=== PATIENT | female | born 1980 | race Caucasian/White ===

== ENCOUNTER 2018-12-29 15:45 | Emergency (ER) | payer OTHER, SELFPAY ==
--- OUTSIDE RECORDS SUMMARY | 2018-12-29 15:47 | XMS REPORT ---
:1980 Author Organization e[employer] Care Team Providers Name Role Phone Antioneraphael Gay Provider Role Unavailable Allergies, Adverse Reactions, Alerts Substance Reaction Event Type tramadol seizures Drug Allergy penicillin break out in hives Drug Allergy Problems Problem Type Condition Code Onset Dates Condition Status Assessment History of endometriosis Z87.42 Active Assessment Left ovarian cyst N83.202 Active Assessment History of hysterectomy Z90.710 Active Assessment Lower abdominal pain R10.30 Active Assessment Anxiety F41.9 Active Assessment Morbid (severe) obesity due to E66.01 Active excess calories Assessment Body mass index (BMI) of 40.0-44.9 Z68.41 Active in adult Problem Frequent headaches R51 Active Assessment Fatigue, unspecified type R53.83 Active Problem Morbid (severe) obesity due to E66.01 Active excess calories Assessment Lightheadedness R42 Active Problem Swelling R60.9 Active Problem Migraines G43.909 Active Problem History of hysterectomy Z90.710 Active Problem Shortness of breath R06.02 Active Problem Palpitations R00.2 Active Assessment Asthma, unspecified asthma J45.909 Active severity, unspecified whether complicated, unspecified whether persistent Assessment History of diabetes as a child Z86.39 Active Problem Diabetes E11.9 Active Assessment Frequent headaches R51 Active Problem Lightheadedness R42 Active Problem Lower abdominal pain R10.30 Active Problem Anxiety F41.9 Active Problem Depression F32.9 Active Problem Asthma, unspecified asthma J45.909 Active severity, unspecified whether complicated, unspecified whether persistent Problem Left ovarian cyst N83.202 Active Assessment Palpitations R00.2 Active Assessment Shortness of breath R06.02 Active Problem History of diabetes as a child Z86.39 Active Problem Fatigue, unspecified type R53.83 Active Problem Body mass index (BMI) of 40.0-44.9 Z68.41 Active in adult Problem History of endometriosis Z87.42 Active Medications Medication Code Code Instructions Start End Status Dosage System Date Date Lidocaine [facility] 44329438199 5 % Externally Active 1 patch to Once a day skin remove after 12 hours Hydrocodone-Ac [facility] [address]-93 5-325 MG Orally Active 1 tablet etaminophen Twice a day as needed Robaxin [facility] [address]-26 500 MG Orally Active not Twice a day defined Results No Known Results Summary Purpose [employer]ClinicalWorks Submission
--- OUTSIDE RECORDS SUMMARY | 2018-12-29 15:48 | XMS REPORT ---
:1980 Author Organization [employer] Care Team Providers Name Role Phone Randal Gay Provider Role Unavailable Allergies No Known Allergies Problems Problem Type Condition Code Onset Dates Condition Status Problem Fatigue, unspecified type R53.83 Active Problem Morbid (severe) obesity due to E66.01 Active excess calories Problem Frequent headaches R51 Active Problem Depression F32.9 Active Problem Lightheadedness R42 Active Problem Vitamin D deficiency E55.9 Active Problem History of hysterectomy Z90.710 Active Problem Swelling R60.9 Active Problem Lower abdominal pain R10.30 Active Problem Migraines G43.909 Active Problem Palpitations R00.2 Active Problem Shortness of breath R06.02 Active Problem Anxiety F41.9 Active Problem Left ovarian cyst N83.202 Active Problem Body mass index (BMI) of 40.0-44.9 Z68.41 Active in adult Problem Diabetes E11.9 Active Problem History of endometriosis Z87.42 Active Problem Asthma, unspecified asthma J45.909 Active severity, unspecified whether complicated, unspecified whether persistent Problem History of diabetes as a child Z86.39 Active Medications No Known Medications Results No Known Results Summary Purpose [employer]ClinicalWorks Submission
--- OUTSIDE RECORDS SUMMARY | 2018-12-29 15:48 | XMS REPORT ---
:1980 Author Organization [employer] Care Team Providers Name Role Phone Randal Gay Provider Role Unavailable Allergies No Known Allergies Problems Problem Type Condition Code Onset Dates Condition Status Problem Fatigue, unspecified type R53.83 Active Problem Morbid (severe) obesity due to E66.01 Active excess calories Problem Frequent headaches R51 Active Problem Depression F32.9 Active Assessment Elevated blood pressure reading in R03.0 Active office without diagnosis of hypertension Problem Lightheadedness R42 Active Problem Vitamin D deficiency E55.9 Active Problem History of hysterectomy Z90.710 Active Problem Swelling R60.9 Active Problem Lower abdominal pain R10.30 Active Problem Migraines G43.909 Active Problem Palpitations R00.2 Active Problem Shortness of breath R06.02 Active Assessment Snoring R06.83 Active Problem Anxiety F41.9 Active Problem Left [...] Medications Results No Known Results Summary Purpose [employer] Submission
--- OUTSIDE RECORDS SUMMARY | 2018-12-29 15:48 | XMS REPORT ---
:1980 Author Organization [employer]Works Care Team Providers Name Role Phone Gay Tee Provider Role Unavailable Allergies, Adverse Reactions, Alerts Substance Reaction Event Type tramadol seizures Drug Allergy penicillin break out in hives Drug Allergy Problems Problem Type Condition Code Onset Dates Condition Status Assessment Swelling of left lower extremity M79.89 Active Assessment Other chronic pain G89.29 Active Assessment Left leg pain M79.605 Active Assessment Low back pain M54.5 Active Assessment Neck pain M54.2 Active Assessment Left ovarian cyst N83.202 Active Assessment Lower abdominal pain R10.30 Active Assessment Vitamin D deficiency E55.9 Active Problem History of hysterectomy Z90.710 Active Problem Asthma, unspecified asthma J45.909 Active severity, unspecified whether complicated, unspecified whether persistent Problem Anxiety F41.9 Active Problem Left ovarian cyst N83.202 Active Problem History of endometriosis Z87.42 Active Problem Body mass index (BMI) of 40.0-44.9 Z68.41 Active in adult Problem Low back pain M54.5 Active Problem Other chronic pain G89.29 Active Problem Diabetes E11.9 Active Problem Shortness of breath R06.02 Active Problem Neck pain M54.2 Active Problem Palpitations R00.2 Active Problem Vitamin D deficiency E55.9 Active Problem Depression F32.9 Active Problem Left leg pain M79.605 Active Problem Swelling of left lower extremity M79.89 Active Problem Lightheadedness R42 Active Problem History of diabetes as a child Z86.39 Active Problem Migraines G43.909 Active Problem Lower abdominal pain R10.30 Active Problem Morbid (severe) obesity due to E66.01 Active excess calories Problem Swelling R60.9 Active Problem Fatigue, unspecified type R53.83 Active Problem Frequent headaches R51 Active Medications Medication Code Code Instructions Start End Status Dosage System Date Date Lidocaine ND 13608682544 5 % Externally Active 1 patch to Once a day skin remove after 12 hours Hydrocodone-Ac ND 42969874540 5-325 MG Orally Active 1 tablet etaminophen Twice a day as needed Robaxin [facility] 56641654184 500 MG Orally Active not Twice a day defined Results No Known Results Summary Purpose [employer] Submission
--- OUTSIDE RECORDS SUMMARY | 2018-12-29 15:48 | XMS REPORT ---
:1980 Author Organization [employer] Care Team Providers Name Role Phone Gay Tee Provider Role Unavailable Allergies No Known Allergies [...]
--- OUTSIDE RECORDS SUMMARY | 2018-12-29 15:48 | XMS REPORT ---
:1980 Author Organization [employer]Works Care Team Providers Name Role Phone Gay Tee Provider Role Unavailable Allergies, Adverse Reactions, Alerts Substance Reaction Event Type tramadol seizures Drug Allergy penicillin break out in hives Drug Allergy Problems Problem Type Condition Code Onset Dates Condition Status Assessment Morbid (severe) obesity due to E66.01 Active excess calories Assessment Body mass index (BMI) of 40.0-44.9 Z68.41 Active in adult Problem History of endometriosis Z87.42 Active Assessment Snoring R06.83 Active Problem History of diabetes as a child Z86.39 Active Assessment Vitamin D deficiency E55.9 Active Problem Fatigue, unspecified type R53.83 Active Problem Morbid (severe) obesity due to E66.01 Active excess calories Problem Frequent headaches R51 Active Problem Depression F32.9 Active Problem Lightheadedness R42 Active Assessment History of diabetes as a child Z86.39 Active Assessment Elevated serum creatinine R79.89 Active Problem Vitamin D deficiency E55.9 Active Assessment Elevated BP without diagnosis of R03.0 Active hypertension Problem History of hysterectomy Z90.710 Active Problem Swelling R60.9 Active Problem Lower abdominal pain R10.30 Active Problem Migraines G43.909 Active Problem Palpitations R00.2 Active Problem Shortness of breath R06.02 Active Assessment Hyperglycemia R73.9 Active Problem Anxiety F41.9 Active Problem Left ovarian cyst N83.202 Active Problem Body mass index (BMI) of 40.0-44.9 Z68.41 Active in adult Problem Diabetes E11.9 Active Problem Asthma, unspecified asthma J45.909 Active severity, unspecified whether complicated, unspecified whether persistent Medications Medication Code Code Instructions Start End Status Dosage System Date Date Hydrocodone-Ac [facility] 04733385456 5-325 MG Orally Active 1 tablet etaminophen Twice a day as needed Robaxin [facility] 41418339494 500 MG Orally Active not Twice a day defined Vitamin D [facility] [id number] UNIT April 29Jul Active 1 capsule (Ergocalcifero Orally Once 2018 09, l) weekly 2018 Lidocaine [facility] 03097614586 5 % Externally Active 1 patch to Once a day skin remove after 12 hours Results No Known Results Summary Purpose [employer]ClinicalWorks Submission
[2018-12-29] MEDS ORDERED: FENTANYL CITR 100 MCG/2 ML ONE (18:11)
[2018-12-29] MEDS ORDERED: NA CHLORIDE 0.9% 1,000 ML ONE (18:11)
[2018-12-29 18:33] LABS: Absolute Lymphocytes (CBC) 3.6 K/uL (0.7-4.9); Absolute Monocytes 0.6 K/uL (0.1-1.3); Absolute Neutrophil 4.1 K/uL (1.8-8.0); Basophils % 0.5 % (0-1.3); Eosinophils % 1.4 % (0-4.4); Hematocrit 47.7 % (36.0-45.0); Lymphocytes % 42.5 % (15.3-44.8); MPV 8.3 fL (7.6-11.3); RBC Red Blood Cell Count 5.17 M/uL (3.86-4.86)
[2018-12-29 18:54] LABS: Bilirubin Direct 0.1 mg/dL (0-0.2); Bilirubin Total 0.4 mg/dL (0.2-1.0); Protein, Total 7.6 g/dL (6.4-8.2)
[2018-12-29 19:44] LABS: Urine Blood NEGATIVE (NEG); Urine Glucose NEGATIVE (NEG); Urine Protein NEGATIVE (NEG); Urine Specific Gravity 1.025 (1.005-1.030)
[2018-12-29] MEDS ORDERED: MORPHINE 4 MG/ML SYR ONE (19:47)
[2018-12-29 20:07] LABS: Urine Amorphous Sediment TRACE /HPF (NONE SEEN); Urine Bacteria 20-50 /HPF (<20); Urine Culture Reflex Order NOT NEEDED; Urine RBC <5 /HPF (NONE SEEN)
--- NOTE | 2018-12-29 20:43 | RAD REPORT ---
EXAM DESCRIPTION: CT - Abdomen Pelvis W Contrast - 12/29/2018 8:31 pm CLINICAL HISTORY: Abdominal pain, groin pain, dysuria, prior hysterectomy, cholecystectomy COMPARISON: CT imaging April 2016 TECHNIQUE: Biphasic, helical CT imaging of the abdomen and pelvis was performed following 100 ml non -ionic IV contrast. Oral contrast was given. All CT scans are performed using dose optimization technique as appropriate and may include automated exposure control or mA/KV adjustment according to patient size. FINDINGS: No suspicious findings in the lung bases. The liver, spleen, and pancreas show no suspicious findings. Gallbladder is absent. Biliary tree with in normal limits for a post cholecystectomy patient. Duct stones can be occult on CT imaging. Symmetric renal function is seen with no hydronephrosis or suspicious renal mass. No pyelonephritis o r acute parenchymal process. No adrenal abnormalities. Urinary bladder is mostly contracted. No wall thickening, mass or bladder calculus. Uterus is absent. No suspicious ovarian finding. No dilated bowel loops or bowel wall thickening. No acute GI finding identified. No free air, free fl uid or inflammatory stranding. No hernia, mass or bulky lymphadenopathy. No acute bone finding identified. Patient has advanced for age degenerative change at the L5-S1 disc level. IMPRESSION: No obstruction, free air or surgically emergent finding. No acute abdomen or pelvis find ing. Advanced for age degenerative change at L5-S1. No acute bone finding.
--- NOTE | 2018-12-29 20:52 | ER ---
Nurse's Notes [facility] Name: Roxane Mayfield Age: 38 yrs Sex: Female : 1980 Arrival Date: 12/29/2018 Time: 15:49 Bed 16 Private MD: Gay Tee Diagnosis: Lower abdominal pain, unspecified;Urinary tract infection, site not specified;Low back pain Presentation: 12/29 16:00 Presenting complaint: Lower abdominal pain, groin pain, and dark urine x 2 weeks. hb Transition of care: patient was not received from another setting of care. Onset of symptoms is unknown. Risk Assessment: Do you want to hurt yourself or someone else? Patient reports no desire to harm self or others. Care prior to arrival: None. 16:00 Method Of Arrival: Ambulatory hb 16:00 Acuity: CABRERA 3 hb 16:50 Initial Sepsis Screen: Does the patient meet any 2 criteria? No. Patient's initial rb1 sepsis screen is negative. Does the patient have a suspected source of infection? No. Patient's initial sepsis screen is negative. 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 - Social history:: Smoking status: Patient uses tobacco products, smokes one-half pack cigarettes per day. - Ebola Screening: : No symptoms or risks identified at this time. Screenin:50 Abuse screen: Denies threats or abuse. Nutritional screening: No deficits noted. rb1 Tuberculosis screening: No symptoms or risk factors identified. Fall Risk None identified. Assessment: 16:50 General: Appears uncomfortable, Behavior is calm, cooperative, Denies fever. Pain: rb1 Complains of pain in anterior aspect of right lateral abdomen and suprapubic area Pain radiates to right flank Pain currently is 10 out of 10 on a pain scale. Pain began x 2 weeks. Neuro: Level of Consciousness is awake, alert, obeys commands, Oriented to person, place, time, situation. Cardiovascular: Capillary refill < 3 seconds is brisk in bilateral fingers. Respiratory: Airway is patent Respiratory effort is even, unlabored, Respiratory pattern is regular, symmetrical. GI: Bowel sounds present X 4 quads. Abd is soft Reports diarrhea, nausea, since x 1 week. : No signs and/or symptoms were reported regarding the genitourinary system. Derm: Skin is dry, Skin is normal, Skin temperature is warm. 17:50 Reassessment: Patient appears in no apparent distress at this time. No changes from rb1 previously documented assessment. 18:45 Reassessment: Patient appears in no apparent distress at this time. Patient and/or rb1 family updated on plan of care and expected duration. Pain level reassessed. Patient is alert, oriented x 3, equal unlabored respirations, skin warm/dry/pink. Family at bedside. 19:15 Reassessment: Patient appears in no apparent distress at this time. Patient and/or jb4 family updated on plan of care and expected duration. Pain level reassessed. Patient is alert, oriented x 3, equal unlabored respirations, skin warm/dry/pink. 19:36 Reassessment: Pt complaining of pain, provider notified, see MAR for orders. jb4 20:00 Reassessment: Patient appears in no apparent distress at this time. Patient and/or jb4 family updated on plan of care and expected duration. Pain level reassessed. Patient is alert, oriented x 3, equal unlabored respirations, skin warm/dry/pink. Patient states feeling better. 21:00 Reassessment: Patient appears in no apparent distress at this time. Patient and/or jb4 family updated on plan of care and expected duration. Pain level reassessed. Patient is alert, oriented x 3, equal unlabored respirations, skin warm/dry/pink. Vital Signs: 16:03 BP 132 / 78; Pulse 82; Resp 16; Temp 97.2; Pulse Ox 100% on R/A; Pain 8/10; hb 19:30 BP 126 / 80; Pulse 63; Resp 16; Pulse Ox 100% on R/A; jb4 20:30 BP 155 / 93; Pulse 64; Resp 16; Pulse Ox 100% on R/A; jb4 ED Course: 15:49 Patient arrived in ED. sb2 15:49 Gay Tee MD is Private Physician. sb2 15:58 Arm band placed on. hb 16:01 Triage completed. hb 16:49 [facility]. snw 16:49 Damir Leach MD is Attending Physician. snw 16:50 Patient has correct armband on for positive identification. Bed in low position. Call rb1 light in reach. Side rails up X 1. Pulse ox on. NIBP on. 17:51 Priscilla Davis RN is Primary Nurse. rb1 17:52 Oral contrast given. kw1 18:57 Report given to MARGARITA Cody. rb1 19:45 Radiology exam delayed due to getting meds. vr 20:22 Inserted saline lock: 20 gauge in left antecubital area, using aseptic technique. la1 20:31 CT Abd/Pelvis - W/Contrast In Process Unspecified. EDMS 20:50 Gay Tee MD is Referral Physician. snw 21:07 No provider procedures requiring assistance completed. IV discontinued, intact, jb4 bleeding controlled. Administered Medications: 18:10 Drug: NS 0.9% 1000 ml Route: IV; Rate: 125 ml/hr; Site: right antecubital; rb1 21:07 Follow up: Response: No adverse reaction; IV Status: Order to discontinue infusion jb4 18:10 Drug: fentaNYL (PF) 25 mcg Route: IVP; Site: right antecubital; rb1 19:36 Follow up: Response: No adverse reaction; Pain is unchanged, physician notified jb4 19:50 Drug: morphine 4 mg Route: IVP; Site: left antecubital; jb4 20:51 Follow up: Response: No adverse reaction; Pain is decreased jb4 21:05 Drug: Ciprofloxacin 500 mg Route: PO; jb4 21:06 Follow up: Response: No adverse reaction jb4 21:06 Drug: Macrobid 100 mg Route: PO; jb4 21:06 Follow up: Response: No adverse reaction jb4 Outcome: 20:51 Discharge ordered by . snw 21:07 Discharged to home ambulatory, with family. jb4 21:07 Condition: stable 21:07 Discharge instructions given to patient, family, Instructed on discharge instructions, follow up and referral plans. medication usage, Demonstrated understanding of instructions, follow-up care, medications, Prescriptions given X 3. 21:11 Patient left the ED. jb4 Signatures: Dispatcher [employer] EDMS Jossy Alfred, MICROWAVE TECHNICIAN-C MICROWAVE TECHNICIAN-Csnw Lacey Dickerson Lee RN RN la1 Priscilla Davis, MARGARITA RN rb1 Jessica Freitas RN RN hb Bryson, James, RN RN jb4 Ting Romero kw1 Licha Palacios sb2 Corrections: (The following items were deleted from the chart) 21:07 21:06 IV Status: Order to discontinue infusion jb4 jb4
--- NOTE | 2018-12-29 20:52 | EDPHYS ---
Physician Documentation [facility] Name: Roxane Mayfield Age: 38 yrs Sex: Female : 1980 Arrival Date: 12/29/2018 Time: 15:49 Bed 16 Private MD: Gay Tee ED Physician Damir Leach HPI: 12/29 17:44 This 38 yrs old Female presents to ER via Ambulatory with complaints of snw Abdominal Cramping. 17:44 The patient presents with abdominal pain that is diffuse. Onset: The symptoms/episode snw began/occurred gradually, 2 week(s) ago, and became persistent 3 days ago. The symptoms radiate to back. Associated signs and symptoms: Pertinent positives: nausea. The symptoms are described as crampy. Severity of pain: At its worst the pain was moderate severe. The patient has not experienced similar symptoms in the past. The patient has not recently seen a physician. 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 - Social history:: Smoking status: Patient uses tobacco products, smokes one-half pack cigarettes per day. - Ebola Screening: : No symptoms or risks identified at this time. ROS: 17:42 Constitutional: Negative for fever, chills, and weight loss, Eyes: Negative for injury, snw pain, redness, and discharge, ENT: Negative for injury, pain, and discharge, Neck: Negative for injury, pain, and swelling, Cardiovascular: Negative for chest pain, palpitations, and edema, Respiratory: Negative for shortness of breath, cough, wheezing, and pleuritic chest pain, Back: Negative for injury and pain, : Negative for injury, bleeding, discharge, and swelling, MS/Extremity: Negative for injury and deformity, Skin: Negative for injury, rash, and discoloration, Neuro: Negative for headache, weakness, numbness, tingling, and seizure. 17:42 Abdomen/GI: Positive for abdominal pain, nausea, abdominal cramps. Exam: 17:42 Constitutional: This is a well developed, well nourished patient who is awake, alert, snw and in no acute distress. Head/Face: Normocephalic, atraumatic. Eyes: Pupils equal round and reactive to light, extra-ocular motions intact. Lids and lashes normal. Conjunctiva and sclera are non-icteric and not injected. Cornea within normal limits. Periorbital areas with no swelling, redness, or edema. ENT: Nares patent. No nasal discharge, no septal abnormalities noted. Tympanic membranes are normal and external auditory canals are clear. Oropharynx with no redness, swelling, or masses, exudates, or evidence of obstruction, uvula midline. Mucous membranes moist. Neck: Trachea midline, no thyromegaly or masses palpated, and no cervical lymphadenopathy. Supple, full range of motion without nuchal rigidity, or vertebral point tenderness. No Meningismus. Chest/axilla: Normal chest wall appearance and motion. Nontender with no deformity. No lesions are appreciated. Cardiovascular: Regular rate and rhythm with a normal S1 and S2. No gallops, murmurs, or rubs. Normal PMI, no JVD. No pulse deficits. Respiratory: Lungs have equal breath sounds bilaterally, clear to auscultation and percussion. No rales, rhonchi or wheezes noted. No increased work of breathing, no retractions or nasal flaring. Back: No spinal tenderness. No costovertebral tenderness. Full range of motion. Skin: Warm, dry with normal turgor. Normal color with no rashes, no lesions, and no evidence of cellulitis. MS/ Extremity: Pulses equal, no cyanosis. Neurovascular intact. Full, normal range of motion. Neuro: Awake and alert, GCS 15, oriented to person, place, time, and situation. Cranial nerves II-XII grossly intact. Motor strength 5/5 in all extremities. Sensory grossly intact. Cerebellar exam normal. Normal gait. Psych: Awake, alert, with orientation to person, place and time. Behavior, mood, and affect are within normal limits. 17:42 Abdomen/GI: Inspection: obese Bowel sounds: diminished, Palpation: moderate abdominal tenderness, in the suprapubic area and anterior aspect of right lateral abdomen. Vital Signs: 16:03 BP 132 / 78; Pulse 82; Resp 16; Temp 97.2; Pulse Ox 100% on R/A; Pain 8/10; hb 19:30 BP 126 / 80; Pulse 63; Resp 16; Pulse Ox 100% on R/A; jb4 20:30 BP 155 / 93; Pulse 64; Resp 16; Pulse Ox 100% on R/A; jb4 MDM: 16:49 Patient medically screened. snw 21:03 Data reviewed: vital signs, nurses notes. Data interpreted: Pulse oximetry: on room air snw is 100 %. Interpretation: normal. Counseling: I had a detailed discussion with the patient and/or guardian regarding: the historical points, exam findings, and any diagnostic results supporting the discharge/admit diagnosis, the presence of at least one elevated blood pressure reading (>120/80) during this emergency department visit, lab results, radiology results, the need for outpatient follow up, to return to the emergency department if symptoms worsen or persist or if there are any questions or concerns that arise at home. Special discussion: Based on the patient's Hx, exam, and Dx evaluation, there is no indication for emergent surgery or inpatient Tx. It is understood by the patient/guardian that if the Sx's persist or worsen they need to return immediately for re-evaluation. I have referred the patient to see his PCP for further evaluation of high blood pressure. Based on the history and exam findings, there is no indication for further emergent testing or inpatient evaluation. I discussed with the patient/guardian the need to see the primary care provider for further evaluation of the symptoms. 12/29 16:09 Order name: Urine Culture snw 12/29 16:09 Order name: Urine Microscopic Only; Complete Time: 20:14 snw 12/29 17:29 Order name: Basic Metabolic Panel; Complete Time: 18:56 snw 12/29 17:29 Order name: CBC with Diff; Complete Time: 18:36 snw 12/29 17:29 Order name: Hepatic Function; Complete Time: 18:56 snw 12/29 17:29 Order name: Lipase; Complete Time: 18:56 snw 12/29 17:40 Order name: CT Abd/Pelvis - W/Contrast; Complete Time: 20:48 snw 12/29 19:26 Order name: Urine Dipstick--Ancillary (enter results); Complete Time: 19:45 ar5 12/29 19:26 Order name: Urine --Ancillary (enter results); Complete Time: 19:45 ar5 12/29 16:09 Order name: Urine Test (obtain specimen); Complete Time: 19:32 snw 12/29 16:09 Order name: Urine Dipstick-Ancillary (obtain specimen); Complete Time: 19:32 snw 12/29 17:29 Order name: IV Saline Lock; Complete Time: 18:28 snw 12/29 17:29 Order name: Labs collected and sent; Complete Time: 18:28 snw Administered Medications: 18:10 Drug: NS 0.9% 1000 ml Route: IV; Rate: 125 ml/hr; Site: right antecubital; rb1 21:07 Follow up: Response: No adverse reaction; IV Status: Order to discontinue infusion jb4 18:10 Drug: fentaNYL (PF) 25 mcg Route: IVP; Site: right antecubital; rb1 19:36 Follow up: Response: No adverse reaction; Pain is unchanged, physician notified jb4 19:50 Drug: morphine 4 mg Route: IVP; Site: left antecubital; jb4 20:51 Follow up: Response: No adverse reaction; Pain is decreased jb4 21:05 Drug: Ciprofloxacin 500 mg Route: PO; jb4 21:06 Follow up: Response: No adverse reaction jb4 21:06 Drug: Macrobid 100 mg Route: PO; jb4 21:06 Follow up: Response: No adverse reaction 4 Disposition: 12/29/18 20:51 Discharged to Home. Impression: Lower abdominal pain, unspecified, Urinary tract infection, site not specified, Low back pain. - Condition is Stable. - Discharge Instructions: Abdominal Pain, Adult, Back Pain, Adult, Musculoskeletal Pain, Urinary Tract Infection, Adult, Rehydration, Adult, Heat Therapy. - Prescriptions for Macrobid 100 mg Oral Capsule - take 1 capsule by ORAL route every 12 hours for 10 days; 20 capsule. Cipro 500 mg Oral Tablet - take 1 tablet by ORAL route every 12 hours for 7 days; 14 tablet. Diclofenac Sodium 75 mg Oral Tablet Sustained Release - take 1 tablet by ORAL route 2 times per day; 30 tablet. - Medication Reconciliation Form, Thank You Letter, Antibiotic Education, Prescription Opioid Use form. - Follow up: Gay Tee MD; When: 1 - 2 days; Reason: Recheck today's complaints, Continuance of care, Re-evaluation by your physician. Follow up: Emergency Department; When: As needed; Reason: Worsening of condition. Addendum: 12/31/2018 07:11 Co-signature as Attending Physician, Damir Leach MD. r n Signatures: Dispatcher [employer] EDMS TimaJossy gallardo, BREAKER MACHINE OPERATOR-C BREAKER MACHINE OPERATOR-Csnw Damir Leach MD MD rn Priscilla Davis, RN MARGARITA [facility] Jessica Freitas RN RN Jose Abraham RN RN jb4 Corrections: (The following items were deleted from the chart) 12/29 21:11 20:51 12/29/2018 20:51 Discharged to Home. Impression: Lower abdominal pain, jb4 unspecified; Urinary tract infection, site not specified; Low back pain. Condition is Stable. Forms are Medication Reconciliation Form, Thank You Letter, Antibiotic Education, Prescription Opioid Use. Follow up: Gay Tee; When: 1 - 2 days; Reason: Recheck today's complaints, Continuance of care, Re-evaluation by your physician. Follow up: Emergency Department; When: As needed; Reason: Worsening of condition. snw
[2018-12-29] MEDS ORDERED: NITROFURAN MACRO 100 MG CAP PO ONE (21:09)
[2018-12-29] MEDS ORDERED: CIPROFLOXACIN HCL 500 MG TAB ONE (21:09)
[2018-12-29 21:51] VITALS: TEMP 97.2; O2SAT 100
[2018-12-29 21:54] VITALS: BP 155/93
== END 2018-12-29 21:11 | disposition home or self-care (01) ==
LOC: ER 15:45
DX: N39.0 Urinary tract infection, site not specified (principal); M54.5 Low back pain; F17.210 Nicotine dependence, cigarettes, uncomplicated; Z88.0 Allergy status to penicillin; Z88.5 Allergy status to narcotic agent
CPT/HCPCS: 36415; 74177; 80048; 80076; 81003; 81015; 81025; 83690; 85025; 87086; 87088; 99284; J3010; J7030; Q9967

== ENCOUNTER 2019-04-19 09:17 | Emergency (ER) | payer OTHER, SELFPAY ==
--- OUTSIDE RECORDS SUMMARY | 2019-04-19 09:19 | XMS REPORT ---
[...] End Status Dosage System Date Date Hydrocodone-Ac [facility] 37152084279 5-325 MG Orally Active 1 tablet etaminophen Twice a day as needed Robaxin [facility] 25566651249 500 MG Orally Active not Twice a day defined Vitamin D [facility] 67538666959 [address] UNIT April 29Jul Active 1 capsule (Ergocalcifero Orally Once 2018 09, l) weekly 2018 Lidocaine [facility] 31129649770 5 % Externally Active 1 patch to Once a day skin remove after 12 hours Results No Known Results Summary Purpose eClinicalWorks Submission
--- OUTSIDE RECORDS SUMMARY | 2019-04-19 09:19 | XMS REPORT ---
[...] Medications Results No Known Results Summary Purpose [facility] [employer] [facility] (EBTH)[place]zuuka! Submission
--- OUTSIDE RECORDS SUMMARY | 2019-04-19 09:19 | XMS REPORT ---
[...] End Status Dosage System Date Date Lidocaine [facility] 64525097536 5 % Externally Active 1 patch to Once a day skin remove after 12 hours Hydrocodone-Ac [facility] [address]-08 5-325 MG Orally Active 1 tablet etaminophen Twice a day as needed Robaxin [facility] [address]-19 500 MG Orally Active not Twice a day defined Results No Known Results Summary Purpose eClinicalWorks Submission
--- OUTSIDE RECORDS SUMMARY | 2019-04-19 09:20 | XMS REPORT ---
[...] Status Dosage System Date Date Lidocaine ND 55986895564 5 % Externally Active 1 patch to Once a day skin remove after 12 hours Hydrocodone-Ac ND 92495464113 5-325 MG Orally Active 1 tablet etaminophen Twice a day as needed Robaxin [facility] 33399031346 500 MG Orally Active not Twice a day defined Results No Known Results Summary Purpose eClinicalWorks Submission
--- OUTSIDE RECORDS SUMMARY | 2019-04-19 09:21 | XMS REPORT ---
:1980 Author Organization eClinicalWorks Care Team Providers Name Role Phone Gay Tee Provider Role Unavailable Allergies, Adverse Reactions, Alerts Substance Reaction Event Type tramadol seizures Drug Allergy penicillin break out in hives Drug Allergy Problems Problem Type Condition Code Onset Dates Condition Status Assessment Left ovarian cyst N83.202 Active Assessment History of endometriosis Z87.42 Active Assessment Low back pain M54.5 Active Assessment Daily headache R51 Active Assessment Dizziness R42 Active Problem Anxiety F41.9 Active Problem Palpitations R00.2 Active Problem Body mass index (BMI) of 40.0-44.9 Z68.41 Active in adult Problem History of endometriosis Z87.42 Active Problem Shortness of breath R06.02 Active Problem Asthma, unspecified asthma J45.909 Active severity, unspecified whether complicated, unspecified whether persistent Problem Vitamin D deficiency E55.9 Active Problem Depression F32.9 Active Problem Daily headache R51 Active Problem Swelling of left lower extremity M79.89 Active Problem Lower abdominal pain R10.30 Active Problem Migraines G43.909 Active Problem Dizziness R42 Active Problem Diabetes E11.9 Active Problem Other chronic pain G89.29 Active Problem Left leg pain M79.605 Active Problem Neck pain M54.2 Active Problem Low back pain M54.5 Active Problem Fatigue, unspecified type R53.83 Active Problem Frequent headaches R51 Active Problem Lightheadedness R42 Active Problem History of diabetes as a child Z86.39 Active Problem History of hysterectomy Z90.710 Active Problem Left ovarian cyst N83.202 Active Problem Morbid (severe) obesity due to E66.01 Active excess calories Problem Swelling R60.9 Active Medications Medication Code Code Instructions Start End Status Dosage System Date Date Robaxin ND 56869137231 500 MG Orally Active not Twice a day defined Lidocaine ND 55393355445 5 % Externally Active 1 patch to Once a day skin remove after 12 hours Hydrocodone-Ac ND 07024928558 5-325 MG Orally Active 1 tablet etaminophen Twice a day as needed ProAir HFA ND 99882604888 108 (90 Base) Sep 18, Active 2 puffs as MCG/ACT 2017 needed for Inhalation every sob/wheezi 4-6 hrs ng Topamax [facility] 14063006362 25 mg Orally March 27, Active 1 tablet Once a day in 2018 evening for headaches Results Name Result Date Reference Range Unit Abnormality Flag GLUCOSE FINGER ----Result 81--RBS [id number] Summary Purpose eClinicalWorks Submission
[2019-04-19 10:31] LABS: Urine Blood NEGATIVE (NEG); Urine Glucose NEGATIVE (NEG); Urine Protein NEGATIVE (NEG); Urine pH 5.5 (5.0-7.0)
[2019-04-19 11:11] LABS: Absolute Lymphocytes (CBC) 2.1 K/uL (0.7-4.9); Absolute Monocytes 0.5 K/uL (0.1-1.3); Absolute Neutrophil 3.1 K/uL (1.8-8.0); Basophils % 0.3 % (0-1.3); Eosinophils % 2.6 % (0-4.4); Hematocrit 43.1 % (36.0-45.0); Lymphocytes % 35.8 % (15.3-44.8); MPV 7.9 fL (7.6-11.3); Monocytes % 8.2 % (3.3-12.3); RBC Red Blood Cell Count 4.72 M/uL (3.86-4.86)
--- NOTE | 2019-04-19 11:18 | RAD REPORT ---
EXAM DESCRIPTION: CT - Head Brain Wo Cont - 04/19/2019 11:07 am CLINICAL HISTORY: SEIZURE Headache, drowsiness, seizure COMPARISON: Transvaginal OB dated 08/25/2017HEAD BRAIN W O CONTRAST dated 10/07/2009 TECHNIQUE: All CT scans are performed using dose optimization technique as appropriate and may inclu de automated exposure control or mA/KV adjustment according to patient size. FINDINGS: No intracranial hemorrhage, hydrocephalus or extra-axial fluid collection.No areas of brai n edema or evidence of midline shift. The paranasal sinuses and mastoids are clear. The calvarium is intact. IMPRESSION: No acute intracranial abnormality.
[2019-04-19 11:19] LABS: Potassium 4.4 mmol/L (3.5-5.1)
--- NOTE | 2019-04-19 11:36 | ER ---
Nurse's Notes [facility] Name: Roxane Mayfield Age: 38 yrs Sex: Female : 1980 Arrival Date: 04/19/2019 Time: 09:18 Bed 17 Private MD: Diagnosis: Altered mental status, unspecified Presentation: 04/19 09:33 Presenting complaint: Friend states: "She has been having these episodes where we will ss be talking, then she has a blank stare and falls back. They have been happening for the past few weeks almost every day." Pt reports experiencing a headache just prior to these episodes. PCP instructed patient to come to ER for evaluation of possible seizures. Transition of care: patient was not received from another setting of care. Onset of symptoms is unknown. Risk Assessment: Do you want to hurt yourself or someone else? Patient reports no desire to harm self or others. Initial Sepsis Screen: Does the patient meet any 2 criteria? No. Patient's initial sepsis screen is negative. Does the patient have a suspected source of infection? No. Patient's initial sepsis screen is negative. Care prior to arrival: None. 09:33 Method Of Arrival: Ambulatory ss 09:33 Acuity: CABRERA 3 ss Historical: - Allergies: 09:36 PENICILLINS; ss 09:36 tramadol; ss - PMHx: 09:36 chronic back pain; Migraines; ss - PSHx: 09:36 Hysterectomy; ; Cholecystectomy; Tonsillectomy; Exploratory Laparotomy; ss - Immunization history:: Adult Immunizations up to date. - Social history:: Smoking status: Patient uses tobacco products, smokes one pack cigarettes per day. - Ebola Screening: : Patient denies exposure to infectious person Patient denies travel to an Ebola-affected area in the 21 days before illness onset. Screenin:00 Abuse screen: Denies threats or abuse. Nutritional screening: No deficits noted. em Tuberculosis screening: No symptoms or risk factors identified. Fall Risk None identified. Assessment: 10:00 General: Appears in no apparent distress. comfortable, Behavior is calm, cooperative. em Pain: Complains of pain in forehead Pain currently is 3 out of 10 on a pain scale. Neuro: Level of Consciousness is awake, alert, obeys commands, Oriented to person, place, time, situation, Moves all extremities. Speech is normal, Facial symmetry appears normal, Reports dizziness, headache frontal area, having blank stares and having syncope for 6 days. Cardiovascular: Capillary refill < 3 seconds Patient's skin is warm and dry. Respiratory: Airway is patent Respiratory effort is even, unlabored, Respiratory pattern is regular, symmetrical. GI: Reports nausea, Patient currently denies vomiting. Derm: Skin is intact, is healthy with good turgor, Skin is pink, warm \\T\\ dry. Musculoskeletal: Capillary refill < 3 seconds, Range of motion: intact in all extremities. 10:05 General: The previous assessment is accurate. Friend remains at bedside. . Vital Signs: 09:36 BP 134 / 87; Pulse 72; Resp 16; Temp 97.8(TE); Pulse Ox 100% ; Weight 108.86 kg; Height ss 5 ft. 4 in. (162.56 cm); Pain 3/10; 10:40 BP 132 / 78; Pulse 58; Resp 16; Temp 97.8; Pulse Ox 99% on R/A; mh5 11:23 BP 133 / 78; Pulse 66; Resp 18; Temp 97.7(O); Pulse Ox 100% on R/A; mh5 09:36 Body Mass Index 41.20 (108.86 kg, 162.56 cm) ED Course: 09:18 Patient arrived in ED. as 09:30 Jose Curry LVN is Primary Nurse. em 09:35 Triage completed. ss 09:36 Arm band placed on right wrist. ss 09:40 Ulysses Quintanilla MD is Attending Physician. kdr 10:00 Patient has correct armband on for positive identification. Placed in gown. Bed in low em position. Call light in reach. Adult w/ patient. Pulse ox on. NIBP on. 10:41 Warm blanket given. 5 10:59 Initial lab(s) drawn, by me, sent to lab. Inserted saline lock: 22 gauge in right 5 antecubital area, using aseptic technique. Blood collected. 10:59 Chem 7 Sent. 5 10:59 CBC with Diff Sent. [facility] 10:59 Urine Dipstick--Ancillary (enter results) Sent. 5 11:07 CT completed. Patient tolerated procedure well. Patient moved to CT. Patient moved back mw3 from CT. 11:09 CT Head Brain wo Cont In Process Unspecified. EDMS 12:06 No provider procedures requiring assistance completed. IV discontinued, intact, em bleeding controlled, No redness/swelling at site. Pressure dressing applied. Administered Medications: 11:41 Drug: Ibuprofen 800 mg Route: PO; em 12:07 Follow up: Response: No adverse reaction em Outcome: 11:36 Discharge ordered by MD. kdr 12:06 Discharged to home ambulatory, with friend. em 12:06 Condition: good 12:06 Discharge instructions given to patient, friend, Instructed on discharge instructions, follow up and referral plans. Demonstrated understanding of instructions, follow-up care. 12:07 Patient left the ED. em Signatures: Dispatcher [employer] EDMS Ulysses Quintanilla MD MD kdr Munoz, Edgar, MILITARY PAY CLERK MILITARY PAY CLERK em Melina Vanessa Shelby, MARGARITA RN Ella Antonio 5 Codi Stephen mw3 Corrections: (The following items were deleted from the chart) 10:47 10:40 BP 132 / 78; Pulse 58bpm; Resp 16bpm; Pulse Ox 99% RA; Temp 9.7F Oral; mh5 5
--- NOTE | 2019-04-19 11:37 | EDPHYS ---
Physician Documentation [facility] Name: Roxane Mayfield Age: 38 yrs Sex: Female : 1980 Arrival Date: 04/19/2019 Time: 09:18 Bed 17 Private MD: ED Physician Ulysses Quintanilla HPI: 04/19 11:30 This 38 yrs old Female presents to ER via Ambulatory with complaints of kdr Possible Seizure. 11:30 The patient presents with a history of multiple seizures, an unknown number, May be kdr brief or last a few minutes. Character of seizure(s): Loss of consciousness: the patient did not lose consciousness, Motor activity: None, Incontinence: none, Apnea: the patient did not experience apnea, Circulation: the patient did not experience evidence of pulse disturbance, Eye movements: the eyes did not move, The patient will stare off for a minute or two and then come back to base line with mild post-ictal . Seizure onset: last 10 days. Context: the seizure(s) was witnessed, by a bystander, occurred at home, occurred while the patient was at rest, Contributing factors: unknown. Seizure Hx: the patient has no previous seizure history. Associated injury: The patient did not suffer any apparent associated injury. Current symptoms: Currently, the patient is not experiencing any symptoms, headache, Mild and not atypical. The patient has not experienced similar symptoms in the past. The patient has not recently seen a physician. Historical: - Allergies: 09:36 PENICILLINS; ss 09:36 tramadol; ss - PMHx: 09:36 chronic back pain; Migraines; ss - PSHx: 09:36 Hysterectomy; ; Cholecystectomy; Tonsillectomy; Exploratory Laparotomy; ss - Immunization history:: Adult Immunizations up to date. - Social history:: Smoking status: Patient uses tobacco products, smokes one pack cigarettes per day. - Ebola Screening: : Patient denies exposure to infectious person Patient denies travel to an Ebola-affected area in the 21 days before illness onset. ROS: 11:30 Constitutional: Negative for fever, chills, and weight loss, Eyes: Negative for injury, kdr pain, redness, and discharge, ENT: Negative for injury, pain, and discharge, Neck: Negative for injury, pain, and swelling, Cardiovascular: Negative for chest pain, palpitations, and edema, Respiratory: Negative for shortness of breath, cough, wheezing, and pleuritic chest pain, Abdomen/GI: Negative for abdominal pain, nausea, vomiting, diarrhea, and constipation, Back: Negative for injury and pain, : Negative for injury, bleeding, discharge, and swelling, MS/Extremity: Negative for injury and deformity, Skin: Negative for injury, rash, and discoloration, Psych: Negative for depression, anxiety, suicide ideation, homicidal ideation, and hallucinations, Allergy/Immunology: Negative for hives, rash, and allergies, Endocrine: Negative for neck swelling, polydipsia, polyuria, polyphagia, and marked weight changes, Hematologic/Lymphatic: Negative for swollen nodes, abnormal bleeding, and unusual bruising. 11:30 Neuro: Positive for altered mental status, dizziness, Negative for gait disturbance, headache, hearing loss, loss of consciousness, numbness, seizure activity, speech changes, syncope, near syncope, tingling, tinnitus, tremor, visual changes, weakness. Exam: 11:30 Constitutional: This is a well developed, well nourished patient who is awake, alert, kdr and in no acute distress. Head/Face: Normocephalic, atraumatic. Eyes: Pupils equal round and reactive to light, extra-ocular motions intact. Lids and lashes normal. Conjunctiva and sclera are non-icteric and not injected. Cornea within normal limits. Periorbital areas with no swelling, redness, or edema. Neck: Trachea midline, no thyromegaly or masses palpated, and no cervical lymphadenopathy. Supple, full range of motion without nuchal rigidity, or vertebral point tenderness. No Meningismus. Chest/axilla: Normal chest wall appearance and motion. Nontender with no deformity. No lesions are appreciated. Cardiovascular: Regular rate and rhythm with a normal S1 and S2. No gallops, murmurs, or rubs. Normal PMI, no JVD. No pulse deficits. Respiratory: Lungs have equal breath sounds bilaterally, clear to auscultation and percussion. No rales, rhonchi or wheezes noted. No increased work of breathing, no retractions or nasal flaring. Abdomen/GI: Soft, non-tender, with normal bowel sounds. No distension or tympany. No guarding or rebound. No evidence of tenderness throughout. Back: No spinal tenderness. No costovertebral tenderness. Full range of motion. Skin: Warm, dry with normal turgor. Normal color with no rashes, no lesions, and no evidence of cellulitis. MS/ Extremity: Pulses equal, no cyanosis. Neurovascular intact. Full, normal range of motion. Neuro: Awake and alert, GCS 15, oriented to person, place, time, and situation. Cranial nerves II-XII grossly intact. Motor strength 5/5 in all extremities. Sensory grossly intact. Cerebellar exam normal. Normal gait. Psych: Awake, alert, with orientation to person, place and time. Behavior, mood, and affect are within normal limits. Vital Signs: 09:36 BP 134 / 87; Pulse 72; Resp 16; Temp 97.8(TE); Pulse Ox 100% ; Weight 108.86 kg; Height ss 5 ft. 4 in. (162.56 cm); Pain 3/10; 10:40 BP 132 / 78; Pulse 58; Resp 16; Temp 97.8; Pulse Ox 99% on R/A; mh5 11:23 BP 133 / 78; Pulse 66; Resp 18; Temp 97.7(O); Pulse Ox 100% on R/A; mh5 09:36 Body Mass Index 41.20 (108.86 kg, 162.56 cm) ss MDM: 11:30 Data reviewed: vital signs, nurses notes, lab test result(s), radiologic studies. kdr Counseling: I had a detailed discussion with the patient and/or guardian regarding: the historical points, exam findings, and any diagnostic results supporting the discharge/admit diagnosis, lab results, radiology results, the need for outpatient follow up. Special discussion: I discussed with the patient/guardian in detail that at this point there is no indication for admission to the hospital. It is understood, however, that if the symptoms persist or worsen the patient needs to return immediately for re-evaluation. ED course: The patient was stable in the ED and without any apparent acute illness or injury. 11:36 Patient medically screened. [facility] 04/19 10:11 Order name: Urine Dipstick--Ancillary (enter results) eb 04/19 10:45 Order name: CBC with Diff; Complete Time: 11:29 kdr 04/19 10:45 Order name: CT Head Brain wo Cont; Complete Time: 11:29 kdr 04/19 10:45 Order name: Chem 7; Complete Time: 11:29 kdr Administered Medications: 11:41 Drug: Ibuprofen 800 mg Route: PO; em 12:07 Follow up: Response: No adverse reaction em Disposition: 04/19/19 11:36 Discharged to Home. Impression: Altered mental status, unspecified. - Condition is Stable. - Discharge Instructions: Confusion. - Medication Reconciliation Form, Thank You Letter form. - Follow up: Private Physician; When: 2 - 3 days; Reason: If symptoms return, Further diagnostic work-up, Recheck today's complaints, Continuance of care, Re-evaluation by your physician. - Problem is new. - Symptoms have improved. Signatures: Dispatcher [employer] EDMS Ulysses Quintanilla MD MD kdr Jose Curry, LEAD TECHNICAL ARCHITECT LEAD TECHNICAL ARCHITECT em Viola Ellison RN RN ss Corrections: (The following items were deleted from the chart) 12:07 11:36 04/19/2019 11:36 Discharged to Home. Impression: Altered mental status, em unspecified. Condition is Stable. Forms are Medication Reconciliation Form, Thank You Letter, Antibiotic Education, Prescription Opioid Use. Follow up: Private Physician; When: 2 - 3 days; Reason: If symptoms return, Further diagnostic work-up, Recheck today's complaints, Continuance of care, Re-evaluation by your physician. Problem is new. Symptoms have improved. kdr
[2019-04-19] MEDS ORDERED: IBUPROFEN 400 MG TAB ONE (11:48)
[2019-04-19 12:37] VITALS: BP 133/78; TEMP 97.7; O2SAT 100
== END 2019-04-19 12:07 | disposition home or self-care (01) ==
LOC: ER 09:17
DX: R41.82 Altered mental status, unspecified (principal); Z88.5 Allergy status to narcotic agent; Z88.0 Allergy status to penicillin; F17.210 Nicotine dependence, cigarettes, uncomplicated
CPT/HCPCS: 36415; 70450; 80048; 81003; 85025; 99284

== ENCOUNTER 2019-05-03 17:27 | Emergency (ER) | payer OTHER ==
--- OUTSIDE RECORDS SUMMARY | 2019-05-03 17:30 | XMS REPORT ---
[...] Medications Results No Known Results Summary Purpose [facility] Submission
--- OUTSIDE RECORDS SUMMARY | 2019-05-03 17:30 | XMS REPORT ---
[...] Date Lidocaine [facility] 51806136740 5 % Externally Active 1 patch to Once a day skin remove after 12 hours Hydrocodone-Ac [facility] [address]-57 5-325 MG Orally Active 1 tablet etaminophen Twice a day as needed Robaxin [facility] [address]-70 500 MG Orally Active not Twice a day defined Results No Known Results Summary Purpose eClinicalWorks Submission
--- OUTSIDE RECORDS SUMMARY | 2019-05-03 17:30 | XMS REPORT ---
[...] Status Dosage System Date Date Hydrocodone-Ac [facility] 93189696529 5-325 MG Orally Active 1 tablet etaminophen Twice a day as needed Robaxin [facility] 52837513867 500 MG Orally Active not Twice a day defined Vitamin D [facility] [id number] 30002 UNIT April 29Jul Active 1 capsule (Ergocalcifero Orally Once 2018 09, l) weekly 2018 Lidocaine [facility] 88418430282 5 % Externally Active 1 patch to Once a day skin remove after 12 hours Results No Known Results Summary Purpose eClinicalWorks Submission
--- OUTSIDE RECORDS SUMMARY | 2019-05-03 17:30 | XMS REPORT ---
:1980 Author Organization [facility] Address [address] [place] [address] [address]. [address] [place] [address] Care Team Providers Name Role Phone Unavailable Unavailable Unavailable Problems This patient has no known problems. Allergies, Adverse Reactions, Alerts This patient has no known allergies or adverse reactions. Medications This patient has no known medications.
--- OUTSIDE RECORDS SUMMARY | 2019-05-03 17:31 | XMS REPORT ---
[...] Status Dosage System Date Date Lidocaine ND 58730843777 5 % Externally Active 1 patch to Once a day skin remove after 12 hours Hydrocodone-Ac ND 32398296364 5-325 MG Orally Active 1 tablet etaminophen Twice a day as needed Robaxin [facility] 78899573823 500 MG Orally Active not Twice a day defined Results No Known Results Summary Purpose eClinicalWorks Submission
--- OUTSIDE RECORDS SUMMARY | 2019-05-03 17:31 | XMS REPORT ---
[...] Status Dosage System Date Date Robaxin ND 92062727418 500 MG Orally Active not Twice a day defined Lidocaine ND 70556073083 5 % Externally Active 1 patch to Once a day skin remove after 12 hours Hydrocodone-Ac ND 29667811818 5-325 MG Orally Active 1 tablet etaminophen Twice a day as needed ProAir HFA ND 42039599507 108 (90 Base) Sep 18, Active 2 puffs as MCG/ACT 2017 needed for Inhalation every sob/wheezi 4-6 hrs ng Topamax [facility] 12070834563 25 mg Orally March 27, Active 1 tablet Once a day in 2018 evening for headaches Results Name Result Date Reference Range Unit Abnormality Flag GLUCOSE FINGER ----Result 81--RBS [id number] Summary Purpose eClinicalWorks Submission
--- NOTE | 2019-05-03 18:20 | ER ---
Nurse's Notes [facility] Name: Roxane Mayfield Age: 38 yrs Sex: Female : 1980 Arrival Date: 05/03/2019 Time: 17:40 Bed 15 Private MD: Diagnosis: Epileptic seizures related to external causes;Epileptic seizures related to external causes, not intractable;Hypokalemia Presentation: 05/03 17:41 Presenting complaint: EMS states: called out for seizure at [facility], described em as staring into space, was postictal on scene given 4 mg Zofran IV, 18 G RAC, BGL 149, VSS, pt A\T\0 x4 now. Transition of care: patient was not received from another setting of care. Onset of symptoms was May 03, 2019. Risk Assessment: Do you want to hurt yourself or someone else? Patient reports no desire to harm self or others. Initial Sepsis Screen: Does the patient meet any 2 criteria? No. Patient's initial sepsis screen is negative. Does the patient have a suspected source of infection? No. Patient's initial sepsis screen is negative. Care prior to arrival: None. 17:41 Method Of Arrival: EMS: [facility] em 17:45 Acuity: CABRERA 3 iw Triage Assessment: 17:46 General: Appears in no apparent distress. comfortable, Behavior is calm, cooperative. em Pain: Denies pain. Neuro: Level of Consciousness is awake, alert, obeys commands. TIME CLERK: 17:46 LMP N/A - Hysterectomy em Historical: - Allergies: 17:46 PENICILLINS; em 17:46 tramadol; em - Home Meds: 17:46 indomethacin 50 mg Oral cap [Active]; topiramate 50 mg oral tab [Active]; em - PMHx: 17:46 Diabetes - IDDM; chronic back pain; Migraines; em - PSHx: 17:46 ; Cholecystectomy; Tonsillectomy; Hysterectomy; em - Immunization history:: Adult Immunizations up to date. - Social history:: Smoking status: Patient uses tobacco products, smokes one pack cigarettes per day. - Ebola Screening: : Patient negative for fever greater than or equal to 101.5 degrees Fahrenheit, and additional compatible Ebola Virus Disease symptoms Patient denies exposure to infectious person Patient denies travel to an Ebola-affected area in the 21 days before illness onset No symptoms or risks identified at this time. - Family history:: not pertinent. Screenin:45 Abuse screen: Denies threats or abuse. Nutritional screening: No deficits noted. rb1 Tuberculosis screening: No symptoms or risk factors identified. Fall Risk No fall in past 12 months (0 pts). Secondary diagnosis (15 points) seizures, IV access (20 points). Ambulatory Aid- None/Bed Rest/Nurse Assist (0 pts). Gait- Normal/Bed Rest/Wheelchair (0 pts) Mental Status- Oriented to own ability (0 pts). Total Godinez Fall Scale indicates Low Risk Score (25-44 pts). Fall prevention measures have been instituted. Side Rails Up X 2 Placed close to Nursing Station 1:1 attendant Assigned to Pt. Frequent Obs/Assesments occuring Family Present and informed to notify staff if they need to leave bedside As available Patient and Family Educated on Fall Prevention Program and strategies. Assessment: 17:45 General: Appears in no apparent distress. comfortable, Behavior is calm, cooperative, rb1 Denies fever, feeling ill. Pain: Denies pain. Neuro: Level of Consciousness is awake, alert, obeys commands, Oriented to person, place, time, situation. Cardiovascular: Capillary refill < 3 seconds is brisk in bilateral fingers. Respiratory: Airway is patent Respiratory effort is even, unlabored, Respiratory pattern is regular, symmetrical. GI: No signs and/or symptoms were reported involving the gastrointestinal system. : No signs and/or symptoms were reported regarding the genitourinary system. Derm: Skin is pink, warm \T\ dry. Musculoskeletal: Range of motion: intact in all extremities. 18:15 Reassessment: Pt. ambulated to the restroom with standby assist without difficulty. rb1 18:25 Reassessment: Pt./ family wants to speak with Dr. Watkins; provider notified. rb1 18:37 Reassessment: Accompanied Dr. Watkins at pt. bedside. Dr. Watkins did another assessment of rb1 the pt. When the pt. was asked to stand and walk, pt. reported that her legs felt heavy and she felt weak but was able to ambulate to the foot of the bed. At that time Dr. Watkins asked the pt. to return to the bed and that we would continue to monitor her condition. 19:15 Reassessment: Patient appears in no apparent distress at this time. Patient and/or cc3 family updated on plan of care and expected duration. Pain level reassessed. Patient is alert, oriented x 3, equal unlabored respirations, skin warm/dry/pink. Received this female patient from morning shift RN Priscilla as a case of seizure, on seizure precautions. With IV cannula gauge 18 at the right ACV saline locked. 20:12 Reassessment: Patient appears in no apparent distress at this time. Patient and/or cc3 family updated on plan of care and expected duration. Pain level reassessed. Patient is alert, oriented x 3, equal unlabored respirations, skin warm/dry/pink. 20:30 Reassessment: Patient appears in no apparent distress at this time. Patient and/or cc3 family updated on plan of care and expected duration. Pain level reassessed. Patient is alert, oriented x 3, equal unlabored respirations, skin warm/dry/pink. Patient was ordered for discharge home but after all the new orders made by Dr. Gallardo. 21:18 Reassessment: Patient appears in no apparent distress at this time. Patient and/or cc3 family updated on plan of care and expected duration. Pain level reassessed. Patient is alert, oriented x 3, equal unlabored respirations, skin warm/dry/pink. 22:40 Reassessment: Patient appears in no apparent distress at this time. Patient and/or cc3 family updated on plan of care and expected duration. Pain level reassessed. Patient is alert, oriented x 3, equal unlabored respirations, skin warm/dry/pink. Dr. Gallardo discharged the patient home with prescriptions given. IV cannula removed and patient left ER vitally stable by wheelchair escorted by her mother. Patient denies pain at this time. Patient states feeling better. Patient states symptoms have improved. Vital Signs: 17:46 BP 124 / 63; Pulse 64; Resp 18; Temp 99.0(O); Pulse Ox 100% on R/A; Weight 99.79 kg; em Height 5 ft. 7 in. (170.18 cm); Pain 0/10; 19:30 BP 101 / 79; Pulse 70; Resp 18 S; Temp 98.7(O); Pulse Ox 98% on R/A; cc3 20:25 BP 131 / 59; Pulse 58; Resp 19 S; Pulse Ox 100% on R/A; cc3 21:45 BP 121 / 80; Pulse 69; Resp 19 S; Pulse Ox 100% on R/A; cc3 22:18 BP 123 / 77; Pulse 65; Resp 18 S; Pulse Ox 99% on R/A; cc3 17:46 Body Mass Index 34.46 (99.79 kg, 170.18 cm) em Ruperto Coma Score: 17:46 Eye Response: spontaneous(4). Verbal Response: oriented(5). Motor Response: obeys em commands(6). Total: 15. NIH Stroke Scale Scores: 18:00 NIHSS Score: 0 gs 20:24 NIHSS Score: 0 magdi ED Course: 17:40 Patient arrived in ED. em 17:45 painter structural steel on. Pulse ox on. NIBP on. Warm blanket given. rb1 17:45 Maintain EMS IV. Dressing intact. Good blood return noted. Site clean \T\ dry. Gauge \T\ rb 1 site: 20 G R AC. 17:46 Arm band placed on. em 17:47 Patient has correct armband on for positive identification. Bed in low position. Call em light in reach. Side rails up X2. Adult w/ patient. Seizure precautions initiated. 17:49 Priscilla Davis, MARGARITA is Primary Nurse. rb1 18:03 Harvey Watkins MD is Attending Physician. gs 18:19 Blaze Patel MD is Referral Physician. gs 18:19 Christopher Boo MD is Referral Physician. gs 18:19 EKG done, by ED staff, reviewed by Harvey Watkins MD. mh5 18:33 Triage completed. iw 19:00 Report given to MARGARITA Campos. rb1 19:09 Attending Physician role handed off by Harvey Watkins MD magdi 19:09 Lewis Gallardo MD is Attending Physician. magdi 19:13 CT Head Brain wo Cont In Process Unspecified. EDMS 20:31 Ricky Estrella MD is Referral Physician. magdi 22:40 No provider procedures requiring assistance completed. IV discontinued, intact, cc3 bleeding controlled, No redness/swelling at site. Pressure dressing applied. Administered Medications: 19:25 Drug: NS 0.9% 1000 ml Route: IV; Rate: 1 bolus; Site: right antecubital; cc3 20:40 Follow up: Response: No adverse reaction; IV Status: Completed infusion; IV Intake: cc3 1000ml 20:40 Drug: Aspirin 162 mg Route: PO; cc3 21:00 Follow up: Response: No adverse reaction cc3 20:40 Drug: Potassium Effervescent Tablet 25 mEq Route: PO; cc3 21:00 Follow up: Response: No adverse reaction cc3 21:10 Drug: NS 0.9% 1000 ml Route: IV; Rate: 1 bolus; Site: right antecubital; cc3 22:30 Follow up: Response: No adverse reaction; IV Status: Completed infusion; IV Intake: cc3 1000ml 21:10 Drug: Keppra 1000 mg Route: IV; Rate: per protocol; Site: right antecubital; cc3 21:25 Follow up: Response: No adverse reaction; IV Status: Completed infusion; IV Intake: cc3 100ml 21:30 Drug: foLIC Acid 1 mg Route: IVPB; Site: right antecubital; cc3 21:45 Follow up: Response: No adverse reaction; IV Status: Completed infusion; IV Intake: [id number] Intake: 20:40 IV: 1000ml; Total: 1000ml. cc3 21:25 IV: 100ml; Total: 1100ml. cc3 21:45 IV: 50ml; Total: 1150ml. cc3 22:30 IV: 1000ml; Total: 2150ml. cc3 Outcome: 18:19 Discharge ordered by MD. gs 20:30 Discharge ordered by MD. magdi 22:40 Discharged to home via wheelchair, with family. cc3 22:40 Condition: stable 22:40 Discharge instructions given to patient, family, Instructed on discharge instructions, follow up and referral plans. medication usage, Demonstrated understanding of instructions, follow-up care, medications, Prescriptions given X 2. 22:42 Patient left the ED. cc3 NIH Stroke Scale - NIH Stroke Score Date: 05/03/2019 Time: 18:00 Total Score = 0 1a. Level of Consciousness (LOC) - 0(Alert) 1b. Level of Consciousness (LOC) (Year \T\ Age) - 0(Both) 1c. LOC Commands (Open \T\ Closes Eyes/Wildlife Photographer) - 0(Both) 2. Best Gaze (Lateral Gaze Paresis) - 0(Normal) 3. Visual Field Loss - 0(No visual loss) 4. Facial Palsy - 0(Normal) 5a. Left Arm: Motor (10-second hold) - 0(No drift) 5b. Right Arm: Motor (10-second hold) - 0(No drift) 6a. Left Leg: Motor (5-second hold - always test supine) - 0(No drift) 6b. Right Leg: Motor (5-second hold - always test supine) - 0(No drift) 7. Limb Ataxia (finger/nose \T\ heel/ellis - test with eyes open) - 0(Absent) 8. Sensory Loss (pinprick arms/legs/face) - 0(Normal) 9. Best Language: Aphasia (description/naming/reading) - 0(No aphasia) 10. Dysarthria (speech clarity - read or repeat words) - 0(Normal) 11. Extinction and Inattention (visual/tactile/auditory/spatial/personal) - 0(No abnormality) Initials: NIH Stroke Scale - NIH Stroke Score Date: 05/03/2019 Time: 20:24 Total Score = 0 1a. Level of Consciousness (LOC) - 0(Alert) 1b. Level of Consciousness (LOC) (Year \T\ Age) - 0(Both) 1c. LOC Commands (Open \T\ Closes Eyes/Wildlife Photographer) - 0(Both) 2. Best Gaze (Lateral Gaze Paresis) - 0(Normal) 3. Visual Field Loss - 0(No visual loss) 4. Facial Palsy - 0(Normal) 5a. Left Arm: Motor (10-second hold) - 0(No drift) 5b. Right Arm: Motor (10-second hold) - 0(No drift) 6a. Left Leg: Motor (5-second hold - always test supine) - 0(No drift) 6b. Right Leg: Motor (5-second hold - always test supine) - 0(No drift) 7. Limb Ataxia (finger/nose \T\ heel/ellis - test with eyes open) - 0(Absent) 8. Sensory Loss (pinprick arms/legs/face) - 0(Normal) 9. Best Language: Aphasia (description/naming/reading) - 0(No aphasia) 10. Dysarthria (speech clarity - read or repeat words) - 0(Normal) 11. Extinction and Inattention (visual/tactile/auditory/spatial/personal) - 0(No abnormality) Initials: magdi Signatures: Dispatcher [employer] Lewis Shah MD MD cha Munoz, Jose, ELEVATOR RUNNER ELEVATOR RUNNER Misty Chaney RN RN iw Barber, Rebecca, RN RN [facility] Ella Vanessa [facility] Harvey Watkins MD MD gs Cordel, Charlene 3
[2019-05-03 19:09] LABS: Absolute Lymphocytes (CBC) 2.8 K/uL (0.7-4.9); Absolute Monocytes 0.6 K/uL (0.1-1.3); Absolute Neutrophil 4.4 K/uL (1.8-8.0); Basophils % 0.5 % (0-1.3); Eosinophils % 1.1 % (0-4.4); Hematocrit 43.6 % (36.0-45.0); Lymphocytes % 35.2 % (15.3-44.8); MPV 8.2 fL (7.6-11.3); Monocytes % 8.1 % (3.3-12.3); RBC Red Blood Cell Count 4.82 M/uL (3.86-4.86)
[2019-05-03 19:24] LABS: Potassium 3.3 mmol/L (3.5-5.1)
--- NOTE | 2019-05-03 19:26 | RAD REPORT ---
EXAM DESCRIPTION: CT - Head Brain Wo Cont - 05/03/2019 7:13 pm CLINICAL HISTORY: SEIZURE Drowsiness, headache COMPARISON: Head Brain Wo Cont dated 04/19/2019; HEAD BRAIN W O CONTRAST dated 10/07/2009 TECHNIQUE: All CT scans are performed using dose optimization technique as appropriate and may inclu de automated exposure control or mA/KV adjustment according to patient size. FINDINGS: No intracranial hemorrhage, hydrocephalus or extra-axial fluid collection.No areas of brai n edema or evidence of midline shift. The paranasal sinuses and mastoids are clear. The calvarium is intact. IMPRESSION: No acute intracranial abnormality.
[2019-05-03 19:35] LABS: Protime INR 1.11
[2019-05-03] MEDS ORDERED: NA CHLORIDE 0.9% 1,000 ML ONE ×2 (19:39→21:03)
[2019-05-03 19:47] LABS: ALT/SGPT 38 U/L (12-78); AST/SGOT 16 U/L (15-37); Albumin 3.7 g/dL (3.4-5.0); Alkaline Phosphatase 62 U/L (45-117); Bilirubin Direct 0.2 mg/dL (0-0.2); Bilirubin Total 0.4 mg/dL (0.2-1.0); Magnesium 2.4 mg/dL (1.8-2.4); NT PRO-BNP 49 pg/mL (<125); Protein, Total 6.9 g/dL (6.4-8.2); Troponin (Emerg Dept Use Only) < 0.02 ng/mL (0.0-0.045)
--- NOTE | 2019-05-03 20:31 | EDPHYS ---
Physician Documentation [facility] Name: Roxane Mayfield Age: 38 yrs Sex: Female : 1980 Arrival Date: 05/03/2019 Time: 17:40 Bed 15 Private MD: ED Physician Lewis Gallardo HPI: 05/03 20:24 This 38 yrs old Female presents to ER via EMS with complaints of Seizure. magdi 20:24 The patient presents with a history of multiple seizures, a total of 2. Character of magdi seizure(s): Loss of consciousness: the patient did not lose consciousness, Incontinence: none, Apnea: the patient did not experience apnea, Circulation: the patient did not experience evidence of pulse disturbance. Seizure onset: today. Context: the seizure(s) was witnessed, by family, occurred at a restaurant. Seizure Hx: Original onset: 2 month(s) ago. Associated injury: The patient did not suffer any apparent associated injury. EMS care: none. Current symptoms: Currently, the patient is not experiencing any symptoms. The patient has experienced similar episodes in the past, several times. 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 - Social history:: Smoking status: Patient uses tobacco products, smokes one pack cigarettes per day. - Ebola Screening: : Patient negative for fever greater than or equal to 101.5 degrees Fahrenheit, and additional compatible Ebola Virus Disease symptoms Patient denies exposure to infectious person Patient denies travel to an Ebola-affected area in the 21 days before illness onset No symptoms or risks identified at this time. - Family history:: not pertinent. ROS: 19:24 Neuro: Positive for headache, started when got to ed. gs 20:24 Constitutional: Negative for fever, chills, and weight loss, Eyes: Negative for injury, magdi pain, redness, and discharge, ENT: Negative for injury, pain, and discharge, Neck: Negative for injury, pain, and swelling, Cardiovascular: Negative for chest pain, palpitations, and edema, Respiratory: Negative for shortness of breath, cough, wheezing, and pleuritic chest pain, Abdomen/GI: Negative for abdominal pain, nausea, vomiting, diarrhea, and constipation, Back: Negative for injury and pain, : Negative for injury, bleeding, discharge, and swelling, MS/Extremity: Negative for injury and deformity, Skin: Negative for injury, rash, and discoloration, Psych: Negative for depression, anxiety, suicide ideation, homicidal ideation, and hallucinations, Allergy/Immunology: Negative for hives, rash, and allergies, Endocrine: Negative for neck swelling, polydipsia, polyuria, polyphagia, and marked weight changes. 20:24 Neuro: Positive for weakness, of the right arm, left arm, right leg, left leg, back of left arm, back of right arm, back of left leg and back of right leg. Exam: 20:24 Constitutional: This is a well developed, well nourished patient who is awake, alert, magdi and in no acute distress. Head/Face: Normocephalic, atraumatic. Eyes: Pupils equal round and reactive to light, extra-ocular motions intact. Lids and lashes normal. Conjunctiva and sclera are non-icteric and not injected. Cornea within normal limits. Periorbital areas with no swelling, redness, or edema. ENT: Nares patent. No nasal discharge, no septal abnormalities noted. Tympanic membranes are normal and external auditory canals are clear. Oropharynx with no redness, swelling, or masses, exudates, or evidence of obstruction, uvula midline. Mucous membranes moist. Neck: Trachea midline, no thyromegaly or masses palpated, and no cervical lymphadenopathy. Supple, full range of motion without nuchal rigidity, or vertebral point tenderness. No Meningismus. Chest/axilla: Normal chest wall appearance and motion. Nontender with no deformity. No lesions are appreciated. Cardiovascular: Regular rate and rhythm with a normal S1 and S2. No gallops, murmurs, or rubs. Normal PMI, no JVD. No pulse deficits. Respiratory: Lungs have equal breath sounds bilaterally, clear to auscultation and percussion. No rales, rhonchi or wheezes noted. No increased work of breathing, no retractions or nasal flaring. Abdomen/GI: Soft, non-tender, with normal bowel sounds. No distension or tympany. No guarding or rebound. No evidence of tenderness throughout. Back: No spinal tenderness. No costovertebral tenderness. Full range of motion. Skin: Warm, dry with normal turgor. Normal color with no rashes, no lesions, and no evidence of cellulitis. MS/ Extremity: Pulses equal, no cyanosis. Neurovascular intact. Full, normal range of motion. Neuro: Awake and alert, GCS 15, oriented to person, place, time, and situation. Cranial nerves II-XII grossly intact. Motor strength 5/5 in all extremities. Sensory grossly intact. Cerebellar exam normal. Normal gait. Psych: Awake, alert, with orientation to person, place and time. Behavior, mood, and affect are within normal limits. Vital Signs: 17:46 BP 124 / 63; Pulse 64; Resp 18; Temp 99.0(O); Pulse Ox 100% on R/A; Weight 99.79 kg; em Height 5 ft. 7 in. (170.18 cm); Pain 0/10; 19:30 BP 101 / 79; Pulse 70; Resp 18 S; Temp 98.7(O); Pulse Ox 98% on R/A; cc3 20:25 BP 131 / 59; Pulse 58; Resp 19 S; Pulse Ox 100% on R/A; cc3 21:45 BP 121 / 80; Pulse 69; Resp 19 S; Pulse Ox 100% on R/A; cc3 22:18 BP 123 / 77; Pulse 65; Resp 18 S; Pulse Ox 99% on R/A; cc3 17:46 Body Mass Index 34.46 (99.79 kg, 170.18 cm) em NIH Stroke Scale Scores: 18:00 NIHSS Score: 0 gs 20:24 NIHSS Score: 0 magdi Ruperto Coma Score: 17:46 Eye Response: spontaneous(4). Verbal Response: oriented(5). Motor Response: obeys em commands(6). Total: 15. MDM: 18:10 Patient medically screened. gs 18:57 ED course: pt walked without difficulty to bathroom, family concerned about plan, was gs called to room prior to discharge pt complaining of weakness says can walk well, exam cranial nerves intack no upper extremity drift, speech intact, no extinction, some inability to raise both legs will undo discharge get labs ct head.. 19:09 Patient medically screened. [facility] 20:29 Data reviewed: vital signs, nurses notes, lab test result(s), EKG, radiologic studies, [facility] CT scan, plain films. 05/03 18:48 Order name: CBC with Diff; Complete Time: 20:22 05/03 18:48 Order name: Basic Metabolic Panel; Complete Time: 20:22 05/03 19:11 Order name: LFT's [facility] 05/03 19:11 Order name: Magnesium; Complete Time: 20:22 [facility] 05/03 19:11 Order name: NT PRO-BNP; Complete Time: 20:22 [facility] 05/03 19:11 Order name: PT-INR; Complete Time: 20:22 [facility] 05/03 18:48 Order name: CT Head Brain wo Cont; Complete Time: 20:22 05/03 19:11 Order name: Troponin (emerg Dept Use Only); Complete Time: 20:22 [facility] 05/03 19:12 Order name: Liver (Hepatic) Function; Complete Time: 20:22 EDMS 05/03 20:37 Order name: Urine Dipstick--Ancillary (enter results) [facility] 05/03 20:38 Order name: Urine --Ancillary (enter results) [facility] 05/03 19:11 Order name: EKG; Complete Time: 19:12 [facility] 05/03 19:11 Order name: Cardiac monitoring; Complete Time: 19:16 [facility] 05/03 19:11 Order name: EKG - Nurse/Tech; Complete Time: 19:16 [facility] 05/03 19:11 Order name: IV Saline Lock; Complete Time: 19:16 [facility] 05/03 19:11 Order name: Labs collected and sent; Complete Time: 19:15 [facility] 05/03 19:11 Order name: O2 Per Protocol; Complete Time: 19:15 [facility] 05/03 19:11 Order name: O2 Sat Monitoring; Complete Time: 19:16 [facility] 05/03 19:19 Order name: Seizure Precautions; Complete Time: 19:30 [facility] Administered Medications: 19:25 Drug: NS 0.9% 1000 ml Route: IV; Rate: 1 bolus; Site: right antecubital; cc3 20:40 Follow up: Response: No adverse reaction; IV Status: Completed infusion; IV Intake: cc3 1000ml 20:40 Drug: Aspirin 162 mg Route: PO; cc3 21:00 Follow up: Response: No adverse reaction cc3 20:40 Drug: Potassium Effervescent Tablet 25 mEq Route: PO; cc3 21:00 Follow up: Response: No adverse reaction cc3 21:10 Drug: NS 0.9% 1000 ml Route: IV; Rate: 1 bolus; Site: right antecubital; cc3 22:30 Follow up: Response: No adverse reaction; IV Status: Completed infusion; IV Intake: cc3 1000ml 21:10 Drug: Keppra 1000 mg Route: IV; Rate: per protocol; Site: right antecubital; cc3 21:25 Follow up: Response: No adverse reaction; IV Status: Completed infusion; IV Intake: cc3 100ml 21:30 Drug: foLIC Acid 1 mg Route: IVPB; Site: right antecubital; cc3 21:45 Follow up: Response: No adverse reaction; IV Status: Completed infusion; IV Intake: [id number] Disposition: 05/03/19 20:30 Discharged to Home. Impression: Epileptic seizures related to external causes, Epileptic seizures related to external causes, not intractable, Hypokalemia. - Condition is Stable. - Discharge Instructions: Seizure, Adult, Seizure, Adult, [id number], Hypokalemia. - Prescriptions for Keppra 500 mg Oral Tablet - take 1 tablet by ORAL route every 12 hours; 40 tablet. Vitamin 27- 0.8 mg Oral Tablet - take 1 tablet by ORAL route once daily; 30 tablet. - Medication Reconciliation Form, Thank You Letter, Antibiotic Education, Prescription Opioid Use form. - Follow up: Private Physician; When: 2 - 3 days; Reason: Recheck today's complaints, Continuance of care, Re-evaluation by your physician. Follow up: Ricky Estrella MD; When: 5 - 6 days; Reason: Recheck today's complaints, Continuance of care, Re-evaluation by your physician. - Problem is new. - Symptoms have improved. NIH Stroke Scale - NIH Stroke Score Date: 05/03/2019 Time: 18:00 Total Score = 0 1a. Level of Consciousness (LOC) - 0(Alert) 1b. Level of Consciousness (LOC) (Year \T\ Age) - 0(Both) 1c. LOC Commands (Open \T\ Closes Eyes/Box Spinner) - 0(Both) 2. Best Gaze (Lateral Gaze Paresis) - 0(Normal) 3. Visual Field Loss - 0(No visual loss) 4. Facial Palsy - 0(Normal) 5a. Left Arm: Motor (10-second hold) - 0(No drift) 5b. Right Arm: Motor (10-second hold) - 0(No drift) 6a. Left Leg: Motor (5-second hold - always test supine) - 0(No drift) 6b. Right Leg: Motor (5-second hold - always test supine) - 0(No drift) 7. Limb Ataxia (finger/nose \T\ heel/ellis - test with eyes open) - 0(Absent) 8. Sensory Loss (pinprick arms/legs/face) - 0(Normal) 9. Best Language: Aphasia (description/naming/reading) - 0(No aphasia) 10. Dysarthria (speech clarity - read or repeat words) - 0(Normal) 11. Extinction and Inattention (visual/tactile/auditory/spatial/personal) - 0(No abnormality) Initials: NIH Stroke Scale - NIH Stroke Score Date: 05/03/2019 Time: 20:24 Total Score = 0 1a. Level of Consciousness (LOC) - 0(Alert) 1b. Level of Consciousness (LOC) (Year \T\ Age) - 0(Both) 1c. LOC Commands (Open \T\ Closes Eyes/Box Spinner) - 0(Both) 2. Best Gaze (Lateral Gaze Paresis) - 0(Normal) 3. Visual Field Loss - 0(No visual loss) 4. Facial Palsy - 0(Normal) 5a. Left Arm: Motor (10-second hold) - 0(No drift) 5b. Right Arm: Motor (10-second hold) - 0(No drift) 6a. Left Leg: Motor (5-second hold - always test supine) - 0(No drift) 6b. Right Leg: Motor (5-second hold - always test supine) - 0(No drift) 7. Limb Ataxia (finger/nose \T\ heel/ellis - test with eyes open) - 0(Absent) 8. Sensory Loss (pinprick arms/legs/face) - 0(Normal) 9. Best Language: Aphasia (description/naming/reading) - 0(No aphasia) 10. Dysarthria (speech clarity - read or repeat words) - 0(Normal) 11. Extinction and Inattention (visual/tactile/auditory/spatial/personal) - 0(No abnormality) Initials: [facility] Signatures: Dispatcher [employer] Lewis Shah MD MD cha Munoz, Jose, JIG BORER JIG BORER Harvey Bradshaw MD MD gs CordalisaBeth cc3 Corrections: (The following items were deleted from the chart) 18:49 18:19 05/03/2019 18:19 Discharged to Home. Impression: Epilepsy and recurrent gs seizures. Condition is Stable. Forms are Medication Reconciliation Form, Thank You Letter, Antibiotic Education, Prescription Opioid Use. Follow up: Blaze Patel; When: 2 - 3 days; Reason: Re-evaluation by your physician. Follow up: Christopher Boo; When: 2 - 3 days; Reason: Re-evaluation by your physician. 20:31 20:30 05/03/2019 20:30 Discharged to Home. Impression: Epileptic seizures magdi related to external causes; Epileptic seizures related to external causes, not intractable. Condition is Stable. Discharge Instructions: Seizure, Adult, Seizure, Adult, [id number]. Prescriptions for Keppra 500 mg Oral Tablet - take 1 tablet by ORAL route every 12 hours; 40 tablet, Vitamin 27-0.8 mg Oral Tablet - take 1 tablet by ORAL route once daily; 30 tablet. and Forms are Medication Reconciliation Form, Thank You Letter, Antibiotic Education, Prescription Opioid Use. Follow up: Private Physician; When: 2 - 3 days; Reason: Recheck today's complaints, Continuance of care, Re-evaluation by your physician. Problem is new. Symptoms have improved. [facility] 20:31 20:31 05/03/2019 20:30 Discharged to Home. Impression: Epileptic seizures magdi related to external causes; Epileptic seizures related to external causes, not intractable; Hypokalemia. Condition is Stable. Discharge Instructions: Seizure, Adult, Seizure, Adult, [id number], Hypokalemia. Prescriptions for Keppra 500 mg Oral Tablet - take 1 tablet by ORAL route every 12 hours; 40 tablet, Vitamin 27-0.8 mg Oral Tablet - take 1 tablet by ORAL route once daily; 30 tablet. and Forms are Medication Reconciliation Form, Thank You Letter, Antibiotic Education, Prescription Opioid Use. Follow up: Private Physician; When: 2 - 3 days; Reason: Recheck today's complaints, Continuance of care, Re-evaluation by your physician. Problem is new. Symptoms have improved. magdi 22:42 20:31 05/03/2019 20:30 Discharged to Home. Impression: Epileptic seizures cc3 related to external causes; Epileptic seizures related to external causes, not intractable; Hypokalemia. Condition is Stable. Discharge Instructions: Seizure, Adult, Seizure, Adult, [id number], Hypokalemia. Prescriptions for Keppra 500 mg Oral Tablet - take 1 tablet by ORAL route every 12 hours; 40 tablet, Vitamin 27-0.8 mg Oral Tablet - take 1 tablet by ORAL route once daily; 30 tablet. and Forms are Medication Reconciliation Form, Thank You Letter, Antibiotic Education, Prescription Opioid Use. Follow up: Private Physician; When: 2 - 3 days; Reason: Recheck today's complaints, Continuance of care, Re-evaluation by your physician. Follow up: Ricky Estrella; When: 5 - 6 days; Reason: Recheck today's complaints, Continuance of care, Re-evaluation by your physician. Problem is new. Symptoms have improved. magdi
[2019-05-03] MEDS ORDERED: LEVETIRACETAM 500 MG/5 ML VIAL IV ONE (21:00)
[2019-05-03] MEDS ORDERED: POTASSIUM 25 MEQ EFFERV TAB ONE (21:01)
[2019-05-03] MEDS ORDERED: ASPIRIN EC 81 MG TAB PO ONE (21:01)
[2019-05-03] MEDS ORDERED: FOLIC ACID 5 MG/ML VIAL ONE (21:03)
[2019-05-03 21:06] LABS: Urine Blood NEGATIVE (NEG); Urine Glucose NEGATIVE (NEG); Urine Specific Gravity 1.015 (1.005-1.030)
[2019-05-03 21:07] LABS: Urine Specific Gravity 1.015 (1.005-1.030)
[2019-05-03 21:07] LABS: Urine Protein NEGATIVE (NEG); Urine pH 7.5 (5.0-7.0)
[2019-05-03] MEDS ORDERED: NA CHLORIDE 0.9% 100 ML IV ONE (21:12)
[2019-05-03] MEDS ORDERED: NA CHLORIDE 0.9% 50 ML IV ONE (21:12)
[2019-05-03 23:32] VITALS: TEMP 98.7
[2019-05-03 23:34] VITALS: O2SAT 100
[2019-05-03 23:35] VITALS: BP 121/80
--- NOTE | 2019-05-04 10:36 | EKG ---
Test Date: 2019-05-03 Test Time: 18:00:36 Lead Sharepoint Developer: GRIS MEASUREMENT RESULTS: Intervals: Rate: 63 MA: 164 QRSD: 86 QT: 436 QTc: 446 [place]: P: 33 MA: 164 QRS: 48 T: 41 INTERPRETIVE STATEMENTS: Normal sinus rhythm normal ECG Compared to ECG 07/14/2016 16:06:12 Sinus bradycardia no longer present Electronically Signed On 05-04-19 10:35:36 CDT by Brijesh Bird
== END 2019-05-03 22:42 | disposition home or self-care (01) ==
LOC: ER 17:27
DX: G40.909 Epilepsy, unspecified, not intractable, without status epilepticus (principal); E87.6 Hypokalemia; E11.9 Type 2 diabetes mellitus without complications; Z88.0 Allergy status to penicillin; Z79.4 Long term (current) use of insulin; F17.210 Nicotine dependence, cigarettes, uncomplicated
CPT/HCPCS: 36415; 70450; 80048; 80076; 81003; 81025; 83735; 83880; 84484; 85025; 85610; 93005; 96361; 96374; 96375; 99284; J1953; J7030

== ENCOUNTER 2020-12-14 14:08 | Emergency (ER) | payer OTHER, SELFPAY ==
--- OUTSIDE RECORDS SUMMARY | 2020-12-14 14:12 | XMS REPORT | Continuity of Care Document ---
:1980 Author Organization [facility] t Address [address] [place] [place] [address] Care Team Providers Name Role Phone Nadeem Shanks Attending Clinician Josse VASQUEZ Attending Clinician Doctor Unassigned, Name Attending Clinician Unavailable Nya Clancy MD Attending Clinician Payers Payer Name Policy Type Policy Number Effective Date Expiration Date S ource Problems This patient has no known problems. Allergies, Adverse Reactions, Alerts Allergy Allergy Status Severity Reaction(s) Onset Inactive Treating Comm ents Source Name Type Date Date Clinician Penicill DA Active U 2020-0 [facility] ins 07-28 Clear 00:00: [place] 00 [facility] tramadol DA Active U 2020-0 [facility] 07-28 Clear 00:00: [place] 00 [facility] penicill Adverse Active break out [facility] Reaction [facility] tramadol Adverse Active seizures [facility] Medications Ordered Filled Start Stop Current Ordering Indication Dosage Frequency Signature Comments Components Source Medication Medication Date Date Medication? Clinician (SIG) Name Name Nitrofurant Nitrofurant 2020- No Kin Hayes [address] [facility] oin Monohyd oin Monohyd 8- 08- [facility]ro 00:00: 00:00 Memoria 00 :00 l [facility] Duloxetine Duloxetine Yes Kin Hayes [address] [facility] HCl HCl 6-25 [facility] - 00:[facility]: [facility] 00 l [facility] Sumatriptan Sumatriptan Yes Kin Hayes as [facility] Succinate Succinate 6-25 Mistry directed L ukes - 00:00: Memoria 00 l [facility]ics Rosuvastati Rosuvastati 2018-11 Yes Kin Hayes [address] [facility] n Calcium n Calcium 2-02 Mistry in evening [facility] - 00:00: [facility] 00 [facility] Enalapril Enalapril 2018-11 Yes Kin Hayes [address] [facility] Maleate Maleate 0-25 [facility] - 00:[facility]: [facility] 00 l [facility] Topamax Topamax Yes Kin Hayes [address] 5-09 [facility]istry [facility] - 00:[facility]: [facility] 00 l [facility] ProAir HFA ProAir HFA 2017-11 Yes Kin Hayes [address] [facility] 0-31 Mistry needed for [facility] - 00:00: sob/wheezi Memoria 00 ng l [facility] Lidocaine Lidocaine Yes Kin Hayes [address] [facility] Mistry skin [facility] - remove [facility]oria after 12 l hours [facility] Potassium Potassium Yes Kin Hayes [address] [facility] Mistry [facility] Procedures This patient has no known procedures. Encounters Start End Encounter Admission Attending Care Care Encounter Source Date/Time Date/Time Type Type Clinicians Facility Department ID 2020-11-18 2020-11-18 Emergency Formerly named [facility] [id number] 19:35:00 21:54:00 Dylan Rosario [id number] [place] [id number] [place] [id number] 2020-11-08 2020-11-08 Emergency Josse, [facility] [id number] 19:40:00 22:35:00 Jane Rosario [id number] [place] [id number] [place] [id number] 2020-11-08 2020-11-08 Orders Doctor LISA [id number] 00:00:00 00:00:00 Only Unassigned, JIMMY [id number] [place] [facility] [id number] [id number] 2020-09-15 2020-09-15 Orders Doctor LISA [id number] 00:00:00 00:00:00 Only Unassigned, JIMMY [id number] [place] [facility] [id number] 2020-09-10 2020-09-10 Office KARL Clancy [id number] 13:48:40 14:06:16 Visit [facility] [id number] [facility] [id number] 2020-08-23 2020-08-23 [facility]patient [facility] [id number] [facility] St 00:00:00 00:00:00 [facility] Outpati ent Clinics 2020-07-09 2020-07-09 [facility] [id number] [facility] 09:00:00 09:00:[address] [facility] Medicine Outpati ent Clinics 2020-06-28 2020-06-28 [facility] [id number] [address] 09:00:00 09:00:00 [facility] Medicine Medicine Outpati ent Clinics 2020-06-02 2020-06-02 [facility] [id number] 16:04:00 16:04:[address] [facility] Medicine Outpati ent Clinics 2020-06-02 2020-06-02 [facility] [id number] 13:59:00 13:59:[address] [facility] Medicine l Medicine Outpati ent Clinics 2020-05-13 2020-05-13 [facility] [id number] [address] 13:20:00 13:20:[address] [facility] Medicine l Medicine Outpati ent Clinics 2020-04-27 2020-04-27 [facility] [id number] 08:24:00 08:24:[address] [facility] Medicine l Medicine Outpati ent Clinics 2020-04-26 2020-04-26 [facility] [id number] 08:45:00 08:45:00 t [employer] [facility] [place] [facility] Medicine l Medicine Outpati ent Clinics 2020-04-22 2020-04-22 [facility] [id number] 13:15:00 13:15:00 t [employer] [facility] Medicine l Medicine Outpati ent Clinics 2020-04-22 2020-04-22 [facility] [id number] 11:27:00 11:27:[address] [facility] Medicine l Medicine Outpati ent Clinics 2020-02-18 2020-02-18 [facility] [id number] 08:24:00 08:24:[address] [facility] Medicine l Medicine Outpati ent Clinics 2020-02-16 2020-02-16 [facility] [id number] 13:20:00 13:20:[address] [facility] Medicine l Medicine Outpati ent Clinics 2020-02-16 2020-02-16 [facility] [id number] 08:32:00 08:32:[address] [facility] Medicine l Medicine Outpati ent Clinics 2020-02-12 2020-02-12 [facility] [id number] 15:52:00 15:52:[address] [facility] Medicine l Medicine Outpati ent Clinics 2020-02-04 2020-02-04 [facility] [id number] 16:03:00 16:03:[address] [facility] Medicine Medicine Outpati ent Clinics 2020-01-02 2020-01-02 [facility] [id number] 11:15:00 11:15:00 t [facility] Medicine Outpati ent Clinics 2019-12-05 2019-12-05 [facility] [id number] 16:45:00 16:45:[address] [facility] Medicine Medicine Outpati ent Clinics 2019-10-20 2019-10-20 [facility] [id number] 13:19:00 13:19:00 t [facility] Medicine Outpati ent Clinics 2019-10-20 2019-10-20 [facility] [id number] 10:00:00 10:00:[address] [facility] Medicine Medicine Outpati ent Clinics 2019-09-26 2019-09-26 [facility] [id number] 11:20:00 11:20:00 t [facility] Medicine Outpati ent Clinics 2019-09-12 2019-09-12 [facility] [id number] 08:40:00 08:40:[address] [facility] Medicine Medicine Outpati ent Clinics 2019-08-18 2019-08-18 [facility] [id number] 21:36:00 21:36:[address] [facility] Medicine Medicine Outpati ent Clinics 2019-08-14 2019-08-14 [facility] [id number] 08:40:00 08:40:00 t [facility] Medicine Outpati ent Clinics 2019-08-13 2019-08-13 [facility] [id number] 08:49:00 08:49:00 t [facility] Medicine Outpati ent Clinics 2019-07-17 2019-07-17 [facility] [id number] 14:00:00 14:00:00 t [facility] Medicine Outpati ent Clinics 2019-05-05 2019-05-05 [facility] [id number] 08:51:00 08:51:00 t [facility] Medicine Outpati ent Clinics 2019-03-27 2019-03-27 [facility] [id number] 08:20:00 08:20:00 t [facility] Medicine Outpati ent Clinics 2018-09-02 2018-09-02 [facility] [id number] 10:45:00 10:45:00 t [facility] Medicine Outpati ent Clinics 2018-05-21 2018-05-21 [facility] [id number] 15:53:00 15:53:00 t [facility] Medicine Outpati ent Clinics 2018-05-20 2018-05-20 [facility] [id number] 13:26:00 13:26:00 t [facility] Medicine Outpati ent Clinics 2018-05-09 2018-05-09 [facility] [id number] 13:20:00 13:20:00 t [facility] Medicine Outpati ent Clinics 2018-05-07 2018-05-07 [facility] [id number] 11:49:00 11:49:00 t [facility] Medicine Outpati ent Clinics 2018-05-06 2018-05-06 [facility] [id number] 11:47:00 11:47:00 t [facility] Medicine Outpati ent Clinics 2018-04-29 2018-04-29 [facility] [id number] 21:50:00 21:50:00 [facility] 2018-04-29 2018-04-29 Outpatient Rose Roset [id number] 08:45:00 08:45:00 [facility] 2018-04-22 2018-04-22 Outpatient Rose Roset [id number] 10:00:00 10:00:00 [facility] Results Test Description Test Time Test Comments Results Result Comments Source SULFONYLUREA SCREEN 2020-08-10 05:10:00 Test Item Value Reference Range Interpretation Comme nts ACETOHEXAMIDE (DYMELOR) Negative ug/mL 20-60 (test code = ACETOH) CHLORPROPAMIDE Negative ug/mL 75-250 (DIABINASE) (test code = CHLPR) GLIPIZIDE (GLUCOTROL) 203 ng/mL 200-1000 (test code = GLIP) TOLAZAMIDE (TOLINASE) Negative ug/mL UP TO 80 (test code = LEVI) TOLBUTAMIDE (ORINASE) Negative ug/mL 40-100 (test code = TOLB) GLIMEPIRIDE (AMARYL) Negative ng/mL 80-250 (test code = GLIM) GLYBURIDE LEVEL (test Negative ng/mL UP TO 1500 code = GLYB) NATEGLINIDE (STARLIX) [place] [address] (test code = DIONICIO) REPAGLINIDE (PRANDIN) Negative ng/mL UP TO 200 This test was developed and its (test code = REPA) performan ce characteristics determined by [facility]. It granger s not been cleared or approvedby [facility] Food and Drug Administration. Performed At: [employer] [facility] [facility] MATTI Tesfaye [id number] Adan PhrLA Ph:[phone] BETA [id number] 05:10:00 Test Item Value Reference Range Interpretation Comments BETA HYDROBUTYRATE (test 0.5 mg/dL () Ref erence Range:All code = BETHYD) Ages (fasting ): 0.2 - 2.8Performed At: ES [employer] [address] [place], [place] [id number] nitza Mendenhall MD Ph:[phone] INSULIN-LIKE GROWTH FACTOR [id number] 05:10:00 Test Item Value Reference Range Interpretation Comments INSULIN-LIKE 723 ng/mL () This test was d eveloped and its GROWTH FACTOR performance II (test code characteristic sdetermined by = INSLKGF2) [facility]. It has not been cleared or appr ovedby the Food and Drug Administration. Reference Range: Age Ran ge MeanAdults 333 - 967 650Performed At : ES [employer] [address] [place], [place] [id number] nitza Mendenhall MD Ph:[phone] [id number] 05:10:00 Test Item Value Reference Range Interpretation Comments PROINSULIN (test code 30.2 pmol/L 0.0-10.0 A Perfor med At: BN = PROINS) [facility] [id number] ra Manuela SOUSA Ph:[phone] SULFONYLUREA [id number] 19:08:00 Test Item Value Reference Interpretation Comments Range ACETOHEXAMIDE Negative 20-60 (DYMELOR) (test ug/mL code = ACETOH) CHLORPROPAMIDE Negative 75-250 (DIABINASE) (test ug/mL code = CHLPR) GLIPIZIDE 203 ng/mL 200-1000 (GLUCOTROL) (test code = GLIP) TOLAZAMIDE Negative UP TO 80 (TOLINASE) (test ug/mL code = LEVI) TOLBUTAMIDE Negative 40-100 (ORINASE) (test ug/mL code = TOLB) GLIMEPIRIDE Negative 80-250 (AMARYL) (test ng/mL code = GLIM) GLYBURIDE LEVEL Negative UP TO 1500 (test code = GLYB) ng/[place] [address] (STARLIX) (test ng/mL code = DIONICIO) REPAGLINIDE Negative UP TO 200 This test was d eveloped and (PRANDIN) (test ng/mL its performa nce code = REPA) characteristics determined by [facility]. It granger s not been cleared or appr ovedby the Food and Drug Administration. Performed At: [employer] [facility] [address] [place], [place] [address] 522[facility] Adan PhrLA P h:[phone] BETA [id number] 19:08:00 Test Item Value Reference Range Interpretation Comments BETA HYDROBUTYRATE (test 0.5 mg/dL () Ref erence Range:All code = BETHYD) Ages (fasting ): 0.2 - 2.8Performed At: [employer] [address] [place], [place] [id number] nitza Mendenhall MD Ph:[phone] INSULIN-LIKE GROWTH FACTOR [id number] 19:08:00 Test Item Value Reference Range Interpretation Comments INSULIN-LIKE GROWTH FACTOR II (test code = INSLKGF2) [id number] 19:08:00 Test Item Value Reference Range Interpretation Comments PROINSULIN (test code 30.2 pmol/L 0.0-10.0 A Perfor med At: BN = PROINS) [facility] [id number] ra Manuela SOUSA Ph:[phone] SULFONYLUREA [id number] 13:12:00 Test Item Value Reference Range Interpretation Comments GLYBURIDE LEVEL (test code = GLYB) BETA [id number] 13:12:00 Test Item Value Reference Range Interpretation Comments BETA HYDROBUTYRATE (test 0.5 mg/dL () Ref erence Range:All code = BETHYD) Ages (fasting ): 0.2 - 2.8Performed At: [employer] [address] [place] [id number] Mendenhall MD Ph:[phone] INSULIN-LIKE GROWTH FACTOR [id number] 13:12:00 Test Item Value Reference Range Interpretation Comments INSULIN-LIKE GROWTH FACTOR II (test code = INSLKGF2) [id number] 13:12:00 Test Item Value Reference Range Interpretation Comments PROINSULIN (test code 30.2 pmol/L 0.0-10.0 A Perfor med At: BN = PROINS) [address] [id number] ra Manuela SOUSA Ph:[phone] SULFONYLUREA [id number] 16:10:00 Test Item Value Reference Range Interpretation Comments GLYBURIDE LEVEL (test code = GLYB) BETA [id number] 16:10:00 Test Item Value Reference Range Interpretation Comments BETA HYDROBUTYRATE (test code = BETHYD) INSULIN-LIKE GROWTH FACTOR [id number] 16:10:00 Test Item Value Reference Range Interpretation Comments INSULIN-LIKE GROWTH FACTOR II (test code = INSLKGF2) [id number] 16:10:00 Test Item Value Reference Range Interpretation Comments PROINSULIN (test code 30.2 pmol/L 0.0-10.0 A Perfor med At: BN = PROINS) [facility] [id number] ra Manuela SOUSA Ph:[phone] GLUCOSE BEDSIDE [id number] 08:10:00 Test Item Value Reference Range Interpretation Comments GLUCOSE BEDSIDE TESTING (test code = 89 mg/dL 70-110 N GLUBED) GLUCOSE BEDSIDE [id number] 23:54:00 Test Item Value Reference Range Interpretation Comments GLUCOSE BEDSIDE TESTING (test code 100 mg/dL 70-110 N = GLUBED) GLUCOSE BEDSIDE [id number] 20:03:00 Test Item Value Reference Range Interpretation Comments GLUCOSE BEDSIDE TESTING (test code = 96 mg/dL 70-110 N GLUBED) GLUCOSE BEDSIDE [id number] 15:50:00 Test Item Value Reference Range Interpretation Comments GLUCOSE BEDSIDE TESTING (test code 101 mg/dL 70-110 N = GLUBED) GLUCOSE BEDSIDE [id number] 11:49:00 Test Item Value Reference Range Interpretation Comments GLUCOSE BEDSIDE TESTING (test code 105 mg/dL 70-110 N = GLUBED) [id number] 09:08:00 Test Item Value Reference Range Interpretation Comments PHOSPHOROUS (test code = PHOS) 2.7 MG/DL 2.5-4.9 N [id number] 09:08:00 Test Item Value Reference Range Interpretation Comments MAGNESIUM (test code = MAG) 2.1 MG/DL 1.8-2.4 N ADRENOCORTICOTROPIC [id number] 09:08:00 Test Item Value Reference Range Interpretation Comments ADRENOCORTICOTROPIC HORMONE 18.4 pg/mL 7.2-63.3 ACTH reference (test code = ACTH) interval for samples collected between 7 and10 AM.Performed At : HD [facility] [address] [place], [place] [id number] Kyle L MD Ph:[phone] [id number] 09:08:00 Test Item Value Reference Range Interpretation Comments C-PEPTIDE (test code 4.8 ng/mL 1.1-4.4 A C-Pepti de reference = CPEP) interval is for fasting patients.Perfor med At: [facility] [place], [place] [id number] megan Carrillo MD Ph:[phone] [id number] 09:08:00 Test Item Value Reference Range Interpretation Comments CORTISOL (test code = 13.6 ug/dL () CORTR) Cortisol AM 6.2 - 19.4 Cor tisol PM 2.3 - 11.9 GLUCOSE BEDSIDE [id number] 07:33:00 Test Item Value Reference Range Interpretation Comments GLUCOSE BEDSIDE TESTING (test code = 91 mg/dL 70-110 N GLUBED) GLUCOSE BEDSIDE [id number] 06:05:00 Test Item Value Reference Range Interpretation Comments GLUCOSE BEDSIDE TESTING (test code 105 mg/dL 70-110 N = GLUBED) GLUCOSE BEDSIDE [id number] 06:05:00 Test Item Value Reference Range Interpretation Comments GLUCOSE BEDSIDE TESTING (test code 115 mg/dL 70-110 H = GLUBED) BASIC METABOLIC [id number] 22:07:00 Test Item Value Reference Range Interpretation Comments SODIUM (test code = NA) 143 mmol/L 134-147 N POTASSIUM (test code = 4.0 mmol/L 3.4-5.0 N K) CHLORIDE (test code = 114 mmol/L 100-108 H CL) CARBON DIOXIDE (test 23 mmol/L 21-32 N code = CO2) ANION GAP (test code = 6.0 GAP calc 4.0-15.0 N GAP) GLUCOSE (test code = 59 MG/DL 70-110 L GLU) BLOOD UREA NITROGEN 5 MG/DL 7-18 L (test code = BUN) GLOMERULAR FILTRATION >=60 max estimate >60 RATE (test code = GFR) estGFR CREATININE (test code = 0.5 MG/DL 0.6-1.0 L CREAT) CALCIUM (test code = CA) 8.2 MG/DL 8.5-10.1 L [id number] 22:07:00 Test Item Value Reference Range Interpretation Comments C-PEPTIDE (test code 9.6 ng/mL 1.1-4.4 A C-Pepti de reference = CPEP) interval is for fasting patients. [id number] 22:07:00 Test Item Value Reference Range Interpretation Comments CORTISOL (test code = 6.7 ug/dL () CORTR) Cortisol AM 6.2 - 19.4 Jordan isol PM 2.3 - 1 1.9 [id number] 22:07:00 Test Item Value Reference Range Interpretation Comments INSULIN (test code = 79.1 uIU/mL 2.6-24.9 A Perform ed At: HD INS) [facility] [address] [id number] megan Carrillo MD Ph:[phone] INSULIN-LIKE GROWTH FACTOR [id number] 22:07:00 Test Item Value Reference Range Interpretation Comments INSULIN-LIKE GROWTH 193 ng/mL 74-239 Performe d At: BN FACTOR I (test code = [facility] [id number] INSLKGF1) [place], [place] [id number] benjy Roy MD Ph:[phone] GLUCOSE BEDSIDE [id number] 20:45:00 Test Item Value Reference Range Interpretation Comments GLUCOSE BEDSIDE TESTING (test code 116 mg/dL 70-110 H = GLUBED) GLUCOSE BEDSIDE [id number] 16:50:00 Test Item Value Reference Range Interpretation Comments GLUCOSE BEDSIDE TESTING (test code 113 mg/dL 70-110 H = GLUBED) GLUCOSE BEDSIDE [id number] 12:49:00 Test Item Value Reference Range Interpretation Comments GLUCOSE BEDSIDE TESTING (test code 103 mg/dL 70-110 N = GLUBED) GLUCOSE BEDSIDE [id number] 08:57:00 Test Item Value Reference Range Interpretation Comments GLUCOSE BEDSIDE TESTING (test code 137 mg/dL 70-110 H = GLUBED) [id number] 08:13:00 Test Item Value Reference Range Interpretation Comments PHOSPHOROUS (test code = PHOS) 2.7 MG/DL 2.5-4.9 N [id number] 08:13:00 Test Item Value Reference Range Interpretation Comments MAGNESIUM (test code = MAG) 2.1 MG/DL 1.8-2.4 N ADRENOCORTICOTROPIC [id number] 08:13:00 Test Item Value Reference Range Interpretation Comments ADRENOCORTICOTROPIC HORMONE (test code = ACTH) [id number] 08:13:00 Test Item Value Reference Range Interpretation Comments C-PEPTIDE (test code = CPEP) NG/ML 1.1-4.4 [id number] 08:13:00 Test Item Value Reference Range Interpretation Comments CORTISOL (test code = 13.6 ug/dL () CORTR) Cortisol AM 6.2 - 19.4 Cor tisol PM 2.3 - 11.9 [id number] 08:13:00 Test Item Value Reference Range Interpretation Comments PHOSPHOROUS (test code = PHOS) 2.7 MG/DL 2.5-4.9 N [id number] 08:13:00 Test Item Value Reference Range Interpretation Comments MAGNESIUM (test code = MAG) 2.1 MG/DL 1.8-2.4 N ADRENOCORTICOTROPIC [id number] 08:13:00 Test Item Value Reference Range Interpretation Comments ADRENOCORTICOTROPIC HORMONE (test code = ACTH) [id number] 08:13:00 Test Item Value Reference Range Interpretation Comments C-PEPTIDE (test code 4.8 ng/mL 1.1-4.4 A C-Pepti de reference = CPEP) interval is for fasting patients.Perfor med At: HD [facility] [address] [place], [place] [id number] megan Carrillo MD Ph:[phone] [id number] 08:13:00 Test Item Value Reference Range Interpretation Comments CORTISOL (test code = 13.6 ug/dL () CORTR) Cortisol AM 6.2 - 19.4 Cor tisol PM 2.3 - 11.9 BASIC METABOLIC [id number] 05:59:00 Test Item Value Reference Range Interpretation Comments SODIUM (test code = NA) 144 mmol/L 134-147 N POTASSIUM (test code = 3.8 mmol/L 3.4-5.0 N K) CHLORIDE (test code = 114 mmol/L 100-108 H CL) CARBON DIOXIDE (test 27 mmol/L 21-32 N code = CO2) ANION GAP (test code = 3.0 GAP calc 4.0-15.0 L GAP) GLUCOSE (test code = 90 MG/DL 70-110 N GLU) BLOOD UREA NITROGEN 5 MG/DL 7-18 L (test code = BUN) GLOMERULAR FILTRATION >=60 max estimate >60 RATE (test code = GFR) estGFR CREATININE (test code = 0.4 MG/DL 0.6-1.0 L CREAT) CALCIUM (test code = CA) 8.1 MG/DL 8.5-10.1 L CBC W/AUTO [id number] 05:41:00 Test Item Value Reference Range Interpretation Comments WHITE BLOOD CELL (test code = 4.6 K/mm3 3.5-11.0 N WBC) RED BLOOD CELL (test code = 3.89 M/mm3 4.70-6.10 L RBC) HEMOGLOBIN (test code = HGB) 12.7 G/DL 10.4-14.9 N HEMATOCRIT (test code = HCT) 37.2 % 31.5-44.1 N MEAN CELL VOLUME (test code = 95.6 Fl 84.5-98.6 N MCV) MEAN CELL HGB (test code = MCH) 32.6 pg 27.0-34.2 N MEAN CELL HGB CONCETRATION 34.1 G/DL 31.5-34.0 H (test code = MCHC) RED CELL DISTRIBUTION WIDTH 12.4 SD 11.5-14.5 N (test code = RDW) PLATELET COUNT (test code = 160 K/mm3 150-450 N PLT) MEAN PLATELET VOLUME (test code 9.00 fL 7.0-10.5 N = MPV) NEUTROPHIL % (test code = NT%) 57.1 % 40-76 N IMMATURE GRANULOCYTE % (test 0.2 % 0.0-5.0 N code = IG%) LYMPHOCYTE % (test code = LY%) 27.6 % 20.5-51.1 N MONOCYTE % (test code = MO%) 10.4 % 1.7-9.3 H EOSINOPHIL % (test code = EO%) 4.3 % 0.0-6.0 N BASOPHIL % (test code = BA%) 0.4 % 0.0-2.0 N NUCLEATED RBC % (test code = 0.0 /100WBC% 0.0-1.0 N NRBC%) NEUTROPHIL # (test code = NT#) 2.6 K/mm3 1.8-7.6 N IMMATURE GRANULOCYTE # (test 0.01 x10 3/uL 0.00-0.03 N code = IG#) LYMPHOCYTE # (test code = LY#) 1.3 K/mm3 0.6-3.2 N MONOCYTE # (test code = MO#) 0.5 K/mm3 0.3-1.1 N EOSINOPHIL # (test code = EO#) 0.2 K/mm3 0.0-0.4 N BASOPHIL # (test code = BA#) 0.0 K/mm3 0.0-0.1 N NUCLEATED RBC # (test code = 0.0 K/mm3 0.0-0.1 N NRBC#) MANUAL DIFF REQUIRED (test code NO DIFF/SCN CRITERIA = MDIFF) GLUCOSE BEDSIDE [id number] 04:36:00 Test Item Value Reference Range Interpretation Comments GLUCOSE BEDSIDE TESTING (test code = 95 mg/dL 70-110 N GLUBED) GLUCOSE BEDSIDE [id number] 00:45:00 Test Item Value Reference Range Interpretation Comments GLUCOSE BEDSIDE TESTING (test code 104 mg/dL 70-110 N = GLUBED) GLUCOSE BEDSIDE [id number] 20:18:00 Test Item Value Reference Range Interpretation Comments GLUCOSE BEDSIDE TESTING (test code 134 mg/dL 70-110 H = GLUBED) GLUCOSE BEDSIDE [id number] 19:39:00 Test Item Value Reference Range Interpretation Comments GLUCOSE BEDSIDE TESTING (test code 103 mg/dL 70-110 N = GLUBED) GLUCOSE BEDSIDE [id number] 15:09:00 Test Item Value Reference Range Interpretation Comments GLUCOSE BEDSIDE TESTING (test code 120 mg/dL 70-110 H = GLUBED) GLUCOSE BEDSIDE [id number] 13:06:00 Test Item Value Reference Range Interpretation Comments GLUCOSE BEDSIDE TESTING (test code 125 mg/dL 70-110 H = GLUBED) THYROID STIMULATING [id number] 12:10:00 Test Item Value Reference Range Interpretation Comments THYROID STIMULATING HORMONE 1.510 mcIU/ML 0.340-4.820 N (test code = TSH) ADRENOCORTICOTROPIC [id number] 12:10:00 Test Item Value Reference Range Interpretation Comments ADRENOCORTICOTROPIC HORMONE 56.5 pg/mL 7.2-63.3 ACTH reference (test code = ACTH) interval for samples collected between 7 and10 AM.Performed At : [facility] [address] [place], [place] [id number] Amrik Carrillo MD Ph:[phone] GLUCOSE BEDSIDE [id number] 12:05:00 Test Item Value Reference Range Interpretation Comments GLUCOSE BEDSIDE TESTING (test code 106 mg/dL 70-110 N = GLUBED) GLUCOSE BEDSIDE [id number] 11:07:00 Test Item Value Reference Range Interpretation Comments GLUCOSE BEDSIDE TESTING (test code 103 mg/dL 70-110 N = GLUBED) GLUCOSE BEDSIDE [id number] 10:11:00 Test Item Value Reference Range Interpretation Comments GLUCOSE BEDSIDE TESTING (test code 109 mg/dL 70-110 N = GLUBED) [id number] 10:05:00 Test Item Value Reference Range Interpretation Comments PHOSPHOROUS (test code = PHOS) 2.7 MG/DL 2.5-4.9 N [id number] 10:05:00 Test Item Value Reference Range Interpretation Comments MAGNESIUM (test code = MAG) 2.1 MG/DL 1.8-2.4 N ADRENOCORTICOTROPIC [id number] 10:05:00 Test Item Value Reference Range Interpretation Comments ADRENOCORTICOTROPIC HORMONE (test code = ACTH) [id number] 10:05:00 Test Item Value Reference Range Interpretation Comments C-PEPTIDE (test code = CPEP) NG/ML 1.1-4.4 [id number] 10:05:00 Test Item Value Reference Range Interpretation Comments CORTISOL (test code = CORTR) GLUCOSE BEDSIDE [id number] 09:45:00 Test Item Value Reference Range Interpretation Comments GLUCOSE BEDSIDE TESTING (test code 132 mg/dL 70-110 H = GLUBED) GLUCOSE BEDSIDE [id number] 08:40:00 Test Item Value Reference Range Interpretation Comments GLUCOSE BEDSIDE TESTING (test code = 99 mg/dL 70-110 N GLUBED) BASIC METABOLIC [id number] 08:13:00 Test Item Value Reference Range Interpretation Comments SODIUM (test code = NA) 143 mmol/L 134-147 N POTASSIUM (test code = 4.0 mmol/L 3.4-5.0 N K) CHLORIDE (test code = 114 mmol/L 100-108 H CL) CARBON DIOXIDE (test 23 mmol/L 21-32 N code = CO2) ANION GAP (test code = 6.0 GAP calc 4.0-15.0 N GAP) GLUCOSE (test code = 59 MG/DL 70-110 L GLU) BLOOD UREA NITROGEN 5 MG/DL 7-18 L (test code = BUN) GLOMERULAR FILTRATION >=60 max estimate >60 RATE (test code = GFR) estGFR CREATININE (test code = 0.5 MG/DL 0.6-1.0 L CREAT) CALCIUM (test code = CA) 8.2 MG/DL 8.5-10.1 L [id number] 08:13:00 Test Item Value Reference Range Interpretation Comments C-PEPTIDE (test code = CPEP) NG/ML 1.1-4.4 [id number] 08:13:00 Test Item Value Reference Range Interpretation Comments CORTISOL (test code = 6.7 ug/dL () CORTR) Cortisol AM 6.2 - 19.4 Jordan isol PM 2.3 - 1 1.9 [id number] 08:13:00 Test Item Value Reference Range Interpretation Comments INSULIN (test code = INS) INSULIN-LIKE GROWTH FACTOR [id number] 08:13:00 Test Item Value Reference Range Interpretation Comments INSULIN-LIKE GROWTH FACTOR I (test code = INSLKGF1) BASIC METABOLIC [id number] 08:13:00 Test Item Value Reference Range Interpretation Comments SODIUM (test code = NA) 143 mmol/L 134-147 N POTASSIUM (test code = 4.0 mmol/L 3.4-5.0 N K) CHLORIDE (test code = 114 mmol/L 100-108 H CL) CARBON DIOXIDE (test 23 mmol/L 21-32 N code = CO2) ANION GAP (test code = 6.0 GAP calc 4.0-15.0 N GAP) GLUCOSE (test code = 59 MG/DL 70-110 L GLU) BLOOD UREA NITROGEN 5 MG/DL 7-18 L (test code = BUN) GLOMERULAR FILTRATION >=60 max estimate >60 RATE (test code = GFR) estGFR CREATININE (test code = 0.5 MG/DL 0.6-1.0 L CREAT) CALCIUM (test code = CA) 8.2 MG/DL 8.5-10.1 L [id number] 08:13:00 Test Item Value Reference Range Interpretation Comments C-PEPTIDE (test code 9.6 ng/mL 1.1-4.4 A C-Pepti de reference = CPEP) interval is for fasting patients. [id number] 08:13:00 Test Item Value Reference Range Interpretation Comments CORTISOL (test code = 6.7 ug/dL () CORTR) Cortisol AM 6.2 - 19.4 Jordan isol PM 2.3 - 1 1.9 [id number] 08:13:00 Test Item Value Reference Range Interpretation Comments INSULIN (test code = INS) INSULIN-LIKE GROWTH FACTOR [id number] 08:13:00 Test Item Value Reference Range Interpretation Comments INSULIN-LIKE GROWTH FACTOR I (test code = INSLKGF1) BASIC METABOLIC [id number] 08:13:00 Test Item Value Reference Range Interpretation Comments SODIUM (test code = NA) 143 mmol/L 134-147 N POTASSIUM (test code = 4.0 mmol/L 3.4-5.0 N K) CHLORIDE (test code = 114 mmol/L 100-108 H CL) CARBON DIOXIDE (test 23 mmol/L 21-32 N code = CO2) ANION GAP (test code = 6.0 GAP calc 4.0-15.0 N GAP) GLUCOSE (test code = 59 MG/DL 70-110 L GLU) BLOOD UREA NITROGEN 5 MG/DL 7-18 L (test code = BUN) GLOMERULAR FILTRATION >=60 max estimate >60 RATE (test code = GFR) estGFR CREATININE (test code = 0.5 MG/DL 0.6-1.0 L CREAT) CALCIUM (test code = CA) 8.2 MG/DL 8.5-10.1 L [id number] 08:13:00 Test Item Value Reference Range Interpretation Comments C-PEPTIDE (test code 9.6 ng/mL 1.1-4.4 A C-Pepti de reference = CPEP) interval is for fasting patients. [id number] 08:13:00 Test Item Value Reference Range Interpretation Comments CORTISOL (test code = 6.7 ug/dL () CORTR) Cortisol AM 6.2 - 19.4 Jordan isol PM 2.3 - 1 1.9 [id number] 08:13:00 Test Item Value Reference Range Interpretation Comments INSULIN (test code = 79.1 uIU/mL 2.6-24.9 A Perform ed At: [facility]) [facility] [id number] [place], [place] [id number] megan Carrillo MD Ph:[phone] INSULIN-LIKE GROWTH FACTOR [id number] 08:13:00 Test Item Value Reference Range Interpretation Comments INSULIN-LIKE GROWTH FACTOR I (test code = INSLKGF1) GLUCOSE BEDSIDE [id number] 07:15:00 Test Item Value Reference Range Interpretation Comments GLUCOSE BEDSIDE TESTING (test code = 87 mg/dL 70-110 N GLUBED) GLUCOSE BEDSIDE [id number] 05:59:00 Test Item Value Reference Range Interpretation Comments GLUCOSE BEDSIDE TESTING (test code 102 mg/dL 70-110 N = GLUBED) BASIC METABOLIC [id number] 04:38:00 Test Item Value Reference Range Interpretation Comments SODIUM (test code = NA) 141 mmol/L 134-147 N POTASSIUM (test code = 3.6 mmol/L 3.4-5.0 N K) CHLORIDE (test code = 114 mmol/L 100-108 H CL) CARBON DIOXIDE (test 23 mmol/L 21-32 N code = CO2) ANION GAP (test code = 4.0 GAP calc 4.0-15.0 N GAP) GLUCOSE (test code = 86 MG/DL 70-110 N GLU) BLOOD UREA NITROGEN 4 MG/DL 7-18 L (test code = BUN) GLOMERULAR FILTRATION >=60 max estimate >60 RATE (test code = GFR) estGFR CREATININE (test code = 0.5 MG/DL 0.6-1.0 L CREAT) CALCIUM (test code = CA) 8.3 MG/DL 8.5-10.1 L CBC W/AUTO [id number] 04:21:00 Test Item Value Reference Range Interpretation Comments WHITE BLOOD CELL (test code = 5.9 K/mm3 3.5-11.0 N WBC) RED BLOOD CELL (test code = 4.09 M/mm3 4.70-6.10 L RBC) HEMOGLOBIN (test code = HGB) 13.2 G/DL 10.4-14.9 N HEMATOCRIT (test code = HCT) 40.1 % 31.5-44.1 N MEAN CELL VOLUME (test code = 98.0 Fl 84.5-98.6 N MCV) MEAN CELL HGB (test code = MCH) 32.3 pg 27.0-34.2 N MEAN CELL HGB CONCETRATION 32.9 G/DL 31.5-34.0 N (test code = MCHC) RED CELL DISTRIBUTION WIDTH 13.0 SD 11.5-14.5 N (test code = RDW) PLATELET COUNT (test code = 192 K/mm3 150-450 N PLT) MEAN PLATELET VOLUME (test code 9.10 fL 7.0-10.5 N = MPV) NEUTROPHIL % (test code = NT%) 60.6 % 40-76 IMMATURE GRANULOCYTE % (test 0.3 % 0.0-5.0 N code = IG%) LYMPHOCYTE % (test code = LY%) 25.6 % 20.5-51.1 N MONOCYTE % (test code = MO%) 10.2 % 1.7-9.3 H EOSINOPHIL % (test code = EO%) 3.1 % 0.0-6.0 N BASOPHIL % (test code = BA%) 0.2 % 0.0-2.0 N NUCLEATED RBC % (test code = 0.0 /100WBC% 0.0-1.0 N NRBC%) NEUTROPHIL # (test code = NT#) 3.6 K/mm3 1.8-7.6 N IMMATURE GRANULOCYTE # (test 0.02 x10 3/uL 0.00-0.03 N code = IG#) LYMPHOCYTE # (test code = LY#) 1.5 K/mm3 0.6-3.2 N MONOCYTE # (test code = MO#) 0.6 K/mm3 0.3-1.1 N EOSINOPHIL # (test code = EO#) 0.2 K/mm3 0.0-0.4 N BASOPHIL # (test code = BA#) 0.0 K/mm3 0.0-0.1 N NUCLEATED RBC # (test code = 0.0 K/mm3 0.0-0.1 N NRBC#) MANUAL DIFF REQUIRED (test code NO DIFF/SCN CRITERIA = MDIFF) GLUCOSE BEDSIDE [id number] 04:10:00 Test Item Value Reference Range Interpretation Comments GLUCOSE BEDSIDE TESTING (test code = 93 mg/dL 70-110 N GLUBED) GLUCOSE BEDSIDE [id number] 02:07:00 Test Item Value Reference Range Interpretation Comments GLUCOSE BEDSIDE TESTING (test code = 78 mg/dL 70-110 N GLUBED) GLUCOSE BEDSIDE [id number] 01:03:00 Test Item Value Reference Range Interpretation Comments GLUCOSE BEDSIDE TESTING (test code = 83 mg/dL 70-110 N GLUBED) GLUCOSE BEDSIDE [id number] 23:33:00 Test Item Value Reference Range Interpretation Comments GLUCOSE BEDSIDE TESTING (test code 140 mg/dL 70-110 H = GLUBED) GLUCOSE BEDSIDE [id number] 23:15:00 Test Item Value Reference Range Interpretation Comments GLUCOSE BEDSIDE TESTING (test code = 46 mg/dL 70-110 L GLUBED) GLUCOSE BEDSIDE [id number] 21:48:00 Test Item Value Reference Range Interpretation Comments GLUCOSE BEDSIDE TESTING (test code = 72 mg/dL 70-110 N GLUBED) GLUCOSE BEDSIDE [id number] 21:09:00 Test Item Value Reference Range Interpretation Comments GLUCOSE BEDSIDE TESTING (test code = 62 mg/dL 70-110 L GLUBED) BASIC METABOLIC [id number] 19:46:00 Test Item Value Reference Range Interpretation Comments SODIUM (test code = NA) 143 mmol/L 134-147 N POTASSIUM (test code = 4.0 mmol/L 3.4-5.0 N K) CHLORIDE (test code = 114 mmol/L 100-108 H CL) CARBON DIOXIDE (test 23 mmol/L 21-32 N code = CO2) ANION GAP (test code = 6.0 GAP calc 4.0-15.0 N GAP) GLUCOSE (test code = 59 MG/DL 70-110 L GLU) BLOOD UREA NITROGEN 5 MG/DL 7-18 L (test code = BUN) GLOMERULAR FILTRATION >=60 max estimate >60 RATE (test code = GFR) estGFR CREATININE (test code = 0.5 MG/DL 0.6-1.0 L CREAT) CALCIUM (test code = CA) 8.2 MG/DL 8.5-10.1 L [id number] 19:46:00 Test Item Value Reference Range Interpretation Comments C-PEPTIDE (test code = CPEP) NG/ML 1.1-4.4 [id number] 19:46:00 Test Item Value Reference Range Interpretation Comments CORTISOL (test code = CORTR) [id number] 19:46:00 Test Item Value Reference Range Interpretation Comments INSULIN (test code = INS) INSULIN-LIKE GROWTH FACTOR [id number] 19:46:00 Test Item Value Reference Range Interpretation Comments INSULIN-LIKE GROWTH FACTOR I (test code = INSLKGF1) GLUCOSE BEDSIDE [id number] 19:26:00 Test Item Value Reference Range Interpretation Comments GLUCOSE BEDSIDE TESTING (test code = 77 mg/dL 70-110 N GLUBED) GLUCOSE BEDSIDE [id number] 18:40:00 Test Item Value Reference Range Interpretation Comments GLUCOSE BEDSIDE TESTING (test code = 59 mg/dL 70-110 L GLUBED) - XR CHEST 1 [id number] 18:32:00 Name: DAYANARA BAUM [facility] : 1980 Age/S: 40 / F [address] Unit #: [id number] Loc: [place] [address] Phys: Elton Sandoval MD Acct: [id number] Dis Date: Status: ADM IN PHONE #: [phone] Exam Date: 07/29/2020 182 FAX #: Reason: PICC LINE PLACEMENT EXAMS: CPT: [id number] XR CHEST 1 V 65758 Fluoro Time: DAP (Gy m2): Air Kerma (mGy): Examination: One view chest x-ray Location code: H60 Comparison: 07/28/2020 Discussion: Clinical history is remarkable for PICC line placement. Right-sided PICC line has been placed with its tip in the superior vena cava. Heart is normal in size. Lungs are clear of consolidating infiltrates. No masses, nodules or effusions are noted. Impression: 1. Right-sided PICC line identified with its tip in the superior vena cava. 2. Stable chest x-ray without evidence for acute infiltrates or effusions. at 1832 Reported and felton d by: Sai Alexander M.D. CC: Elton Sandoval MD; Dave Raymond MD PAGE 1 Signed Report Name: DAYANARA BAUM [place] : 1980 Age/S: 40 / F [address] Unit #: [id number] Loc: [place] [address] Phys: Elton Sandoval MD Acct: [id number] Dis Date: Status: ADM IN PHONE #: [phone] Exam Date: 07/29/2020 1825 FAX #: Reason: PICC LINE PLACEMENT EXAMS: CPT: [id number] XR CHEST 1 V 40472 Fluoro Time: DAP (Gy m2): Air Kerma (mGy): <Continued> Technologist: Amberly Johnson RT(R)(CT) Trnscb Date/Time: 07/29/2020 (1831) [id number] Orig Print D/T: S: 07/29/2020 (1834) PAGE 2 Signed ReportGLUCOSE BEDSIDE [id number] 16:59:00 Test Item Value Reference Range Interpretation Comments GLUCOSE BEDSIDE TESTING (test code = 67 mg/dL 70-110 L GLUBED) GLUCOSE BEDSIDE [id number] 16:11:00 Test Item Value Reference Range Interpretation Comments GLUCOSE BEDSIDE TESTING (test code = 53 mg/dL 70-110 L GLUBED) GLUCOSE BEDSIDE [id number] 15:33:00 Test Item Value Reference Range Interpretation Comments GLUCOSE BEDSIDE TESTING (test code = 81 mg/dL 70-110 N GLUBED) - CT ABD PELVIS [id number] 15:16:00 Name: DAYANARA BAUM [place] : 1980 Age/S: 40 / F [address] Unit #: [id number] Loc: [place] [address] Phys: Dave Raymond MD Acct: [id number] Dis Date: Status: ADM IN PHONE #: [phone] Exam Date: 07/29/2020 1422 FAX #: Reason: Recurrent hypoglycemia EXAMS: CPT: [id number] CT ABD PELVIS W/CONT 40518 HISTORY: Hypoglycemia. CT abdomen and pelvis, contrast enhanced. Reformatted sagittal and coronal images. COMPARISON: None Automated exposure control, iterative reconstruction technique, and/or adjustment of mA and/or kV according to patient's size was utilized for optimum radiation dose reduction. Following the intravenous administration of 100 ml of Isovue 300 but no oral contrast, a study of the abdomen and pelvis was performed. The study includes some of the lung bases, which appear to be clear. 2 calcified left lower lobe granuloma, benign. 3No pericardial or pleural fluid can be found. Homogeneous liver perfusion. No focal enhancing lesions. Vague hypodensity seenin the posterior aspect of the right upper lobe on the order of 1 cm, too small to accurately characterize. Again, no abnormal enhancement found. Cholecystectomy. The spleen and pancreas are intact with normal perfusion. No focal pancreatic lesions are seen nor ductal dilatation. Adrenals and kidneys normally perfused. No stranding or obstruction. Normal aortic diameter and perfusion seen. No adenopathy is appreciated. The bowelloops are free of obstruction. Appendix intact. The bladder contains a small amount ofair possibly recent catheterization. Correlate for any cystitis changes with gas-forming organism. Hysterectomy. No free fluid or evidence of inguinal hernia. The bony structures are well mineralized. Spinal alignment well maintained with spondylosis changes at L5-S1, loss of disc space height. Other mild degenerative endplate changes, Schmorl's nodes seen at the lower thoracic and upper lumbar levels.. IMPRESSION: No acute findings in the abdomen or pelvis. Bowel loop pattern intact including normal appendix. PAGE 1 Signed Report (CONTINUED) Name: DAYANARA BAUM [facility] : 1980 Age/S: 40 / F [address] Unit #: [id number] Loc: [place] [address] Phys: Dave Raymond MD Acct: [id number] Dis Date: Status: ADM IN PHONE #: [phone] Exam Date: 07/29/20201422 FAX #: Reason: Recurrent hypoglycemia EXAMS: CPT: [id number] CT ABD PELVISW/CONT 14082 <Continued> Some air bubbles within the bladder may need correlation for recent catheterization or possibly cystitis with infection. Location: U19 at 1516 Reported and signed by: Girma Valle M.D CC: Dave Raymond MD Technologist:Mercedes Dhillon, RT(R)(CT)(MRI) CTDI: DLP: Trnscb Date/Time: 07/29/2020 (2706) [email or web address] Orig Print D/T: S: 07/29/2020 (5810) PAGE 2 Signed ReportGLUCOSE BEDSIDE [id number] 14:04:00 Test Item Value Reference Range Interpretation Comments GLUCOSE BEDSIDE TESTING (test code 104 mg/dL 70-110 N = GLUBED) GLUCOSE BEDSIDE [id number] 12:48:00 Test Item Value Reference Range Interpretation Comments GLUCOSE BEDSIDE TESTING (test code = 39 mg/dL 70-110 LL GLUBED) GLUCOSE BEDSIDE [id number] 11:31:00 Test Item Value Reference Range Interpretation Comments GLUCOSE BEDSIDE TESTING (test code = 59 mg/dL 70-110 L GLUBED) GLUCOSE BEDSIDE [id number] 10:35:00 Test Item Value Reference Range Interpretation Comments GLUCOSE BEDSIDE TESTING (test code = 69 mg/dL 70-110 L GLUBED) GLUCOSE BEDSIDE [id number] 09:13:00 Test Item Value Reference Range Interpretation Comments GLUCOSE BEDSIDE TESTING (test code = 65 mg/dL 70-110 L GLUBED) THYROID STIMULATING [id number] 09:12:00 Test Item Value Reference Range Interpretation Comments THYROID STIMULATING HORMONE 1.510 mcIU/ML 0.340-4.820 N (test code = TSH) ADRENOCORTICOTROPIC [id number] 09:12:00 Test Item Value Reference Range Interpretation Comments ADRENOCORTICOTROPIC HORMONE (test code = ACTH) GLUCOSE BEDSIDE [id number] 07:56:00 Test Item Value Reference Range Interpretation Comments GLUCOSE BEDSIDE TESTING (test code = 73 mg/dL 70-110 N GLUBED) GLUCOSE BEDSIDE [id number] 07:34:00 Test Item Value Reference Range Interpretation Comments GLUCOSE BEDSIDE TESTING (test code = 34 mg/dL 70-110 LL GLUBED) GLYCOSYLATED HEMOGLOBIN [id number] 06:03:00 Test Item Value Reference Range Interpretation Comments GLYCOSYLATED HEMOGLOBIN (HA1C) 4.8 % A1C 0.0-5.7 N (test code = GLYHGB) ESTIMATED AVERAGE GLUCOSE (test 91 MG/DLest code = EAG) COMPREHENSIVE METABOLIC [id number] 05:48:00 Test Item Value Reference Range Interpretation Comments SODIUM (test code = NA) 143 mmol/L 134-147 N POTASSIUM (test code = 3.4 mmol/L 3.4-5.0 N K) CHLORIDE (test code = 119 mmol/L 100-108 H CL) CARBON DIOXIDE (test 21 mmol/L 21-32 N code = CO2) ANION GAP (test code = 3.0 GAP calc 4.0-15.0 L GAP) GLUCOSE (test code = 77 MG/DL 70-110 N GLU) BLOOD UREA NITROGEN 9 MG/DL 7-18 N (test code = BUN) GLOMERULAR FILTRATION >=60 max estimate >60 RATE (test code = GFR) estGFR CREATININE (test code = 0.5 MG/DL 0.6-1.0 L CREAT) TOTAL PROTEIN (test code 5.4 G/DL 6.4-8.2 L = PROT) ALBUMIN (test code = 2.8 G/DL 3.4-5.0 L ALB) GLOBULIN (test code = 2.6 GM/dL GLOB) ALBUMIN/GLOBULIN RATIO 1.1 RATIO 1.2-2.2 L (test code = A/G) CALCIUM (test code = CA) 8.0 MG/DL 8.5-10.1 L BILIRUBIN TOTAL (test 0.40 MG/DL 0.2-1.2 N code = BILT) SGOT/AST (test code = 14 Unit/L 15-37 L AST) SGPT/ALT (test code = 21 Unit/L 12-78 N ALT) ALKALINE PHOSPHATASE 47 Unit/L 45-117 N TOTAL (test code = ALKP) COMPREHENSIVE METABOLIC [id number] 05:41:00 Test Item Value Reference Range Interpretation Comments SODIUM (test code = NA) 143 mmol/L 134-147 N POTASSIUM (test code = K) 3.4 mmol/L 3.4-5.0 N CHLORIDE (test code = CL) 119 mmol/L 100-108 H CARBON DIOXIDE (test code = CO2) 21 mmol/L 21-32 N ANION GAP (test code = GAP) 3.0 GAP calc 4.0-15.0 L GLUCOSE (test code = GLU) 77 MG/DL 70-110 N BLOOD UREA NITROGEN (test code = 9 MG/DL 7-18 N BUN) GLOMERULAR FILTRATION RATE (test estGFR >60 code = GFR) CREATININE (test code = CREAT) MG/DL 0.6-1.0 TOTAL PROTEIN (test code = PROT) G/DL 6.4-8.2 ALBUMIN (test code = ALB) G/DL 3.4-5.0 GLOBULIN (test code = GLOB) GM/dL ALBUMIN/GLOBULIN RATIO (test RATIO 1.2-2.2 code = A/G) CALCIUM (test code = CA) 8.0 MG/DL 8.5-10.1 L BILIRUBIN TOTAL (test code = MG/DL 0.2-1.2 BILT) SGOT/AST (test code = AST) Unit/L 15-37 SGPT/ALT (test code = ALT) Unit/L 12-78 ALKALINE PHOSPHATASE TOTAL (test Unit/L 45-117 code = ALKP) CBC W/AUTO [id number] 05:39:00 Test Item Value Reference Range Interpretation Comments WHITE BLOOD CELL (test code = 6.9 K/mm3 3.5-11.0 N WBC) RED BLOOD CELL (test code = 4.05 M/mm3 4.70-6.10 L RBC) HEMOGLOBIN (test code = HGB) 13.2 G/DL 10.4-14.9 N HEMATOCRIT (test code = HCT) 38.7 % 31.5-44.1 N MEAN CELL VOLUME (test code = 95.6 Fl 84.5-98.6 N MCV) MEAN CELL HGB (test code = MCH) 32.6 pg 27.0-34.2 N MEAN CELL HGB CONCETRATION 34.1 G/DL 31.5-34.0 H (test code = MCHC) RED CELL DISTRIBUTION WIDTH 13.0 SD 11.5-14.5 N (test code = RDW) PLATELET COUNT (test code = 177 K/mm3 150-450 N PLT) MEAN PLATELET VOLUME (test code 9.30 fL 7.0-10.5 N = MPV) NEUTROPHIL % (test code = NT%) 69.6 % 40-76 N IMMATURE GRANULOCYTE % (test 0.6 % 0.0-5.0 N code = IG%) LYMPHOCYTE % (test code = LY%) 18.7 % 20.5-51.1 L MONOCYTE % (test code = MO%) 9.1 % 1.7-9.3 N EOSINOPHIL % (test code = EO%) 1.7 % 0.0-6.0 N BASOPHIL % (test code = BA%) 0.3 % 0.0-2.0 N NUCLEATED RBC % (test code = 0.0 /100WBC% 0.0-1.0 N NRBC%) NEUTROPHIL # (test code = NT#) 4.8 K/mm3 1.8-7.6 N IMMATURE GRANULOCYTE # (test 0.04 x10 3/uL 0.00-0.03 H code = IG#) LYMPHOCYTE # (test code = LY#) 1.3 K/mm3 0.6-3.2 N MONOCYTE # (test code = MO#) 0.6 K/mm3 0.3-1.1 N EOSINOPHIL # (test code = EO#) 0.1 K/mm3 0.0-0.4 N BASOPHIL # (test code = BA#) 0.0 K/mm3 0.0-0.1 N NUCLEATED RBC # (test code = 0.0 K/mm3 0.0-0.1 N NRBC#) MANUAL DIFF REQUIRED (test code NO DIFF/SCN CRITERIA = MDIFF) GLUCOSE BEDSIDE [id number] 05:20:00 Test Item Value Reference Range Interpretation Comments GLUCOSE BEDSIDE TESTING (test code 120 mg/dL 70-110 H = GLUBED) GLUCOSE BEDSIDE [id number] 05:20:00 Test Item Value Reference Range Interpretation Comments GLUCOSE BEDSIDE TESTING (test code = 23 mg/dL 70-110 LL GLUBED) GLUCOSE BEDSIDE [id number] 04:11:00 Test Item Value Reference Range Interpretation Comments GLUCOSE BEDSIDE TESTING (test code = 46 mg/dL 70-110 L GLUBED) GLUCOSE BEDSIDE [id number] 03:17:00 Test Item Value Reference Range Interpretation Comments GLUCOSE BEDSIDE TESTING (test code = 54 mg/dL 70-110 L GLUBED) GLUCOSE BEDSIDE [id number] 01:20:00 Test Item Value Reference Range Interpretation Comments GLUCOSE BEDSIDE TESTING (test code = 46 mg/dL 70-110 L GLUBED) GLUCOSE BEDSIDE [id number] 00:31:00 Test Item Value Reference Range Interpretation Comments GLUCOSE BEDSIDE TESTING (test code = 48 mg/dL 70-110 L GLUBED) GLUCOSE BEDSIDE [id number] 23:33:00 Test Item Value Reference Range Interpretation Comments GLUCOSE BEDSIDE TESTING (test code = 92 mg/dL 70-110 N GLUBED) GLUCOSE BEDSIDE [id number] 23:33:00 Test Item Value Reference Range Interpretation Comments GLUCOSE BEDSIDE TESTING (test code = 32 mg/dL 70-110 LL GLUBED) GLUCOSE BEDSIDE [id number] 21:02:00 Test Item Value Reference Range Interpretation Comments GLUCOSE BEDSIDE TESTING (test code = 83 mg/dL 70-110 N GLUBED) GLUCOSE BEDSIDE [id number] 20:33:00 Test Item Value Reference Range Interpretation Comments GLUCOSE BEDSIDE TESTING (test code = 31 mg/dL 70-110 LL GLUBED) GLUCOSE BEDSIDE [id number] 19:27:00 Test Item Value Reference Range Interpretation Comments GLUCOSE BEDSIDE TESTING (test code = 52 mg/dL 70-110 L GLUBED) - CT HEAD/BRAIN W/O [id number] 19:02:00 Name: [facility] [place] 1980 Age/S: 40 / F [id number] [address] Unit #: [id number] Loc: [place] [address] Phys: Marin Mckeon MD Acct: [id number] Dis Date: Status: ADM IN PHONE #: [phone] Exam Date: 07/28/2020 185 FAX #: Reason: ams EXAMS: CPT: [id number] CT HEAD/BRAIN W/O CONT 68923 Location ofdictation: B2 CT Brain without contrast HISTORY: Altered mentation COMMENT: Axial multidetector slices through the brain were obtained without useof intravenous contrast material. Sagittal and coronal reformations were obtained and reviewed. An up-to-date CT recommended radiation dose reduction technique was utilized with total DLP of 804.23 mGy-cm. COMPARISON: None The cortical sulci, cisterns and ventricles appear normal for age with no intra or extra cerebral hemorrhage or mass lesion.No midline shift or transtentorial herniation is present. No abnormal intracranial calcifications are seen. The calvarium is intact with no fracture or destructive lesion.The sinuses are clear. IMPRESSION: No acute findings on noncontrast jose maria dy. at 1902 Reported and signed by: Karen Block M.D. CC: Marin Mckeon MD Technologist:Marcia Hitchcock, RT(R) CTDI: DLP: Trnscb D ate/Time: 07/28/2020 (1901) [email or web address] Orig Print D/T: S: 07/28/2020 (1904) PAGE 1 Signed ReportCOVID 19 INHOUSE AG 2020-07-28 18:53:00 Test Item Value Reference Range Interpretation Comments COVID 19 INHOUSE AG NEGATIVE Negative Per manu facturer, (test code = negative result s should [id number]) be treated aspr esumptive and, if inconsi stent with clinical signs andsymptoms or necessary for patient man agement, should betested with an alternative mol ecular assay. Negative resultsdo not preclude SA RS-CoV-2 infection and s hould not be usedas the s ole basis for patient man agement decisions. Neg ative results should be considered in t he context of apatient's r ecent exposures, hist ory, presence of cli nicalsigns and symptoms co nsistent with COVID-19. Emergent procedure? NODRUGS OF ABUSE SCREEN [id number] 18:38:00 Test Item Value Reference Range Interpretation Comments URN COCAINE (test code = NEGATIVE SCcutoff <300 NG/ML COCAURN) URN CANNABINOIDS (test code NEGATIVE SCcutoff <50 NG/ML = CANNABURN) URN AMPHETAMINE (test code NEGATIVE SCcutoff <1000 NG/ML = AMPHETURN) URN BARBITURATE (test code POSITIVE SCcutoff <200 NG/ML A = BARBITURN) URN BENZODIAZEPINE (test NEGATIVE SCcutoff <200 NG/ML code = BENZOURN) URN OPIATES (test code = NEGATIVE SCcutoff <2000 NG/ML OPIATURN) URN PHENCYCLIDINE (PCP) NEGATIVE SCcutoff <25 NG/ML (test code = PHENCURN) URN METHADONE (test code = NEGATIVE SCcutoff <300 NG/ML METHAURN) GLUCOSE BEDSIDE [id number] 18:22:00 Test Item Value Reference Range Interpretation Comments GLUCOSE BEDSIDE TESTING (test code = 45 mg/dL 70-110 L GLUBED) GLUCOSE BEDSIDE [id number] 18:22:00 Test Item Value Reference Range Interpretation Comments GLUCOSE BEDSIDE TESTING (test code = 27 mg/dL 70-110 LL GLUBED) [id number] 17:35:00 Test Item Value Reference Range Interpretation Comments ALCOHOL (test code = ALC) 4 MG/DL 0-10 N LACTIC [id number] 17:34:00 Test Item Value Reference Range Interpretation Comments LACTIC ACID (test code = LACT) 1.7 mmol/L 0.4-2.0 N HCG [id number] 17:34:00 Test Item Value Reference Range Interpretation Comments HCG SERUM (test < 1 mi-IU/ML 0-6 N 0 - 6 NOT code = HCG) > 6 SUGGESTIVE OF EARLY RISES TWO FOLD EVERY 2 DAYS; SUGGES T RECONFIRMING AF TER 2 DAYS. 150,000-200,[address] TRIMESTER 10,00 0 - 50,000 2ND & 3RD TRIMESTER BASIC METABOLIC [id number] 17:33:00 Test Item Value Reference Range Interpretation Comments SODIUM (test code = NA) 144 mmol/L 134-147 N POTASSIUM (test code = 3.1 mmol/L 3.4-5.0 L K) CHLORIDE (test code = 118 mmol/L 100-108 H CL) CARBON DIOXIDE (test 20 mmol/L 21-32 L code = CO2) ANION GAP (test code = 6.0 GAP calc 4.0-15.0 N GAP) GLUCOSE (test code = 35 MG/DL 70-110 LL GLU) BLOOD UREA NITROGEN 11 MG/DL 7-18 N (test code = BUN) GLOMERULAR FILTRATION >=60 max estimate >60 RATE (test code = GFR) estGFR CREATININE (test code = 0.6 MG/DL 0.6-1.0 N CREAT) CALCIUM (test code = CA) 8.3 MG/DL 8.5-10.1 L Completed by Nursing: NOCREATINE KINASE (CK)2020-07-28 17:33:00 Test Item Value Reference Range Interpretation Comments CREATINE KINASE (CK) (test code = 45 Unit/L 26-192 N CK) Completed by Nursing: [id number] 17:33:00 Test Item Value Reference Range Interpretation Comments TROPONIN-I (test < 0.015 NG/ML 0.000-0.045 N Negative: </= 0.045 code = TROPI) Positive: >/= 0.046 Correlation wit h serial results, other cardiac markers, and cl inical findings is nec essary to determine the c linical significance of this result. Quantit ative results using d ifferent methodologies s hould not be compared to one another as nume rical results may rosalio yby method. Completed by Nursing: NOCBC W/O [id number] 17:12:00 Test Item Value Reference Range Interpretation Comments WHITE BLOOD CELL (test code = WBC) 11.0 K/mm3 3.5-11.0 N RED BLOOD CELL (test code = RBC) 4.30 M/mm3 4.70-6.10 L HEMOGLOBIN (test code = HGB) 14.1 G/DL 10.4-14.9 N HEMATOCRIT (test code = HCT) 40.5 % 31.5-44.1 N MEAN CELL VOLUME (test code = MCV) 94.2 Fl 84.5-98.6 N MEAN CELL HGB (test code = MCH) 32.8 pg 27.0-34.2 N MEAN CELL HGB CONCETRATION (test 34.8 G/DL 31.5-34.0 H code = MCHC) RED CELL DISTRIBUTION WIDTH (test 12.9 SD 11.5-14.5 N code = RDW) PLATELET COUNT (test code = PLT) 239 K/mm3 150-450 N MEAN PLATELET VOLUME (test code = 9.20 fL 7.0-10.5 N MPV) [id number] 16:41:00 Test Item Value Reference Range Interpretation Comments ARTERIAL BLOOD GAS PH (test 7.38 pH units 7.35-7.45 N code = PHA) ARTERIAL BLOOD GAS PCO2 34 mmHg 35-45 L (test code = PCO2A) ARTERIAL BLOOD GAS PO2 98 mmHg 80-100 N (test code = PO2A) BICARBONATE TOTAL HCO3 19.8 mmol/L 22.0-26.0 L (test code = HCO3) BASE EXCESS (test code = -4.5 mmol/L -3.0-3.0 L CLYDE) ABG O2 SATURATION (test 98 % 90-100 N code = SATA) FIO2 (test code = FIO2A) 21 % e 21-100 N ABG VENT MODE (test code = Room Air Descript Vent Mode MODEA) ABG SITE (test code = Left Radial ARTKIT DESCRIPTION SITEA) MODIFIED JAHAIRA'S (test code Yes Circ.CHK POSITIVE = MODALL) TOTAL HGB (test code = THB) 13.7 GRAM/DL 12.0-18.0 N HGB O2 SAT (test code = 96.4 % (batool) 95.0-100.0 N HBOSAT) CARBOXYHEMOGLOBIN (test 1.2 % 0.5-1.5 N code = HOHGBT) METHEMOGLOBIN (test code = 0.1 % 0.0-0.0 H METHGB) - XR CHEST 1 [id number] 16:37:00 Name: DAYANARA BAUM [place] : 1980 Age/S: 40 / F [id number] [address] Unit #: [id number] Loc: [place] [address] Phys: Marin Mckeon MD Acct: [id number] Dis Date: Status: PRE ER PHONE #: [phone] Exam Date: 07/28/2020 1632 FAX #: Reason: chest pain EXAMS: CPT: [id number] XR CHEST 1 V 40000 Fluoro Time: DAP (Gy m2): Air Kerma (mGy): Examination: One view chest x-ray Location code: H60 Comparison: None Discussion: Clinical history is remarkable for chest pain. Heart is normal in size. Lungs are clear of consolidating infiltrates. No masses, nodules or effusions identified. Impression: 1. Normal one view chest x-ray. at 1637 Reported and signed by: Sai Alexander M.D. CC: Marin Mckeon MD PAGE 1 Signed Report Name: DAYANARA BAUM [place] : 1980 Age/S: 40 / F [address] [address] Unit #: [id number] Loc: [place] [address] Phys: Marin Mckeon MD Acct: [id number] Dis Date: Status: PRE ER PHONE #: [phone] Exam Date: 07/28/2020 1632 FAX #: Reason: chest pain EXAMS: CPT: [id number] XR CHEST 1 V 68968 Fluoro Time: DAP (Gy m2): Air Kerma (mGy): <Continued> Technologist: Amberly Johnson RT(R)(CT) Trnidb Date/Time: 07/28/2020 (1637) Eva [id number] Orig Print D/T: S: 07/28/2020 (1640) PAGE 2 Signed ReportGLUCOSE BEDSIDE [id number] 16:10:00 Test Item Value Reference Range Interpretation Comments GLUCOSE BEDSIDE TESTING (test code 117 mg/dL 70-110 H = GLUBED)
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
[2020-12-14 15:06] LABS: Absolute Lymphocytes (CBC) 1.8 K/uL (0.7-4.9); Basophils % 0.3 % (0-1.3); Hematocrit 42.2 % (36.0-45.0); Lymphocytes % 27.6 % (15.3-44.8); MPV 8.1 fL (7.6-11.3); RBC Red Blood Cell Count 4.64 M/uL (3.86-4.86)
[2020-12-14 15:10] LABS: Protime INR 1.04
[2020-12-14] MEDS ORDERED: ONDANSETRON 4 MG/2 ML VIAL ONE (15:15)
[2020-12-14 15:28] LABS: ALT/SGPT 26 U/L (12-78); Albumin 4.4 g/dL (3.4-5.0); Alkaline Phosphatase 64 U/L (45-117); BUN Blood Urea Nitrogen 8 mg/dL (7-18); Bicarbonate 23 mmol/L (21-32); Bilirubin Direct 0.1 mg/dL (0-0.2); Bilirubin Total 0.6 mg/dL (0.2-1.0); Glucose Level 77 mg/dL (74-106); Protein, Total 7.3 g/dL (6.4-8.2); Sodium Level 141 mmol/L (136-145)
[2020-12-14 15:38] LABS: AST/SGOT 28 U/L (15-37); Potassium 3.2 mmol/L (3.5-5.1)
[2020-12-14 15:53] LABS: Barbiturates NEGATIVE (NEGATIVE); Benzodiazepines POSITIVE (NEGATIVE); Cocaine NEGATIVE (NEGATIVE); METHAMPHETAM POSITIVE (NEGATIVE); Methadone NEGATIVE (NEGATIVE); Opiates NEGATIVE (NEGATIVE); Phencyclidine NEGATIVE (NEGATIVE); THC Cannibis NEGATIVE (NEGATIVE)
[2020-12-14 16:31] LABS: Urine Blood 2+ (NEG); Urine Glucose NEGATIVE (NEG)
[2020-12-14 16:32] LABS: Urine Protein NEGATIVE (NEG); Urine pH 8.5 (5.0-7.0)
--- NOTE | 2020-12-14 16:32 | ER ---
Nurse's Notes [facility] Name: Roxane Mayfield Age: 40 yrs Sex: Female : 1980 Arrival Date: 12/14/2020 Time: 14:13 Bed 2 Private MD: Diagnosis: Adverse effect of benzodiazepines Presentation: 12/14 14:13 Chief complaint: EMS states: call was for a possible overdose, friends where she was tw2 says it is not uncommon for her to do Meth, they say about 30 minutes ago she had increased drowsiness and was unable to hold herself upright, when we arrived she was able to ambulate with assistance to the stretcher, she told us she did not do drugs but the people she was with about 2 hours ago did and she got a contact high by just being around them and they were doing synthetic marijuana. vs stable, BGL 109 a little hypertensive, for us she is mumbling and then drifts off but a little sternal rub and she is back arousable. 14:14 Coronavirus screen: At this time, unable to obtain information related to travel sv outside the [place] Ebola Screen: Unable to complete the Ebola screening because: The patient is disoriented. Initial Sepsis Screen: Does the patient meet any 2 criteria? HR > 90 bpm. Yes Does the patient have a suspected source of infection? No. Patient's initial sepsis screen is negative. Risk Assessment: Do you want to hurt yourself or someone else? Patient reports no desire to harm self or others. Onset of symptoms was December 14, 2020. 14:14 Acuity: CABRERA 2 sv 14:14 Method Of Arrival: EMS: [facility] sv Triage Assessment: 14:15 General: Appears in no apparent distress. well developed, Behavior is cooperative, sv anxious, drowsy. Pain: Denies pain. Neuro: Level of Consciousness is alert, obeys commands, lethargic, Oriented to Moves all extremities. Cardiovascular: Patient's skin is warm and dry. Rhythm is sinus rhythm. Respiratory: Airway is patent Respiratory effort is even, unlabored, Respiratory pattern is regular, symmetrical. GI: Reports nausea. Derm: Skin is intact, Skin is pink, warm \T\ dry. Musculoskeletal: Range of motion: intact in all extremities. SKIN CARE TECHNICIAN: 14:16 LMP N/A - Hysterectomy sv Historical: - Allergies: 14:16 PENICILLINS; sv 14:16 tramadol; sv - PMHx: 14:16 chronic back pain; Diabetes - IDDM; Migraines; sv 15:52 prolapsed bladder; tw2 - PSHx: 14:16 ; Cholecystectomy; Tonsillectomy; Hysterectomy; sv 15:52 abdominal stents; tw2 - Immunization history:: Adult Immunizations unknown. - Social history:: Smoking status: unknown. Screenin:15 Abuse screen: Denies threats or abuse. Denies injuries from another. Nutritional sv screening: No deficits noted. Tuberculosis screening: No symptoms or risk factors identified. Fall Risk None identified. Assessment: 14:50 Reassessment: Pt dry heaving at this time. Informed Bradley CHOI, medication order received. sv 15:01 Reassessment: Patient appears in no apparent distress at this time. Patient and/or sv family updated on plan of care and expected duration. Pain level reassessed. Patient is alert, oriented x 3, equal unlabored respirations, skin warm/dry/pink. 16:39 Reassessment: Patient appears in no apparent distress at this time. Patient and/or sv family updated on plan of care and expected duration. Pain level reassessed. Patient is alert, oriented x 3, equal unlabored respirations, skin warm/dry/pink. Vital Signs: 14:14 BP 161 / 83; Pulse 104; Resp 23; Temp 97; Pulse Ox 97% ; sv 15:23 BP 135 / 90; Pulse 80; Resp 18; Pulse Ox 98% ; sv 16:39 BP 135 / 92; Pulse 85; Resp 13; Pulse Ox 99% ; sv ED Course: 14:13 Patient arrived in ED. sv 14:14 Jessy Serrano, RN is Primary Nurse. sv 14:14 Arm band placed on. sv 14:15 Triage completed. sv 14:15 Patient has correct armband on for positive identification. Placed in gown. Bed in low sv position. Call light in reach. Side rails up X2. teletypesetter monitor on. Pulse ox on. NIBP on. Door closed. Head of bed elevated. 14:27 Bradley Olmos PA is PHCP. [facility] 14:31 Lewis Gallardo MD is Attending Physician. [facility] 14:35 Bustillo cath inserted, using sterile technique, 16 Fr., by me, balloon inflated, to sv gravity drainage, urine specimen collected. returned clear yellow urine. Patient tolerated well. 14:45 Inserted saline lock: 22 gauge in left forearm, using aseptic technique. ,using aseptic sv technique. diffusics Blood collected. Flushed left forearm with 5 ml normal saline. 17:02 No provider procedures requiring assistance completed. Bustillo cath removed intact, sv balloon deflated. IV discontinued, intact, bleeding controlled, No redness/swelling at site. Pressure dressing applied. Administered Medications: 15:01 Drug: Zofran (Ondansetron) 4 mg Route: IVP; Site: left forearm; sv 15:32 Follow up: Response: No adverse reaction sv Outcome: 16:32 Discharge ordered by . sally 17:02 Discharged to home via wheelchair, with family. sv 17:02 Condition: stable 17:02 Discharge instructions given to patient, Instructed on discharge instructions, follow up and referral plans. Demonstrated understanding of instructions, follow-up care. 17:02 Patient left the ED. sv Signatures: Jessy Serrano, RN RN Lewis Chatman MD MD cha Mickail, Joel, PA PA Abbey Dyson, RN RN tw2
--- NOTE | 2020-12-14 16:32 | EDPHYS ---
Physician Documentation [facility] Name: Roxane Mayfield Age: 40 yrs Sex: Female : 1980 Arrival Date: 12/14/2020 Time: 14:13 Bed 2 Private MD: ED Physician Lewis Gallardo HPI: 12/14 14:31 This 40 yrs old Female presents to ER via EMS with complaints of Possible jmm Overdose. 14:31 The patient presents to the emergency department with a possible overdose. Associated jmm signs and symptoms: Pertinent negatives: shortness of breath, vomiting. Unable to obtain HPI due to altered mental status. 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 - Social history:: Smoking status: unknown. ROS: 14:31 Unable to obtain ROS due to altered mental status. jmm Exam: 14:31 Head/Face: atraumatic. Eyes: EOMI, no conjunctival erythema appreciated ENT: Moist jmm Mucus Membranes Neck: Trachea midline, Supple Chest/axilla: Normal chest wall appearance and motion. Cardiovascular: Regular rate and rhythm. No edema appreciated Respiratory: Normal respirations, no respiratory distress appreciated Abdomen/GI: Non distended, soft Back: Normal ROM Skin: General appearance color normal MS/ Extremity: Moves all extremities, no obvious deformities appreciated, no edema noted to the lower extremities 14:31 Constitutional: The patient appears awake. 14:31 Neuro: Orientation: to person, place. 14:31 Psych: Behavior/mood is pleasant, cooperative. Vital Signs: 14:14 BP 161 / 83; Pulse 104; Resp 23; Temp 97; Pulse Ox 97% ; sv 15:23 BP 135 / 90; Pulse 80; Resp 18; Pulse Ox 98% ; sv 16:39 BP 135 / 92; Pulse 85; Resp 13; Pulse Ox 99% ; sv MDM: 14:31 Patient medically screened. [facility] 16:17 Data reviewed: vital signs, nurses notes. Counseling: I had a detailed discussion with sally the patient and/or guardian regarding: the historical points, exam findings, and any diagnostic results supporting the discharge/admit diagnosis, lab results, the need for outpatient follow up, to return to the emergency department if symptoms worsen or persist or if there are any questions or concerns that arise at home. ED course: I discussed the labs with the patient. Patient is now alert and non toxic in appearance. Patient does not feel safe going home. Patient given information for [facility] and [facility]. 12/14 14:33 Order name: Acetaminophen; Complete Time: 15:48 [facility] 12/14 14:33 Order name: Basic Metabolic Panel; Complete Time: 15:48 [facility] 12/14 14:33 Order name: CBC with Diff; Complete Time: 15:21 [facility] 12/14 14:33 Order name: ETOH Level; Complete Time: 15:48 [facility] 12/14 14:33 Order name: Hepatic Function; Complete Time: 15:48 [facility] 12/14 14:33 Order name: PT-INR; Complete Time: 15:16 [facility] 12/14 14:33 Order name: Ptt, Activated; Complete Time: 15:16 [facility] 12/14 14:33 Order name: Salicylate; Complete Time: 15:53 [facility] 12/14 14:33 Order name: Urine Drug Screen; Complete Time: 15:53 [facility] 12/14 14:33 Order name: EKG - Nurse/Tech; Complete Time: 15:46 [facility] 12/14 14:33 Order name: IV Saline Lock; Complete Time: 15:32 [facility] 12/14 15:28 Order name: Urine Dipstick--Ancillary (enter results); Complete Time: 16:32 12/14 14:33 Order name: Labs collected and sent; Complete Time: 15:32 [facility] 12/14 14:33 Order name: Urine Dipstick-Ancillary (obtain specimen); Complete Time: 14:35 [facility] Administered Medications: 15:01 Drug: Zofran (Ondansetron) 4 mg Route: IVP; Site: left forearm; sv 15:32 Follow up: Response: No adverse reaction sv Disposition: 17:32 Co-signature as Attending Physician, Lewis Gallardo MD I agree with the assessment and magdi plan of care. Disposition: 01/26/21 16:32 Discharged to Home. Impression: Adverse effect of benzodiazepines. - Condition is Stable. - Discharge Instructions: Benzodiazepine Overdose. - Medication Reconciliation Form, Thank You Letter, Antibiotic Education, Prescription Opioid Use form. - Follow up: Private Physician; When: 2 - 3 days; Reason: Recheck today's complaints, Continuance of care, Re-evaluation by your physician. Signatures: Dispatcher [employer] Jessy Vale RN RN sv Anderson, Corey, MD MD cha Mickail, Joel, PA PA jmm Wise, Tara, RN RN tw2 Corrections: (The following items were deleted from the chart) 17:02 16:32 12/14/2020 16:32 Discharged to Home. Impression: Adverse effect of sv benzodiazepines. Condition is Stable. Forms are Medication Reconciliation Form, Thank You Letter, Antibiotic Education, Prescription Opioid Use. Follow up: Private Physician; When: 2 - 3 days; Reason: Recheck today's complaints, Continuance of care, Re-evaluation by your physician. sally
[2020-12-14 17:22] VITALS: TEMP 97
[2020-12-14 17:25] VITALS: BP 135/92; O2SAT 99
== END 2020-12-14 17:02 | disposition home or self-care (01) ==
LOC: ER 14:08
DX: R41.82 Altered mental status, unspecified (principal); T42.4X5A Adverse effect of benzodiazepines, initial encounter; Z88.0 Allergy status to penicillin; Z88.5 Allergy status to narcotic agent
CPT/HCPCS: 36415; 51702; 80048; 80076; 80307; 80320; 80329; 81003; 85025; 85610; 85730; 96374; 99285; J2405

== ENCOUNTER 2020-12-15 12:32 | Emergency (ER) | payer SELFPAY ==
--- OUTSIDE RECORDS SUMMARY | 2020-12-15 12:35 | XMS REPORT | Continuity of Care Document ---
:1980 Author Organization [facility] t Address [address] [place] [place] [address] Care Team Providers Name Role Phone Nadeem [...] Date Date Clinician Penicill DA Active U 2019-0 [facility] ins 07-28 Clear 00:00: [place] 00 [facility] tramadol DA Active U 2020-0 [facility] 07-28 Clear 00:00: [place] 00 [facility] penicill Adverse Active break [facility] tramadol Adverse [facility] Medications Ordered Filled Start Stop Current Ordering Indication Dosage Frequency Signature Comments Components Source Medication Medication Date Date Medication? Clinician (SIG) Name Name Nitrofurant Nitrofurant 2020- No Kin Hayes [address] [facility] oin Monohyd oin Monohyd 8- 08- [facility]:00: 00:00 [facility] :00 [facility] Duloxetine Duloxetine Yes Kin Hayes [address] [facility] HCl HCl 6-25 [facility] Sumatriptan Sumatriptan Yes Kin Hayes as [facility] Succinate Succinate 6-25 Mistry directed L ukes - 00:00: [facility] 00 l [facility] Rosuvastati Rosuvastati 2018-11 Yes Kin Hayes [address] [facility] n Calcium n Calcium 2-02 Mistry in evening [facility]: [facility] 00 [facility] Enalapril Enalapril 2018-11 Yes Kin Hayes [address] [facility] Maleate Maleate 0-25 [facility] Topamax Topamax Yes Kin Hayes [address] 5-09 [facility]: [facility] ProAir HFA ProAir HFA 2017-11 Yes Kin Hayes [address] [facility] 0-31 Mistry needed for [facility] - 00:[facility]: sob/wheezi [facility] 00 ng l [facility]pat[facility] ent Clinics Lidocaine Lidocaine Yes Kin Hayes [address] [facility] Mistry skin [facility] after 12 l hours [facility] Potassium Potassium Yes Kin Hayes [address] [facility] Procedures This patient has no known procedures. Encounters Start End Encounter Admission Attending Care Care Encounter Source Date/Time Date/Time Type Type Clinicians Facility Department ID 2020-11-18 2020-11-18 Emergency [facility] [id number] 19:35:00 21:54:00 Dylan Rosario [id number] [place] 4.2.7.2.686 [place] [id number] 2020-11-08 2020-11-08 [facility] [id number] 19:40:00 22:35:00 Cynshelly Rosario [id number] [place] 4.2.7.2.686 [place] [id number] 2020-11-08 2020-11-08 Orders Doctor LISA [id number] 00:00:00 00:00:00 Only Unassigned, JIMMY [id number] [place] [facility] [id number] [id number] 2020-09-15 2020-09-15 Orders Doctor LISA [id number] 00:00:00 00:00:00 Only Unassigned, JIMMY [id number] [place] [facility] 4.2.7.2.686 [id number] 2020-09-10 2020-09-10 Office [facility] [id number] 13:48:40 14:06:[address] [facility] [id number] [facility] 4.2.7.2.686 [id number] 2020-08-23 2020-08-23 Outpatient [facility] [id number] [facility]00 [facility] Outpat[facility] ent Clinics 2020-07-09 2020-07-09 [facility] [id number] [facility] 09:00:00 09:00:00 [facility] Medicine l Medicine Outpati ent Clinics 2020-06-28 2020-06-28 [facility] [id number] [facility] 09:00:00 09:00:00 [facility] Medicine l Medicine Outpati ent Clinics 2020-06-02 2020-06-02 [facility] [id number] [address] 16:04:00 16:04:00 [facility] Medicine l Medicine Outpati ent Clinics 2020-06-02 2020-06-02 [facility] [id number] [address] 13:59:00 13:59:00 t [facility] Medicine Outpati ent Clinics 2020-05-13 2020-05-13 [facility] [id number] 13:20:00 13:20:00 t [facility] l Medicine Outpati ent Clinics 2020-04-27 2020-04-27 [facility] [id number] 08:24:00 08:24:[address] [facility] Medicine l Medicine Outpati ent Clinics 2020-04-26 2020-04-26 [facility] [id number] 08[facility]45:00 08:45:00 t [employer] [facility] l Medicine Outpati ent Clinics 2020-04-22 2020-04-22 [facility] [id number] [address] 13:15:00 13:15:00 t [employer] [facility] Medicine Medicine Outpati ent Clinics 2020-04-22 2020-04-22 [facility] [id number] 11:27:00 11:27:00 t [facility] Medicine Outpati ent Clinics 2020-02-18 2020-02-18 [facility] [id number] [address] 08:24:00 08:24:00 t [facility] Medicine Outpati ent Clinics 2020-02-16 2020-02-16 [facility] [id number] 13:20:00 13:20:[address] [facility] Medicine Medicine Outpati ent Clinics 2020-02-16 2020-02-16 [facility] [id number] 08:32:00 08:32:00 t [facility] Medicine Outpati ent Clinics 2020-02-12 2020-02-12 [facility] [id number] 15:52:00 15:52:00 t [facility] Medicine Outpati ent Clinics 2020-02-04 2020-02-04 [facility] [id number] 16:03:00 16:03:00 t [facility] Medicine Outpati ent Clinics 2020-01-02 2020-01-02 [facility] [id number] [address] 11:15:00 11:15:00 t [facility] Medicine Outpati ent Clinics 2019-12-05 2019-12-05 [facility] [id number] [facility] 16:45:00 16:45:00 t [facility] Medicine Outpati ent Clinics 2019-10-20 2019-10-20 [facility] [id number] 13:19:00 13:19:00 [facility] Medicine Outpati ent Clinics 2019-10-20 2019-10-20 [facility] [id number] 10:00:00 10:00:00 [facility] Medicine Outpati ent Clinics 2019-09-26 2019-09-26 [facility] [id number] 11:20:00 11:20:00 [facility] Medicine Outpati ent Clinics 2019-09-12 2019-09-12 [facility] [id number] 08:40:00 08:40:00 t [facility] Medicine Outpati ent Clinics 2019-08-18 2019-08-18 [facility] [id number] [address] 21:36:00 21:36:00 t [facility] Medicine Outpati ent Clinics 2019-08-14 2019-08-14 [facility] [id number] 08:40:00 08:40:00 [facility] Medicine Outpati ent Clinics 2019-08-13 2019-08-13 [facility] [id number] 08:49:00 08:49:00 t [facility] Medicine Outpati ent Clinics 2019-07-17 2019-07-17 [facility] [id number] 14:00:00 14:00:00 t [facility] Medicine Outpati ent Clinics 2019-05-05 2019-05-05 [facility] [id number] 08:51:00 08:51:00 t [facility] Medicine Outpati ent Clinics 2019-03-27 2019-03-27 [facility] [id number] 08:20:00 08:20:00 t [facility] Medicine Outpati ent Clinics 2018-09-02 2018-09-02 [facility] [id number] [address] 10:45:00 10:45:00 t [facility] Medicine Outpati ent Clinics 2018-05-21 2018-05-21 [facility] [id number] 15:53:00 15:53:00 t [facility] Medicine Outpati ent Clinics 2018-05-20 2018-05-20 [facility] [id number] 13:26:00 13:26:00 t [facility] Medicine Outpati ent Clinics 2018-05-09 2018-05-09 [facility] [id number] [address] 13:20:00 13:20:00 t [facility] Medicine Outpati ent Clinics 2018-05-07 2018-05-07 [facility] [id number] 11:49:00 11:49:00 t [facility] Medicine Outpati ent Clinics 2018-05-06 2018-05-06 [facility] [id number] 11:47:00 11:47:00 t [facility] Medicine Outpati ent Clinics 2018-04-29 2018-04-29 [facility] [id number] [facility] 21:50:00 21:50:00 [facility] 2018-04-29 2018-04-29 Outpatient Rose Roset [id number] 08:45:00 08:45:00 [facility] ent [facility] 2018-04-22 2018-04-22 Outpatient Rose Roset [id number] 10:00:00 10:00:00 [facility] Results Test Description Test Time Test Comments [...] GLYB) NATEGLINIDE (STARLIX) Negative [place] [address] (test code = DIONICIO) REPAGLINIDE (PRANDIN) Negative ng/mL UP TO 200 This test was developed and its (test code = REPA) performan ce characteristics determined by [facility]. It granger s not been cleared or approved[facility] Food and Drug Administration. Performed At: [facility] [address] MATTI Birch [id number] Karla J [facility] Ph:[phone] BETA [id number] 05:10:00 Test Item Value Reference Range Interpretation Comments BETA HYDROBUTYRATE (test 0.5 mg/dL () Ref erence Range:All code = BETHYD) Ages (fasting ): 0.2 - 2.8Performed At: [facility] [address] [place], [place] [id number] nitza Mendenhall MD Ph:[phone] INSULIN-LIKE GROWTH FACTOR [id number] 05:10:00 Test Item Value Reference Range Interpretation Comments INSULIN-LIKE 723 ng/mL () This test was d eveloped and its GROWTH FACTOR performance II (test code characteristic sdetermined by = INSLKGF2) [facility]. It has not been cleared or appr ovedby the Food and Drug Administration. Reference Range: Age Ran ge MeanAdults 333 - 967 650Performed At : [facility] [place], [place] [id number] nitza Mendenhall MD Ph:[phone] [id number] 05:10:00 Test Item Value Reference Range Interpretation Comments PROINSULIN (test code 30.2 pmol/L 0.0-10.0 A Perfor med At: BN = PROINS) [facility] [id number] ra Manuela SOUSA Ph:[phone] SULFONYLUREA [id number] 19:08:00 Test Item Value Reference Interpretation Comments [...] = GLYB) ng/[place] [address] (STARLIX) (test ng/mL code = DIONICIO) REPAGLINIDE Negative UP TO 200 This test was d eveloped and (PRANDIN) (test ng/mL its performa nce code = REPA) characteristics determined by [facility]. It granger s not been cleared or appr ovedby the Food and Drug Administration. Performed At: [facility] [address] [id number]Sathish Adan [facility] P h:[phone] BETA [id number] 19:08:00 Test Item Value Reference Range Interpretation Comments BETA HYDROBUTYRATE (test 0.5 mg/dL () Ref erence Range:All code = BETHYD) Ages (fasting ): 0.2 - 2.8Performed At: [facility] [address] [place], [place] [id number] nitza Mendenhall MD Ph:[phone] INSULIN-LIKE GROWTH FACTOR [id number] 19:08:00 Test Item Value Reference Range Interpretation Comments INSULIN-LIKE GROWTH FACTOR II (test code = INSLKGF2) [id number] 19:08:00 Test Item Value Reference Range Interpretation Comments PROINSULIN (test code 30.2 pmol/L 0.0-10.0 A Perfor med At: BN = PROINS) [facility] [id number] ra Manuela SOUSA Ph:[phone] SULFONYLUREA [id number] 13:12:00 Test Item Value Reference Range Interpretation Comments GLYBURIDE LEVEL (test code = GLYB) BETA [id number] 13:12:00 Test Item Value Reference Range Interpretation Comments BETA HYDROBUTYRATE (test 0.5 mg/dL () Ref erence Range:All code = BETHYD) Ages (fasting ): 0.2 - 2.8Performed At: [employer] [facility] [address] [place], [place] [id number] Mendenhall MD Ph:[phone] INSULIN-LIKE GROWTH FACTOR [id number] 13:12:00 Test Item Value Reference Range Interpretation Comments INSULIN-LIKE GROWTH FACTOR II (test code = INSLKGF2) [id number] 13:12:00 Test Item Value Reference Range Interpretation Comments PROINSULIN (test code 30.2 pmol/L 0.0-10.0 A Perfor med At: BN = PROINS) [facility] [address] [id number] ra Manuela SOUSA Ph:[phone] SULFONYLUREA [id number] 16:10:00 Test Item Value Reference Range Interpretation Comments GLYBURIDE LEVEL (test code = GLYB) BETA [id number] 16:10:00 Test Item Value Reference Range Interpretation Comments BETA HYDROBUTYRATE (test code = BETHYD) INSULIN-LIKE GROWTH FACTOR [id number] 16:10:00 Test Item Value Reference Range Interpretation Comments INSULIN-LIKE GROWTH FACTOR II (test code = INSLKGF2) [id number] 16:10:00 Test Item Value Reference Range Interpretation Comments PROINSULIN (test code 30.2 pmol/L 0.0-10.0 A Perfor med At: BN = PROINS) [facility] [address] [id number] Roy MD Ph:[phone] GLUCOSE BEDSIDE [id number] 08:10:00 Test Item Value Reference Range Interpretation Comments GLUCOSE BEDSIDE TESTING (test code = 89 mg/dL 70-110 N GLUBED) GLUCOSE BEDSIDE [id number] 23:54:00 Test Item Value Reference Range Interpretation Comments GLUCOSE BEDSIDE TESTING (test code 100 mg/dL 70-110 N = GLUBED) GLUCOSE BEDSIDE [id number] 20:03:00 Test Item Value Reference Range Interpretation Comments GLUCOSE BEDSIDE TESTING (test code = 96 mg/dL 70-110 N GLUBED) GLUCOSE BEDSIDE [id number] 15:50:00 Test Item Value Reference Range Interpretation Comments GLUCOSE BEDSIDE TESTING (test code 101 mg/dL 70-110 N = GLUBED) GLUCOSE BEDSIDE [id number] 11:49:00 Test Item Value Reference Range Interpretation Comments GLUCOSE BEDSIDE TESTING (test code 105 mg/dL 70-110 N = GLUBED) [id number] 09:08:00 Test Item Value Reference Range Interpretation Comments PHOSPHOROUS (test code = PHOS) 2.7 MG/DL 2.5-4.9 N [id number] 09:08:00 Test Item Value Reference Range Interpretation Comments MAGNESIUM (test code = MAG) 2.1 MG/DL 1.8-2.4 N ADRENOCORTICOTROPIC [id number] 09:08:00 Test Item Value Reference Range Interpretation Comments ADRENOCORTICOTROPIC HORMONE 18.4 pg/mL 7.2-63.3 ACTH reference (test code = ACTH) interval for samples collected between 7 and10 AM.Performed At : HD [facility] [address] [place], [place] [id number] Kyle L MD Ph:[phone] [id number] 09:08:00 Test Item Value Reference Range Interpretation Comments C-PEPTIDE (test code 4.8 ng/mL 1.1-4.4 A C-Pepti de reference = CPEP) interval is for fasting patients.Perfor med At: [facility] [place], [place] [id number] megan Carrillo MD Ph:[phone] [id number] 09:08:00 Test Item Value Reference Range Interpretation Comments CORTISOL (test code = 13.6 ug/dL () CORTR) Cortisol AM 6.2 - 19.4 Cor tisol PM 2.3 - 11.9 GLUCOSE BEDSIDE [id number] 07:33:00 Test Item Value Reference Range Interpretation Comments GLUCOSE BEDSIDE TESTING (test code = 91 mg/dL 70-110 N GLUBED) GLUCOSE BEDSIDE [id number] 06:05:00 Test Item Value Reference Range Interpretation Comments GLUCOSE BEDSIDE TESTING (test code 105 mg/dL 70-110 N = GLUBED) GLUCOSE BEDSIDE [id number] 06:05:00 Test Item Value Reference Range Interpretation Comments GLUCOSE BEDSIDE TESTING (test code 115 mg/dL 70-110 H = GLUBED) BASIC METABOLIC [id number] 22:07:00 Test Item Value Reference Range Interpretation [...] code = CA) 8.2 MG/DL 8.5-10.1 L [id number] 22:07:00 Test Item Value Reference Range Interpretation Comments C-PEPTIDE (test code 9.6 ng/mL 1.1-4.4 A C-Pepti de reference = CPEP) interval is for fasting patients. [id number] 22:07:00 Test Item Value Reference Range Interpretation Comments CORTISOL (test code = 6.7 ug/dL () CORTR) Cortisol AM 6.2 - 19.4 Jordan isol PM 2.3 - 1 1.9 [id number] 22:07:00 Test Item Value Reference Range Interpretation Comments INSULIN (test code = 79.1 uIU/mL 2.6-24.9 A Perform ed At: HD INS) [facility] [address] [id number] megan Carrillo MD Ph:[phone] INSULIN-LIKE GROWTH FACTOR [id number] 22:07:00 Test Item Value Reference Range Interpretation Comments INSULIN-LIKE GROWTH 193 ng/mL 74-239 Performe d At: BN FACTOR I (test code = [facility] p [id number] INSLKGF1) [place], [place] [id number] benjy Roy MD Ph:[phone] GLUCOSE BEDSIDE [id number] 20:45:00 Test Item Value Reference Range Interpretation Comments GLUCOSE BEDSIDE TESTING (test code 116 mg/dL 70-110 H = GLUBED) GLUCOSE BEDSIDE [id number] 16:50:00 Test Item Value Reference Range Interpretation Comments GLUCOSE BEDSIDE TESTING (test code 113 mg/dL 70-110 H = GLUBED) GLUCOSE BEDSIDE [id number] 12:49:00 Test Item Value Reference Range Interpretation Comments GLUCOSE BEDSIDE TESTING (test code 103 mg/dL 70-110 N = GLUBED) GLUCOSE BEDSIDE [id number] 08:57:00 Test Item Value Reference Range Interpretation Comments GLUCOSE BEDSIDE TESTING (test code 137 mg/dL 70-110 H = GLUBED) [id number] 08:13:00 Test Item Value Reference Range Interpretation Comments PHOSPHOROUS (test code = PHOS) 2.7 MG/DL 2.5-4.9 N [id number] 08:13:00 Test Item Value Reference Range Interpretation Comments MAGNESIUM (test code = MAG) 2.1 MG/DL 1.8-2.4 N ADRENOCORTICOTROPIC [id number] 08:13:00 Test Item Value Reference Range Interpretation Comments ADRENOCORTICOTROPIC HORMONE (test code = ACTH) [id number] 08:13:00 Test Item Value Reference Range Interpretation Comments C-PEPTIDE (test code = CPEP) NG/ML 1.1-4.4 [id number] 08:13:00 Test Item Value Reference Range Interpretation Comments CORTISOL (test code = 13.6 ug/dL () CORTR) Cortisol AM 6.2 - 19.4 Cor tisol PM 2.3 - 11.9 [id number] 08:13:00 Test Item Value Reference Range Interpretation Comments PHOSPHOROUS (test code = PHOS) 2.7 MG/DL 2.5-4.9 N [id number] 08:13:00 Test Item Value Reference Range Interpretation Comments MAGNESIUM (test code = MAG) 2.1 MG/DL 1.8-2.4 N ADRENOCORTICOTROPIC [id number] 08:13:00 Test Item Value Reference Range Interpretation Comments ADRENOCORTICOTROPIC HORMONE (test code = ACTH) [id number] 08:13:00 Test Item Value Reference Range Interpretation Comments C-PEPTIDE (test code 4.8 ng/mL 1.1-4.4 A C-Pepti de reference = CPEP) interval is for fasting patients.Perfor med At: [facility] [address] [place], [place] [id number] megan Carrillo MD Ph:[phone] [id number] 08:13:00 Test Item Value Reference Range Interpretation Comments CORTISOL (test code = 13.6 ug/dL () CORTR) Cortisol AM 6.2 - 19.4 Cor tisol PM 2.3 - 11.9 BASIC METABOLIC [id number] 05:59:00 Test Item Value Reference Range Interpretation [...] CA) 8.1 MG/DL 8.5-10.1 L CBC W/AUTO [id number] 05:41:00 Test Item Value Reference Range Interpretation [...] NO DIFF/SCN CRITERIA = MDIFF) GLUCOSE BEDSIDE [id number] 04:36:00 Test Item Value Reference Range Interpretation Comments GLUCOSE BEDSIDE TESTING (test code = 95 mg/dL 70-110 N GLUBED) GLUCOSE BEDSIDE [id number] 00:45:00 Test Item Value Reference Range Interpretation Comments GLUCOSE BEDSIDE TESTING (test code 104 mg/dL 70-110 N = GLUBED) GLUCOSE BEDSIDE [id number] 20:18:00 Test Item Value Reference Range Interpretation Comments GLUCOSE BEDSIDE TESTING (test code 134 mg/dL 70-110 H = GLUBED) GLUCOSE BEDSIDE [id number] 19:39:00 Test Item Value Reference Range Interpretation Comments GLUCOSE BEDSIDE TESTING (test code 103 mg/dL 70-110 N = GLUBED) GLUCOSE BEDSIDE [id number] 15:09:00 Test Item Value Reference Range Interpretation Comments GLUCOSE BEDSIDE TESTING (test code 120 mg/dL 70-110 H = GLUBED) GLUCOSE BEDSIDE [id number] 13:06:00 Test Item Value Reference Range Interpretation Comments GLUCOSE BEDSIDE TESTING (test code 125 mg/dL 70-110 H = GLUBED) THYROID STIMULATING [id number] 12:10:00 Test Item Value Reference Range Interpretation Comments THYROID STIMULATING HORMONE 1.510 mcIU/ML 0.340-4.820 N (test code = TSH) ADRENOCORTICOTROPIC [id number] 12:10:00 Test Item Value Reference Range Interpretation Comments ADRENOCORTICOTROPIC HORMONE 56.5 pg/mL 7.2-63.3 ACTH reference (test code = ACTH) interval for samples collected between 7 and10 AM.Performed At : [facility] [id number] Amrik Carrillo MD Ph:[phone] GLUCOSE BEDSIDE [id number] 12:05:00 Test Item Value Reference Range Interpretation Comments GLUCOSE BEDSIDE TESTING (test code 106 mg/dL 70-110 N = GLUBED) GLUCOSE BEDSIDE [id number] 11:07:00 Test Item Value Reference Range Interpretation Comments GLUCOSE BEDSIDE TESTING (test code 103 mg/dL 70-110 N = GLUBED) GLUCOSE BEDSIDE [id number] 10:11:00 Test Item Value Reference Range Interpretation Comments GLUCOSE BEDSIDE TESTING (test code 109 mg/dL 70-110 N = GLUBED) [id number] 10:05:00 Test Item Value Reference Range Interpretation Comments PHOSPHOROUS (test code = PHOS) 2.7 MG/DL 2.5-4.9 N [id number] 10:05:00 Test Item Value Reference Range Interpretation Comments MAGNESIUM (test code = MAG) 2.1 MG/DL 1.8-2.4 N ADRENOCORTICOTROPIC [id number] 10:05:00 Test Item Value Reference Range Interpretation Comments ADRENOCORTICOTROPIC HORMONE (test code = ACTH) [id number] 10:05:00 Test Item Value Reference Range Interpretation Comments C-PEPTIDE (test code = CPEP) NG/ML 1.1-4.4 [id number] 10:05:00 Test Item Value Reference Range Interpretation Comments CORTISOL (test code = CORTR) GLUCOSE BEDSIDE [id number] 09:45:00 Test Item Value Reference Range Interpretation Comments GLUCOSE BEDSIDE TESTING (test code 132 mg/dL 70-110 H = GLUBED) GLUCOSE BEDSIDE [id number] 08:40:00 Test Item Value Reference Range Interpretation Comments GLUCOSE BEDSIDE TESTING (test code = 99 mg/dL 70-110 N GLUBED) BASIC METABOLIC [id number] 08:13:00 Test Item Value Reference Range Interpretation [...] code = CA) 8.2 MG/DL 8.5-10.1 L [id number] 08:13:00 Test Item Value Reference Range Interpretation Comments C-PEPTIDE (test code = CPEP) NG/ML 1.1-4.4 [id number] 08:13:00 Test Item Value Reference Range Interpretation Comments CORTISOL (test code = 6.7 ug/dL () CORTR) Cortisol AM 6.2 - 19.4 Jordan isol PM 2.3 - 1 1.9 [id number] 08:13:00 Test Item Value Reference Range Interpretation Comments INSULIN (test code = INS) INSULIN-LIKE GROWTH FACTOR [id number] 08:13:00 Test Item Value Reference Range Interpretation Comments INSULIN-LIKE GROWTH FACTOR I (test code = INSLKGF1) BASIC METABOLIC [id number] 08:13:00 Test Item Value Reference Range Interpretation [...] code = CA) 8.2 MG/DL 8.5-10.1 L [id number] 08:13:00 Test Item Value Reference Range Interpretation Comments C-PEPTIDE (test code 9.6 ng/mL 1.1-4.4 A C-Pepti de reference = CPEP) interval is for fasting patients. [id number] 08:13:00 Test Item Value Reference Range Interpretation Comments CORTISOL (test code = 6.7 ug/dL () CORTR) Cortisol AM 6.2 - 19.4 Jordan isol PM 2.3 - 1 1.9 [id number] 08:13:00 Test Item Value Reference Range Interpretation Comments INSULIN (test code = INS) INSULIN-LIKE GROWTH FACTOR [id number] 08:13:00 Test Item Value Reference Range Interpretation Comments INSULIN-LIKE GROWTH FACTOR I (test code = INSLKGF1) BASIC METABOLIC [id number] 08:13:00 Test Item Value Reference Range Interpretation [...] code = CA) 8.2 MG/DL 8.5-10.1 L [id number] 08:13:00 Test Item Value Reference Range Interpretation Comments C-PEPTIDE (test code 9.6 ng/mL 1.1-4.4 A C-Pepti de reference = CPEP) interval is for fasting patients. [id number] 08:13:00 Test Item Value Reference Range Interpretation Comments CORTISOL (test code = 6.7 ug/dL () CORTR) Cortisol AM 6.2 - 19.4 Jordan isol PM 2.3 - 1 1.9 [id number] 08:13:00 Test Item Value Reference Range Interpretation Comments INSULIN (test code = 79.1 uIU/mL 2.6-24.9 A Perform ed At: HD INS) [facility] [id number] [place], [place] [id number] megan Carrillo MD Ph:[phone] INSULIN-LIKE GROWTH FACTOR [id number] 08:13:00 Test Item Value Reference Range Interpretation Comments INSULIN-LIKE GROWTH FACTOR I (test code = INSLKGF1) GLUCOSE BEDSIDE [id number] 07:15:00 Test Item Value Reference Range Interpretation Comments GLUCOSE BEDSIDE TESTING (test code = 87 mg/dL 70-110 N GLUBED) GLUCOSE BEDSIDE [id number] 05:59:00 Test Item Value Reference Range Interpretation Comments GLUCOSE BEDSIDE TESTING (test code 102 mg/dL 70-110 N = GLUBED) BASIC METABOLIC [id number] 04:38:00 Test Item Value Reference Range Interpretation [...] CA) 8.3 MG/DL 8.5-10.1 L CBC W/AUTO [id number] 04:21:00 Test Item Value Reference Range Interpretation [...] NO DIFF/SCN CRITERIA = MDIFF) GLUCOSE BEDSIDE [id number] 04:10:00 Test Item Value Reference Range Interpretation Comments GLUCOSE BEDSIDE TESTING (test code = 93 mg/dL 70-110 N GLUBED) GLUCOSE BEDSIDE [id number] 02:07:00 Test Item Value Reference Range Interpretation Comments GLUCOSE BEDSIDE TESTING (test code = 78 mg/dL 70-110 N GLUBED) GLUCOSE BEDSIDE [id number] 01:03:00 Test Item Value Reference Range Interpretation Comments GLUCOSE BEDSIDE TESTING (test code = 83 mg/dL 70-110 N GLUBED) GLUCOSE BEDSIDE [id number] 23:33:00 Test Item Value Reference Range Interpretation Comments GLUCOSE BEDSIDE TESTING (test code 140 mg/dL 70-110 H = GLUBED) GLUCOSE BEDSIDE [id number] 23:15:00 Test Item Value Reference Range Interpretation Comments GLUCOSE BEDSIDE TESTING (test code = 46 mg/dL 70-110 L GLUBED) GLUCOSE BEDSIDE [id number] 21:48:00 Test Item Value Reference Range Interpretation Comments GLUCOSE BEDSIDE TESTING (test code = 72 mg/dL 70-110 N GLUBED) GLUCOSE BEDSIDE [id number] 21:09:00 Test Item Value Reference Range Interpretation Comments GLUCOSE BEDSIDE TESTING (test code = 62 mg/dL 70-110 L GLUBED) BASIC METABOLIC [id number] 19:46:00 Test Item Value Reference Range Interpretation [...] code = CA) 8.2 MG/DL 8.5-10.1 L [id number] 19:46:00 Test Item Value Reference Range Interpretation Comments C-PEPTIDE (test code = CPEP) NG/ML 1.1-4.4 [id number] 19:46:00 Test Item Value Reference Range Interpretation Comments CORTISOL (test code = CORTR) [id number] 19:46:00 Test Item Value Reference Range Interpretation Comments INSULIN (test code = INS) INSULIN-LIKE GROWTH FACTOR [id number] 19:46:00 Test Item Value Reference Range Interpretation Comments INSULIN-LIKE GROWTH FACTOR I (test code = INSLKGF1) GLUCOSE BEDSIDE [id number] 19:26:00 Test Item Value Reference Range Interpretation Comments GLUCOSE BEDSIDE TESTING (test code = 77 mg/dL 70-110 N GLUBED) GLUCOSE BEDSIDE [id number] 18:40:00 Test Item Value Reference Range Interpretation Comments GLUCOSE BEDSIDE TESTING (test code = 59 mg/dL 70-110 L GLUBED) - XR CHEST 1 [id number] 18:32:00 Name: DAYANARA BAUM [facility] : 1980 Age/S: 40 / F [address] Unit #: [id number] Loc: [place] [address] Phys: Elton Sandoval MD Acct: [id number] Dis Date: Status: ADM IN PHONE #: [phone] Exam Date: 07/29/2020 182 FAX #: Reason: PICC LINE PLACEMENT EXAMS: CPT: [id number] XR CHEST 1 V 28612 Fluoro Time: DAP (Gy m2): Air Kerma [...] PAGE 1 Signed Report Name: DAYANARA BAUM [place] : 1980 Age/S: 40 / F [address] Unit #: [id number] Loc: [place] [address] Phys: Elton Sandoval MD Acct: [id number] Dis Date: Status: ADM IN PHONE #: [phone] Exam Date: 07/29/2020 1825 FAX #: Reason: PICC LINE PLACEMENT EXAMS: CPT: [id number] XR CHEST 1 V 22069 Fluoro Time: DAP (Gy m2): Air Kerma (mGy): <Continued> Technologist: Amberly Johnson RT(R)(CT) Trnscb Date/Time: 07/29/2020 (1831) [email or web address] Orig Print D/T: S: 07/29/2020 (1834) PAGE 2 Signed ReportGLUCOSE BEDSIDE [id number] 16:59:00 Test Item Value Reference Range Interpretation Comments GLUCOSE BEDSIDE TESTING (test code = 67 mg/dL 70-110 L GLUBED) GLUCOSE BEDSIDE [id number] 16:11:00 Test Item Value Reference Range Interpretation Comments GLUCOSE BEDSIDE TESTING (test code = 53 mg/dL 70-110 L GLUBED) GLUCOSE BEDSIDE [id number] 15:33:00 Test Item Value Reference Range Interpretation Comments GLUCOSE BEDSIDE TESTING (test code = 81 mg/dL 70-110 N GLUBED) - CT ABD PELVIS [id number] 15:16:00 Name: DAYANARA BAUM [place] : 1980 Age/S: 40 / F [address] Unit #: [id number] Loc: [place] [address] Phys: Dave Raymond MD Acct: [id number] Dis Date: Status: ADM IN PHONE #: [phone] Exam Date: 07/29/2020 1422 FAX #: Reason: Recurrent hypoglycemia EXAMS: CPT: [id number] CT ABD PELVIS W/CONT 51290 HISTORY: Hypoglycemia. CT abdomen and pelvis, contrast [...] 1 Signed Report (CONTINUED) Name: DAYANARA BAUM [facility] : 1980 Age/S: 40 / F [address] Unit #: [id number] Loc: [place] [address] Phys: Dave Raymond MD Acct: [id number] Dis Date: Status: ADM IN PHONE #: [phone] Exam Date: 07/29/20201422 FAX #: Reason: Recurrent hypoglycemia EXAMS: CPT: [id number] CT ABD PELVISW/CONT 74584 <Continued> Some air bubbles within the bladder may need correlation for recent catheterization or possibly cystitis with infection. Location: U19 at 1516 Reported and signed by: Girma Valle M.D CC: Dave Raymond MD Technologist:Mercedes Dhillon, RT(R)(CT)(MRI) CTDI: DLP: Trnscb Date/Time: 07/29/2020 (597) [email or web address] Orig Print D/T: S: 07/29/2020 (3370) PAGE 2 Signed ReportGLUCOSE BEDSIDE [id number] 14:04:00 Test Item Value Reference Range Interpretation Comments GLUCOSE BEDSIDE TESTING (test code 104 mg/dL 70-110 N = GLUBED) GLUCOSE BEDSIDE [id number] 12:48:00 Test Item Value Reference Range Interpretation Comments GLUCOSE BEDSIDE TESTING (test code = 39 mg/dL 70-110 LL GLUBED) GLUCOSE BEDSIDE [id number] 11:31:00 Test Item Value Reference Range Interpretation Comments GLUCOSE BEDSIDE TESTING (test code = 59 mg/dL 70-110 L GLUBED) GLUCOSE BEDSIDE [id number] 10:35:00 Test Item Value Reference Range Interpretation Comments GLUCOSE BEDSIDE TESTING (test code = 69 mg/dL 70-110 L GLUBED) GLUCOSE BEDSIDE [id number] 09:13:00 Test Item Value Reference Range Interpretation Comments GLUCOSE BEDSIDE TESTING (test code = 65 mg/dL 70-110 L GLUBED) THYROID STIMULATING [id number] 09:12:00 Test Item Value Reference Range Interpretation Comments THYROID STIMULATING HORMONE 1.510 mcIU/ML 0.340-4.820 N (test code = TSH) ADRENOCORTICOTROPIC [id number] 09:12:00 Test Item Value Reference Range Interpretation Comments ADRENOCORTICOTROPIC HORMONE (test code = ACTH) GLUCOSE BEDSIDE [id number] 07:56:00 Test Item Value Reference Range Interpretation Comments GLUCOSE BEDSIDE TESTING (test code = 73 mg/dL 70-110 N GLUBED) GLUCOSE BEDSIDE [id number] 07:34:00 Test Item Value Reference Range Interpretation Comments GLUCOSE BEDSIDE TESTING (test code = 34 mg/dL 70-110 LL GLUBED) GLYCOSYLATED HEMOGLOBIN [id number] 06:03:00 Test Item Value Reference Range Interpretation Comments GLYCOSYLATED HEMOGLOBIN (HA1C) 4.8 % A1C 0.0-5.7 N (test code = GLYHGB) ESTIMATED AVERAGE GLUCOSE (test 91 MG/DLest code = EAG) COMPREHENSIVE METABOLIC [id number] 05:48:00 Test Item Value Reference Range Interpretation [...] TOTAL (test code = ALKP) COMPREHENSIVE METABOLIC [id number] 05:41:00 Test Item Value Reference Range Interpretation [...] Unit/L 45-117 code = ALKP) CBC W/AUTO [id number] 05:39:00 Test Item Value Reference Range Interpretation [...] NO DIFF/SCN CRITERIA = MDIFF) GLUCOSE BEDSIDE [id number] 05:20:00 Test Item Value Reference Range Interpretation Comments GLUCOSE BEDSIDE TESTING (test code 120 mg/dL 70-110 H = GLUBED) GLUCOSE BEDSIDE [id number] 05:20:00 Test Item Value Reference Range Interpretation Comments GLUCOSE BEDSIDE TESTING (test code = 23 mg/dL 70-110 LL GLUBED) GLUCOSE BEDSIDE [id number] 04:11:00 Test Item Value Reference Range Interpretation Comments GLUCOSE BEDSIDE TESTING (test code = 46 mg/dL 70-110 L GLUBED) GLUCOSE BEDSIDE [id number] 03:17:00 Test Item Value Reference Range Interpretation Comments GLUCOSE BEDSIDE TESTING (test code = 54 mg/dL 70-110 L GLUBED) GLUCOSE BEDSIDE [id number] 01:20:00 Test Item Value Reference Range Interpretation Comments GLUCOSE BEDSIDE TESTING (test code = 46 mg/dL 70-110 L GLUBED) GLUCOSE BEDSIDE [id number] 00:31:00 Test Item Value Reference Range Interpretation Comments GLUCOSE BEDSIDE TESTING (test code = 48 mg/dL 70-110 L GLUBED) GLUCOSE BEDSIDE [id number] 23:33:00 Test Item Value Reference Range Interpretation Comments GLUCOSE BEDSIDE TESTING (test code = 92 mg/dL 70-110 N GLUBED) GLUCOSE BEDSIDE [id number] 23:33:00 Test Item Value Reference Range Interpretation Comments GLUCOSE BEDSIDE TESTING (test code = 32 mg/dL 70-110 LL GLUBED) GLUCOSE BEDSIDE [id number] 21:02:00 Test Item Value Reference Range Interpretation Comments GLUCOSE BEDSIDE TESTING (test code = 83 mg/dL 70-110 N GLUBED) GLUCOSE BEDSIDE [id number] 20:33:00 Test Item Value Reference Range Interpretation Comments GLUCOSE BEDSIDE TESTING (test code = 31 mg/dL 70-110 LL GLUBED) GLUCOSE BEDSIDE [id number] 19:27:00 Test Item Value Reference Range Interpretation Comments GLUCOSE BEDSIDE TESTING (test code = 52 mg/dL 70-110 L GLUBED) - CT HEAD/BRAIN W/O [id number] 19:02:00 Name: DAYANARA BAUM [facility] : 1980 Age/S: 40 / F [address] Unit #: [id number] Loc: [place] [address] Phys: Marin Mckeon MD Acct: [id number] Dis Date: Status: ADM IN PHONE #: [phone] Exam Date: 07/28/2020 185 FAX #: Reason: ams EXAMS: CPT: [id number] CT HEAD/BRAIN W/O CONT 58897 Location ofdictation: B2 CT Brain without contrast [...] CTDI: DLP: Trnscb D ate/Time: 07/28/2020 (1901) AundreaC Orig Print D/T: S: 07/28/2020 (1904) PAGE 1 Signed ReportCOVID 19 INHOUSE AG 2020-07-28 18:53:00 Test Item Value Reference Range Interpretation Comments COVID 19 INHOUSE AG NEGATIVE Negative Per manu facturer, (test code = negative result s should [id number]) be treated aspr esumptive and, if inconsi [...] COVID-19. Emergent procedure? NODRUGS OF ABUSE SCREEN [id number] 18:38:00 Test Item Value Reference Range Interpretation [...] NEGATIVE SCcutoff <300 NG/ML [place]) GLUCOSE BEDSIDE [id number] 18:22:00 Test Item Value Reference Range Interpretation Comments GLUCOSE BEDSIDE TESTING (test code = 45 mg/dL 70-110 L GLUBED) GLUCOSE BEDSIDE [id number] 18:22:00 Test Item Value Reference Range Interpretation Comments GLUCOSE BEDSIDE TESTING (test code = 27 mg/dL 70-110 LL GLUBED) [id number] 17:35:00 Test Item Value Reference Range Interpretation Comments ALCOHOL (test code = ALC) 4 MG/DL 0-10 N LACTIC [id number] 17:34:00 Test Item Value Reference Range Interpretation Comments LACTIC ACID (test code = LACT) 1.7 mmol/L 0.4-2.0 N HCG [id number] 17:34:00 Test Item Value Reference Range Interpretation Comments HCG SERUM (test < 1 mi-IU/ML 0-6 N 0 - 6 NOT code = HCG) > 6 SUGGESTIVE OF EARLY RISES TWO FOLD EVERY 2 DAYS; SUGGES T RECONFIRMING AF TER 2 DAYS. 150,000-200,[address] TRIMESTER 10,00 0 - 50,000 2ND & 3RD TRIMESTER BASIC METABOLIC [id number] 17:33:00 Test Item Value Reference Range Interpretation [...] Unit/L 26-192 N CK) Completed by Nursing: [id number] 17:33:00 Test Item Value Reference Range Interpretation [...] yby method. Completed by Nursing: NOCBC W/O [id number] 17:12:00 Test Item Value Reference Range Interpretation [...] code = 9.20 fL 7.0-10.5 N MPV) [id number] 16:41:00 Test Item Value Reference Range Interpretation [...] 0.0-0.0 H METHGB) - XR CHEST 1 [id number] 16:37:00 Name: DAYANARA BAUM [place] : 1980 Age/S: 40 / F [address] Unit #: [id number] Loc: [place] [address] Phys: Marin Mckeon MD Acct: [id number] Dis Date: Status: PRE ER PHONE #: [phone] Exam Date: 07/28/2020 1632 FAX #: Reason: chest pain EXAMS: CPT: [id number] XR CHEST 1 V 67103 Fluoro Time: DAP (Gy m2): Air Kerma [...] PAGE 1 Signed Report Name: DAYANARA BAUM [place] : 1980 Age/S: 40 / F [address] Unit #: [id number] Loc: [place] [address] Phys: Marin Mckeon MD Acct: [id number] Dis Date: Status: PRE ER PHONE #: [phone] Exam Date: 07/28/2020 1632 FAX #: Reason: chest pain EXAMS: CPT: [id number] XR CHEST 1 V 83940 Fluoro Time: DAP (Gy m2): Air Kerma (mGy): <Continued> Technologist: Amberly Johnson RT(R)(CT) Trnhib Date/Time: 07/28/2020 (1637) tYumiko [email or web address] Orig Print D/T: S: 07/28/2020 (6608) PAGE 2 Signed ReportGLUCOSE BEDSIDE [id number] 16:10:00 Test Item Value Reference Range Interpretation Comments GLUCOSE BEDSIDE TESTING (test code 117 mg/dL 70-110 H = GLUBED)
[2020-12-15] MEDS ORDERED: NA CHLORIDE 0.9% 1,000 ML ONE (13:06)
[2020-12-15] MEDS ORDERED: KETOROLAC 30 MG/ML INJ ONE (13:27)
[2020-12-15 13:53] LABS: Barbiturates NEGATIVE (NEGATIVE); Benzodiazepines NEGATIVE (NEGATIVE); Cocaine NEGATIVE (NEGATIVE); METHAMPHETAM POSITIVE (NEGATIVE); Methadone NEGATIVE (NEGATIVE); Opiates NEGATIVE (NEGATIVE); Phencyclidine NEGATIVE (NEGATIVE); THC Cannibis NEGATIVE (NEGATIVE)
[2020-12-15 14:01] LABS: Urine Blood 3+ (NEG); Urine Glucose NEGATIVE (NEG); Urine Protein NEGATIVE (NEG); Urine Specific Gravity 1.015 (1.005-1.030)
[2020-12-15 14:10] LABS: Absolute Lymphocytes (CBC) 1.8 K/uL (0.7-4.9); Basophils % 0.2 % (0-1.3); Hematocrit 41.4 % (36.0-45.0); Lymphocytes % 25.9 % (15.3-44.8); MPV 8.3 fL (7.6-11.3); RBC Red Blood Cell Count 4.56 M/uL (3.86-4.86)
[2020-12-15 14:23] LABS: ALT/SGPT 23 U/L (12-78); AST/SGOT 19 U/L (15-37); Albumin 4.1 g/dL (3.4-5.0); Alkaline Phosphatase 67 U/L (45-117); BUN Blood Urea Nitrogen 10 mg/dL (7-18); Bicarbonate 21 mmol/L (21-32); Bilirubin Direct 0.2 mg/dL (0-0.2); Bilirubin Total 0.5 mg/dL (0.2-1.0); Glucose Level 82 mg/dL (74-106); Potassium 3.2 mmol/L (3.5-5.1); Sodium Level 145 mmol/L (136-145)
--- NOTE | 2020-12-15 15:05 | EDPHYS ---
Physician Documentation [facility] Name: Roxane [place] Age: 40 yrs Sex: Female : 1980 Arrival Date: 12/15/2020 Time: 12:33 Bed 26 Private MD: ED Physician Anel Guzmán HPI: 12/15 12:40 This 40 yrs old Female presents to ER via EMS with complaints of INGESTION. cp DERRICK HELPER: 12:37 LMP N/A - Irregular menses bp Historical: - Allergies: 12:37 tramadol; bp 12:37 PENICILLINS; bp - Home Meds: 12:37 None [Active]; bp - PMHx: 12:37 POLYSUBSTANCE ABUSE; Seizures; bp - Immunization history:: Adult Immunizations unknown. - Social history:: Smoking status: Patient reports the use of cigarette tobacco products, unknown amount. Exam: 13:27 ECG was reviewed by the Attending Physician. cp Vital Signs: 12:34 BP 173 / 99; Pulse 90; Resp 19; Temp 98; Pulse Ox 100% ; bp 13:44 BP 139 / 86; Pulse 83; Resp 17; Pulse Ox 100% ; bp MDM: 12:48 Patient medically screened. cp 12/15 12:37 Order name: Acetaminophen; Complete Time: 14:56 cp 12/15 12:37 Order name: Basic Metabolic Panel; Complete Time: 14:56 cp 12/15 14:57 Interpretation: Normal except: K 3.2; CL 115; GFR 70. cp 12/15 12:37 Order name: CBC with Diff; Complete Time: 14:56 cp 12/15 12:37 Order name: ETOH Level; Complete Time: 14:56 cp 12/15 12:37 Order name: Hepatic Function; Complete Time: 14:56 cp 12/15 12:37 Order name: PT-INR cp 12/15 12:37 Order name: Ptt, Activated cp 12/15 12:37 Order name: Salicylate; Complete Time: 14:56 cp 12/15 12:37 Order name: Urine Drug Screen 12/15 13:38 Order name: Urine Dipstick--Ancillary (enter results) bd 12/15 13:38 Order name: Urine --Ancillary (enter results) bd 12/15 13:53 Order name: Urine Drug Screen; Complete Time: 13:54 EDMS 12/15 13:54 Interpretation: Normal except: METHAMPHETAMINE POSITIVE. 12/15 14:01 Order name: Urine --Ancillary; Complete Time: 14:56 [facility] 12/15 14:01 Order name: Urine Dipstick-Ancillary; Complete Time: 14:56 [facility] 12/15 12:37 Order name: Urine Test (obtain specimen); Complete Time: 14:04 12/15 12:37 Order name: EKG; Complete Time: 12:38 12/15 12:37 Order name: EKG - Nurse/Tech; Complete Time: 13:21 12/15 12:37 Order name: IV Saline Lock; Complete Time: 12:40 cp 12/15 12:37 Order name: Labs collected and sent; Complete Time: 14:05 12/15 12:37 Order name: Urine Dipstick-Ancillary (obtain specimen); Complete Time: 14:05 cp EC:27 Rate is 87 beats/min. Rhythm is regular. OR interval is normal. QRS interval is normal. cp QT interval is normal. Interpreted by me. Reviewed by me. Administered Medications: 12:44 Drug: NS 0.9% 1000 ml Route: IV; Rate: 1 bolus; Site: right wrist; bp 13:15 Drug: Ketorolac 30 mg Route: IVP; Site: right wrist; bp 14:04 Follow up: Response: Pain is decreased bp 15:16 Drug: Potassium Effervescent Tablet 50 mEq Route: PO; iw 15:19 Follow up: Response: Medication administered at discharge. Disposition: 12/15/20 15:05 Discharged to Home. Impression: Adverse effect of amphetamines. - Condition is Stable. - Discharge Instructions: Stimulant Use Disorder-Methamphetamines. - Medication Reconciliation Form, Thank You Letter, Antibiotic Education, Prescription Opioid Use form. - Follow up: Private Physician; When: 1 - 2 days; Reason: Recheck today's complaints. - Problem is new. - Symptoms have improved. Signatures: Dispatcher [employer] EDMisty Milligan RN RN iw Smirch, Shelby, RN RN ss Lewis Alonso PA PA cp Peltier, Brian RN RN bp Corrections: (The following items were deleted from the chart) 15:20 15:05 12/15/2020 15:05 Discharged to Home. Impression: Adverse effect of amphetamines. ss Condition is Stable. Forms are Medication Reconciliation Form, Thank You Letter, Antibiotic Education, Prescription Opioid Use. Follow up: Private Physician; When: 1 - 2 days; Reason: Recheck today's complaints. Problem is new. Symptoms have improved. cp
--- NOTE | 2020-12-15 15:05 | ER ---
Nurse's Notes [facility] Name: Roxane Mayfield Age: 40 yrs Sex: Female : 1980 Arrival Date: 12/15/2020 Time: 12:33 Bed 26 Private MD: Diagnosis: Adverse effect of amphetamines Presentation: 12/15 12:34 Chief complaint: EMS states: FOUND ALTERED BY PD IN HER CAR, H/O DRUG ABUSE. bp Coronavirus screen: At this time, the client does not indicate any symptoms associated with coronavirus-19. Ebola Screen: No symptoms or risks identified at this time. Initial Sepsis Screen: Does the patient meet any 2 criteria? No. Patient's initial sepsis screen is negative. Does the patient have a suspected source of infection? No. Patient's initial sepsis screen is negative. Risk Assessment: Do you want to hurt yourself or someone else? Patient reports no desire to harm self or others. Onset of symptoms is unknown. Care prior to arrival: IV initiated. 22 GA, in the right wrist, Glucose check: 114. 12:34 Method Of Arrival: EMS: [facility] bp 12:34 Acuity: CABRERA 4 bp 12:37 Acuity: CABRERA 3 iw Triage Assessment: 12:37 General: Appears distressed, obese, Behavior is agitated, anxious, crying. Pain: Denies bp pain. EENT: No deficits noted. Neuro: Level of Consciousness is awake, alert, obeys commands, Oriented to person, place, time, situation, Appropriate for age. Cardiovascular: No deficits noted. Respiratory: No deficits noted. GI: No signs and/or symptoms were reported involving the gastrointestinal system. : No signs and/or symptoms were reported regarding the genitourinary system. Derm: No deficits noted. Musculoskeletal: No deficits noted. SYSTEMS ADMINISTRATOR: 12:37 LMP N/A - Irregular menses bp Historical: - Allergies: 12:37 tramadol; bp 12:37 PENICILLINS; bp - Home Meds: 12:37 None [Active]; bp - PMHx: 12:37 POLYSUBSTANCE ABUSE; Seizures; bp - Immunization history:: Adult Immunizations unknown. - Social history:: Smoking status: Patient reports the use of cigarette tobacco products, unknown amount. Screenin:39 Abuse screen: Denies threats or abuse. Denies injuries from another. Nutritional bp screening: No deficits noted. Tuberculosis screening: No symptoms or risk factors identified. Fall Risk None identified. Assessment: 12:39 General: SEE TRIAGE NOTE. bp 13:42 Reassessment: UNABLE TO OBTAIN BLOOD SPECIMEN, PROVIDER NOTIFIED. PHLEBOTOMY AT B/S. bp Cardiovascular: Rhythm is regular. Vital Signs: 12:34 BP 173 / 99; Pulse 90; Resp 19; Temp 98; Pulse Ox 100% ; bp 13:44 BP 139 / 86; Pulse 83; Resp 17; Pulse Ox 100% ; bp ED Course: 12:33 Patient arrived in ED. bp 12:36 Triage completed. bp 12:36 Lewis Alonso PA is PHCP. cp 12:36 Anel Guzmán MD is Attending Physician. cp 12:37 Arm band placed on. bp 12:39 Patient has correct armband on for positive identification. Placed in gown. Bed in low bp position. Call light in reach. Side rails up X2. 12:39 Maintain EMS IV. Dressing intact. Good blood return noted. Site clean \T\ dry. Gauge \T\ bp site: 22 GAUGE R WRIST. 12:41 Mauro Apple, RN is Primary Nurse. bp 14:41 Urine --Ancillary (enter results) Sent. mh5 14:42 Urine Dipstick--Ancillary (enter results) Sent. mh5 14:42 Urine Drug Screen Sent. mh5 14:42 Salicylate Sent. mh5 15:18 No provider procedures requiring assistance completed. IV discontinued, intact, ss bleeding controlled, No redness/swelling at site. Pressure dressing applied. Administered Medications: 12:44 Drug: NS 0.9% 1000 ml Route: IV; Rate: 1 bolus; Site: right wrist; bp 13:15 Drug: Ketorolac 30 mg Route: IVP; Site: right wrist; bp 14:04 Follow up: Response: Pain is decreased bp 15:16 Drug: Potassium Effervescent Tablet 50 mEq Route: PO; iw 15:19 Follow up: Response: Medication administered at discharge. ss Outcome: 15:05 Discharge ordered by . cp 15:18 Discharged to home ambulatory, with family. ss 15:18 Condition: good 15:18 Discharge instructions given to patient, Instructed on discharge instructions, follow up and referral plans. Demonstrated understanding of instructions, follow-up care. 15:20 Patient left the ED. ss Signatures: Misty Evans, RN RN iw Viola Ellison RN RN ss Lewis Alonso PA PA cp Martinez, [facility] Mauro Apple RN RN bp
[2020-12-15] MEDS ORDERED: POTASSIUM 25 MEQ EFFERV TAB ONE (15:27)
[2020-12-15 15:39] VITALS: TEMP 98; O2SAT 100
[2020-12-15 15:42] VITALS: BP 139/86
--- NOTE | 2020-12-17 07:50 | EKG ---
Test Date: 2020-12-15 Test Time: 13:20:41 Filler Sifter Machine: CARRIE MEASUREMENT RESULTS: Intervals: Rate: 87 [place]: 152 QRSD: 82 QT: 390 QTc: 469 [place]: P: 28 [place]: 152 QRS: 49 T: 42 INTERPRETIVE STATEMENTS: Normal sinus rhythm Normal ECG Compared to ECG 05/03/2019 18:00:36 No significant changes Electronically Signed On 12-17-20 07:49:19 CODING COMPLIANCE MANAGER by Neel Blanco
== END 2020-12-15 15:20 | disposition home or self-care (01) ==
LOC: ER 12:32
DX: K30 Functional dyspepsia (principal); T43.621A Poisoning by amphetamines, accidental (unintentional), initial encounter
CPT/HCPCS: 36415; 80048; 80076; 80307; 80320; 80329; 81003; 81025; 85025; 93005; 96374; 99283; J7030

== ENCOUNTER 2021-05-26 14:55 | Emergency (ER) | payer SELFPAY ==
--- OUTSIDE RECORDS SUMMARY | 2021-05-26 15:00 | XMS REPORT | Continuity of Care Document ---
:1980 Author Organization [facility] t Address [address] [place] [address] Care Team Providers Name Role Phone Nathan PEREZ Antionette Attending Clinician Dequan VASQUEZ Attending Clinician Margarita SOUSA Attending Clinician Payers Payer Name Policy Type Policy Number Effective Date Expiration Date S ource Problems This patient has no known problems. Allergies, Adverse Reactions, Alerts Allergy Allergy Status Severity Reaction(s) Onset Inactive Treating Comm ents Source Name Type Date Date Clinician Penicill DA Active U 2019-0 [facility] 07-28 Clear 00:00: [place] 00 [facility] tramadol DA Active U [facility] 07-28 Clear 00:00: [place] 00 [facility] penicill Adverse Active break out in [facility] Reaction hives [facility] tramadol Adverse Active seizures [facility] Medications Ordered Filled Start Stop Current Ordering Indication Dosage Frequency Signature Comments Components Source Medication Medication Date Date Medication? Clinician (SIG) Name Name Nitrofurant Nitrofurant 2020-0 2020- No Onel Hayes [address] [facility] oin Monohyd oin Monohyd 8 08- Fede Dyson - Macro Macro 00:00: 00:00 [facility] :[facility] Duloxetine Duloxetine Yes Onel Hayes [address] [facility] HCl HCl 6-25 [facility] Sumatriptan Sumatriptan Yes Onel Hayes as [facility] Succinate Succinate 6-25 [facility] directed ukes - 00:00: [facility] 00 [facility] Rosuvastati Rosuvastati 2018-11 Yes Kin Hayes [address] [facility] n Calcium n Calcium 2-02 [facility] in evening [facility] - [facility] Enalapril Enalapril 2018-11 Yes Onel Hayes [address] [facility] Maleate Maleate 0-25 [facility] Topamax Topamax Yes Onel Hayes [address] 5-09 [facility] ProAir HFA ProAir HFA 2017- Yes Onel Hayes [address] [facility] 0-31 [facility] needed for [facility] - 00:[facility]: sob/wheezi [facility] 00 ng l [facility] Lidocaine Lidocaine Yes Onel Hayes [address] [facility]istry skin [facility] - remove [facility] after 12 l hours Outpati ent Clinics Potassium Potassium Yes Onel Hayes [address] [facility] Procedures This patient has no known procedures. Encounters Start End Encounter Admission Attending Care Care Encounter Source Date/Time Date/Time Type Type Clinicians Facility Department ID 2021-05-06 2021-05-06 Emergency Sanjana Evans [facility] [id number] 18:15:00 20:50:00 [place] Kaitlynn Marlene [id number] [place] [id number] [place] [id number] 2021-05-02 2021-05-02 Office Margarita [facility] [id number] 13:00:00 13:30:00 Visit [facility] Rosario [id number] [place] [id number] [facility] [id number] [address] 2020-08-23 2020-08-23 Outpatient [facility] [id number] [facility] 2020-07-09 2020-07-09 [facility] [place] [id number] [facility] 09:00:00 09:00:00 [facility] Medicine Medicine Outpati ent Clinics 2020-06-28 2020-06-28 [facility] [id number] [address] 09:00:00 09:00:00 [facility] Medicine Medicine Outpati ent Clinics 2020-06-02 2020-06-02 [facility] [id number] [facility] 16[facility]04:00 16:04:00 [facility] Medicine Outpati ent Clinics 2020-06-02 2020-06-02 [facility] [id number] 13:59:00 13:59:00 t [facility] Medicine Outpati ent Clinics 2020-05-13 2020-05-13 [facility] [id number] [address] 13:20:00 13:20:00 t [facility] l Medicine Outpati ent Clinics 2020-04-27 2020-04-27 [facility] [id number] 08:24:00 08:24:00 t [facility] Medicine Outpati ent Clinics 2020-04-26 2020-04-26 [facility] [id number] 08:45:00 08:45:00 t [facility] l Medicine Outpati ent Clinics 2020-04-22 2020-04-22 [facility] [id number] [address] 13:15:00 13:15:00 t [facility] Medicine Outpati ent Clinics 2020-04-22 2020-04-22 [facility] [id number] 11:27:00 11:27:00 t [facility] Medicine Outpati ent Clinics 2020-02-18 2020-02-18 [facility] [id number] [address] 08:24:00 08:24:00 t [facility] Medicine Outpati ent Clinics 2020-02-16 2020-02-16 [facility] [id number] 13:20:00 13:20:00 t [facility] Medicine Outpati ent Clinics 2020-02-16 2020-02-16 [facility] [id number] 08:32:00 08:32:00 t [facility] Medicine Outpati ent Clinics 2020-02-12 2020-02-12 [facility] [id number] 15:52:00 15:52:00 t [facility] Medicine Outpati ent Clinics 2020-02-04 2020-02-04 [facility] [id number] 16:03:00 16:03:00 t [facility] Medicine Medicine Outpati ent Clinics 2020-01-02 2020-01-02 [facility] [id number] [address] 11:15:00 11:15:00 t [facility] Medicine Outpati ent Clinics 2019-12-05 2019-12-05 [facility] [id number] 16:45:00 16:45:00 t [facility] Medicine l Medicine Outpati ent Clinics 2019-10-20 2019-10-20 [facility] [id number] [address] 13:19:00 13:19:00 t [facility] Medicine Medicine Outpati ent Clinics 2019-10-20 2019-10-20 [facility] [id number] 10:00:00 10:00:00 t [facility] Medicine Medicine Outpati ent Clinics 2019-09-26 2019-09-26 [facility] [id number] 11:20:00 11:20:00 t [facility] Medicine Medicine Outpati ent Clinics 2019-09-12 2019-09-12 [facility] [id number] 08:40:00 08:40:00 t [facility] Medicine Medicine Outpati ent Clinics 2019-08-18 2019-08-18 [facility] [id number] 21:36:00 21:36:00 t [facility] Medicine Medicine Outpati ent Clinics 2019-08-14 2019-08-14 [facility] [id number] 08:40:00 08:40:00 t [facility] Medicine Medicine Outpati ent Clinics 2019-08-13 2019-08-13 [facility] [id number] 08:49:00 08:49:00 t [facility] Medicine l Medicine Outpati ent Clinics 2019-07-17 2019-07-17 [facility] [id number] 14:00:00 14:00:00 t [facility] Medicine Medicine Outpati ent Clinics 2019-05-05 2019-05-05 [facility] [id number] 08:51:00 08:51:00 t [facility] Medicine Outpati ent Clinics 2019-03-27 2019-03-27 [facility] [id number] 08:20:00 08:20:00 t [facility] Medicine l Medicine Outpati ent Clinics 2018-09-02 2018-09-02 [facility] [id number] [address] 10:45:00 10:45:00 t [facility] Medicine Outpati ent Clinics 2018-05-21 2018-05-21 [facility] [id number] 15:53:00 15:53:00 t [facility] Medicine Medicine Outpati ent Clinics 2018-05-20 2018-05-20 [facility] [id number] 13:26:00 13:26:00 t [facility] Medicine Outpati ent Clinics 2018-05-09 2018-05-09 [facility] [id number] 13:20:00 13:20:00 t [facility] Medicine Outpati ent Clinics 2018-05-07 2018-05-07 [facility] [id number] 11:49:00 11:49:00 t [facility] Medicine Medicine Outpati ent Clinics 2018-05-06 2018-05-06 [facility] [id number] 11:47:00 11:47:00 t [facility] Medicine Outpati ent Clinics 2018-04-29 2018-04-29 [facility] [id number] 21:50:00 21:50:00 t [facility] ent [facility] 2018-04-29 2018-04-29 Outpatient Rose Roset [id number] 08:45:00 08:45:00 [facility] 2018-04-22 2018-04-22 Outpatient Rose Roset [id number] 10:00:00 10:00:00 [facility] Results Test Description Test Time Test Comments [...] GLYB) NATEGLINIDE (STARLIX) Negative [place] [address] (test code = DIONICIO) REPAGLINIDE (PRANDIN) Negative ng/mL UP TO 200 This test was developed and its (test code = REPA) performan ce characteristics determined by [employer]. It granger s not been cleared or approvedby [facility] Food and Drug Administration. Performed At: [facility] [facility] [employer] [address] [facility] [place] [id number] Karla J [facility] Ph:[phone] BETA [id number] 05:10:00 Test Item Value Reference Range Interpretation Comments BETA HYDROBUTYRATE (test 0.5 mg/dL () Ref erence Range:All code = BETHYD) Ages (fasting ): 0.2 - 2.8Performed At: [facility] [employer] [address] [place], [place] [id number] nitza Mendenhall MD Ph:[phone] INSULIN-LIKE GROWTH FACTOR [id number] 05:10:00 Test Item Value Reference Range Interpretation Comments INSULIN-LIKE 723 ng/mL () This test was d eveloped and its GROWTH FACTOR performance II (test code characteristic sdetermined by = INSLKGF2) [facility]. It has not been cleared or appr ovedby the Food and Drug Administration. Reference Range: Age Ran ge MeanAdults 333 - 967 650Performed At : [facility] [address] [place], [place] [id number] nitza Mendenhall MD Ph:[phone] [id number] 05:10:00 Test Item Value Reference Range Interpretation Comments PROINSULIN (test code 30.2 pmol/L 0.0-10.0 A Perfor med At: BN = PROINS) [facility] [address] [id number] ra Manuela SOUSA Ph:[phone] SULFONYLUREA [id number] 19:08:00 Test Item Value Reference Interpretation Comments [...] = GLYB) ng/[place] [address] (STARLIX) (test ng/mL code = DIONICIO) REPAGLINIDE Negative UP TO 200 This test was d eveloped and (PRANDIN) (test ng/mL its performa nce code = REPA) characteristics determined by [facility]. It granger s not been cleared or appr ovedby the Food and Drug Administration. Performed At: [facility] [address] [place], [place] [address] Elvira J [employer] P h:[phone] BETA [id number] 19:08:00 Test Item Value Reference Range Interpretation Comments BETA HYDROBUTYRATE (test 0.5 mg/dL () Ref erence Range:All code = BETHYD) Ages (fasting ): 0.2 - 2.8Performed At: [facility] [address] [place] [id number] Mendenhall MD Ph:[phone] INSULIN-LIKE GROWTH FACTOR [id number] 19:08:00 Test Item Value Reference Range Interpretation Comments INSULIN-LIKE GROWTH FACTOR II (test code = INSLKGF2) [id number] 19:08:00 Test Item Value Reference Range Interpretation Comments PROINSULIN (test code 30.2 pmol/L 0.0-10.0 A Perfor med At: BN = PROINS) [facility] [id number] Roy MD Ph:[phone] SULFONYLUREA [id number] 13:12:00 Test Item Value Reference Range Interpretation Comments GLYBURIDE LEVEL (test code = GLYB) BETA [id number] 13:12:00 Test Item Value Reference Range Interpretation Comments BETA HYDROBUTYRATE (test 0.5 mg/dL () Ref erence Range:All code = BETHYD) Ages (fasting ): 0.2 - 2.8Performed At: [facility] [address] [place] [id number] Mendenhall MD Ph:[phone] INSULIN-LIKE GROWTH FACTOR [id number] 13:12:00 Test Item Value Reference Range Interpretation Comments INSULIN-LIKE GROWTH FACTOR II (test code = INSLKGF2) [id number] 13:12:00 Test Item Value Reference Range Interpretation Comments PROINSULIN (test code 30.2 pmol/L 0.0-10.0 A Perfor med At: BN = PROINS) [facility] [id number] Roy MD Ph:[phone] SULFONYLUREA [id number] 16:10:00 Test Item Value Reference Range Interpretation Comments GLYBURIDE LEVEL (test code = GLYB) BETA [id number] 16:10:00 Test Item Value Reference Range Interpretation Comments BETA HYDROBUTYRATE (test code = BETHYD) INSULIN-LIKE GROWTH FACTOR [id number] 16:10:00 Test Item Value Reference Range Interpretation Comments INSULIN-LIKE GROWTH FACTOR II (test code = INSLKGF2) [id number] 16:10:00 Test Item Value Reference Range Interpretation Comments PROINSULIN (test code 30.2 pmol/L 0.0-10.0 A Perfor med At: BN = PROINS) [address] [id number] ra Manuela SOUSA Ph:[phone] GLUCOSE BEDSIDE [id number] 08:10:00 Test Item Value Reference Range Interpretation Comments GLUCOSE BEDSIDE TESTING (test code = 89 mg/dL 70-110 N GLUBED) GLUCOSE BEDSIDE [id number] 23:54:00 Test Item Value Reference Range Interpretation Comments GLUCOSE BEDSIDE TESTING (test code 100 mg/dL 70-110 N = GLUBED) GLUCOSE BEDSIDE [id number] 20:03:00 Test Item Value Reference Range Interpretation Comments GLUCOSE BEDSIDE TESTING (test code = 96 mg/dL 70-110 N GLUBED) GLUCOSE BEDSIDE [id number] 15:50:00 Test Item Value Reference Range Interpretation Comments GLUCOSE BEDSIDE TESTING (test code 101 mg/dL 70-110 N = GLUBED) GLUCOSE BEDSIDE [id number] 11:49:00 Test Item Value Reference Range Interpretation Comments GLUCOSE BEDSIDE TESTING (test code 105 mg/dL 70-110 N = GLUBED) [id number] 09:08:00 Test Item Value Reference Range Interpretation Comments PHOSPHOROUS (test code = PHOS) 2.7 MG/DL 2.5-4.9 N [id number] 09:08:00 Test Item Value Reference Range Interpretation Comments MAGNESIUM (test code = MAG) 2.1 MG/DL 1.8-2.4 N ADRENOCORTICOTROPIC [id number] 09:08:00 Test Item Value Reference Range Interpretation Comments ADRENOCORTICOTROPIC HORMONE 18.4 pg/mL 7.2-63.3 ACTH reference (test code = ACTH) interval for samples collected between 7 and10 AM.Performed At : HD [facility] [address] [place], [place] [id number] Kyle L MD Ph:[phone] [id number] 09:08:00 Test Item Value Reference Range Interpretation Comments C-PEPTIDE (test code 4.8 ng/mL 1.1-4.4 A C-Pepti de reference = CPEP) interval is for fasting patients.Perfor med At: [facility] [place], [place] [id number] megan Carrillo MD Ph:[phone] [id number] 09:08:00 Test Item Value Reference Range Interpretation Comments CORTISOL (test code = 13.6 ug/dL () CORTR) Cortisol AM 6.2 - 19.4 Cor tisol PM 2.3 - 11.9 GLUCOSE BEDSIDE [id number] 07:33:00 Test Item Value Reference Range Interpretation Comments GLUCOSE BEDSIDE TESTING (test code = 91 mg/dL 70-110 N GLUBED) GLUCOSE BEDSIDE [id number] 06:05:00 Test Item Value Reference Range Interpretation Comments GLUCOSE BEDSIDE TESTING (test code 105 mg/dL 70-110 N = GLUBED) GLUCOSE BEDSIDE [id number] 06:05:00 Test Item Value Reference Range Interpretation Comments GLUCOSE BEDSIDE TESTING (test code 115 mg/dL 70-110 H = GLUBED) BASIC METABOLIC [id number] 22:07:00 Test Item Value Reference Range Interpretation [...] code = CA) 8.2 MG/DL 8.5-10.1 L [id number] 22:07:00 Test Item Value Reference Range Interpretation Comments C-PEPTIDE (test code 9.6 ng/mL 1.1-4.4 A C-Pepti de reference = CPEP) interval is for fasting patients. [id number] 22:07:00 Test Item Value Reference Range Interpretation Comments CORTISOL (test code = 6.7 ug/dL () CORTR) Cortisol AM 6.2 - 19.4 Jordan isol PM 2.3 - 1 1.9 [id number] 22:07:00 Test Item Value Reference Range Interpretation Comments INSULIN (test code = 79.1 uIU/mL 2.6-24.9 A Perform ed At: HD INS) [facility] [address] [id number] megan Carrillo MD Ph:[phone] INSULIN-LIKE GROWTH FACTOR [id number] 22:07:00 Test Item Value Reference Range Interpretation Comments INSULIN-LIKE GROWTH 193 ng/mL 74-239 Performe d At: BN FACTOR I (test code = [facility] [id number] INSLKGF1) [place], [place] [id number] benjy Roy MD Ph:[phone] GLUCOSE BEDSIDE [id number] 20:45:00 Test Item Value Reference Range Interpretation Comments GLUCOSE BEDSIDE TESTING (test code 116 mg/dL 70-110 H = GLUBED) GLUCOSE BEDSIDE [id number] 16:50:00 Test Item Value Reference Range Interpretation Comments GLUCOSE BEDSIDE TESTING (test code 113 mg/dL 70-110 H = GLUBED) GLUCOSE BEDSIDE [id number] 12:49:00 Test Item Value Reference Range Interpretation Comments GLUCOSE BEDSIDE TESTING (test code 103 mg/dL 70-110 N = GLUBED) GLUCOSE BEDSIDE [id number] 08:57:00 Test Item Value Reference Range Interpretation Comments GLUCOSE BEDSIDE TESTING (test code 137 mg/dL 70-110 H = GLUBED) [id number] 08:13:00 Test Item Value Reference Range Interpretation Comments PHOSPHOROUS (test code = PHOS) 2.7 MG/DL 2.5-4.9 N [id number] 08:13:00 Test Item Value Reference Range Interpretation Comments MAGNESIUM (test code = MAG) 2.1 MG/DL 1.8-2.4 N ADRENOCORTICOTROPIC [id number] 08:13:00 Test Item Value Reference Range Interpretation Comments ADRENOCORTICOTROPIC HORMONE (test code = ACTH) [id number] 08:13:00 Test Item Value Reference Range Interpretation Comments C-PEPTIDE (test code = CPEP) NG/ML 1.1-4.4 [id number] 08:13:00 Test Item Value Reference Range Interpretation Comments CORTISOL (test code = 13.6 ug/dL () CORTR) Cortisol AM 6.2 - 19.4 Cor tisol PM 2.3 - 11.9 [id number] 08:13:00 Test Item Value Reference Range Interpretation Comments PHOSPHOROUS (test code = PHOS) 2.7 MG/DL 2.5-4.9 N [id number] 08:13:00 Test Item Value Reference Range Interpretation Comments MAGNESIUM (test code = MAG) 2.1 MG/DL 1.8-2.4 N ADRENOCORTICOTROPIC [id number] 08:13:00 Test Item Value Reference Range Interpretation Comments ADRENOCORTICOTROPIC HORMONE (test code = ACTH) [id number] 08:13:00 Test Item Value Reference Range Interpretation Comments C-PEPTIDE (test code 4.8 ng/mL 1.1-4.4 A C-Pepti de reference = CPEP) interval is for fasting patients.Perfor med At: [facility] [address]tx[address] [place], [place] [id number] megan Carrillo MD Ph:[phone] [id number] 08:13:00 Test Item Value Reference Range Interpretation Comments CORTISOL (test code = 13.6 ug/dL () CORTR) Cortisol AM 6.2 - 19.4 Cor tisol PM 2.3 - 11.9 BASIC METABOLIC [id number] 05:59:00 Test Item Value Reference Range Interpretation [...] CA) 8.1 MG/DL 8.5-10.1 L CBC W/AUTO [id number] 05:41:00 Test Item Value Reference Range Interpretation [...] NO DIFF/SCN CRITERIA = MDIFF) GLUCOSE BEDSIDE [id number] 04:36:00 Test Item Value Reference Range Interpretation Comments GLUCOSE BEDSIDE TESTING (test code = 95 mg/dL 70-110 N GLUBED) GLUCOSE BEDSIDE [id number] 00:45:00 Test Item Value Reference Range Interpretation Comments GLUCOSE BEDSIDE TESTING (test code 104 mg/dL 70-110 N = GLUBED) GLUCOSE BEDSIDE [id number] 20:18:00 Test Item Value Reference Range Interpretation Comments GLUCOSE BEDSIDE TESTING (test code 134 mg/dL 70-110 H = GLUBED) GLUCOSE BEDSIDE [id number] 19:39:00 Test Item Value Reference Range Interpretation Comments GLUCOSE BEDSIDE TESTING (test code 103 mg/dL 70-110 N = GLUBED) GLUCOSE BEDSIDE [id number] 15:09:00 Test Item Value Reference Range Interpretation Comments GLUCOSE BEDSIDE TESTING (test code 120 mg/dL 70-110 H = GLUBED) GLUCOSE BEDSIDE [id number] 13:06:00 Test Item Value Reference Range Interpretation Comments GLUCOSE BEDSIDE TESTING (test code 125 mg/dL 70-110 H = GLUBED) THYROID STIMULATING [id number] 12:10:00 Test Item Value Reference Range Interpretation Comments THYROID STIMULATING HORMONE 1.510 mcIU/ML 0.340-4.820 N (test code = TSH) ADRENOCORTICOTROPIC [id number] 12:10:00 Test Item Value Reference Range Interpretation Comments ADRENOCORTICOTROPIC HORMONE 56.5 pg/mL 7.2-63.3 ACTH reference (test code = ACTH) interval for samples collected between 7 and10 AM.Performed At : [facility] [id number] Amrik Carrillo MD Ph:[phone] GLUCOSE BEDSIDE [id number] 12:05:00 Test Item Value Reference Range Interpretation Comments GLUCOSE BEDSIDE TESTING (test code 106 mg/dL 70-110 N = GLUBED) GLUCOSE BEDSIDE [id number] 11:07:00 Test Item Value Reference Range Interpretation Comments GLUCOSE BEDSIDE TESTING (test code 103 mg/dL 70-110 N = GLUBED) GLUCOSE BEDSIDE [id number] 10:11:00 Test Item Value Reference Range Interpretation Comments GLUCOSE BEDSIDE TESTING (test code 109 mg/dL 70-110 N = GLUBED) [id number] 10:05:00 Test Item Value Reference Range Interpretation Comments PHOSPHOROUS (test code = PHOS) 2.7 MG/DL 2.5-4.9 N [id number] 10:05:00 Test Item Value Reference Range Interpretation Comments MAGNESIUM (test code = MAG) 2.1 MG/DL 1.8-2.4 N ADRENOCORTICOTROPIC [id number] 10:05:00 Test Item Value Reference Range Interpretation Comments ADRENOCORTICOTROPIC HORMONE (test code = ACTH) [id number] 10:05:00 Test Item Value Reference Range Interpretation Comments C-PEPTIDE (test code = CPEP) NG/ML 1.1-4.4 [id number] 10:05:00 Test Item Value Reference Range Interpretation Comments CORTISOL (test code = CORTR) GLUCOSE BEDSIDE [id number] 09:45:00 Test Item Value Reference Range Interpretation Comments GLUCOSE BEDSIDE TESTING (test code 132 mg/dL 70-110 H = GLUBED) GLUCOSE BEDSIDE [id number] 08:40:00 Test Item Value Reference Range Interpretation Comments GLUCOSE BEDSIDE TESTING (test code = 99 mg/dL 70-110 N GLUBED) BASIC METABOLIC [id number] 08:13:00 Test Item Value Reference Range Interpretation [...] code = CA) 8.2 MG/DL 8.5-10.1 L [id number] 08:13:00 Test Item Value Reference Range Interpretation Comments C-PEPTIDE (test code = CPEP) NG/ML 1.1-4.4 [id number] 08:13:00 Test Item Value Reference Range Interpretation Comments CORTISOL (test code = 6.7 ug/dL () CORTR) Cortisol AM 6.2 - 19.4 Jordan isol PM 2.3 - 1 1.9 [id number] 08:13:00 Test Item Value Reference Range Interpretation Comments INSULIN (test code = INS) INSULIN-LIKE GROWTH FACTOR [id number] 08:13:00 Test Item Value Reference Range Interpretation Comments INSULIN-LIKE GROWTH FACTOR I (test code = INSLKGF1) BASIC METABOLIC [id number] 08:13:00 Test Item Value Reference Range Interpretation [...] code = CA) 8.2 MG/DL 8.5-10.1 L [id number] 08:13:00 Test Item Value Reference Range Interpretation Comments C-PEPTIDE (test code 9.6 ng/mL 1.1-4.4 A C-Pepti de reference = CPEP) interval is for fasting patients. [id number] 08:13:00 Test Item Value Reference Range Interpretation Comments CORTISOL (test code = 6.7 ug/dL () CORTR) Cortisol AM 6.2 - 19.4 Jordan isol PM 2.3 - 1 1.9 [id number] 08:13:00 Test Item Value Reference Range Interpretation Comments INSULIN (test code = INS) INSULIN-LIKE GROWTH FACTOR [id number] 08:13:00 Test Item Value Reference Range Interpretation Comments INSULIN-LIKE GROWTH FACTOR I (test code = INSLKGF1) BASIC METABOLIC [id number] 08:13:00 Test Item Value Reference Range Interpretation [...] code = CA) 8.2 MG/DL 8.5-10.1 L [id number] 08:13:00 Test Item Value Reference Range Interpretation Comments C-PEPTIDE (test code 9.6 ng/mL 1.1-4.4 A C-Pepti de reference = CPEP) interval is for fasting patients. [id number] 08:13:00 Test Item Value Reference Range Interpretation Comments CORTISOL (test code = 6.7 ug/dL () CORTR) Cortisol AM 6.2 - 19.4 Jordan isol PM 2.3 - 1 1.9 [id number] 08:13:00 Test Item Value Reference Range Interpretation Comments INSULIN (test code = 79.1 uIU/mL 2.6-24.9 A Perform ed At: HD INS) [facility] [place] [address] [place], [place] [id number] megan Carrillo MD Ph:[phone] INSULIN-LIKE GROWTH FACTOR [id number] 08:13:00 Test Item Value Reference Range Interpretation Comments INSULIN-LIKE GROWTH FACTOR I (test code = INSLKGF1) GLUCOSE BEDSIDE [id number] 07:15:00 Test Item Value Reference Range Interpretation Comments GLUCOSE BEDSIDE TESTING (test code = 87 mg/dL 70-110 N GLUBED) GLUCOSE BEDSIDE [id number] 05:59:00 Test Item Value Reference Range Interpretation Comments GLUCOSE BEDSIDE TESTING (test code 102 mg/dL 70-110 N = GLUBED) BASIC METABOLIC [id number] 04:38:00 Test Item Value Reference Range Interpretation [...] CA) 8.3 MG/DL 8.5-10.1 L CBC W/AUTO [id number] 04:21:00 Test Item Value Reference Range Interpretation [...] NO DIFF/SCN CRITERIA = MDIFF) GLUCOSE BEDSIDE [id number] 04:10:00 Test Item Value Reference Range Interpretation Comments GLUCOSE BEDSIDE TESTING (test code = 93 mg/dL 70-110 N GLUBED) GLUCOSE BEDSIDE [id number] 02:07:00 Test Item Value Reference Range Interpretation Comments GLUCOSE BEDSIDE TESTING (test code = 78 mg/dL 70-110 N GLUBED) GLUCOSE BEDSIDE [id number] 01:03:00 Test Item Value Reference Range Interpretation Comments GLUCOSE BEDSIDE TESTING (test code = 83 mg/dL 70-110 N GLUBED) GLUCOSE BEDSIDE [id number] 23:33:00 Test Item Value Reference Range Interpretation Comments GLUCOSE BEDSIDE TESTING (test code 140 mg/dL 70-110 H = GLUBED) GLUCOSE BEDSIDE [id number] 23:15:00 Test Item Value Reference Range Interpretation Comments GLUCOSE BEDSIDE TESTING (test code = 46 mg/dL 70-110 L GLUBED) GLUCOSE BEDSIDE [id number] 21:48:00 Test Item Value Reference Range Interpretation Comments GLUCOSE BEDSIDE TESTING (test code = 72 mg/dL 70-110 N GLUBED) GLUCOSE BEDSIDE [id number] 21:09:00 Test Item Value Reference Range Interpretation Comments GLUCOSE BEDSIDE TESTING (test code = 62 mg/dL 70-110 L GLUBED) BASIC METABOLIC [id number] 19:46:00 Test Item Value Reference Range Interpretation [...] code = CA) 8.2 MG/DL 8.5-10.1 L [id number] 19:46:00 Test Item Value Reference Range Interpretation Comments C-PEPTIDE (test code = CPEP) NG/ML 1.1-4.4 [id number] 19:46:00 Test Item Value Reference Range Interpretation Comments CORTISOL (test code = CORTR) [id number] 19:46:00 Test Item Value Reference Range Interpretation Comments INSULIN (test code = INS) INSULIN-LIKE GROWTH FACTOR [id number] 19:46:00 Test Item Value Reference Range Interpretation Comments INSULIN-LIKE GROWTH FACTOR I (test code = INSLKGF1) GLUCOSE BEDSIDE [id number] 19:26:00 Test Item Value Reference Range Interpretation Comments GLUCOSE BEDSIDE TESTING (test code = 77 mg/dL 70-110 N GLUBED) GLUCOSE BEDSIDE [id number] 18:40:00 Test Item Value Reference Range Interpretation Comments GLUCOSE BEDSIDE TESTING (test code = 59 mg/dL 70-110 L GLUBED) - XR CHEST 1 [id number] 18:32:00 Name: DAYANARA BAUM : 1980 Age/S: 40 / F [address] [address] Unit #: [id number] Loc: [place] [address] Phys: Elton Sandoval MD Acct: [id number] Dis Date: Status: ADM IN PHONE #: [phone] Exam Date: 07/29/2020 1825 FAX #: Reason: PICC LINE PLACEMENT EXAMS: CPT: [id number] XR CHEST 1 V 34274 Fluoro Time: DAP (Gy m2): Air Kerma [...] MD PAGE 1 Signed Report Name: DAYANARA BAUMland : 1980 Age/S: 40 / F [address] Unit #: [id number] Loc: [place] [address] Phys: Elton Sandoval MD Acct: [id number] Dis Date: Status: ADM IN PHONE #: [phone] Exam Date: 07/29/2020 1825 FAX #: Reason: PICC LINE PLACEMENT EXAMS: CPT: [id number] XR CHEST 1 V 97772 Fluoro Time: DAP (Gy m2): Air Kerma (mGy): <Continued> Technologist: Amberly Johnson RT(R)(CT) Trnscb Date/Time: 07/29/2020 (1831) [email or web address] Orig Print D/T: S: 07/29/2020 (1834) PAGE 2 Signed ReportGLUCOSE BEDSIDE [id number] 16:59:00 Test Item Value Reference Range Interpretation Comments GLUCOSE BEDSIDE TESTING (test code = 67 mg/dL 70-110 L GLUBED) GLUCOSE BEDSIDE [id number] 16:11:00 Test Item Value Reference Range Interpretation Comments GLUCOSE BEDSIDE TESTING (test code = 53 mg/dL 70-110 L GLUBED) GLUCOSE BEDSIDE [id number] 15:33:00 Test Item Value Reference Range Interpretation Comments GLUCOSE BEDSIDE TESTING (test code = 81 mg/dL 70-110 N GLUBED) - CT ABD PELVIS [id number] 15:16:00 Name: DAYANARA BAUM [place] : 1980 Age/S: 40 / F [address] [address] Unit #: [id number] Loc: [place] [address] Phys: Dave Raymond MD Acct: [id number] Dis Date: Status: ADM IN PHONE #: [phone] Exam Date: 07/29/2020 1422 FAX #: Reason: Recurrent hypoglycemia EXAMS: CPT: [id number] CT ABD PELVIS W/CONT 33501 HISTORY: Hypoglycemia. CT abdomen and pelvis, contrast [...] 1 Signed Report (CONTINUED) Name: DAYANARA BAUM [facility] : 1980 Age/S: 40 / F [address] [address] Unit #: [id number] Loc: [place] [address] Phys: Dave Raymond MD Acct: [id number] Dis Date: Status: ADM IN PHONE #: [phone] Exam Date: 07/29/20201422 FAX #: Reason: Recurrent hypoglycemia EXAMS: CPT: [id number] CT ABD PELVISW/CONT 74871 <Continued> Some air bubbles within the bladder may need correlation for recent catheterization or possibly cystitis with infection. Location: U19 at 1516 Reported and signed by: Girma Valle M.D CC: Dave Raymond MD Technologist:Mercedes Dhillon, RT(R)(CT)(MRI) CTDI: DLP: Trnscb Date/Time: 07/29/2020 (1516) [email or web address] Orig Print D/T: S: 07/29/2020 (4670) PAGE 2 Signed ReportGLUCOSE BEDSIDE [id number] 14:04:00 Test Item Value Reference Range Interpretation Comments GLUCOSE BEDSIDE TESTING (test code 104 mg/dL 70-110 N = GLUBED) GLUCOSE BEDSIDE [id number] 12:48:00 Test Item Value Reference Range Interpretation Comments GLUCOSE BEDSIDE TESTING (test code = 39 mg/dL 70-110 LL GLUBED) GLUCOSE BEDSIDE [id number] 11:31:00 Test Item Value Reference Range Interpretation Comments GLUCOSE BEDSIDE TESTING (test code = 59 mg/dL 70-110 L GLUBED) GLUCOSE BEDSIDE [id number] 10:35:00 Test Item Value Reference Range Interpretation Comments GLUCOSE BEDSIDE TESTING (test code = 69 mg/dL 70-110 L GLUBED) GLUCOSE BEDSIDE [id number] 09:13:00 Test Item Value Reference Range Interpretation Comments GLUCOSE BEDSIDE TESTING (test code = 65 mg/dL 70-110 L GLUBED) THYROID STIMULATING [id number] 09:12:00 Test Item Value Reference Range Interpretation Comments THYROID STIMULATING HORMONE 1.510 mcIU/ML 0.340-4.820 N (test code = TSH) ADRENOCORTICOTROPIC [id number] 09:12:00 Test Item Value Reference Range Interpretation Comments ADRENOCORTICOTROPIC HORMONE (test code = ACTH) GLUCOSE BEDSIDE [id number] 07:56:00 Test Item Value Reference Range Interpretation Comments GLUCOSE BEDSIDE TESTING (test code = 73 mg/dL 70-110 N GLUBED) GLUCOSE BEDSIDE [id number] 07:34:00 Test Item Value Reference Range Interpretation Comments GLUCOSE BEDSIDE TESTING (test code = 34 mg/dL 70-110 LL GLUBED) GLYCOSYLATED HEMOGLOBIN [id number] 06:03:00 Test Item Value Reference Range Interpretation Comments GLYCOSYLATED HEMOGLOBIN (HA1C) 4.8 % A1C 0.0-5.7 N (test code = GLYHGB) ESTIMATED AVERAGE GLUCOSE (test 91 MG/DLest code = EAG) COMPREHENSIVE METABOLIC [id number] 05:48:00 Test Item Value Reference Range Interpretation [...] TOTAL (test code = ALKP) COMPREHENSIVE METABOLIC [id number] 05:41:00 Test Item Value Reference Range Interpretation [...] Unit/L 45-117 code = ALKP) CBC W/AUTO [id number] 05:39:00 Test Item Value Reference Range Interpretation [...] NO DIFF/SCN CRITERIA = MDIFF) GLUCOSE BEDSIDE [id number] 05:20:00 Test Item Value Reference Range Interpretation Comments GLUCOSE BEDSIDE TESTING (test code 120 mg/dL 70-110 H = GLUBED) GLUCOSE BEDSIDE [id number] 05:20:00 Test Item Value Reference Range Interpretation Comments GLUCOSE BEDSIDE TESTING (test code = 23 mg/dL 70-110 LL GLUBED) GLUCOSE BEDSIDE [id number] 04:11:00 Test Item Value Reference Range Interpretation Comments GLUCOSE BEDSIDE TESTING (test code = 46 mg/dL 70-110 L GLUBED) GLUCOSE BEDSIDE [id number] 03:17:00 Test Item Value Reference Range Interpretation Comments GLUCOSE BEDSIDE TESTING (test code = 54 mg/dL 70-110 L GLUBED) GLUCOSE BEDSIDE [id number] 01:20:00 Test Item Value Reference Range Interpretation Comments GLUCOSE BEDSIDE TESTING (test code = 46 mg/dL 70-110 L GLUBED) GLUCOSE BEDSIDE [id number] 00:31:00 Test Item Value Reference Range Interpretation Comments GLUCOSE BEDSIDE TESTING (test code = 48 mg/dL 70-110 L GLUBED) GLUCOSE BEDSIDE [id number] 23:33:00 Test Item Value Reference Range Interpretation Comments GLUCOSE BEDSIDE TESTING (test code = 92 mg/dL 70-110 N GLUBED) GLUCOSE BEDSIDE [id number] 23:33:00 Test Item Value Reference Range Interpretation Comments GLUCOSE BEDSIDE TESTING (test code = 32 mg/dL 70-110 LL GLUBED) GLUCOSE BEDSIDE [id number] 21:02:00 Test Item Value Reference Range Interpretation Comments GLUCOSE BEDSIDE TESTING (test code = 83 mg/dL 70-110 N GLUBED) GLUCOSE BEDSIDE [id number] 20:33:00 Test Item Value Reference Range Interpretation Comments GLUCOSE BEDSIDE TESTING (test code = 31 mg/dL 70-110 LL GLUBED) GLUCOSE BEDSIDE [id number] 19:27:00 Test Item Value Reference Range Interpretation Comments GLUCOSE BEDSIDE TESTING (test code = 52 mg/dL 70-110 L GLUBED) - CT HEAD/BRAIN W/O [id number] 19:02:00 Name: DAYANARA BAUM [facility] : 1980 Age/S: 40 / F [address] Unit #: [id number] Loc: [place] [address] Phys: aMrin Mckeon MD Acct: [id number] Dis Date: Status: ADM IN PHONE #: [phone] Exam Date: 07/28/2020 185 FAX #: Reason: ams EXAMS: CPT: [id number] CT HEAD/BRAIN W/O CONT 03613 Location ofdictation: B2 CT Brain without contrast [...] CTDI: DLP: Trnscb D ate/Time: 07/28/2020 (1901) KrissyPXC Orig Print D/T: S: 07/28/2020 (1904) PAGE 1 Signed ReportCOVID 19 INHOUSE AG 2020-07-28 18:53:00 Test Item Value Reference Range Interpretation Comments COVID 19 INHOUSE AG NEGATIVE Negative Per manu facturer, (test code = negative result s should [id number]) be treated aspr esumptive and, if inconsi [...] COVID-19. Emergent procedure? NODRUGS OF ABUSE SCREEN [id number] 18:38:00 Test Item Value Reference Range Interpretation [...] NEGATIVE SCcutoff <300 NG/ML [place]) GLUCOSE BEDSIDE [id number] 18:22:00 Test Item Value Reference Range Interpretation Comments GLUCOSE BEDSIDE TESTING (test code = 45 mg/dL 70-110 L GLUBED) GLUCOSE BEDSIDE [id number] 18:22:00 Test Item Value Reference Range Interpretation Comments GLUCOSE BEDSIDE TESTING (test code = 27 mg/dL 70-110 LL GLUBED) [id number] 17:35:00 Test Item Value Reference Range Interpretation Comments ALCOHOL (test code = ALC) 4 MG/DL 0-10 N LACTIC [id number] 17:34:00 Test Item Value Reference Range Interpretation Comments LACTIC ACID (test code = LACT) 1.7 mmol/L 0.4-2.0 N HCG [id number] 17:34:00 Test Item Value Reference Range Interpretation Comments HCG SERUM (test < 1 mi-IU/ML 0-6 N 0 - 6 NOT code = HCG) > 6 SUGGESTIVE OF EARLY RISES TWO FOLD EVERY 2 DAYS; SUGGES T RECONFIRMING AF TER 2 DAYS. 150,000-200,[address] TRIMESTER 10,00 0 - 50,000 2ND & 3RD TRIMESTER BASIC METABOLIC [id number] 17:33:00 Test Item Value Reference Range Interpretation [...] Unit/L 26-192 N CK) Completed by Nursing: [id number] 17:33:00 Test Item Value Reference Range Interpretation [...] yby method. Completed by Nursing: NOCBC W/O [id number] 17:12:00 Test Item Value Reference Range Interpretation [...] code = 9.20 fL 7.0-10.5 N MPV) [id number] 16:41:00 Test Item Value Reference Range Interpretation [...] 0.0-0.0 H METHGB) - XR CHEST 1 [id number] 16:37:00 Name: DAYANARA BAUM [place] : 1980 Age/S: 40 / F [address] [address] Unit #: [id number] Loc: [place] [address] Phys: Marin Mckeon MD Acct: [id number] Dis Date: Status: PRE ER PHONE #: [phone] Exam Date: 07/28/2020 1632 FAX #: Reason: chest pain EXAMS: CPT: [id number] XR CHEST 1 V 25919 Fluoro Time: DAP (Gy m2): Air Kerma [...] PAGE 1 Signed Report Name: DAYANARA BAUM [place] : 1980 Age/S: 40 / F [address] [address] Unit #: [id number] Loc: [place] [address] Phys: Marin Mckeon MD Acct: [id number] Dis Date: Status: PRE ER PHONE #: [phone] Exam Date: 07/28/2020 1632 FAX #: Reason: chest pain EXAMS: CPT: [id number] XR CHEST 1 V 47297 Fluoro Time: DAP (Gy m2): Air Kerma (mGy): <Continued> Technologist: Amberly Johnson RT(R)(CT) Trnscb Date/Time: 07/28/2020 (1637) tYumiko [email or web address] Orig Print D/T: S: 07/28/2020 (5238) PAGE 2 Signed ReportGLUCOSE BEDSIDE [id number] 16:10:00 Test Item Value Reference Range Interpretation Comments GLUCOSE BEDSIDE TESTING (test code 117 mg/dL 70-110 H = GLUBED)
--- NOTE | 2021-05-26 16:54 | ER ---
Nurse's Notes [facility] Name: Roxane Mayfield Age: 41 yrs Sex: Female : 1980 Arrival Date: 05/26/2021 Time: 14:58 Bed Waiting Private MD: Diagnosis: Acute upper respiratory infection, unspecified Presentation: 05/26 15:01 Chief complaint: Patient states: cough, sore throat, runny nose, fever Tmax 100.9 x 2 sv days. Around a COVID+ patient. Coronavirus screen: Client denies travel out of the [place] in the last 14 days. Client presents with at least one sign or symptom that may indicate coronavirus-19. Standard/surgical mask placed on the client. Provider contacted for isolation considerations. Ebola Screen: No symptoms or risks identified at this time. Risk Assessment: Do you want to hurt yourself or someone else? Patient reports no desire to harm self or others. Onset of symptoms was May 24, 2021. 15:01 Method Of Arrival: Ambulatory sv 15:01 Acuity: CABRERA 4 sv 15:01 Initial Sepsis Screen: Does the patient meet any 2 criteria? No. Patient's initial sv sepsis screen is negative. Does the patient have a suspected source of infection? No. Patient's initial sepsis screen is negative. Triage Assessment: 15:07 General: Appears in no apparent distress. comfortable, Behavior is calm, cooperative, sv appropriate for age. Pain: Denies pain. Neuro: Level of Consciousness is awake, alert, obeys commands, Oriented to person, place, time, situation, Gait is steady. Respiratory: Respiratory effort is even, unlabored. Historical: - Allergies: 15:01 PENICILLINS; sv 15:01 tramadol; sv - PMHx: 15:01 POLYSUBSTANCE ABUSE; Seizures; sv - Immunization history:: Client reports having NOT received the Covid vaccine. - Social history:: Smoking status: Patient reports the use of cigarette tobacco products, smokes one-half pack cigarettes per day. Screenin:07 Abuse screen: Denies threats or abuse. Denies injuries from another. Nutritional sv screening: No deficits noted. Tuberculosis screening: No symptoms or risk factors identified. Fall Risk None identified. Assessment: 16:53 Reassessment: Patient appears in no apparent distress at this time. No changes from sv previously documented assessment. Patient and/or family updated on plan of care and expected duration. Pain level reassessed. Patient is alert, oriented x 3, equal unlabored respirations, skin warm/dry/pink. Vital Signs: 15:03 BP 145 / 91; Pulse 56; Resp 16; Temp 98; Pulse Ox 100% ; Weight 81.65 kg; Height 5 ft. sv 7 in. (170.18 cm); 15:03 Body Mass Index 28.19 (81.65 kg, 170.18 cm) sv ED Course: 14:58 Patient arrived in ED. wm 15:01 Arm band placed on. sv 15:02 Triage completed. sv 15:06 Genesis Garcia FNP-C is PHCP. kb 15:06 Damir Leach MD is Attending Physician. kb 15:07 Jessy Serrano, RN is Primary Nurse. sv 15:07 Nurse Practitioner and/or Physician [employer] to see patient. sv 15:07 Patient has correct armband on for positive identification. sv 15:46 COVID-19 : Document "Date of Symptom Onset" if Symptomatic. Sent. sv 16:53 No provider procedures requiring assistance completed. Patient did not have IV access sv during this emergency room visit. Administered Medications: No medications were administered Outcome: 16:53 Discharge ordered by . kb 16:58 Discharged to home pt left before signing paperwork sv 16:58 Condition: stable 16:58 Patient left the ED. sv Signatures: Genesis Garcia FNP-C FNP-Ckb Jessy Serrano RN RN Kaylan Guevara Corrections: (The following items were deleted from the chart) 15:30 15:03 BP 145 / 91; Pulse 56bpm; Resp 16bpm; Pulse Ox 100%; 81.65 kg; Height 5 ft. 7 sv in.; BMI: 28.1; sv
--- NOTE | 2021-05-26 16:54 | EDPHYS ---
Physician Documentation [facility] Name: Roxane Mayfield Age: 41 yrs Sex: Female : 1980 Arrival Date: 05/26/2021 Time: 14:58 Bed Waiting Private MD: ED Physician Damir Leach HPI: 05/26 15:24 This 41 yrs old Female presents to ER via Ambulatory with complaints of Cough.kb 15:24 The patient or guardian reports cough. Onset: The symptoms/episode began/occurred 3 kb day(s) ago. Severity of symptoms: At their worst the symptoms were moderate, in the emergency department the symptoms are unchanged. Modifying factors: The symptoms are alleviated by nothing, the symptoms are aggravated by nothing. Associated signs and symptoms: Pertinent positives: fever, Pertinent negatives: chest pain, diarrhea, ear ache, nausea, rhinorrhea, sore throat, vomiting. The patient has not experienced similar symptoms in the past. The patient has not recently seen a physician. Pt reports cough and low grade fever for a few days. Recent exposure to person with covid. Historical: - Allergies: 15:01 PENICILLINS; sv 15:01 tramadol; sv - PMHx: 15:01 POLYSUBSTANCE ABUSE; Seizures; sv - Immunization history:: Client reports having NOT received the Covid vaccine. - Social history:: Smoking status: Patient reports the use of cigarette tobacco products, smokes one-half pack cigarettes per day. ROS: 15:24 Cardiovascular: Negative for chest pain, palpitations, and edema, Abdomen/GI: Negative kb for abdominal pain, nausea, vomiting, diarrhea, and constipation. 15:24 Constitutional: Positive for fever, Negative for body aches, chills, fatigue, malaise, poor PO intake, weight loss. 15:24 Respiratory: Positive for cough, Negative for dyspnea on exertion, hemoptysis, orthopnea, pleurisy, shortness of breath, sputum production, wheezing. 15:24 All other systems are negative. Exam: 15:24 Constitutional: This is a well developed, well nourished patient who is awake, alert, kb and in no acute distress. Head/Face: Normocephalic, atraumatic. ENT: Moist Mucous membranes Cardiovascular: Regular rate and rhythm with a normal S1 and S2. No gallops, murmurs, or rubs. No pulse deficits. Respiratory: Respirations even and unlabored. No increased work of breathing, no retractions or nasal flaring. Skin: Warm, dry with normal turgor. Normal color. MS/ Extremity: Pulses equal, no cyanosis. Neurovascular intact. Full, normal range of motion. Neuro: Awake and alert, GCS 15, oriented to person, place, time, and situation. Moves all extremities. Normal gait. Psych: Awake, alert, with orientation to person, place and time. Behavior, mood, and affect are within normal limits. Vital Signs: 15:03 BP 145 / 91; Pulse 56; Resp 16; Temp 98; Pulse Ox 100% ; Weight 81.65 kg; Height 5 ft. sv 7 in. (170.18 cm); 15:03 Body Mass Index 28.19 (81.65 kg, 170.18 cm) sv MDM: 15:06 Patient medically screened. kb 15:24 Data reviewed: vital signs, nurses notes. Data interpreted: Pulse oximetry: on room air kb is 100 %. Interpretation: normal. 16:53 Counseling: I had a detailed discussion with the patient and/or guardian regarding: the kb historical points, exam findings, and any diagnostic results supporting the discharge/admit diagnosis, lab results, the need for outpatient follow up, a family practitioner, to return to the emergency department if symptoms worsen or persist or if there are any questions or concerns that arise at home. 07 15:03 Order name: COVID-19 : Document "Date of Symptom Onset" if Symptomatic. sv 05/26 16:53 Order name: SARS-COV-2 RT PCR; Complete Time: 16:53 EDMS Administered Medications: No medications were administered Disposition: 18:21 Co-signature as Attending Physician, Damir Leach MD. rn Disposition Summary: 05/26/21 16:53 Discharge Ordered Location: Home kb Condition: Stable kb Diagnosis - Acute upper respiratory infection, unspecified kb Followup: kb - With: Emergency Department - When: As needed - Reason: Worsening of condition Followup: kb - With: Private Physician - When: 2 - 3 days - Reason: Recheck today's complaints, Continuance of care, Re-evaluation by your physician Discharge Instructions: - Discharge Summary Sheet kb - Upper Respiratory Infection, Adult, Bqcb-bi-Ncrm kb - Viral Respiratory Infection, Akai-Ci-Fpze kb Forms: - Medication Reconciliation Form kb - Thank You Letter kb - Antibiotic Education kb - Prescription Opioid Use kb Signatures: Dispatcher [employer] EDMS Genesis Garcia FNP-C FNP-Ckb Verde, Stephanie RN RN Damir Wang MD MD food and beverage intern: (The following items were deleted from the chart) 15:52 15:40 CORONAVIRUS ordered. EDMS EDMS
[2021-05-26 17:04] VITALS: BP 145/91; TEMP 98; O2SAT 100
== END 2021-05-26 16:58 | disposition home or self-care (01) ==
LOC: ER 14:55
DX: J06.9 Acute upper respiratory infection, unspecified (principal); Z20.822 Contact with and (suspected) exposure to COVID-19; F17.210 Nicotine dependence, cigarettes, uncomplicated; Z88.0 Allergy status to penicillin; Z88.5 Allergy status to narcotic agent
CPT/HCPCS: 99282; U0003

== ENCOUNTER 2024-08-26 08:27 | Emergency (ER) | payer OTHER ==
--- OUTSIDE RECORDS SUMMARY | 2024-08-26 08:35 | XMS REPORT | Continuity of Care Document ---
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 mg tablet 2019-11 09:34: 08-28 00:00 :00 No 1{tbl} Take 1 tablet by mouth 2 (two) times daily. Indication s: back pain [facility] Nitrofurant oin Monohyd Macro Nitrofurant oin Monohyd Macro 07-09 00:00: 00 07-14 00:00 :00 No Onel Abigail Mistry 1 cap [facility] ibuprofen 600 mg tablet 06-02 00:00: 00 08-30 00:00 :00 No [id number] 600mg Take 1 tablet by mouth every 6 (six) hours as needed for Pain (scale 4-6). [facility] benzonatate 200 mg capsule 06-02 00:00: 00 08-30 00:00 :00 No [id number] 200mg Take 1 capsule by mouth 3 (three) times daily as needed for Cough for up to 20 doses. [facility] ondansetron (ZOFRAN ODT) 4 mg disintegrat ing tablet 06-02 00:00: 00 08-30 00:00 :00 No [id number] 4mg Take 1 tablet by mouth every 8 (eight) hours as needed for Nausea and Vomiting (N/V). [facility] Duloxetine HCl Duloxetine HCl 05-13 00:00: 00 Yes Onel Abigail Mistry 1 capsule [facility] Sumatriptan Succinate Sumatriptan Succinate 05-13 00:00: 00 Yes Onel Mistry as directed [facility] Sumatriptan Succinate 50 MG Sumatriptan Succinate 50 MG 05-13 00:00: 00 No Sumatripta n Succinate 50 MG Duloxetine HCl 30 MG Duloxetine HCl 30 MG 05-13 00:00: 00 No 1{capsu le} Duloxetine HCl 30 MG topiramate 200 mg tablet 03-15 00:00: 00 08-30 00:00 :00 No 200mg Take 1 tablet by mouth 2 (two) times daily. [facility] amitriptyli ne 25 mg tablet 03-15 00:00: 00 08-30 00:00 :00 No [id number] 25mg Take 1 tablet by mouth at bedtime. [facility] Rosuvastati n Calcium Rosuvastati n Calcium 2018-11 202 00:00: 00 Yes Onel Abigail Mistry 1 tablet in evening [facility] Enalapril Maleate Enalapril Maleate 2018-11 00:00: 00 Yes Onel Mistry 1 tablet [facility] Topamax Topamax 03-27 00:00: 00 Yes Onel Mistry 1 tablet [facility] Topamax 200 MG Topamax 200 MG 03-27 00:00: 00 No 1{table t} Topamax 200 MG ProAir HFA ProAir HFA 2017-11 00:00: 00 Yes Onel Abigail Mistry 2 puffs as needed for sob/wheezi ng [facility] ProAir HFA 108 (90 Base) MCG/ACT ProAir HFA 108 (90 Base) MCG/ACT 2017-11 00:00: 00 No ProAir HFA 108 (90 Base) MCG/ACT Lidocaine Lidocaine Yes Onel Mistry 1 patch to skin remove after 12 hours [facility] Potassium Potassium Yes Onel Mistry 2 tablets [facility] Enalapril Maleate 10 MG Enalapril Maleate 10 MG No 1{table t} QD Enalapril Maleate 10 MG Potassium 99 MG Potassium 99 MG No 2{table ts} BID Potassium 99 MG Immunizations Ordered Immunization Name Filled Immunization Name Date Status Comments Source Td 2022-01-01 00:00:00 Completed [facility] Td 2022-01-01 00:00:00 Completed [facility] Td 2022-01-01 00:00:00 Completed [facility] Td 2022-01-01 00:00:00 Completed [facility] Td 2022-01-01 00:00:00 Completed [facility] Td 2022-01-01 00:00:00 Completed [facility] TD, NOS 2022-01-01 00:00:00 Completed [facility] TD, NOS Unknown Completed [facility] TD, NOS Unknown Completed [facility] Tdap- (Boostrix, Adacel) Unknown Completed Rosy Seybold - External Tdap- (Boostrix, Adacel) Unknown Completed Rosy Seybold - External Tdap- (Boostrix, Adacel) Unknown Completed Rosy Seybold - External Tdap- (Boostrix, Adacel) Unknown Completed Rosy Seybold - External Tdap- (Boostrix, Adacel) Unknown Completed Rosy Seybold - External Tdap- (Boostrix, Adacel) Unknown Completed Rosy Seybold - External Tdap- (Boostrix, Adacel) Unknown Completed Rosy Seybold - External Vital Signs Vital Name Observation Time Observation Value Comments S ource Systolic blood pressure 2024-05-21 14:36:00 126 mm[Hg] Rosy Elliott ld - External Diastolic blood pressure 2024-05-21 14:36:00 78 mm[Hg] Rosy Elliott ld - External Heart rate 2024-05-21 14:36:00 60 /min Taran Scruggs - External Body temperature 2024-05-21 14:36:00 36.5 Carmencita Rosy Seybold - External Respiratory rate 2024-05-21 14:36:00 16 /min Rosy Seybold - External Body height 2024-05-21 14:36:00 170.2 cm Kori ey Seybold - External Body weight 2024-05-21 14:36:00 109.135 kg Kori ey Seybold - External BMI 2024-05-21 14:36:00 37.68 kg/m2 Kori ey Seybold - External Systolic blood pressure 2024-04-23 14:28:00 128 mm[Hg] Rosy Seybo ld - External Diastolic blood pressure 2024-04-23 14:28:00 86 mm[Hg] Rosy Seybo ld - External Heart rate 2024-04-23 14:28:00 80 /min Kelse y Seybold - External Body height 2024-04-23 14:28:00 170.2 cm Kori ey Seybold - External Body weight 2024-04-23 14:28:00 108.863 kg Kori ey Seybold - External BMI 2024-04-23 14:28:00 37.59 kg/m2 Kori ey Seybold - External Systolic blood pressure 2024-04-03 15:03:00 152 mm[Hg] Rosy Seybo ld - External Diastolic blood pressure 2024-04-03 15:03:00 96 mm[Hg] Rosy Seybo ld - External Heart rate 2024-04-03 15:03:00 60 /min Kelse y Seybold - External Body temperature 2024-04-03 15:03:00 36.39 Carmencita Rosy Seybold - External Respiratory rate 2024-04-03 15:03:00 12 /min Rosy Seybold - External Body height 2024-04-03 15:03:00 170.2 cm Kori ey Seybold - External Body weight 2024-04-03 15:03:00 107.593 kg Kori ey Seybold - External BMI 2024-04-03 15:03:00 37.15 kg/m2 Kori ey Seybold - External Systolic blood pressure 2024-03-31 20:16:00 126 mm[Hg] Rosy Seybo ld - External Diastolic blood pressure 2024-03-31 20:16:00 82 mm[Hg] Rosy Seybo ld - External Heart rate 2024-03-31 20:16:00 78 /min Kelse y Seybold - External Body temperature 2024-03-31 20:16:00 36.44 Carmencita Rosy Seybold - External Respiratory rate 2024-03-31 20:16:00 18 /min Rosy Seybold - External Body height 2024-03-31 20:16:00 170.2 cm Kori ey Seybold - External Body weight 2024-03-31 20:16:00 107.502 kg Kori ey Seybold - External BMI 2024-03-31 20:16:00 37.12 kg/m2 Kori ey Seybold - External Oxygen saturation in Arterial blood by Pulse oximetry 2024-03-31 20:16:00 99 /min Rosy Seybo ld - External Systolic blood pressure 2024-03-03 15:13:00 128 mm[Hg] Rosy Seybo ld - External Diastolic blood pressure 2024-03-03 15:13:00 82 mm[Hg] Rosy Seybo ld - External Heart rate 2024-03-03 15:13:00 84 /min Josese y Seybold - External Body temperature 2024-03-03 15:13:00 36.56 Carmencita Rosy Seybold - External Respiratory rate 2024-03-03 15:13:00 18 /min Rosy Seybold - External Body height 2024-03-03 15:13:00 170.2 cm Kori ey Seybold - External Body weight 2024-03-03 15:13:00 106.595 kg Kori ey Seybold - External BMI 2024-03-03 15:13:00 36.81 kg/m2 Kori ey Seybold - External Oxygen saturation in Arterial blood by Pulse oximetry 2024-03-03 15:13:00 99 /min Rosy Seybo ld - External Systolic blood pressure 2024-02-11 14:53:00 137 mm[Hg] Rosy Seybo ld - External Diastolic blood pressure 2024-02-11 14:53:00 70 mm[Hg] Rosy Seybo ld - External Heart rate 2024-02-11 14:53:00 82 /min Kelse y Seybold - External Body temperature 2024-02-11 14:53:00 35.94 Carmencita Rosy Seybold - External Respiratory rate 2024-02-11 14:53:00 15 /min Rosy Scruggs - External Body height 2024-02-11 14:53:00 170.2 cm Kori Scruggs - External Body weight 2024-02-11 14:53:00 106.232 kg Kori Scruggs - External BMI 2024-02-11 14:53:00 36.68 kg/m2 Kori Scruggs - External Oxygen saturation in Arterial blood by Pulse oximetry 2024-02-11 14:53:00 100 /min Rosy Elliott ld - External Systolic blood pressure 2024-01-03 19:59:00 130 mm[Hg] [facility] acute hospital Diastolic blood pressure 2024-01-03 19:59:00 91 mm[Hg] General acute hospital Heart rate 2024-01-03 19:59:00 68 /[facility] Respiratory rate 2024-01-03 19:59:00 18 /min [facility] Oxygen saturation in Arterial blood by Pulse oximetry 2024-01-03 19:59:00 99 /min [facility] acute hospital Body temperature 2024-01-03 18:31:00 37.22 Carmencita [facility] Body height 2024-01-03 18:31:[address] [facility] Body weight 2024-01-03 18:31:[address] [facility] BMI 2024-01-03 18:31:00 35.55 kg/m2 [facility] Systolic blood pressure 2023-01-10 19:30:00 150 mm[Hg] General acute hospital Diastolic blood pressure 2023-01-10 19:30:00 90 mm[Hg] General acute hospital Heart rate 2023-01-10 19:30:00 71 /min [facility] Body temperature 2023-01-10 19:30:00 37 Carmencita [facility] Respiratory rate 2023-01-10 19:30:00 20 /min [facility] Oxygen saturation in Arterial blood by Pulse oximetry 2023-01-10 19:30:00 98 /min [facility] acute hospital Body height 2023-01-10 18:23:00 170.2 cm [facility] Body weight 2023-01-10 18:23:[address] [facility] BMI 2023-01-10 18:23:00 33.67 kg/m2 [facility] Systolic blood pressure 2022-09-07 13:55:00 129 mm[Hg] General acute hospital Diastolic blood pressure 2022-09-07 13:55:00 91 mm[Hg] General acute hospital Heart rate 2022-09-07 13:55:00 95 /min [facility] Body temperature 2022-09-07 13:55:00 37.44 Carmencita [facility] Respiratory rate 2022-09-07 13:55:00 20 /min [facility] Body weight 2022-09-07 13:55:[address] [facility] BMI 2022-09-07 13:55:00 31.32 kg/m2 [facility] Oxygen saturation in Arterial blood by Pulse oximetry 2022-09-07 13:55:00 99 /min [facility] acute hospital Systolic blood pressure 2022-04-30 20:31:00 123 mm[Hg] General acute hospital Diastolic blood pressure 2022-04-30 20:31:00 89 mm[Hg] General acute hospital Heart rate 2022-04-30 20:31:00 101 /min [facility] Body temperature 2022-04-30 20:31:00 37.17 Carmencita [facility] Respiratory rate 2022-04-30 20:31:00 17 /min [facility] Body height 2022-04-30 20:31:00 170.2 cm [facility] Body weight 2022-04-30 20:31:[address] [facility] BMI 2022-04-30 20:31:00 32.58 kg/m2 [facility] Oxygen saturation in Arterial blood by Pulse oximetry 2022-04-30 20:31:00 98 /min [facility] acute hospital Systolic blood pressure 2022-04-06 19:26:00 148 mm[Hg] General acute hospital Diastolic blood pressure 2022-04-06 19:26:00 83 mm[Hg] General acute hospital Heart rate 2022-04-06 19:25:00 77 /min [facility] Body temperature 2022-04-06 19:25:00 36.83 Carmencita [facility] Body height 2022-04-06 19:25:[address] [facility] Body weight 2022-04-06 19:25:[address] [facility] BMI 2022-04-06 19:25:00 32.69 kg/m2 [facility] Oxygen saturation in Arterial blood by Pulse oximetry 2022-04-06 19:25:00 100 /min General acute hospital Procedures Procedure Date / Time Performed Performing Clinician Source MAMMO 3D NAIMA DIAGNOSTIC BILAT 2024-04-03 17:04:19 Clover Farr - External POCT GLUCOSE (AUTOMATED) 2024-01-03 19:46:00 Ron Lang [facility] CONSENT/REFUSAL FOR DIAGNOSIS AND TREATMENT 2024-01-03 18:19:57 Doctor Unassigned, [place] [facility] CT CERVICAL SPINE WO CONTRAST 2023-01-10 19:04:31 Omero Bolivar [facility] CT HEAD WO CONTRAST 2023-01-10 19:04:31 Emily Bolivar [facility] CT LUMBAR SPINE WO CONTRAST 2023-01-10 19:04:31 Omero Bolivar [facility] CT ABDOMEN PELVIS W CONTRAST 2022-09-07 14:57:05 Sanjana Gonzalez [facility] LIPASE 2022-09-07 14:13:00 Sanjana Gonzalez [facility] COMP. METABOLIC PANEL (19211) 2022-09-07 14:13:00 Sanjana Gonzalez [facility] CBC WITH DIFF 2022-09-07 14:13:00 [facility] 2022-09-07 14:13:00 Sanjana Gonzalez [facility] CONSENT/REFUSAL FOR DIAGNOSIS AND TREATMENT 2022-09-07 13:45:05 Doctor Unassigned, [place] [facility] CT HEAD WO CONTRAST 2022-04-30 20:47:28 Sav Mason [facility] POCT GLUCOSE (AUTOMATED) 2022-04-30 20:23:00 Josue Mason [facility] AUTHORIZATION FOR RELEASE OF PHI 2022-03-28 05:01:00 Doctor Unassigned, [place] [facility] [id number] 2020-07-29 00:00:00 GAYATHRI [facility] Encounters Start Date/Time End Date/Time Encounter Type Admission Type Attending [facility] Care Facility Care Department Encounter ID Source 2021-12-14 11:54:36 Outpatient Gay Tee [facility] [id number] [facility] 2021-12-14 11:36:12 Outpatient Gay Tee [facility] [id number] [facility] 2021-12-14 11:36:09 Outpatient Gay Tee [facility] [id number] [facility] 2021-12-14 11:31:34 Outpatient Gay Tee [facility] [id number] [facility] 2021-12-14 11:24:51 Outpatient Gay Tee [facility] [id number] [facility] 2021-12-14 11:16:09 Outpatient Gay Tee [facility] [id number] [facility] 2021-12-14 11:07:56 Outpatient Gay Tee [facility] [id number] [facility] 2021-12-14 11:07:41 Outpatient Gay Tee [facility] [id number] [facility] 2021-12-14 11:07:26 Outpatient Gay Tee [facility] [id number] [facility] 2021-12-14 11:01:34 Outpatient Gay Tee [facility] [id number] [facility] 2021-12-14 10:59:21 Outpatient Gay Tee [facility] [id number] [facility] 2021-12-14 10:57:33 Outpatient Gay Tee [facility] [id number] [facility] 2021-09-20 09:01:48 Emergency [facility] [id number] [facility] 2021-09-19 08:49:26 Emergency [facility] [id number] [facility] 2021-09-19 02:17:34 Emergency [facility] [id number] [facility] 2021-09-17 14:10:02 Emergency [facility] [id number] [facility] 2021-09-16 22:16:42 Emergency [facility] [id number] [facility] 2021-09-16 21:04:38 Emergency [facility] [id number] [facility] 2021-09-16 16:29:08 Emergency [facility] [id number] [facility] 2021-09-16 06:58:10 Emergency [facility] [id number] [facility] 2024-11-25 09:45:00 2024-11-25 09:45:00 Outpatient CLOVER FARR [id number] Rosy Scruggs 2024-10-09 08:00:00 2024-10-09 08:00:00 Outpatient EMILI AGUILAR [id number] [facility] 2024-08-26 08:00:00 2024-08-26 08:00:00 Outpatient SUSAN COREY [id number] [facility] 2024-08-25 10:30:00 2024-08-25 10:30:00 Outpatient ROSY HERRERA [id number] [facility] 2024-08-25 00:00:00 2024-08-25 00:00:00 Outpatient ROSY ROSY [id number] [facility] 2024-08-19 09:30:00 2024-08-19 09:30:00 Outpatient LAB90 ROSY ROSY [id number] [facility]y [facility] 2024-08-19 09:00:00 2024-08-19 09:00:00 Outpatient EMILI AGUILAR ROSY HERRERA [id number] [facility]y [facility] 2024-08-18 11:30:00 2024-08-18 11:30:00 Outpatient JYOTSNA HOANG ROSY HERRERA [id number] [facility] 2024-08-18 00:00:00 2024-08-18 00:00:00 Outpatient LAURA HOANGTHIA ROSY HERRERA [id number] [facility] 2024-08-02 00:00:00 2024-08-02 00:00:00 Outpatient ASHA BROCK [id number] [facility] 2024-07-16 00:00:00 2024-07-16 00:00:00 Outpatient JYOTSNA HOANG ROSY HERRERA [id number] [facility]y [facility] 2024-07-07 16:00:00 2024-07-07 16:00:00 Outpatient LAB90 ROSY ROSY [id number] [facility]y [facility] 2024-07-07 00:00:00 2024-07-07 00:00:00 Outpatient JYOTSNA HOANG [facility] [id number] [facility] 2024-06-27 16:35:00 2024-06-27 16:35:00 Outpatient [facility] [id number] [facility]24-06-27 00:00:00 2024-06-27 00:00:00 Outpatient CLOVER FARR [id number] [facility] 2024-06-21 00:00:00 2024-06-21 00:00:00 Outpatient CLOVER FARR [id number] [facility] 2024-06-20 00:00:00 2024-06-20 00:00:00 Outpatient VIKTOR, JYOTSNA ROSY HERRERA [id number] [facility]y [facility] 2024-06-12 09:30:00 2024-06-12 09:30:00 Outpatient CONFERENCE, [facility] ROSY HERRERA [id number] [facility]y [facility] 2024-06-11 10:15:00 2024-06-11 10:15:00 Outpatient CONFERENCE, [facility] ROSY HERRERA [id number] [facility]y [facility] 2024-06-11 00:00:00 2024-06-11 00:00:00 Outpatient CONFERENCE, [facility] ROSY HERRERA [id number] [facility]sy [facility] 2024-06-10 14:20:00 2024-06-10 14:20:00 Outpatient ROSY HERRERA [id number] [facility]y [facility] 2024-06-10 13:45:00 2024-06-10 13:45:00 Outpatient ROSY HERRERA [id number] [facility]y [facility] 2024-06-10 11:00:00 2024-06-10 11:00:00 Outpatient ISAC, CL HERRERA [id number] [facility] 2024-06-06 09:00:00 2024-06-06 09:00:00 Outpatient NOS, CORDELL HERRERA [id number] [facility] 2024-06-06 09:00:00 2024-06-06 09:00:00 Outpatient NOS, CORDELL HERRERA [id number] [facility] 2024-06-05 00:00:00 2024-06-05 00:00:00 Outpatient CLOVER FARR [id number] [facility] 2024-06-04 13:45:00 2024-06-04 13:45:00 Outpatient KATEY NEUMANN [id number] [facility] 2024-06-02 09:05:00 2024-06-02 09:05:00 Outpatient CONFERENCE, [facility] ROSY HERRERA [id number] [facility] 2024-06-02 00:00:00 2024-06-02 00:00:00 Outpatient CONFERENCE, [facility] [id number] [facility] 2024-05-28 00:00:00 2024-05-28 00:00:00 Outpatient CLOVER FRAR ROSY [id number] [facility]y [facility] 2024-05-21 10:15:00 2024-05-21 10:15:00 Outpatient CLOVER FARR ROSY [id number] [facility]y [facility] 2024-05-21 09:00:00 2024-05-21 09:00:00 Outpatient ROSY HERRERA [id number] [facility]y [facility] 2024-05-21 08:15:00 2024-05-21 08:15:00 Outpatient ROSY HERRERA [id number] [facility]y [facility] 2024-05-21 08:15:00 2024-05-21 08:15:00 Outpatient ROSY HERRERA [id number] [facility]y [facility] 2024-05-21 00:00:00 2024-05-21 00:00:00 Outpatient VIKTOR JYOTSNA ROSY HERRERA [id number] [facility]y [facility] 2024-05-20 00:00:00 2024-05-20 00:00:00 Outpatient CLOVER FARR ROSY ROSY [id number] [facility]y [facility] 2024-05-19 00:00:00 2024-05-19 00:00:00 Outpatient ASHA BROCK [id number] [facility] 2024-04-23 09:45:00 2024-04-23 09:45:00 Outpatient CLOVER FARR ROSY HERRERA [id number] [facility]y [facility] 2024-04-21 16:00:00 2024-04-21 16:00:00 Outpatient CLOVER FARR ROSY HERRERA [id number] [facility]y [facility] 2024-04-21 11:00:00 2024-04-21 11:00:00 Outpatient CLOVER FARR ROSY HERRERA [id number] [facility]y [facility] 2024-04-21 00:00:00 2024-04-21 00:00:00 Outpatient CLOVER FARR ROSY HERRERA [id number] [facility]y [facility] 2024-04-10 11:00:00 2024-04-10 11:00:00 Outpatient ROSY HERRERA [id number] [facility]y [facility] 2024-04-09 00:00:00 2024-04-09 00:00:00 Outpatient CLOVER FARR ROSY [id number] [facility]y [facility] 2024-04-07 00:00:00 2024-04-07 00:00:00 Outpatient CLOVER FARR ROSY [id number] [facility] 2024-04-05 00:00:00 2024-04-05 00:00:00 Outpatient JYOTSNA HOANG ROSY [id number] [facility] 2024-04-04 00:00:00 2024-04-04 00:00:00 Outpatient JYOTSNA HOANG ROSY [id number] [facility] 2024-04-03 12:35:00 2024-04-03 12:35:00 Outpatient MICHAEL HERRERA ROSY [id number] [facility] 2024-04-03 11:40:00 2024-04-03 11:40:00 Outpatient ROSY ROSY [id number] [facility]y [facility] 2024-04-03 11:40:00 2024-04-03 11:40:00 Outpatient ROSY ROSY [id number] [facility] 2024-04-03 10:15:00 2024-04-03 10:15:00 Outpatient CLOVER FARR ROSY [id number] [facility] 2024-03-31 15:30:00 2024-03-31 15:30:00 Outpatient JYOTSNA HOANG ROSY HERRERA [id number] [facility]y [facility] 2024-03-30 00:00:00 2024-03-30 00:00:00 Outpatient JYOTSNA HOANG ROS[facility] [id number] [facility] 2024-03-20 00:00:00 2024-03-20 00:00:00 Outpatient JYOTSNA HOANG ROSY HERRERA [id number] [facility] 2024-03-20 00:00:00 2024-03-20 00:00:00 Outpatient JYOTSNA HOANG ROSY HERRERA [id number] [facility] 2024-03-17 00:00:00 2024-03-17 00:00:00 Outpatient JYOTSNA HOANG ROSY [id number] [facility] 2024-03-13 09:20:00 2024-03-13 09:20:00 Outpatient LAB90 ROSY ROSY [id number] [facility] 2024-03-11 00:00:00 2024-03-11 00:00:00 Outpatient JYOTSNA HOANG ROSY HERRERA [id number] [facility] 2024-03-10 00:00:00 2024-03-10 00:00:00 Outpatient EMILI AGUILAR ROSY HERRERA [id number] [facility] 2024-03-09 00:00:00 2024-03-09 00:00:00 Outpatient VINODASHA RSOY HERRERA [id number] [facility] 2024-03-03 11:15:00 2024-03-03 11:15:00 Outpatient LAB90 ROSY HERRERA [id number] [facility]y [facility] 2024-03-03 10:30:00 2024-03-03 10:30:00 Outpatient JYOTSNA HOANG [facility] [id number] [facility] 2024-03-03 00:00:00 2024-03-03 00:00:00 Outpatient ROSY HERRERA [id number] [facility] 2024-02-11 10:15:00 2024-02-11 10:15:00 Outpatient VINODASHA GORDILLO ROSY HERRERA [id number] [facility] 2024-01-03 12:32:00 2024-01-03 13:59:00 Emergency X Ron LANG [facility] ERT [id number] [facility] 2024-01-03 12:32:00 2024-01-03 13:59:00 Emergency Ron Lang [facility] [id number] [place] [facility] 2024-01-03 10:00:00 2024-01-03 10:00:00 Outpatient HUAN ELLIOTT [id number] [facility] 2023-09-18 00:00:00 2023-09-18 00:00:00 Outpatient GC_GCBZW_Ka veronika_S [facility] [id number] [facility] 2023-01-10 12:17:00 2023-01-10 13:46:00 Emergency X BOLIAVROMERO [facility] ERT [id number] [facility] 2023-01-10 12:17:00 2023-01-10 13:46:00 Emergency Bolivar Omero [facility] 1.840.114 350.1.13.10 4.2.7.2.686 [id number] [facility] 2022-09-28 09:30:00 2022-09-28 09:30:00 Outpatient JYOTSNA GARCÍA [facility] [id number] [facility] 2022-09-25 14:30:00 2022-09-25 14:30:00 Outpatient JYOTSNA GARCÍA [facility] [id number] [facility] 2022-09-07 08:57:00 2022-09-07 10:26:00 Emergency SANJANA SOLIS [facility] ERT [id number] [facility] 2022-09-07 08:57:00 2022-09-07 10:26:00 Emergency Sanjana Gonzalez [facility] 1.840.114 350.1.13.10 4.2.7.2.686 [id number] [facility] 2022-05-09 00:00:00 2022-05-09 00:00:00 Letter (Out) Bishop Osborne [facility] 1..840.114 350.1.13.10 4.2.7.2.686 [id number] [facility] 2022-04-30 15:30:00 2022-04-30 16:19:00 Emergency X SANDI MASON [facility] ERT [id number] [facility] 2022-04-30 15:30:00 2022-04-30 16:19:00 Emergency Sandi Mason [facility] 1.2840.114 350.1.13.10 4.2.7.2.686 [id number] [facility] 2022-04-25 00:00:00 2022-04-25 00:00:00 Telephone Bishop Osborne [facility] PROFESSIO NAL BUILDING 1.20.114 350.1.13.10 4.2.7.2.686 [id number] [facility] 2022-04-06 14:30:00 2022-04-06 15:16:43 Outpatient R LAURA MICHELTHIA [facility] [id number] [facility] 2022-04-06 14:30:00 2022-04-06 15:16:43 [facility]LORENZAAustin [facility] 1.20.114 350.1.13.10 4.2.7.2.686 [id number] [facility] 2022-04-05 07:11:00 2022-04-05 09:44:00 Emergency X SANJANA GONZALEZ [facility] ERT [id number] [facility] 2022-04-05 07:11:00 2022-04-05 09:44:00 Emergency Sanjana Gonzalez [facility] 1.20.114 350.1.13.10 4.2.7.2.686 [id number] [facility] 2022-04-05 00:00:00 2022-04-05 00:00:00 Letter (Out) [facility]?CELIA [facility] 1.2840.114 350.1.13.10 4.2.7.2.686 [id number] [facility] 2022-04-03 12:56:00 2022-04-03 16:10:00 Emergency X SANJANA GONZALEZ [facility] ERT [id number] [facility] 2022-04-03 12:56:00 2022-04-03 16:10:00 Emergency Sanjana Gonzalez [facility] 1.2840.114 350.1.13.10 4.2.7.2.686 [id number] [id number] [facility] 2022-03-28 00:00:00 2022-03-28 00:00:00 Orders Only Doctor Unassigned, [place] [facility] 1.2840.114 350.1.13.10 4.2.7.2.686 [id number] [facility] 2022-02-07 00:00:00 2022-02-07 00:00:00 Orders Only Doctor Unassigned, [place] [facility] 1.2840.114 350.1.13.10 4.2.7.2.686 [id number] [facility] 2022-01-27 00:00:00 2022-01-27 00:00:00 Telephone Gordo [facility] MEDICAL OFFICE BUILDING 1..840.114 350.1.13.10 4.2.7.2.686 [id number] [facility] 2022-01-18 13:10:00 2022-01-18 23:59:00 Outpatient R GORDO [facility] [id number] [facility] 2022-01-18 13:15:00 2022-01-18 13:30:00 Office Visit Gordo [facility] MEDICAL OFFICE BUILDING 1..840.114 350.1.13.10 4.2.7.2.686 [id number] [facility] 2022-01-18 13:10:00 2022-01-18 13:10:00 Outpatient R [facility]T [facility] [id number] [facility] 2022-01-18 00:00:00 2022-01-18 00:00:00 Letter (Out) [facility] 1.2.840.114 350.1.13.10 4.2.7.2.686 [id number] [facility] 2022-01-11 15:59:18 2022-01-11 23:59:00 Outpatient R RUSTY [facility] [id number] [facility] 2022-01-11 15:00:00 2022-01-11 15:30:00 [facility] 1.2.840.114 350.1.13.10 4.2.7.2.686 [id number] [facility] 2022-01-11 15:00:00 2022-01-11 15:00:00 [facility] [id number] [facility] 2022-01-05 16:15:00 2022-01-05 16:18:23 Office Visit India [facility] 1.2.840.114 350.1.13.10 4.2.7.2.686 [id number] [facility] 2022-01-05 16:15:00 2022-01-05 16:18:23 Outpatient R IND[facility] [id number] [facility] 2022-01-05 16:15:00 2022-01-05 16:15:00 Outpatient R [facility] [id number] [facility] 2022-01-03 14:30:00 2022-01-03 14:30:00 Outpatient R RUSTY [facility] [id number] [facility] 2022-01-03 14:30:00 2022-01-03 14:30:00 Outpatient R AURORA CARO [facility] [id number] [facility] 2022-01-02 14:00:00 2022-01-02 14:00:00 Outpatient R [facility] [id number] [facility] 2022-01-02 14:00:00 2022-01-02 14:00:00 Outpatient R [facility] [id number] [facility] 2022-01-02 14:00:00 2022-01-02 14:00:00 Outpatient R [facility] [id number] [facility] 2022-01-02 00:00:00 2022-01-02 00:00:00 Patient Secure Msg Doctor Unassigned, [place] [facility] 1.840.114 350.1.13.10 4.2.7.2.686 [id number] [facility] 2022-01-01 18:29:00 2022-01-01 21:07:00 Emergency X TRACY KIKI [facility] ERT [id number] [facility] 2022-01-01 18:29:00 2022-01-01 21:07:00 Emergency Kiki Molina [facility] .840.114 350.1.13.10 4.2.7.2.686 [id number] [facility] 2022-01-01 18:29:00 2022-01-01 21:07:00 Emergency X ROBBIEKIKI MENARD [facility] ERT [id number] [facility] 2021-12-30 15:00:00 2021-12-30 15:00:00 Office Visit Jyotsna [facility] 1.840.114 350.1.13.10 4.2.7.2.686 [id number] [facility] 2021-12-30 15:00:00 2021-12-30 14:40:30 Outpatient R JYOTSNA MICHEL [facility] [id number] [facility] 2021-12-30 00:00:00 2021-12-30 00:00:00 Letter (Out) Anand [facility] MEDICAL OFFICE BUILDING 1.840.114 350.1.13.10 4.2.7.2.686 [id number] [facility] 2021-12-30 00:00:00 2021-12-30 00:00:00 Telephone Anand [facility] MEDICAL OFFICE BUILDING 1..840.114 350.1.13.10 4.2.7.2.686 [id number] [facility] 2021-12-27 15:59:00 2021-12-27 21:46:00 Emergency X IVY PALACIOSN [facility] ERT [id number] [facility] 2021-12-27 15:59:00 2021-12-27 21:46:00 Emergency Ritesh Palacios R [facility] 1.840.114 350.1.13.10 4.2.7.2.686 [id number] [facility] 2021-12-19 15:14:00 2021-12-20 13:55:00 Outpatient X NATHALIA SMYTH [facility] [id number] [facility] 2021-12-19 15:14:00 2021-12-20 13:55:00 Emergency Dylan Correia Mahmoud Bender, Robert [facility] 1..840.114 350.1.13.10 4.2.7.2.686 [id number] [facility] 2021-12-07 00:00:00 2021-12-07 00:00:00 Telephone Socorro Reyes [facility] 1.2840.114 350.1.13.10 4.2.7.2.686 [id number] [facility] 2021-12-06 09:45:00 2021-12-06 10:00:00 Laboratory Only Only, Ang Db Test Wan [facility] MEDICAL OFFICE BUILDING 1.2840.114 350.1.13.10 4.2.7.2.686 [id number] [facility] 2021-12-06 09:45:00 2021-12-06 09:36:45 Outpatient R [facility] [id number] [facility] 2021-12-04 00:00:00 2021-12-04 00:00:00 Telephone IreneAlee [facility] 1.2840.114 350.1.13.10 4.2.7.2.686 [id number] [facility] 2021-12-02 16:00:00 2021-12-02 16:20:00 Urgent Care [facility] MEDICAL OFFICE BUILDING 1.284.114 350.1.13.10 4.2.7.2.686 [id number] [facility] 2021-12-02 16:00:00 2021-12-02 16:00:00 Outpatient R [facility] [id number] [facility] 2021-11-04 14:07:00 2021-11-04 17:32:00 Emergency X [facility] ERT [id number] [facility] 2021-11-04 14:07:00 2021-11-04 17:32:00 Emergency [facility] 1.2840.114 350.1.13.10 4.2.7.2.686 [id number] [facility] 2021-11-04 00:00:00 2021-11-04 00:00:00 Patient Secure Msg Doctor Unassigned, [place] [facility] 1.2.840.114 350.1.13.10 4.2.7.2.686 [id number] [facility] 2021-09-21 00:00:00 2021-09-21 00:00:00 Ricky [facility] 1.2.840.114 350.1.13.10 4.2.7.2.686 [id number] [facility] 2021-09-16 15:40:07 2021-09-16 15:49:54 Nurse Visit Nurse, [facility] Surgery Gu [place] [facility] 1.2.840.114 350.1.13.10 4.2.7.2.686 [id number] [facility] 2021-09-16 15:00:00 2021-09-16 15:49:54 Outpatient R BISHOP OSBORNE [facility] [id number] [facility] 2021-09-16 00:00:00 2021-09-16 00:00:00 Telephone Bishop Osborne [facility] 1.2.840.114 350.1.13.10 4.2.7.2.686 [id number] [facility] 2021-09-13 08:30:00 2021-09-13 14:08:00 Hospital Encounter Bishop Osborne [facility] 1.2.840.114 350.1.13.10 4.2.7.2.686 [id number] [facility] 2021-09-13 08:30:00 2021-09-13 14:08:00 Outpatient R BISHOP OSBORNE [facility] [id number] [facility] 2021-09-13 10:39:00 2021-09-13 12:35:00 Anesthesia Event Mounika Alvarez Armando [facility] 1.2.114 350.1.13.10 4.2.7.2.686 [id number] [facility] 2021-09-13 10:40:00 2021-09-13 12:31:00 Surgery [facility] 1.20.114 350.1.13.10 4.2.7.2.686 [id number] [facility] 2021-09-13 00:00:00 2021-09-13 00:00:00 Orders Only Doctor Unassigned, [place] [facility] 1.2.114 350.1.13.10 4.2.7.2.686 [id number] [facility] 2021-09-12 14:00:00 2021-09-12 14:29:12 Outpatient R ESTELLAKOREY JYOTSNA [facility] [id number] [facility] 2021-09-12 13:39:25 2021-09-12 14:29:12 [facility] 1..114 350.1.13.10 4.2.7.2.686 [id number] [id number] [facility] 2021-09-12 00:00:00 2021-09-12 00:00:00 Orders Only Doctor Unassigned, [place] [facility] 1.2.114 350.1.13.10 4.2.7.2.686 [id number] [facility] 2021-09-09 15:41:00 2021-09-09 16:55:00 Emergency Ritesh Palacios [facility] 1.2.840.114 350.1.13.10 4.2.7.2.686 [id number] [facility] 2021-09-09 15:04:54 2021-09-09 15:19:54 Laboratory Only Only, Adc Test Nadine Apple [facility] 1.2.840.114 350.1.13.10 4.2.7.2.686 [id number] [facility] 2021-09-09 15:00:00 2021-09-09 15:00:00 Outpatient NADINE FENG [facility] [id number] [facility] 2021-09-09 00:00:00 2021-09-09 00:00:00 Telephone Selina Ritchie [facility] 1.2.840.114 350.1.13.10 4.2.7.2.686 [id number] [facility] 2021-09-09 00:00:00 2021-09-09 00:00:00 Telephone Selina Ritchie [facility] 1.2.840.114 350.1.13.10 4.2.7.2.686 [id number] [facility] 2021-09-08 10:53:00 2021-09-08 17:30:00 Emergency Sandi Mason Yaman [facility] 1.2.840.114 350.1.13.10 4.2.7.2.686 [id number] [facility] 2021-09-08 10:53:00 2021-09-08 17:30:00 Emergency ELDA CURRY [facility] [id number] [facility] 2021-09-05 09:30:00 2021-09-05 10:41:05 Outpatient BISHOP HENDRICKSON [facility] [id number] [facility] 2021-09-05 09:17:53 2021-09-05 10:41:05 Office Visit Bishop Osborne Rm, Adc Surg Spec Procedure [facility] Professio nal Building 1.2.840.114 350.1.13.10 4.2.7.2.686 [id number] [facility] 2021-09-03 00:00:00 2021-09-03 00:00:00 Orders Only Doctor Unassigned, [place] [facility] 1.2.840.114 350.1.13.10 4.2.7.2.686 [id number] [facility] 2021-08-25 13:38:55 2021-08-25 23:59:00 Hospital Encounter Bishop Osborne [facility] 1.2.840.114 350.1.13.10 4.2.7.2.686 [id number] [facility] 2021-08-25 13:38:55 2021-08-25 23:59:00 Outpatient R BISHOP OSBORNE [facility] [id number] [facility] 2021-08-25 00:00:00 2021-08-25 00:00:00 [facility] 1.2.840.114 350.1.13.10 4.2.7.2.686 [id number] [facility] 2021-08-18 00:00:00 2021-08-18 00:00:00 Outpatient R BISHOP OSBORNE [facility] [id number] [facility] 2021-08-17 17:00:00 2021-08-17 17:00:00 Outpatient R INDERJIT HENRY [facility] [id number] [facility] 2021-08-17 17:00:00 2021-08-17 17:00:00 [facility] [id number] [facility] 2021-08-16 16:13:00 2021-08-16 20:13:00 Emergency Maggi Bustillo S [facility] 1.2840.114 350.1.13.10 4.2.7.2.686 [id number] [facility] 2021-08-16 16:13:00 2021-08-16 20:13:00 Emergency X MAGGI BUSTILLO [facility] ERT [id number] [facility] 2021-08-16 00:00:00 2021-08-16 00:00:00 Telephone Kee Rodriguez [facility]?Celia velez Medical Office Building 1.284.114 350.1.13.10 4.2.7.2.686 [id number] [facility] 2021-08-15 00:00:00 2021-08-15 00:00:00 Telephone [facility] 1.284.114 350.1.13.10 4.2.7.2.686 [id number] [facility] 2021-08-11 11:00:00 2021-08-11 11:34:13 Outpatient R [facility] [id number] [facility] 2021-08-11 09:49:36 2021-08-11 11:34:13 Office Visit India [facility] Professio nal Building 1.284.114 350.1.13.10 4.2.7.2.686 [id number] [facility] 2021-08-04 00:00:00 2021-08-04 00:00:00 Telephone Merle Truong [facility] Professio nal Building 1.284.114 350.1.13.10 4.2.7.2.686 [id number] [facility] 2021-08-01 16:25:00 2021-08-01 18:54:00 Emergency Sanjana Gonzalez [facility] 1.2.840.114 350.1.13.10 4.2.7.2.686 [id number] [facility] 2021-08-01 16:25:00 2021-08-01 18:54:00 Emergency Sanjana Gonzalez [facility] 1.2.840.114 350.1.13.10 4.2.7.2.686 [id number] [facility] 2021-08-01 16:25:00 2021-08-01 18:54:00 Emergency X SANJANA GONZALEZ [facility] ERT [id number] [facility] 2021-07-21 10:00:00 2021-07-21 11:06:25 Outpatient R DIONNE MERLE [facility] [id number] [facility] 2021-07-21 09:53:52 2021-07-21 11:06:25 Office Visit Dionne Merle Sebastian [facility] 1.2840.114 350.1.13.10 4.2.7.2.686 [id number] [facility] 2021-07-21 09:53:52 2021-07-21 11:06:25 Office Visit Dionne Merle Sebastian [facility] Building 1.2840.114 350.1.13.10 4.2.7.2.686 [id number] [facility] 2021-07-21 00:00:00 2021-07-21 00:00:00 Orders Only Doctor Unassigned, [place] [facility] 1.2.840.114 350.1.13.10 4.2.7.2.686 [id number] [facility] 2021-07-21 00:00:00 2021-07-21 00:00:00 Orders Only Doctor Unassigned, [place] [facility] 1.20.114 350.1.13.10 4.2.7.2.686 [id number] [facility] 2021-06-24 00:00:00 2021-06-24 00:00:00 Patient Secure Msg Doctor Unassigned, [place] [facility] 1.20.114 350.1.13.10 4.2.7.2.686 [id number] [facility] 2021-06-22 08:40:00 2021-06-22 09:40:08 Outpatient JYOTSNA GARCÍA [facility] [id number] [facility] 2021-06-22 08:23:56 2021-06-22 09:40:08 Presetter Operator Visit Lab, Adc Fam Pob I Anand [facility] Office Building One 1..114 350.1.13.10 4.2.7.2.686 [id number] [facility] 2021-06-21 13:08:36 2021-06-21 13:43:35 Office Visit Anand [facility] Office Building One 1.0.114 350.1.13.10 4.2.7.2.686 [id number] [facility] 2021-06-21 13:00:00 2021-06-21 13:00:00 Outpatient R JYOTSNA MICHEL [facility] [id number] [facility] 2021-06-03 21:41:00 2021-06-03 23:18:00 Emergency Omero Bolivar [facility] 1.0.114 350.1.13.10 4.2.7.2.686 [id number] [facility] 2021-05-06 18:15:00 2021-05-06 20:50:00 Emergency Sanjana Gonzalez [facility] 1.2.840.114 350.1.13.10 4.2.7.2.686 [id number] [facility] 2021-05-06 18:15:00 2021-05-06 20:50:00 Emergency Sanjana Gonzalez [facility] 1.2.840.114 350.1.13.10 4.2.7.2.686 [id number] 2021-05-02 13:00:00 2021-05-02 13:30:00 Office Visit India [facility] 1.2.840.114 350.1.13.10 4.2.7.2.686 [id number] 2021-05-02 13:00:00 2021-05-02 13:30:00 Office Visit India [facility] Building 1.2.840.114 350.1.13.10 4.2.7.2.686 [id number] [facility] 2021-05-02 13:00:00 2021-05-02 13:00:00 Outpatient R [facility] [id number] [facility] 2021-04-20 17:39:00 2021-04-20 21:01:00 Emergency Maggi Bustillo [facility] 1.2.840.114 350.1.13.10 4.2.7.2.686 [id number] [facility] 2021-04-20 17:39:00 2021-04-20 21:01:00 Emergency X MAGGI BUSTILLO [facility] [id number] [facility] 2021-04-17 12:51:00 2021-04-17 15:00:00 Emergency Mady Caro [facility] 1.2840.114 350.1.13.10 4.2.7.2.686 [id number] [facility] 2021-04-17 12:51:00 2021-04-17 15:00:00 Emergency X MADY CARO [facility] ERT [id number] [facility] 2021-04-17 12:51:00 2021-04-17 15:00:00 Emergency MADY FRIED [facility] ERT [id number] [facility] 2021-03-26 00:49:00 2021-03-26 03:03:00 Emergency Omero Bolivar [facility] 1.2840.114 350.1.13.10 4.2.7.2.686 [id number] [facility] 2021-03-26 00:49:00 2021-03-26 03:03:00 Emergency X OMERO BOLIVAR [facility] ERT [id number] [facility] 2021-02-08 07:24:00 2021-02-08 10:16:00 Emergency Sanjana Gonzalez Antionette [facility] 1.2840.114 350.1.13.10 4.2.7.2.686 [id number] [facility] 2021-02-08 07:24:00 2021-02-08 10:16:00 Emergency X SANJANA GONZALEZ [facility] ERT [id number] [facility] 2021-02-07 22:21:00 2021-02-08 00:46:00 Emergency X RACHEL HINSON [facility] ERT [id number] [facility] 2021-02-07 22:21:00 2021-02-08 00:46:00 Emergency Rachel Hinson [facility] 1.2.840.114 350.1.13.10 4.2.7.2.686 [id number] [facility] 2021-02-03 00:00:00 2021-02-03 00:00:00 Patient Outreach Maikel Alcantara [facility] 1.2.840.114 350.1.13.10 4.2.7.2.686 [id number] [facility] 2021-01-04 21:34:00 2021-01-05 01:04:00 Emergency X Ron LANG [facility] ERT [id number] [facility] 2021-01-04 21:34:00 2021-01-05 01:04:00 Emergency Ron Lang [facility] 1.2.840.114 350.1.13.10 4.2.7.2.686 [id number] [facility] 2020-12-17 00:00:00 2020-12-17 00:00:00 Ricky Ledesma [facility] 1.2.840.114 350.1.13.10 4.2.7.2.686 [id number] [facility] 2020-11-18 19:35:00 2020-11-18 21:54:00 Emergency Dylan Correia [facility] 1.2.840.114 350.1.13.10 4.2.7.2.686 [id number] [facility] 2020-11-08 19:40:00 2020-11-08 22:35:00 Emergency X ZACK LAZAR [facility] ERT [id number] [facility] 2020-11-08 19:40:00 2020-11-08 22:35:00 Emergency Zack Lazar [facility] 1.2.840.114 350.1.13.10 4.2.7.2.686 [id number] [facility] 2020-11-08 00:00:00 2020-11-08 00:00:00 Orders Only Doctor Unassigned, [place] [facility] 1.114 350.1.13.10 4.2.7.2.686 [id number] [facility] 2020-09-15 00:00:00 2020-09-15 00:00:00 Orders Only Doctor Unassigned, [place] [facility] 1.20.114 350.1.13.10 4.2.7.2.686 [id number] [facility] 2020-09-10 13:48:40 2020-09-10 14:06:16 Office Visit Stevie Fontaine [facility] 1.114 350.1.13.10 4.2.7.2.686 [id number] [facility] 2020-09-10 13:30:00 2020-09-10 13:30:00 Outpatient R STEVIE FONTAINE [facility] [id number] [facility] 2020-07-28 15:54:00 2020-09-07 06:13:40 Inpatient HCAPM BRENT [id number] [facility] 2020-09-03 00:00:00 2020-09-03 00:00:00 Telephone Yanique Jefferson [facility] 1.114 350.1.13.10 4.2.7.2.686 [id number] [facility] 2020-09-01 00:00:00 2020-09-01 00:00:00 Patient Secure Msg Stevie Fontaine [facility] 1.114 350.1.13.10 4.2.7.2.686 [id number] [facility] 2020-08-29 20:28:00 2020-08-30 16:58:00 [facility] 1.2.840.114 350.1.13.10 4.2.7.2.686 [id number] [facility] 2020-08-23 12:09:00 2020-08-28 12:50:00 Hospital Encounter Ritesh Palacios [place], [place] [facility] 1.2840.114 350.1.13.10 4.2.7.2.686 [id number] [facility] 2020-08-23 00:00:00 2020-08-23 00:00:00 (TEL) STLMLC STLMLC [id number] [facility] 2020-08-07 00:00:00 2020-08-07 00:00:00 Letter (Out) [facility] [facility]ENTER 1.2840.114 350.1.13.10 4.2.7.2.686 [id number] [facility] 2020-07-28 23:35:00 2020-07-28 23:35:00 Outpatient Dave Raymond HCACL LABO [id number] [facility] 2020-07-27 20:19:00 2020-07-27 23:00:00 Emergency Rachel Hinson [facility] 1.2.840.114 350.1.13.10 4.2.7.2.686 [id number] [facility] 2020-07-13 00:00:00 2020-07-13 00:00:00 Orders Only Doctor Unassigned, [place] [facility] 1.2.840.114 350.1.13.10 4.2.7.2.686 [id number] [facility] 2020-07-09 09:00:00 2020-07-09 09:00:00 Outpatient [facility] [id number] [facility] 2020-06-28 09:00:00 2020-06-28 09:00:00 [place] [facility] [place] [facility] [id number] [facility] 2020-06-04 00:00:00 2020-06-04 00:00:00 Patient Secure Msg Doctor Unassigned, [place] [facility] 1.2.840.114 350.1.13.10 4.2.7.2.686 [id number] [facility] 2020-06-02 15:59:23 2020-06-02 19:40:00 Emergency Ron Lang [facility] 1..840.114 350.1.13.10 4.2.7.2.686 [id number] [facility] 2020-06-02 16:04:00 2020-06-02 16:04:00 [place] [facility] Medicine [id number] [facility] 2020-06-02 13:59:00 2020-06-02 13:59:00 [place] [facility] Medicine [id number] [facility] 2020-06-02 00:00:00 2020-06-02 00:00:00 Orders Only Doctor Unassigned, [place] [facility] 1.2.840.114 350.1.13.10 4.2.7.2.686 [id number] [facility] 2020-05-13 13:20:00 2020-05-13 13:20:00 [place] [facility] [place] [facility] [id number] [facility] 2020-04-27 08:24:00 2020-04-27 08:24:00 [place] [facility] [id number] [facility] 2020-04-26 08:45:00 2020-04-26 08:45:00 [facility] [facility] [id number] [facility] 2020-04-22 13:15:00 2020-04-22 13:15:00 Out[facility] [place] [facility] [place] [facility] [id number] [facility] 2020-04-22 11:27:00 2020-04-22 11:27:00 [place] [facility] [place] [facility] [id number] [facility] 2020-03-15 09:59:19 2020-03-15 16:26:43 Telemedici ne Ricky Choe [facility] Marlene [facility] 1.2.840.114 350.1.13.10 4.2.7.2.686 [id number] [facility] 2020-03-15 15:40:00 2020-03-15 15:40:00 Outpatient RICKY REECE HOWARD [facility] [id number] [facility] 2020-02-18 08:24:00 2020-02-18 08:24:00 [facility] [place] [facility] [id number] [facility] 2020-02-16 13:20:00 2020-02-16 13:20:00 [facility] [place] [facility] [id number] [facility] 2020-02-16 08:32:00 2020-02-16 08:32:00 [place] [facility] [place] [facility] [id number] [facility] 2020-02-12 15:52:00 2020-02-12 15:52:00 [place] [facility] [place] [facility] [id number] [facility] 2020-02-04 16:03:00 2020-02-04 16:03:00 [facility] [place] [facility] [id number] [facility] 2020-01-02 11:15:00 2020-01-02 11:15:00 [facility] [place] [facility] [id number] [facility] 2019-12-05 16:45:00 2019-12-05 16:45:[address] [facility] [place] [facility] [id number] [facility] 2019-10-20 13:19:00 2019-10-20 13:19:[address] [facility] [place] [facility] [id number] [facility] 2019-10-20 10:00:00 2019-10-20 10:00:[address] [facility] [place] [facility] [id number] [facility] 2019-09-26 11:20:00 2019-09-26 11:20:[address] [place] [address] [facility] [place] [facility] [id number] [facility] 2019-09-12 08:40:00 2019-09-12 08:40:[address] [facility] [address] [address] [facility] [place] [facility] [id number] [facility] 2019-08-18 21:36:00 2019-08-18 21:36:[address] [facility] [address] [address] [facility] [place] [facility] [id number] [facility] 2019-08-14 08:40:00 2019-08-14 08:40:[address] [facility] [address] [address] [facility] [place] [facility] [id number] [facility] 2019-08-13 08:49:00 2019-08-13 08:49:[address] [place] [facility] [address] [facility] [place] [facility] [id number] [facility] 2019-08-06 00:00:00 2019-08-06 00:00:00 [facility] 1.2.840.114 350.1.13.10 4.2.7.2.686 [id number] [facility] 2019-07-17 14:00:00 2019-07-17 14:00:[address] [facility] [address] [address] [facility] [place] [facility] [id number] [facility] 2019-07-17 00:00:00 2019-07-17 00:00:00 Orders Only Doctor Unassigned, [place] [facility] 1.2.840.114 350.1.13.10 4.2.7.2.686 [id number] [facility] 2019-06-26 00:00:00 2019-06-26 00:00:00 [facility] 1.2.840.114 350.1.13.10 4.2.7.2.686 [id number] [facility] 2019-06-20 09:54:38 2019-06-20 11:24:00 [facility] 1.2.840.114 350.1.13.10 4.2.7.2.686 [id number] [facility] 2019-06-20 00:00:00 2019-06-20 00:00:00 Telephone Ricky Wilson [facility] 1.2.840.114 350.1.13.10 4.2.7.2.686 [id number] [facility] 2019-05-05 08:51:00 2019-05-05 08:51:00 [place] [facility] [id number] [facility] 2019-03-27 08:20:00 2019-03-27 08:20:00 [place] [facility] [id number] [facility] 2018-09-02 10:45:00 2018-09-02 10:45:00 [place] [facility] [id number] [facility] 2018-05-21 15:53:00 2018-05-21 15:53:00 [facility] [place] [facility] [id number] [facility] 2018-05-20 13:26:00 2018-05-20 13:26:00 [place] [facility] [id number] [facility] 2018-05-09 13:20:00 2018-05-09 13:20:00 [place] [facility] [id number] [facility] 2018-05-07 11:49:00 2018-05-07 11:49:00 [place] [facility] [id number] [facility] 2018-05-06 11:47:00 2018-05-06 11:47:00 [place] [facility] [id number] [facility] 2018-04-29 21:50:00 2018-04-29 21:50:[address] [place] [facility] [id number] [facility] 2018-04-29 08:45:00 2018-04-29 08:45:00 [place] [facility] [id number] [facility] 2018-04-22 10:00:00 2018-04-22 10:00:00 [place] [facility] [id number] [facility] Results Test Description Test Time Test Comments Results Resul t Comments Source MAMMO 3D NAIMA DIAGNOST[facility] BILAT 2024-04-03 17:27:03 EXAM: MAMMO 3D NAMIA DIAGNOSTIC BILAT. 3-D tomosynthesis was performed. Computer-assisted detection was utilized in the interpretation of the mammogram. PATIENT DEMOGRAPHICS: 43 years old, Female. CLINICAL INDICATION: Bilateral mastalgia. COMPARISONS: None currently available. FINDINGS: Breast composition: The breasts are almost entirely fatty. No specific features of malignancy are identified in either breast, with no dominant suspicious mass, malignant type microcalcifications , or unexpected distortion seen. There is no mammographic abnormality in the area of pain reported by the patient. [facility] Scru[facility]s [facility] ([id number])2022-09-07 14:37:16* Test Item Value Reference Range Interpretation Comme nts NA (test code = 7933054839) 140 mmol/L 135-145 K (test code = 3027222466) 4.2 mmol/L 3.5-5 CL (test code = 2316856891) 107 mmol/L 98-108 CO2 TOTAL (test code = 2972288020) 24 mmol/L 23-31 AGAP (test code = 6960632940) 2-16 BUN (test code = 4072946882) 10 mg/dL 7-23 GLUCOSE (test code = 9992283801) 107 mg/dL 70-110 CREATININE (test code = 3343373605) 0.66 mg/dL 0.5-1.04 TOTAL BILI (test code = 5665720976) 0.4 mg/dL 0.1-1.1 CALCIUM (test code = 9377369099) 9.3 mg/dL 8.6-10.6 T PROTEIN (test code = 1420457026) 6.4 g/dL 6.3-8.2 ALBUMIN (test code = 9599919226) 4.0 g/dL 3.5-5 ALK PHOS (test code = 0152516574) 58 U/L 34-122 ALTv (test code = 1742-6) 20 U/L 5-35 AST(SGOT) (test code = 2903744363) 20 U/L 13-40 eGFR (test code = 3487755544) mL/min/1.73m2 NEHEMIAS (test code = NEHEMIAS) Association of Glomerular Filtration Rate (GFR) and Staging of Kidney Disease* + + +- +| GFR (mL/min/1.73 m2) ?| With Kidney Damage ?| ?Without Kidney Damage+ ------+ ----+ ------+| ?>90 ?| ?Stage one ?| ? Normal ?+ -+ + -+| ?60-89 ?| ?Stage two ?| ? Decreased GFR ? + + +- +| ?30-59 ?| ?Stage three ?| ? Stage three ? + + +- +| ?15-29 ?| ?Stage four ? | ? Stage four ?+ -+ + -+| ?<15 (or dialysis) ? ?| ?Stage five ? | ? Stage five ?+ -+ + -+ *Each stage assumes the associated GFR level has been in effect for at least three months. ?Stages 1 to 5, with or without kidney disease, indicate chronic kidney disease. Notes: Determination of stages one and two (with eGFR >59mL/min/1.73 m2) requires estimation of kidney damage for at least three months as defined by structural or functional abnormalities of the kidney, manifested by either:Pathological abnormalities or Markers of kidney damage (including abnormalities in the composition of the blood or urine or abnormalities in imaging tests). [facility]37[facility]15* Test Item Value Reference Range Interpretation Comme nts LIPASE (test code = 7673550016) 56 U/L 0-220 Lab Interpretation (test cod e = 20565-3) Normal [facility] WITH [id number] 14:24:16* Test Item Value Reference Range Interpretation Comme nts WBC (test code = 6690-2) See_Comment [Automated Epoch] The system which generated this result transmitted reference range: 4.30 - 11.10 10*3/?L. The reference range was not used to interpret this result as normal/abnormal. RBC (test code = 789-8) See_Comment [Automated Epoch] The system which generated this result transmitted reference range: 3.93 - 5.25 10*6/?L. The reference range was not used to interpret this result as normal/abnormal. HGB (test code = 718-7) 15.1 g/dL 11.6-15 H HCT (test code = 4544-3) 43.4 % 35.7-45.2 MCV (test code = 787-2) 92.1 fL 80.6-95.5 MCH (test code = 785-6) 32.1 pg 25.9-32.8 MCHC (test code = 786-4) 34.8 g/dL 31.6-35.1 RDW-SD (test code = 68307-9) 40.1 fL 39-49.9 RDW-CV (test code = 788-0) 11.9 % 12-15.5 L PLT (test code = 777-3) See_Comment [Automated messa ge] The system which generated this result transmitted reference range: 166 - 358 10*3/?L. The reference range was not used to interpret this result as normal/abnormal. MPV (test code = 61010-9) 9.5 fL 9.5-12.9 NRBC/100 WBC (test code = 6899900381) See_Comment [Automated me ssage] The system which generated this result transmitted reference range: 0.0 - 10.0 /100 WBCs. The reference range was not used to interpret this result as normal/abnormal. NRBC x10^3 (test code = 7210574219) See_Comment [Automated messa ge] The system which generated this result transmitted reference range: 10*3/?L. The reference range was not used to interpret this result as normal/abnormal. GRAN MAT (NEUT) % (test code = 770-8) 64.9 % IMM GRAN % (test code = 9885282625) 0.20 % LYMPH % (test code = 736-9) 23.8 % MONO % (test code = 5905-5) 8.8 % EOS % (test code = 713-8) 2.1 % BASO % (test code = 706-2) 0.2 % GRAN MAT x10^3(ANC) (test code = 4549126134) 3.16 10*3/uL 1.88-7.09 IMM GRAN x10^3 (test code = 4686729372) 0-0.06 LYMPH x10^3 (test code = 731-0) 1.16 10*3/uL 1.32-3.29 L MONO x10^3 (test code = 742-7) 0.43 10*3/uL 0.33-0.92 EOS x10^3 (test code = 711-2) 0.10 10*3/uL 0.03-0.39 BASO x10^3 (test code = 704-7) 0.01-0.07 Lab Interpretation (test code = 20959-3) Abnormal [facility] GLUCOSE (AUTOMATED)2022-04-30 20:31:16* Test Item Value Reference Range Interpretation Comme nts POCT GLU (test code = 7376705618) 105 mg/dL 70-110 Lab Interpretation (test cod e = 79706-4) Normal [facility] 05:10:00* Test Item Value Reference Range Interpretation Comme nts PROINSULIN (test code = PROINS) 30.2 pmol/L 0.0-10.0 A Performed At: [facility] [id number] Sanjai MD Ph:[phone] SULFONYLUREA [id number] 05:10:00* Test Item Value Reference Range Interpretation Comments ACETOHEXAMIDE (DYMELOR) (test code = ACETOH) Negative ug/mL 20-60 CHLORPROPAMIDE (DIABINASE) (test code = CHLPR) Negative ug/mL 75-250 GLIPIZIDE (GLUCOTROL) (test code = GLIP) 203 ng/mL 200-1000 TOLAZAMIDE (TOLINASE) (test code = LEVI) Negative ug/mL UP TO 80 TOLBUTAMIDE (ORINASE) (test code = TOLB) Negative ug/mL 40-100 GLIMEPIRIDE (AMARYL) (test code = GLIM) Negative ng/mL 80-250 GLYBURIDE LEVEL (test code = GLYB) Negative ng/mL UP TO 1500 NATEGLINIDE (STARLIX) (test code = DIONICIO) [place] [address] REPAGLINIDE (PRANDIN) (test code = REPA) Negative ng/mL UP TO 200 This test was oralia chang and its performance characteristicsdetermined by [facility]. It has not been cleared or approvedby the Food and Drug Administration.Performed At: [facility] [address] [place] [address] [id number] Karla J [facility] Ph:[phone] BETA [id number] 05:10:00* Test Item Value Reference Range Interpretation Comme nts BETA HYDROBUTYRATE (test code = BETHYD) 0.5 mg/dL () Reference Range: All Ages (fasting): 0.2 - 2.8Performed At: [facility] [address] [place], [place] [id number] Mendenhall MD Ph:[phone] INSULIN-LIKE GROWTH FACTOR [id number] 05:10:00* Test Item Value Reference Range Interpretation Comme nts INSULIN-LIKE GROWTH FACTOR II (test code = INSLKGF2) 723 ng/mL () This test was de veloped and its performance characteristicsdetermined by [facility]. It has not been cleared or approvedby the Food and Drug Administration.Reference Range: Age Range MeanAdults 333 - 967 650Performed At: [employer] [address] [place], [place] [id number] Charanjit Mendenhall MD Ph:[phone] SULFONYLUREA [id number] 19:08:00* Test Item Value Reference Range Interpretation Comments ACETOHEXAMIDE (DYMELOR) (test code = ACETOH) Negative ug/mL 20-60 CHLORPROPAMIDE (DIABINASE) (test code = CHLPR) Negative ug/mL 75-250 GLIPIZIDE (GLUCOTROL) (test code = GLIP) 203 ng/mL 200-1000 TOLAZAMIDE (TOLINASE) (test code = LEVI) Negative ug/mL UP TO 80 TOLBUTAMIDE (ORINASE) (test code = TOLB) Negative ug/mL 40-100 GLIMEPIRIDE (AMARYL) (test code = GLIM) Negative ng/mL 80-250 GLYBURIDE LEVEL (test code = GLYB) Negative ng/mL UP TO 1500 NATEGLINIDE (STARLIX) (test code = DIONICIO) Negative ng/[place] [address] REPAGLINIDE (PRANDIN) (test code = REPA) Negative ng/mL UP TO 200 This test was develo ped and its performance characteristicsdetermined by [facility]. It has not been cleared or approvedby the Food and Drug Administration.Performed At: [facility] [address] [place] [address] [id number] Adan PhrNJ Ph:[phone] BETA [id number] 19:08:00* Test Item Value Reference Range Interpretation Comme nts BETA HYDROBUTYRATE (test code = BETHYD) 0.5 mg/dL () Reference Range: All Ages (fasting): 0.2 - 2.8Performed At: [employer] [facility] [address] [place], [place] [id number] Samuel H MD Ph:[phone] INSULIN-LIKE GROWTH FACTOR [id number] 19:08:00* Test Item Value Reference Range Interpretation Comme nts INSULIN-LIKE GROWTH FACTOR I I (test code = INSLKGF2) [id number] 19:08:00* Test Item Value Reference Range Interpretation Comme nts PROINSULIN (test code = PROINS) 30.2 pmol/L 0.0-10.0 A Performed At: [address] [id number] Roy MD Ph:[phone] SULFONYLUREA [id number] 13:12:00* Test Item Value Reference Range Interpretation Comme nts GLYBURIDE LEVEL (test code = GLYB) BETA [id number] 13:12:00* Test Item Value Reference Range Interpretation Comme nts BETA HYDROBUTYRATE (test code = BETHYD) 0.5 mg/dL () Reference Range: All Ages (fasting): 0.2 - 2.8Performed At: [facility] [address] [place], [place] [id number] Mendenhall MD Ph:[phone] INSULIN-LIKE GROWTH FACTOR [id number] 13:12:00* Test Item Value Reference Range Interpretation Comme nts INSULIN-LIKE GROWTH FACTOR I I (test code = INSLKGF2) [id number] 13:12:00* Test Item Value Reference Range Interpretation Comme nts PROINSULIN (test code = PROINS) 30.2 pmol/L 0.0-10.0 A Performed At: [address] [id number] Roy MD Ph:[phone] SULFONYLUREA [id number] 16:10:00* Test Item Value Reference Range Interpretation Comme nts GLYBURIDE LEVEL (test code = GLYB) BETA [id number] 16:10:00* Test Item Value Reference Range Interpretation Comme nts BETA HYDROBUTYRATE (test code = BETHYD) INSULIN-LIKE GROWTH FACTOR [id number] 16:10:00* Test Item Value Reference Range Interpretation Comme nts INSULIN-LIKE GROWTH FACTOR I I (test code = INSLKGF2) [id number] 16:10:00* Test Item Value Reference Range Interpretation Comme nts PROINSULIN (test code = PROINS) 30.2 pmol/L 0.0-10.0 A Performed At: [facility] [id number] Sanjai MD Ph:[phone] GLUCOSE BEDSIDE [id number] 08:10:00* Test Item Value Reference Range Interpretation Comme nts GLUCOSE BEDSIDE TESTING (noemy t code = GLUBED) 89 mg/dL 70-110 N GLUCOSE BEDSIDE [id number] 23:54:00* Test Item Value Reference Range Interpretation Comme nts GLUCOSE BEDSIDE TESTING (noemy t code = GLUBED) 100 mg/dL 70-110 N GLUCOSE BEDSIDE [id number] 20:03:00* Test Item Value Reference Range Interpretation Comme nts GLUCOSE BEDSIDE TESTING (noemy t code = GLUBED) 96 mg/dL 70-110 N GLUCOSE BEDSIDE [id number] 15:50:00* Test Item Value Reference Range Interpretation Comme nts GLUCOSE BEDSIDE TESTING (noemy t code = GLUBED) 101 mg/dL 70-110 N GLUCOSE BEDSIDE [id number] 11:49:00* Test Item Value Reference Range Interpretation Comme nts GLUCOSE BEDSIDE TESTING (noemy t code = GLUBED) 105 mg/dL 70-110 N [id number] 09:08:00* Test Item Value Reference Range Interpretation Comme nts PHOSPHOROUS (test code = PHOS) 2.7 MG/DL 2.5-4.9 N [id number] 09:08:00* Test Item Value Reference Range Interpretation Comme nts MAGNESIUM (test code = MAG) 2.1 MG/DL 1.8-2.4 N ADRENOCORTICOTROPIC [id number] 09:08:00* Test Item Value Reference Range Interpretation Comme nts ADRENOCORTICOTROPIC HORMONE (test code = ACTH) 18.4 pg/mL 7.2-63.3 ACTH referenc e interval for samples collected between 7 and10 AM.Performed At: [facility] [id number] Kyle L MD Ph:[phone] W-[id number] 09:08:00* Test Item Value Reference Range Interpretation Comme nts C-PEPTIDE (test code = CPEP) 4.8 ng/mL 1.1-4.4 A C-Peptide refere nce interval is for fasting patients.Performed At: [facility] [address] [id number] Amrik Sebastian MD Ph:[phone] [id number] 09:08:00* Test Item Value Reference Range Interpretation Comme nts CORTISOL (test code = CORTR) 13.6 ug/dL () Cortisol AM 6.2 - 19.4 Cortisol PM 2.3 - 11.9 GLUCOSE BEDSIDE [id number] 07:33:00* Test Item Value Reference Range Interpretation Comme nts GLUCOSE BEDSIDE TESTING (noemy t code = GLUBED) 91 mg/dL 70-110 N GLUCOSE BEDSIDE [id number] 06:05:00* Test Item Value Reference Range Interpretation Comme nts GLUCOSE BEDSIDE TESTING (noemy t code = GLUBED) 105 mg/dL 70-110 N GLUCOSE BEDSIDE [id number] 06:05:00* Test Item Value Reference Range Interpretation Comme nts GLUCOSE BEDSIDE TESTING (noemy t code = GLUBED) 115 mg/dL 70-110 H BASIC METABOLIC [id number] 22:07:00* Test Item Value Reference Range Interpretation Comme nts SODIUM (test code = NA) 143 mmol/L 134-147 N POTASSIUM (test code = K) 4.0 mmol/L 3.4-5.0 N CHLORIDE (test code = CL) 114 mmol/L 100-108 H CARBON DIOXIDE (test code = CO2) 23 mmol/L 21-32 N ANION GAP (test code = GAP) 6.0 GAP calc 4.0-15.0 N GLUCOSE (test code = GLU) 59 MG/DL 70-110 L BLOOD UREA NITROGEN (test code = BUN) 5 MG/DL 7-18 L GLOMERULAR FILTRATION RATE (test code = GFR) >=60 max estimate estGFR >60 CREATININE (test code = CREAT) 0.5 MG/DL 0.6-1.0 L CALCIUM (test code = CA) 8.2 MG/DL 8.5-10.1 L [id number] 22:07:00* Test Item Value Reference Range Interpretation Comme nts C-PEPTIDE (test code = CPEP) 9.6 ng/mL 1.1-4.4 A C-Peptide refere nce interval is for fasting patients. [id number] 22:07:00* Test Item Value Reference Range Interpretation Comme nts CORTISOL (test code = CORTR) 6.7 ug/dL () Cortisol AM 6.2 - 19.4 Cortisol PM 2.3 - 11.9 [id number] 22:07:00* Test Item Value Reference Range Interpretation Comme nts INSULIN (test code = INS) 79.1 uIU/mL 2.6-24.9 A Performed At: [facility] [address] [id number] Kyle L MD Ph:[phone] INSULIN-LIKE GROWTH FACTOR [id number] 22:07:00* Test Item Value Reference Range Interpretation Comme nts INSULIN-LIKE GROWTH FACTOR I (test code = INSLKGF1) 193 ng/mL 74-239 Performed At: [facility] [id number] Roy MD Ph:[phone] GLUCOSE BEDSIDE [id number] 20:45:00* Test Item Value Reference Range Interpretation Comme nts GLUCOSE BEDSIDE TESTING (noemy t code = GLUBED) 116 mg/dL 70-110 H GLUCOSE BEDSIDE [id number] 16:50:00* Test Item Value Reference Range Interpretation Comme nts GLUCOSE BEDSIDE TESTING (noemy t code = GLUBED) 113 mg/dL 70-110 H GLUCOSE BEDSIDE [id number] 12:49:00* Test Item Value Reference Range Interpretation Comme nts GLUCOSE BEDSIDE TESTING (noemy t code = GLUBED) 103 mg/dL 70-110 N GLUCOSE BEDSIDE [id number] 08:57:00* Test Item Value Reference Range Interpretation Comme nts GLUCOSE BEDSIDE TESTING (noemy t code = GLUBED) 137 mg/dL 70-110 H [id number] 08:13:00* Test Item Value Reference Range Interpretation Comme nts PHOSPHOROUS (test code = PHOS) 2.7 MG/DL 2.5-4.9 N [id number] 08:13:00* Test Item Value Reference Range Interpretation Comme nts MAGNESIUM (test code = MAG) 2.1 MG/DL 1.8-2.4 N ADRENOCORTICOTROPIC [id number] 08:13:00* Test Item Value Reference Range Interpretation Comme nts ADRENOCORTICOTROPIC HORMONE (test code = ACTH) [id number] 08:13:00* Test Item Value Reference Range Interpretation Comme nts C-PEPTIDE (test code = CPEP) NG/ML 1.1-4.4 [id number] 08:13:00* Test Item Value Reference Range Interpretation Comme nts CORTISOL (test code = CORTR) 13.6 ug/dL () Cortisol AM 6.2 - 19.4 Cortisol PM 2.3 - 11.9 [id number] 08:13:00* Test Item Value Reference Range Interpretation Comme nts PHOSPHOROUS (test code = PHOS) 2.7 MG/DL 2.5-4.9 N [id number] 08:13:00* Test Item Value Reference Range Interpretation Comme nts MAGNESIUM (test code = MAG) 2.1 MG/DL 1.8-2.4 N ADRENOCORTICOTROPIC [id number] 08:13:00* Test Item Value Reference Range Interpretation Comme nts ADRENOCORTICOTROPIC HORMONE (test code = ACTH) [id number] 08:13:00* Test Item Value Reference Range Interpretation Comme nts C-PEPTIDE (test code = CPEP) 4.8 ng/mL 1.1-4.4 A C-Peptide refere nce interval is for fasting patients.Performed At: [facility] [place], [place] [id number] Kyle L MD Ph:[phone] [id number] 08:13:00* Test Item Value Reference Range Interpretation Comme nts CORTISOL (test code = CORTR) 13.6 ug/dL () Cortisol AM 6.2 - 19.4 Cortisol PM 2.3 - 11.9 BASIC METABOLIC [id number] 05:59:00* Test Item Value Reference Range Interpretation Comme nts SODIUM (test code = NA) 144 mmol/L 134-147 N POTASSIUM (test code = K) 3.8 mmol/L 3.4-5.0 N CHLORIDE (test code = CL) 114 mmol/L 100-108 H CARBON DIOXIDE (test code = CO2) 27 mmol/L 21-32 N ANION GAP (test code = GAP) 3.0 GAP calc 4.0-15.0 L GLUCOSE (test code = GLU) 90 MG/DL 70-110 N BLOOD UREA NITROGEN (test code = BUN) 5 MG/DL 7-18 L GLOMERULAR FILTRATION RATE (test code = GFR) >=60 max estimate estGFR >60 CREATININE (test code = CREAT) 0.4 MG/DL 0.6-1.0 L CALCIUM (test code = CA) 8.1 MG/DL 8.5-10.1 L CBC W/AUTO [id number] 05:41:00* Test Item Value Reference Range Interpretation Comme nts WHITE BLOOD CELL (test code = WBC) 4.6 K/mm3 3.5-11.0 N RED BLOOD CELL (test code = RBC) 3.89 M/mm3 4.70-6.10 L HEMOGLOBIN (test code = HGB) 12.7 G/DL 10.4-14.9 N HEMATOCRIT (test code = HCT) 37.2 % 31.5-44.1 N MEAN CELL VOLUME (test code = MCV) 95.6 Fl 84.5-98.6 N MEAN CELL HGB (test code = MCH) 32.6 pg 27.0-34.2 N MEAN CELL HGB CONCETRATION (test code = MCHC) 34.1 G/DL 31.5-34.0 H RED CELL DISTRIBUTION WIDTH (test code = RDW) 12.4 SD 11.5-14.5 N PLATELET COUNT (test code = PLT) 160 K/mm3 150-450 N MEAN PLATELET VOLUME (test c ode = MPV) 9.00 fL 7.0-10.5 N NEUTROPHIL % (test code = NT%) 57.1 % 40-76 N IMMATURE GRANULOCYTE % (test code = IG%) 0.2 % 0.0-5.0 N LYMPHOCYTE % (test code = LY%) 27.6 % 20.5-51.1 N MONOCYTE % (test code = MO%) 10.4 % 1.7-9.3 H EOSINOPHIL % (test code = EO%) 4.3 % 0.0-6.0 N BASOPHIL % (test code = BA%) 0.4 % 0.0-2.0 N NUCLEATED RBC % (test code = NRBC%) 0.0 /100WBC% 0.0-1.0 N NEUTROPHIL # (test code = NT#) 2.6 K/mm3 1.8-7.6 N IMMATURE GRANULOCYTE # (test code = IG#) 0.01 x10 3/uL 0.00-0.03 N LYMPHOCYTE # (test code = LY#) 1.3 K/mm3 0.6-3.2 N MONOCYTE # (test code = MO#) 0.5 K/mm3 0.3-1.1 N EOSINOPHIL # (test code = EO#) 0.2 K/mm3 0.0-0.4 N BASOPHIL # (test code = BA#) 0.0 K/mm3 0.0-0.1 N NUCLEATED RBC # (test code = NRBC#) 0.0 K/mm3 0.0-0.1 N MANUAL DIFF REQUIRED (test c ode = MDIFF) NO DIFF/SCN CRITERIA GLUCOSE BEDSIDE [id number] 04:36:00* Test Item Value Reference Range Interpretation Comme nts GLUCOSE BEDSIDE TESTING (noemy t code = GLUBED) 95 mg/dL 70-110 N GLUCOSE BEDSIDE [id number] 00:45:00* Test Item Value Reference Range Interpretation Comme nts GLUCOSE BEDSIDE TESTING (noemy t code = GLUBED) 104 mg/dL 70-110 N GLUCOSE BEDSIDE [id number] 20:18:00* Test Item Value Reference Range Interpretation Comme nts GLUCOSE BEDSIDE TESTING (noemy t code = GLUBED) 134 mg/dL 70-110 H GLUCOSE BEDSIDE [id number] 19:39:00* Test Item Value Reference Range Interpretation Comme nts GLUCOSE BEDSIDE TESTING (noemy t code = GLUBED) 103 mg/dL 70-110 N GLUCOSE BEDSIDE [id number] 15:09:00* Test Item Value Reference Range Interpretation Comme nts GLUCOSE BEDSIDE TESTING (noemy t code = GLUBED) 120 mg/dL 70-110 H GLUCOSE BEDSIDE [id number] 13:06:00* Test Item Value Reference Range Interpretation Comme nts GLUCOSE BEDSIDE TESTING (noemy t code = GLUBED) 125 mg/dL 70-110 H THYROID STIMULATING [id number] 12:10:00* Test Item Value Reference Range Interpretation Comme nts THYROID STIMULATING HORMONE (test code = TSH) 1.510 mcIU/ML 0.340-4.820 N ADRENOCORTICOTROPIC [id number] 12:10:00* Test Item Value Reference Range Interpretation Comme nts ADRENOCORTICOTROPIC HORMONE (test code = ACTH) 56.5 pg/mL 7.2-63.3 ACTH referenc e interval for samples collected between 7 and10 AM.Performed At: [facility] [id number] Amrik Sebastian MD Ph:[phone] GLUCOSE BEDSIDE [id number] 12:05:00* Test Item Value Reference Range Interpretation Comme nts GLUCOSE BEDSIDE TESTING (noemy t code = GLUBED) 106 mg/dL 70-110 N GLUCOSE BEDSIDE [id number] 11:07:00* Test Item Value Reference Range Interpretation Comme nts GLUCOSE BEDSIDE TESTING (noemy t code = GLUBED) 103 mg/dL 70-110 N GLUCOSE BEDSIDE [id number] 10:11:00* Test Item Value Reference Range Interpretation Comme nts GLUCOSE BEDSIDE TESTING (noemy t code = GLUBED) 109 mg/dL 70-110 N [id number] 10:05:00* Test Item Value Reference Range Interpretation Comme nts PHOSPHOROUS (test code = PHOS) 2.7 MG/DL 2.5-4.9 N [id number] 10:05:00* Test Item Value Reference Range Interpretation Comme nts MAGNESIUM (test code = MAG) 2.1 MG/DL 1.8-2.4 N ADRENOCORTICOTROPIC [id number] 10:05:00* Test Item Value Reference Range Interpretation Comme nts ADRENOCORTICOTROPIC HORMONE (test code = ACTH) [id number] 10:05:00* Test Item Value Reference Range Interpretation Comme nts C-PEPTIDE (test code = CPEP) NG/ML 1.1-4.4 [id number] 10:05:00* Test Item Value Reference Range Interpretation Comme nts CORTISOL (test code = CORTR) GLUCOSE BEDSIDE [id number] 09:45:00* Test Item Value Reference Range Interpretation Comme nts GLUCOSE BEDSIDE TESTING (noemy t code = GLUBED) 132 mg/dL 70-110 H GLUCOSE BEDSIDE [id number] 08:40:00* Test Item Value Reference Range Interpretation Comme nts GLUCOSE BEDSIDE TESTING (noemy t code = GLUBED) 99 mg/dL 70-110 N BASIC METABOLIC [id number] 08:13:00* Test Item Value Reference Range Interpretation Comme nts SODIUM (test code = NA) 143 mmol/L 134-147 N POTASSIUM (test code = K) 4.0 mmol/L 3.4-5.0 N CHLORIDE (test code = CL) 114 mmol/L 100-108 H CARBON DIOXIDE (test code = CO2) 23 mmol/L 21-32 N ANION GAP (test code = GAP) 6.0 GAP calc 4.0-15.0 N GLUCOSE (test code = GLU) 59 MG/DL 70-110 L BLOOD UREA NITROGEN (test code = BUN) 5 MG/DL 7-18 L GLOMERULAR FILTRATION RATE (test code = GFR) >=60 max estimate estGFR >60 CREATININE (test code = CREAT) 0.5 MG/DL 0.6-1.0 L CALCIUM (test code = CA) 8.2 MG/DL 8.5-10.1 L [id number] 08:13:00* Test Item Value Reference Range Interpretation Comme nts C-PEPTIDE (test code = CPEP) NG/ML 1.1-4.4 [id number] 08:13:00* Test Item Value Reference Range Interpretation Comme nts CORTISOL (test code = CORTR) 6.7 ug/dL () Cortisol AM 6.2 - 19.4 Cortisol PM 2.3 - 11.9 [id number] 08:13:00* Test Item Value Reference Range Interpretation Comme nts INSULIN (test code = INS) INSULIN-LIKE GROWTH FACTOR [id number] 08:13:00* Test Item Value Reference Range Interpretation Comme nts INSULIN-LIKE GROWTH FACTOR I (test code = INSLKGF1) BASIC METABOLIC [id number] 08:13:00* Test Item Value Reference Range Interpretation Comme nts SODIUM (test code = NA) 143 mmol/L 134-147 N POTASSIUM (test code = K) 4.0 mmol/L 3.4-5.0 N CHLORIDE (test code = CL) 114 mmol/L 100-108 H CARBON DIOXIDE (test code = CO2) 23 mmol/L 21-32 N ANION GAP (test code = GAP) 6.0 GAP calc 4.0-15.0 N GLUCOSE (test code = GLU) 59 MG/DL 70-110 L BLOOD UREA NITROGEN (test code = BUN) 5 MG/DL 7-18 L GLOMERULAR FILTRATION RATE (test code = GFR) >=60 max estimate estGFR >60 CREATININE (test code = CREAT) 0.5 MG/DL 0.6-1.0 L CALCIUM (test code = CA) 8.2 MG/DL 8.5-10.1 L [id number] 08:13:00* Test Item Value Reference Range Interpretation Comme nts C-PEPTIDE (test code = CPEP) 9.6 ng/mL 1.1-4.4 A C-Peptide refere nce interval is for fasting patients. [id number] 08:13:00* Test Item Value Reference Range Interpretation Comme nts CORTISOL (test code = CORTR) 6.7 ug/dL () Cortisol AM 6.2 - 19.4 Cortisol PM 2.3 - 11.9 [id number] 08:13:00* Test Item Value Reference Range Interpretation Comme nts INSULIN (test code = INS) INSULIN-LIKE GROWTH FACTOR [id number] 08:13:00* Test Item Value Reference Range Interpretation Comme nts INSULIN-LIKE GROWTH FACTOR I (test code = INSLKGF1) BASIC METABOLIC [id number] 08:13:00* Test Item Value Reference Range Interpretation Comme nts SODIUM (test code = NA) 143 mmol/L 134-147 N POTASSIUM (test code = K) 4.0 mmol/L 3.4-5.0 N CHLORIDE (test code = CL) 114 mmol/L 100-108 H CARBON DIOXIDE (test code = CO2) 23 mmol/L 21-32 N ANION GAP (test code = GAP) 6.0 GAP calc 4.0-15.0 N GLUCOSE (test code = GLU) 59 MG/DL 70-110 L BLOOD UREA NITROGEN (test code = BUN) 5 MG/DL 7-18 L GLOMERULAR FILTRATION RATE (test code = GFR) >=60 max estimate estGFR >60 CREATININE (test code = CREAT) 0.5 MG/DL 0.6-1.0 L CALCIUM (test code = CA) 8.2 MG/DL 8.5-10.1 L [id number] 08:13:00* Test Item Value Reference Range Interpretation Comme nts C-PEPTIDE (test code = CPEP) 9.6 ng/mL 1.1-4.4 A C-Peptide refere nce interval is for fasting patients. [id number] 08:13:00* Test Item Value Reference Range Interpretation Comme nts CORTISOL (test code = CORTR) 6.7 ug/dL () Cortisol AM 6.2 - 19.4 Cortisol PM 2.3 - 11.9 [id number] 08:13:00* Test Item Value Reference Range Interpretation Comme nts INSULIN (test code = INS) 79.1 uIU/mL 2.6-24.9 A Performed At: [facility] [address] [id number] Amrik Sebastian MD Ph:[phone] INSULIN-LIKE GROWTH FACTOR [id number] 08:13:00* Test Item Value Reference Range Interpretation Comme nts INSULIN-LIKE GROWTH FACTOR I (test code = INSLKGF1) GLUCOSE BEDSIDE [id number] 07:15:00* Test Item Value Reference Range Interpretation Comme nts GLUCOSE BEDSIDE TESTING (noemy t code = GLUBED) 87 mg/dL 70-110 N GLUCOSE BEDSIDE [id number] 05:59:00* Test Item Value Reference Range Interpretation Comme nts GLUCOSE BEDSIDE TESTING (noemy t code = GLUBED) 102 mg/dL 70-110 N BASIC METABOLIC [id number] 04:38:00* Test Item Value Reference Range Interpretation Comme nts SODIUM (test code = NA) 141 mmol/L 134-147 N POTASSIUM (test code = K) 3.6 mmol/L 3.4-5.0 N CHLORIDE (test code = CL) 114 mmol/L 100-108 H CARBON DIOXIDE (test code = CO2) 23 mmol/L 21-32 N ANION GAP (test code = GAP) 4.0 GAP calc 4.0-15.0 N GLUCOSE (test code = GLU) 86 MG/DL 70-110 N BLOOD UREA NITROGEN (test code = BUN) 4 MG/DL 7-18 L GLOMERULAR FILTRATION RATE (test code = GFR) >=60 max estimate estGFR >60 CREATININE (test code = CREAT) 0.5 MG/DL 0.6-1.0 L CALCIUM (test code = CA) 8.3 MG/DL 8.5-10.1 L CBC W/AUTO [id number] 04:21:00* Test Item Value Reference Range Interpretation Comme nts WHITE BLOOD CELL (test code = WBC) 5.9 K/mm3 3.5-11.0 N RED BLOOD CELL (test code = RBC) 4.09 M/mm3 4.70-6.10 L HEMOGLOBIN (test code = HGB) 13.2 G/DL 10.4-14.9 N HEMATOCRIT (test code = HCT) 40.1 % 31.5-44.1 N MEAN CELL VOLUME (test code = MCV) 98.0 Fl 84.5-98.6 N MEAN CELL HGB (test code = MCH) 32.3 pg 27.0-34.2 N MEAN CELL HGB CONCETRATION (test code = MCHC) 32.9 G/DL 31.5-34.0 N RED CELL DISTRIBUTION WIDTH (test code = RDW) 13.0 SD 11.5-14.5 N PLATELET COUNT (test code = PLT) 192 K/mm3 150-450 N MEAN PLATELET VOLUME (test c ode = MPV) 9.10 fL 7.0-10.5 N NEUTROPHIL % (test code = NT%) 60.6 % 40-76 IMMATURE GRANULOCYTE % (test code = IG%) 0.3 % 0.0-5.0 N LYMPHOCYTE % (test code = LY%) 25.6 % 20.5-51.1 N MONOCYTE % (test code = MO%) 10.2 % 1.7-9.3 H EOSINOPHIL % (test code = EO%) 3.1 % 0.0-6.0 N BASOPHIL % (test code = BA%) 0.2 % 0.0-2.0 N NUCLEATED RBC % (test code = NRBC%) 0.0 /100WBC% 0.0-1.0 N NEUTROPHIL # (test code = NT#) 3.6 K/mm3 1.8-7.6 N IMMATURE GRANULOCYTE # (test code = IG#) 0.02 x10 3/uL 0.00-0.03 N LYMPHOCYTE # (test code = LY#) 1.5 K/mm3 0.6-3.2 N MONOCYTE # (test code = MO#) 0.6 K/mm3 0.3-1.1 N EOSINOPHIL # (test code = EO#) 0.2 K/mm3 0.0-0.4 N BASOPHIL # (test code = BA#) 0.0 K/mm3 0.0-0.1 N NUCLEATED RBC # (test code = NRBC#) 0.0 K/mm3 0.0-0.1 N MANUAL DIFF REQUIRED (test c ode = MDIFF) NO DIFF/SCN CRITERIA GLUCOSE BEDSIDE [id number] 04:10:00* Test Item Value Reference Range Interpretation Comme nts GLUCOSE BEDSIDE TESTING (noemy t code = GLUBED) 93 mg/dL 70-110 N GLUCOSE BEDSIDE [id number] 02:07:00* Test Item Value Reference Range Interpretation Comme nts GLUCOSE BEDSIDE TESTING (noemy t code = GLUBED) 78 mg/dL 70-110 N GLUCOSE BEDSIDE [id number] 01:03:00* Test Item Value Reference Range Interpretation Comme nts GLUCOSE BEDSIDE TESTING (noemy t code = GLUBED) 83 mg/dL 70-110 N GLUCOSE BEDSIDE [id number] 23:33:00* Test Item Value Reference Range Interpretation Comme nts GLUCOSE BEDSIDE TESTING (noemy t code = GLUBED) 140 mg/dL 70-110 H GLUCOSE BEDSIDE [id number] 23:15:00* Test Item Value Reference Range Interpretation Comme nts GLUCOSE BEDSIDE TESTING (noemy t code = GLUBED) 46 mg/dL 70-110 L GLUCOSE BEDSIDE [id number] 21:48:00* Test Item Value Reference Range Interpretation Comme nts GLUCOSE BEDSIDE TESTING (noemy t code = GLUBED) 72 mg/dL 70-110 N GLUCOSE BEDSIDE [id number] 21:09:00* Test Item Value Reference Range Interpretation Comme nts GLUCOSE BEDSIDE TESTING (noemy t code = GLUBED) 62 mg/dL 70-110 L BASIC METABOLIC [id number] 19:46:00* Test Item Value Reference Range Interpretation Comme nts SODIUM (test code = NA) 143 mmol/L 134-147 N POTASSIUM (test code = K) 4.0 mmol/L 3.4-5.0 N CHLORIDE (test code = CL) 114 mmol/L 100-108 H CARBON DIOXIDE (test code = CO2) 23 mmol/L 21-32 N ANION GAP (test code = GAP) 6.0 GAP calc 4.0-15.0 N GLUCOSE (test code = GLU) 59 MG/DL 70-110 L BLOOD UREA NITROGEN (test code = BUN) 5 MG/DL 7-18 L GLOMERULAR FILTRATION RATE (test code = GFR) >=60 max estimate estGFR >60 CREATININE (test code = CREAT) 0.5 MG/DL 0.6-1.0 L CALCIUM (test code = CA) 8.2 MG/DL 8.5-10.1 L [id number] 19:46:00* Test Item Value Reference Range Interpretation Comme nts C-PEPTIDE (test code = CPEP) NG/ML 1.1-4.4 [id number] 19:46:00* Test Item Value Reference Range Interpretation Comme nts CORTISOL (test code = CORTR) [id number] 19:46:00* Test Item Value Reference Range Interpretation Comme nts INSULIN (test code = INS) INSULIN-LIKE GROWTH FACTOR [id number] 19:46:00* Test Item Value Reference Range Interpretation Comme nts INSULIN-LIKE GROWTH FACTOR I (test code = INSLKGF1) GLUCOSE BEDSIDE [id number] 19:26:00* Test Item Value Reference Range Interpretation Comme nts GLUCOSE BEDSIDE TESTING (noemy t code = GLUBED) 77 mg/dL 70-110 N GLUCOSE BEDSIDE [id number] 18:40:00* Test Item Value Reference Range Interpretation Comme nts GLUCOSE BEDSIDE TESTING (noemy t code = GLUBED) 59 mg/dL 70-110 L - XR CHEST 1 [id number] 18:32:00Name: DAYANARA YARBROUGH [facility] : 1980 Age/S: 40 / F [address] [address] Unit #:[id number] Loc: [place] [address] Phys: Elton Sandoval MD Acct: [id number] Dis Date: Status: ADM IN PHONE #: [phone] Exam Date: 07/29/2020 0717 FAX #: Reason: PICC LINE PLACEMENT EXAMS: CPT: [id number] XR CHEST 1 V 61742 Fluoro Time: DAP (Gy m2): Air Kerma (mGy): Examination: One view chest x-ray Location code: H60 Comparison: 07/28/2020 Discussion: Clinical history is remarkable for PICCline placement. Right-sided PICC line has been placed with its tip in the superior vena cava. Heartis normal in size. Lungs are clear of consolidating infiltrates. No masses, nodules or effusions are noted. Impression: 1. Right-sided PICC line identified with its tip in the superior vena cava. 2. Stable chest x-ray without evidence for acute infiltrates or effusions. at 1832 Reported and signed by: Sai Alexander M.D. CC: Elton Sandoval MD; Dave Raymond MD PAGE 1 Signed Report Name: DAYANARA SPANN [facility] : 1980 Age/S: 40 / F [id number] [address] Unit #: [id number] Loc: [place] [address] Phys: Elton Sandoval MD Acct: [id number] Dis Date: Status: ADM IN PHONE #: [phone] Exam Date: 07/29/2020 1825 FAX #: Reason: PICC LINE PLACEMENT EXAMS: CPT: [id number] XR CHEST 1 V 29086 Fluoro Time: DAP (Gy m2): Air Kerma (mGy): (Continued) Technologist: RT Kenia(R)(CT) Trnscb Date/Time: 07/29/2020 (1831) [id number] Orig Print D/T: S: 07/29/2020 (1834) PAGE 2 Signed ReportGLUCOSE BEDSIDE [id number] 16:59:00* Test Item Value Reference Range Interpretation Comme nts GLUCOSE BEDSIDE TESTING (noemy t code = GLUBED) 67 mg/dL 70-110 L GLUCOSE BEDSIDE [id number] 16:11:00* Test Item Value Reference Range Interpretation Comme nts GLUCOSE BEDSIDE TESTING (noemy t code = GLUBED) 53 mg/dL 70-110 L GLUCOSE BEDSIDE [id number] 15:33:00* Test Item Value Reference Range Interpretation Comme nts GLUCOSE BEDSIDE TESTING (noemy t code = GLUBED) 81 mg/dL 70-110 N - CT ABD PELVIS [id number] 15:16:00[place]: [place] : 1980 Age/S: 40 / F [address] [address] Unit #: [id number] Loc: [place] [address] Phys: Dave Raymond MD Acct: [id number] Dis Date: Status: ADM IN PHONE #: [phone] Exam Date: 07/29/2020 1422 FAX #: Reason: Recurrent hypoglycemia EXAMS:CPT: [id number] CT ABD PELVIS W/CONT 59359 HISTORY: Hypoglycemia. CT abdomen and pelvis, contrast [...] perfusion. No focal enhancing lesions. Vague hypodensity seen in the posterior aspect of the right upper lobe on the order of 1 cm, too small to accurately characterize. Again, no abnormal enhancement found. Cholecystectomy. The spleen and pancreas are intact with normal perfusion. No focal pancreatic lesions are seen nor ductal dilatation. Adrenals and kidneys normally perfused. No stranding or obstruction. Normal aortic diameter and perfusion seen. No adenopathy is appreciated. The bowel loops are free of obstruction. Appendix intact. The bladder contains a small amount of air possibly recent catheterization. Correlate for any cystitis changes with gas-forming organism. Hysterectomy. No free fluid or evidence of inguinal hernia.The bony structures are well mineralized. Spinal alignment well maintained with spondylosis changesat L5-S1, loss of disc space height. Other mild degenerative endplate changes, Schmorl's nodes seenat the lower thoracic and upper lumbar levels.. IMPRESSION: No acute findings in the abdomen or pelvis. Bowel loop pattern intact including normal appendix. PAGE 1 Signed Report (CONTINUED) Name: [place] : 1980 Age/S: 40 / F [id number] [address] Unit #: [id number] Loc: [place] [address] Phys: Dave Raymond MD Acct: [id number] Dis Date: Status: ADM IN PHONE #: [phone] Exam Date: 07/29/2020 1422 FAX #: Reason: Recurrent hypoglycemia EXAMS: CPT: [id number] CT ABD PELVIS W/CONT 94413 (Continued) Some air bubbles within the bladder may need correlation for recent catheterization or possibly cystitis with infection. Location: U19 at 1516 Reported and signed by: Nathalia Valle M.D CC: Dave Raymond MD Technologist:Mercedes Dhillon RT(R)(CT)(MRI) CTDI: DLP: Trnscb Date/Time: 07/29/2020 (1516) [email or web address] Orig Print D/T: S: 07/29/2020 (1520) PAGE 2 Signed ReportGLUCOSE BEDSIDE [id number] 14:04:00* Test Item Value Reference Range Interpretation Comme nts GLUCOSE BEDSIDE TESTING (noemy t code = GLUBED) 104 mg/dL 70-110 N GLUCOSE BEDSIDE [id number] 12:48:00* Test Item Value Reference Range Interpretation Comme nts GLUCOSE BEDSIDE TESTING (noemy t code = GLUBED) 39 mg/dL 70-110 LL GLUCOSE BEDSIDE [id number] 11:31:00* Test Item Value Reference Range Interpretation Comme nts GLUCOSE BEDSIDE TESTING (noemy t code = GLUBED) 59 mg/dL 70-110 L GLUCOSE BEDSIDE [id number] 10:35:00* Test Item Value Reference Range Interpretation Comme nts GLUCOSE BEDSIDE TESTING (noemy t code = GLUBED) 69 mg/dL 70-110 L GLUCOSE BEDSIDE [id number] 09:13:00* Test Item Value Reference Range Interpretation Comme nts GLUCOSE BEDSIDE TESTING (noemy t code = GLUBED) 65 mg/dL 70-110 L THYROID STIMULATING [id number] 09:12:00* Test Item Value Reference Range Interpretation Comme nts THYROID STIMULATING HORMONE (test code = TSH) 1.510 mcIU/ML 0.340-4.820 N ADRENOCORTICOTROPIC [id number] 09:12:00* Test Item Value Reference Range Interpretation Comme nts ADRENOCORTICOTROPIC HORMONE (test code = ACTH) GLUCOSE BEDSIDE [id number] 07:56:00* Test Item Value Reference Range Interpretation Comme nts GLUCOSE BEDSIDE TESTING (noemy t code = GLUBED) 73 mg/dL 70-110 N GLUCOSE BEDSIDE [id number] 07:34:00* Test Item Value Reference Range Interpretation Comme nts GLUCOSE BEDSIDE TESTING (noemy t code = GLUBED) 34 mg/dL 70-110 LL GLYCOSYLATED HEMOGLOBIN [id number] 06:03:00* Test Item Value Reference Range Interpretation Comme nts GLYCOSYLATED HEMOGLOBIN (HA1 C) (test code = GLYHGB) 4.8 % A1C 0.0-5.7 N ESTIMATED AVERAGE GLUCOSE (t est code = EAG) 91 MG/DLest COMPREHENSIVE METABOLIC [id number] 05:48:00* Test Item Value Reference Range Interpretation Comme nts SODIUM (test code = NA) 143 mmol/L 134-147 N POTASSIUM (test code = K) 3.4 mmol/L 3.4-5.0 N CHLORIDE (test code = CL) 119 mmol/L 100-108 H CARBON DIOXIDE (test code = CO2) 21 mmol/L 21-32 N ANION GAP (test code = GAP) 3.0 GAP calc 4.0-15.0 L GLUCOSE (test code = GLU) 77 MG/DL 70-110 N BLOOD UREA NITROGEN (test code = BUN) 9 MG/DL 7-18 N GLOMERULAR FILTRATION RATE (test code = GFR) >=60 max estimate estGFR >60 CREATININE (test code = CREAT) 0.5 MG/DL 0.6-1.0 L TOTAL PROTEIN (test code = PROT) 5.4 G/DL 6.4-8.2 L ALBUMIN (test code = ALB) 2.8 G/DL 3.4-5.0 L GLOBULIN (test code = GLOB) 2.6 GM/dL ALBUMIN/GLOBULIN RATIO (test code = A/G) 1.1 RATIO 1.2-2.2 L CALCIUM (test code = CA) 8.0 MG/DL 8.5-10.1 L BILIRUBIN TOTAL (test code = BILT) 0.40 MG/DL 0.2-1.2 N SGOT/AST (test code = AST) 14 Unit/L 15-37 L SGPT/ALT (test code = ALT) 21 Unit/L 12-78 N ALKALINE PHOSPHATASE TOTAL (test code = ALKP) 47 Unit/L 45-117 N COMPREHENSIVE METABOLIC [id number] 05:41:00* Test Item Value Reference Range Interpretation Comme nts SODIUM (test code = NA) 143 mmol/L 134-147 N POTASSIUM (test code = K) 3.4 mmol/L 3.4-5.0 N CHLORIDE (test code = CL) 119 mmol/L 100-108 H CARBON DIOXIDE (test code = CO2) 21 mmol/L 21-32 N ANION GAP (test code = GAP) 3.0 GAP calc 4.0-15.0 L GLUCOSE (test code = GLU) 77 MG/DL 70-110 N BLOOD UREA NITROGEN (test co de = BUN) 9 MG/DL 7-18 N GLOMERULAR FILTRATION RATE ( test code = GFR) estGFR >60 CREATININE (test code = CREAT) MG/DL 0.6-1.0 TOTAL PROTEIN (test code = PROT) G/DL 6.4-8.2 ALBUMIN (test code = ALB) G/DL 3.4-5.0 GLOBULIN (test code = GLOB) GM/dL ALBUMIN/GLOBULIN RATIO (test code = A/G) RATIO 1.2-2.2 CALCIUM (test code = CA) 8.0 MG/DL 8.5-10.1 L BILIRUBIN TOTAL (test code = BILT) MG/DL 0.2-1.2 SGOT/AST (test code = AST) Unit/L 15-37 SGPT/ALT (test code = ALT) Unit/L 12-78 ALKALINE PHOSPHATASE TOTAL ( test code = ALKP) Unit/L 45-117 CBC W/AUTO [id number] 05:39:00* Test Item Value Reference Range Interpretation Comme nts WHITE BLOOD CELL (test code = WBC) 6.9 K/mm3 3.5-11.0 N RED BLOOD CELL (test code = RBC) 4.05 M/mm3 4.70-6.10 L HEMOGLOBIN (test code = HGB) 13.2 G/DL 10.4-14.9 N HEMATOCRIT (test code = HCT) 38.7 % 31.5-44.1 N MEAN CELL VOLUME (test code = MCV) 95.6 Fl 84.5-98.6 N MEAN CELL HGB (test code = MCH) 32.6 pg 27.0-34.2 N MEAN CELL HGB CONCETRATION (test code = MCHC) 34.1 G/DL 31.5-34.0 H RED CELL DISTRIBUTION WIDTH (test code = RDW) 13.0 SD 11.5-14.5 N PLATELET COUNT (test code = PLT) 177 K/mm3 150-450 N MEAN PLATELET VOLUME (test c ode = MPV) 9.30 fL 7.0-10.5 N NEUTROPHIL % (test code = NT%) 69.6 % 40-76 N IMMATURE GRANULOCYTE % (test code = IG%) 0.6 % 0.0-5.0 N LYMPHOCYTE % (test code = LY%) 18.7 % 20.5-51.1 L MONOCYTE % (test code = MO%) 9.1 % 1.7-9.3 N EOSINOPHIL % (test code = EO%) 1.7 % 0.0-6.0 N BASOPHIL % (test code = BA%) 0.3 % 0.0-2.0 N NUCLEATED RBC % (test code = NRBC%) 0.0 /100WBC% 0.0-1.0 N NEUTROPHIL # (test code = NT#) 4.8 K/mm3 1.8-7.6 N IMMATURE GRANULOCYTE # (test code = IG#) 0.04 x10 3/uL 0.00-0.03 H LYMPHOCYTE # (test code = LY#) 1.3 K/mm3 0.6-3.2 N MONOCYTE # (test code = MO#) 0.6 K/mm3 0.3-1.1 N EOSINOPHIL # (test code = EO#) 0.1 K/mm3 0.0-0.4 N BASOPHIL # (test code = BA#) 0.0 K/mm3 0.0-0.1 N NUCLEATED RBC # (test code = NRBC#) 0.0 K/mm3 0.0-0.1 N MANUAL DIFF REQUIRED (test c ode = MDIFF) NO DIFF/SCN CRITERIA GLUCOSE BEDSIDE [id number] 05:20:00* Test Item Value Reference Range Interpretation Comme nts GLUCOSE BEDSIDE TESTING (neomy t code = GLUBED) 120 mg/dL 70-110 H GLUCOSE BEDSIDE [id number] 05:20:00* Test Item Value Reference Range Interpretation Comme nts GLUCOSE BEDSIDE TESTING (noemy t code = GLUBED) 23 mg/dL 70-110 LL GLUCOSE BEDSIDE [id number] 04:11:00* Test Item Value Reference Range Interpretation Comme nts GLUCOSE BEDSIDE TESTING (noemy t code = GLUBED) 46 mg/dL 70-110 L GLUCOSE BEDSIDE [id number] 03:17:00* Test Item Value Reference Range Interpretation Comme nts GLUCOSE BEDSIDE TESTING (noemy t code = GLUBED) 54 mg/dL 70-110 L GLUCOSE BEDSIDE [id number] 01:20:00* Test Item Value Reference Range Interpretation Comme nts GLUCOSE BEDSIDE TESTING (noemy t code = GLUBED) 46 mg/dL 70-110 L GLUCOSE BEDSIDE [id number] 00:31:00* Test Item Value Reference Range Interpretation Comme nts GLUCOSE BEDSIDE TESTING (noemy t code = GLUBED) 48 mg/dL 70-110 L GLUCOSE BEDSIDE [id number] 23:33:00* Test Item Value Reference Range Interpretation Comme nts GLUCOSE BEDSIDE TESTING (noemy t code = GLUBED) 92 mg/dL 70-110 N GLUCOSE BEDSIDE [id number] 23:33:00* Test Item Value Reference Range Interpretation Comme nts GLUCOSE BEDSIDE TESTING (noemy t code = GLUBED) 32 mg/dL 70-110 LL GLUCOSE BEDSIDE [id number] 21:02:00* Test Item Value Reference Range Interpretation Comme nts GLUCOSE BEDSIDE TESTING (noemy t code = GLUBED) 83 mg/dL 70-110 N GLUCOSE BEDSIDE [id number] 20:33:00* Test Item Value Reference Range Interpretation Comme nts GLUCOSE BEDSIDE TESTING (noemy t code = GLUBED) 31 mg/dL 70-110 LL GLUCOSE BEDSIDE [id number] 19:27:00* Test Item Value Reference Range Interpretation Comme nts GLUCOSE BEDSIDE TESTING (noemy t code = GLUBED) 52 mg/dL 70-110 L - CT HEAD/BRAIN W/O [id number] 19:02:00Name: DAYANARA YARBROUGH [facility] Sherley : 1980 Age/S: 40 / F [id number] Unit #:[id number] Loc: [place] [address] Phys: Marin Mckeon MD Acct: [id number] Dis Date: Status:ADM IN PHONE #: [phone] Exam Date: 07/28/2020 185 FAX #: Reason: ams EXAMS: CPT: [id number] CTHEAD/BRAIN W/O CONT 73950 Location of dictation: B2 CT Brain without contrast HISTORY: Altered mentation COMMENT: Axial multidetector slices through the brain were obtained without use of intravenous contrast material. Sagittal and coronal reformations were obtained and reviewed. An up-to-date CT recommended radiation dose reduction technique was utilized with total DLP of 804.23 mGy-cm. COMPARISON: None The cortical sulci, cisterns and ventricles appear normal for age with no intra or extra cerebral hemorrhage or mass lesion. No midline shift or transtentorial herniation is present. No abnormal intracranial calcifications are seen. The calvarium is intact with no fracture or destructive lesion. The sinuses are clear. IMPRESSION: No acute findings on noncontrast study. at 1902 Reported and signed by: Karen Block M.D. CC: Marin Mckeon MD Technologist:Marcia Hitchcock, RT(R) CTDI: DLP: Trnscb Date/Time: 07/28/2020 (1901) [id number] Orig Print D/T: S: 07/28/2020 (1904) PAGE 1 Signed ReportCOVID 19 INHOUSE [id number] 18:53:00* Test Item Value Reference Range Interpretation Comme nts COVID 19 INHOUSE AG (test code = [id number]) NEGATIVE Negative Per assistant professor of biology , negative results should be treated aspresumptive and, if inconsistent with clinical signs andsymptoms or necessary for patient management, should betested with an alternative molecular assay. Negative resultsdo not preclude SARS-CoV-2 infection and should not be usedas the sole basis for patient management decisions. Negative results should be considered in the context of apatient's recent exposures, history, presence of clinicalsigns and symptoms consistent with COVID-19. Emergent procedure? NODRUGS OF ABUSE SCREEN [id number] 18:38:00* Test Item Value Reference Range Interpretation Comme nts URN COCAINE (test code = COCAURN) NEGATIVE SCcutoff <300 NG/ML URN CANNABINOIDS (test code = CANNABURN) NEGATIVE SCcutoff <50 NG/ML URN AMPHETAMINE (test code = AMPHETURN) NEGATIVE SCcutoff <1000 NG/ML URN BARBITURATE (test code = BARBITURN) POSITIVE SCcutoff <200 NG/ML A URN BENZODIAZEPINE (test code = BENZOURN) NEGATIVE SCcutoff <200 NG/ML URN OPIATES (test code = OPIATURN) NEGATIVE SCcutoff <2000 NG/ML URN PHENCYCLIDINE (PCP) (test code = PHENCURN) NEGATIVE SCcutoff <25 NG/ML URN METHADONE (test code = METHAURN) NEGATIVE SCcutoff <300 NG/ML GLUCOSE BEDSIDE [id number] 18:22:00* Test Item Value Reference Range Interpretation Comme nts GLUCOSE BEDSIDE TESTING (noemy t code = GLUBED) 45 mg/dL 70-110 L GLUCOSE BEDSIDE [id number] 18:22:00* Test Item Value Reference Range Interpretation Comme nts GLUCOSE BEDSIDE TESTING (noemy t code = GLUBED) 27 mg/dL 70-110 LL [id number] 17:35:00* Test Item Value Reference Range Interpretation Comme nts ALCOHOL (test code = ALC) 4 MG/DL 0-10 N LACTIC [id number] 17:34:00* Test Item Value Reference Range Interpretation Comme nts LACTIC ACID (test code = LACT) 1.7 mmol/L 0.4-2.0 N HCG [id number] 17:34:00* Test Item Value Reference Range Interpretation Comme nts HCG SERUM (test code = HCG) < 1 mi-IU/ML 0-6 N 0 - 6 NOT PREGNA NT > 6 SUGGESTIVE OF EARLY RISES TWO FOLD EVERY 2 DAYS; SUGGEST RECONFIRMING AFTER 2 DAYS. 150,000-200,[address] TRIMESTER 10,000 - 50,000 2ND & 3RD TRIMESTER BASIC METABOLIC [id number] 17:33:00* Test Item Value Reference Range Interpretation Comme nts SODIUM (test code = NA) 144 mmol/L 134-147 N POTASSIUM (test code = K) 3.1 mmol/L 3.4-5.0 L CHLORIDE (test code = CL) 118 mmol/L 100-108 H CARBON DIOXIDE (test code = CO2) 20 mmol/L 21-32 L ANION GAP (test code = GAP) 6.0 GAP calc 4.0-15.0 N GLUCOSE (test code = GLU) 35 MG/DL 70-110 LL BLOOD UREA NITROGEN (test code = BUN) 11 MG/DL 7-18 N GLOMERULAR FILTRATION RATE (test code = GFR) >=60 max estimate estGFR >60 CREATININE (test code = CREAT) 0.6 MG/DL 0.6-1.0 N CALCIUM (test code = CA) 8.3 MG/DL 8.5-10.1 L Completed by Nursing: ISIAHREATINE KINASE (CK)2020-07-28 17:33:00* Test Item Value Reference Range Interpretation Comme nts CREATINE KINASE (CK) (test c ode = CK) 45 Unit/L 26-192 N Completed by Nursing: [id number] 17:33:00* Test Item Value Reference Range Interpretation Comme nts TROPONIN-I (test code = TROPI) < 0.015 NG/ML 0.000-0.045 N Negative: </= 0. 045 Positive: >/= 0.046 Correlation with serial results, other cardiac markers, and clinical findings is necessary to determine the clinical significance of this result. Quantitative results using different methodologies should not be compared to one another as numerical results may varyby method. Completed by Nursing: NOCBC W/O [id number] 17:12:00* Test Item Value Reference Range Interpretation Comme nts WHITE BLOOD CELL (test code = WBC) [...] pg 27.0-34.2 N MEAN CELL HGB CONCETRATION ( test code = MCHC) 34.8 G/DL 31.5-34.0 H RED CELL DISTRIBUTION WIDTH (test code = RDW) 12.9 SD 11.5-14.5 N PLATELET COUNT (test code = PLT) 239 K/mm3 150-450 N MEAN PLATELET VOLUME (test c ode = MPV) 9.20 fL 7.0-10.5 N [id number] 16:41:00* Test Item Value Reference Range Interpretation Comme nts ARTERIAL BLOOD GAS PH (test code = PHA) 7.38 pH units 7.35-7.45 N ARTERIAL BLOOD GAS PCO2 (test code = PCO2A) 34 mmHg 35-45 L ARTERIAL BLOOD GAS PO2 (test code = PO2A) 98 mmHg 80-100 N BICARBONATE TOTAL HCO3 (test code = HCO3) 19.8 mmol/L 22.0-26.0 L BASE EXCESS (test code = CLYDE) -4.5 mmol/L -3.0-3.0 L ABG O2 SATURATION (test code = SATA) 98 % 90-100 N FIO2 (test code = FIO2A) 21 % e 21-100 N ABG VENT MODE (test code = MODEA) Room Air Descript Vent Mode ABG SITE (test code = SITEA) Left Radial ARTKIT DESCRIPTION MODIFIED JAHAIRA'S (test code = MODALL) Yes Circ.CHK POSITIVE TOTAL HGB (test code = THB) 13.7 GRAM/DL 12.0-18.0 N HGB O2 SAT (test code = HBOSAT) 96.4 % (batool) 95.0-100.0 N CARBOXYHEMOGLOBIN (test code = HOHGBT) 1.2 % 0.5-1.5 N METHEMOGLOBIN (test code = METHGB) 0.1 % 0.0-0.0 H - XR CHEST 1 [id number] 16:37:00Name: DAYANARA YARBROUGH [facility] : 1980 Age/S: 40 / F [id number] Unit #:[id number] Loc: [place] [address] Phys: Marin Mckeon MD Acct: [id number] Dis Date: Status:PRE ER PHONE #: [phone] Exam Date: 07/28/2020 1637 FAX #: Reason: chest pain EXAMS: CPT: [id number] XR CHEST 1 V 02661 Fluoro Time: DAP (Gy m2): Air Kerma (mGy): Examination: One view chest x-rayLocation code: H60 Comparison: None Discussion: Clinical history is remarkable for chest pain. Heart is normal in size. Lungs are clear of consolidating infiltrates. No masses, nodules or effusions identified. Impression: 1. Normal one view chest x-ray. at 1637 Reported and signed by: Sai Alexander M.D. CC: Marin Mckeon MD PAGE 1 Signed Report Name: DAYANARA YARBROUGH [facility] Sherley : 1980 Age/S: 40 / F [address] Unit #: [id number] Loc: [place] [address] Phys: Marin Mckeon MD Acct: [id number] DisDate: Status: PRE ER PHONE #: [phone] Exam Date: 07/28/2020 163 FAX #: Reason: chest pain EXAMS: CPT: [id number] XR CHEST 1 V 78814 Fluoro Time: DAP (Gy m2): Air Kerma (mGy): (Continued) Technologist: Amberly Johnson RT(R)(CT) Trnscb Date/Time: 07/28/2020 (1636) [id number] Orig Print D/T: S: 07/28/2020 (9404) PAGE 2 Signed ReportGLUCOSE BEDSIDE TESTING 2020-07-28 16:10:00* Test Item Value Reference Range Interpretation Comme nts GLUCOSE BEDSIDE TESTING (noemy t code = GLUBED) 117 mg/dL 70-110 H Notes Date/Time Note Provider Source 2024-05-21 09:40:47 Chief Complaint Patient presents with Follow-Up Visit Menopause symptoms better, hot flashes are coming back Antonia Callaway LVN [facility] 2024-04-23 09:24:32 Chief Complaint Patient presents with Follow-up Follow up menopause symptoms Jessy Bradley CMA II Jessy Bradley FLORAL DESIGNER SALESPERSON II [facility] 2024-04-03 13:22:37 Noted. Sabine Werner CYBER SYSTEMS ENGINEER [facility] 2024-04-03 10:04:39 Chief Complaint Patient presents with Well Woman Exam Antonia Callaway LVN Antonia Callaway CYBER SYSTEMS ENGINEER [facility] 2024-03-31 15:19:08 Chief Complaint Patient presents with Follow-up 1 month follow up for abdominal pain. Couple weeks ago had migraine headache and hot flashes then got sick Christal Chamberlain LVN T [facility] 2024-03-03 10:22:04 Chief Complaint Patient presents with Physical Fasting for labs. Acid reflux is getting worse Christal Chamberlain LVN T [facility] 2024-01-03 13:59:55 Patient discharged to home. Patient given printed and verbal discharge instructions regarding diagnosis. Instructed to follow up with PCP. Patient verbalized understanding of instructions. Patient awake, alert, oriented, respirations even and unlabored, skin warm and dry, color appropriate for race. No adverse reaction to meds given in ER noted upon discharge. Discussed medications. Advised to seek medical attention for new/prolonged/worsening of symptoms, patient ambulated from unit with steady gait in no apparent distress. LL Posada RN [facility] 2024-01-03 12:28:59 Pt states "I have a spider bite to my right hip that I noticed Sunday night. I was seen at [facility] on Sunday morning and they gave me two different antibiotics. I had a follow-up appointment with my PCP this morning and she told me to come to the ER because it is not the size of my fist." WRIGHT SUPERVISOR [facility] 2020-08-02 08:54:00 [facility] ([facility]) Hospitalist Discharge Summary REPORT#:[id number] REPORT STATUS: Signed DATE:08/02/20 TIME:0854 PATIENT: DAYANARA YARBROUGH UNIT #: [id number] ROOM/BED: [place] [address] : [birth year] AGE: 40 SEX: F ATTEND: Dave Raymond MD ADM AUTHOR: Dave Raymond MD * ALL edits or amendments must be made on the electronic/computer document * PCP PCP Discharge to: home General Information Problem List/A P: 1. Hypoglycemia 2. Altered mental status 3. Hypokalemia Discharge date: 08/02/20 Hospital course: Acute encephalopathy possibly metabolic Recurrent hypoglycemia Hyperlipidemia Hypertension Hypokalemia Hypocalcemia HPI 40-year-old female who was transferred from outside ER for altered mental status and recurrent hypoglycemia . history is limited secondary to patient's altered mental status. Gathered from sending facility and from EMS. Transferred from [facility] for hypoglycemia and altered mental status. Per sending physician, patient has been known to have occasional idiopathic hypoglycemic episodes. Course Patient was admitted and was monitored under telemetry in ICU Continued D10 infusion , Monitored blood sugar closely C-peptide assay , CT of the abdomen pelvis was done CT head negative COVID-19 test is negative Endocrinology consulted Rocephin started for UTI/cystitis Tolerating well Appreciate help from consultants On antibiotics for cystitis Patient want to go home and is being discharged home today in a stable condition with and advised to follow-up with PCP in 1 week and also with Press Clipper in 1 to 2 weeks Med Rec Med Rec Discharge meds: Continue taking these medications: ENALAPRIL (VASOTEC) 2.5 MG TAB 2.5 MILLIGRAM ORAL DAILY. POTASSIUM CHLORIDE (POTASSIUM CHLORIDE) 20 MEQ PACKET 20 MILLIEQUIVALENT ORAL TWICE DAILY. DULoxetine DR (CYMBALTA) 30 MG CAP.DR 30 MILLIGRAM ORAL DAILY. TOPIRAMATE (TOPAMAX) 200 MG TAB 200 MILLIGRAM ORAL TWICE DAILY. Start taking the following new medications: cefUROXime axetiL (CEFTIN) 500 MG TAB 500 MILLIGRAM ORAL EVERY 12 HOURS. Qty = 14 No Refills Discharge Instructions Diet: regular Discharge management: greater than 30 mins Follow-up Appointments PCP: PCP: No Primary or Family Physician Follow up timeframe: In 1-2 weeks Attending Physician: Attending Physician: Dave Raymond MD Consulting provider 1: Provider 1: Juan Silav MD Specialty: Endocrinology Olga Metabo Follow up timeframe: In 1-2 weeks Objective General VS/I O: Vital Signs: Temp Pulse Resp B/P B/P Pulse O2 O2 Flow FiO2 Mean Ox Delivery Rate 98.1 74 16 134/83 100.1 99 Room air 98.1 70 16 126/82 96.4 99 97.7 70 18 112/68 82.8 99 Room air 98.1 67 18 119/74 88.7 97 Room air 97.7 66 18 149/91 110.1 100 98.0 Room air 98.2 69 18 154/91 111.9 98 70 23 165/80 115 98 Physical Exam General appearance: alert, awake, oriented HEENT : normocephalic ,Atraumatic Eyes: Eyes normal inspection. ENT: Dry mucous membranes present. Neck: Normal inspection. Neck supple. CVS: Normal heart rate and rhythm. Heart sounds normal. Respiratory: No respiratory distress. Breath sounds normal. Abdomen: Soft and nontender. Genitourinary: no bladder distention Back: Normal inspection. Skin: Skin warm. Normal skin color. No rash. Extremities: No lower extremity edema. Neuro: Oriented X 3. No motor deficit at 1826 [facility] #: [id number] END OF REPORT [facility] 2020-08-01 17:48:00 [facility] ([facility]) Endocrinology Progress Note REPORT#:[id number] REPORT STATUS: Signed DATE:08/01/20 TIME:1747 PATIENT: DAYANARA YARBROUGH UNIT #: [id number] ROOM/BED: [place] [address] : [birth year] AGE: 40 SEX: F ATTEND: Dave Raymond MD ADM AUTHOR: Juan Silva MD * ALL edits or amendments must be made on the electronic/computer document * Subjective Chief Complaint: Hypoglycemia HPI: Ms. Dayanara Yarbrough is a 40 year old female with PMH of focal seizures, DM type 2 at young age -- resolved, PTSD, Depression, and anxiety who was transfer for hypoglycemia from unknown etiology. Endocrinology was consulted to assisted with care and to start workup for hypoglycemia. On today's assessment on 08/01/2020, patient is doing well. At this time, Endocrinology will d/c dextrose gtt today. Will monitor for any signs of hypoglcyemia. Review of Systems Constitutional: Reports: fatigue. All systems rev neg: except as marked Objective General VS: Last Documented: Result Date Time Pulse Ox 100 08/01 1601 B/P 124/77 08/01 1601 B/P Mean 92.9 08/01 1601 O2 Delivery Room air 08/01 1601 Temp 36.7 08/01 1601 Pulse 67 08/01 1601 Resp 17 08/01 1601 Patient Weight Weight (lb): 184 Weight (oz): 8.43 Weight (kg): 83.700 Medications: Active Meds + DC'd Last 24 Hrs Topiramate 200 MG Q12HR PO Docusate Sodium 100 MG BID PO Lactulose 20 GM BID PO Acetaminophen 650 MG Q4H PRN PRN PO Hydrocodone Bitart/Acetaminophen 1 TAB Q4H PRN PRN PO Sodium Chloride 77 MEQ .Q24H IV (DC) Dextrose/Water 980.75 ML Multivitamins Therapeutic 1 TAB DAILY PO (DC) Duloxetine HCl 30 MG BEDTIME PO Ceftriaxone Sodium 1,000 MG 2100 IV Sterile Water 10 ML Acetaminophen/Butalbital/Caff eine 1 TAB Q4H PRN PRN PO Dextrose/Water 50 ML PRN PRN IV Iopamidol 100 ML ONCE PRN IV Docusate Sodium 100 MG Q12H PRN PRN PO (DC) Ondansetron HCl 4 MG Q4H PRN PRN IV Nutrition assessment: The data set between the solid lines has been imported from the dietitian's assessment. Any exceptions have been noted under Provider comments. BMI Calculated: 28.9 Nutrition related diagnosis: Nutrition diagnosis details: Nutrition problem: Unintended weight loss Nutrition etiology: POOR APPETITE 2/2 DEPRESSION Nutrition signs and symptoms: 100# UNINTENTIONAL WT LOSS , IN <1 YEAR PT STATED Nutrition prescription: CONTINUE REGULAR DIET WITH ENSURE SUPPLEMENTS. ENCOURAGE FREQUENT AND ADEQUATE ORAL INTAKE GIVEN HISTORY OF REACTIVE HYPOGLYCEMIA AND UNINTENTIONAL WT LOSS D/T ANOREXIA Dietitian name: Petr Gonzalez, MPH,RD,LD Assessment completed: 07/30/20 Provider comments on imported dietitian assessment: Physical Exam Cardiovascular: regular rate rhythm, normal heart sounds Respiratory: no distress, symmetric expansion Abdomen: soft, non-tender, no guarding Extremities: dry, no edema, moves all Neuro/MANUFACTURING ENGINEER CHIEF: oriented X 3, normal speech Psychiatry: normal judgment/insight, normal mood Diagnosis, Assessment Plan Free Text A P: # Severe Hypoglycemia refractory of initial medical therapy -- Resolved # h/o weight loss (100 lbs) # Poor Calorie Malnutrition Comment: HGB A1C: 4.8% Lab ACTH 56.5 pg/mL 07/29/20 0520 ACTH 18.4 pg/mL 07/30/20 0930 Beta-Hydroxybutyric Acd Pending 07/29/201844 C-Peptide 9.6 ng/mL H 07/29/201844 C-Peptide 4.8 ng/mL H 07/30/20 0930 Cortisol Baseline 6.7 ug/dL 07/29/201844 Cortisol Baseline 13.6 ug/dL 07/30/2030 Insulin Level 79.1 uIU/mL H 07/29/201844 Insulin-like GF I 193 ng/mL 07/29/201844 Insulin-like GF II Pending 07/29/201844 Proinsulin Pending 07/29/201844 Lab Glucose 59 MG/DL L 07/29/201844 Ms. Dayanara Yarbrough is a 40 year old female with PMH of focal seizures, DM type 2 at young age -- resolved, PTSD, Depression, and anxiety who was transfer for hypoglycemia from unknown etiology. Endocrinology was consulted to assisted with care and to start workup for hypoglycemia. On 08/01/2020, patient is doing well. Her hypoglcyemia has resolved. Dextrose infusion was stopped around 9 am today. Will monitor for today in order to ensure no additional occurence will occur. On review of the labs, the C-peptide and Insulin levels were very elevated during the initial portion of the admission for a BG of 59 mg/dL. This could be suscipious for insulinoma. However, the patient's C-peptide and Insulin has improved during the admission with the patient not requiring any dextrose at this time. Also the onset is sudden vs gradual that is seen with that specific type of tumor. At this time, differential is pancreatic tumor (Low), Refeeding syndrome (High), or ingestion of diabetes agent like WATTERS agent (High). Will need to await for completion of the additional studies to confirm. Plan; - Labs: Some additional labs are penidng. - C/w q4 hour monitoring of blood glucoses; will decrease to meal time tomorro w - D/C dextrose gtt: D10W-1/2NS at 30 cc/hr - Nutrition consult; apperciate recommendation for meals and supplementations therapy If BG are stable overnight, ok to discharge from Endocrinology aspect. Thank you for the consult. Endocrinology is on-board Dr. Juan Silva Endocrinology at 1800 RPT #: [id number] END OF REPORT [facility] 2020-08-01 08:36:00 [facility] ([facility]) Hospitalist Progress Note REPORT#:[id number] REPORT STATUS: Signed DATE:08/01/20 TIME:835 PATIENT: DAYANARA YARBROUGH UNIT #: [id number] ROOM[address] : [birth year] AGE: 40 SEX: F ATTEND: Dave Raymond MD ADM AUTHOR: Dave Raymond MD * ALL edits or amendments must be made on the electronic/computer document * Subjective Chief Complaint: Feeling better Awake alert Review of Systems All systems rev neg: except as marked Unable to obtain due to: AMS Objective General VS/I O: Vital Signs: Date Time Temp Pulse Resp B/P B/P Pulse O2 O2 Flow FiO2 Mean Ox Delivery Rate 08/01 1112 98.1 74 16 134/83 100.1 99 Room air 08/01 0659 98.1 70 16 126/82 96.4 99 08/01 0434 97.7 70 18 112/68 82.8 99 Room air 08/01 0005 98.1 67 18 119/74 88.7 97 Room air 07/31 2107 97.7 66 18 149/91 110.1 100 07/31 2000 98.0 Room air 07/31 1540 98.2 69 18 154/91 111.9 98 07/31 1303 70 23 165/80 115 98 24 hour I O ending at 0700: 08/01 0700 07/31 1900 Intake Total Output Total 400 Balance -400 Number 1 Bowel Movements Output, Urine 400 Patient Weight Weight (lb): 184 Weight (oz): 8.43 Weight (kg): 83.700 Medications: Active Meds + DC'd Last 24 Hrs Topiramate 200 MG Q12HR PO Docusate Sodium 100 MG BID PO Lactulose 20 GM BID PO Acetaminophen 650 MG Q4H PRN PRN PO Hydrocodone Bitart/Acetaminophen 1 TAB Q4H PRN PRN PO Sodium Chloride 77 MEQ .Q24H IV (DC) Dextrose/Water 980.75 ML Multivitamins Therapeutic 1 TAB DAILY PO (DC) Duloxetine HCl 30 MG BEDTIME PO Ceftriaxone Sodium 1,000 MG 2100 IV Sterile Water 10 ML Acetaminophen/Butalbital/Caff eine 1 TAB Q4H PRN PRN PO Dextrose/Water 50 ML PRN PRN IV Iopamidol 100 ML ONCE PRN IV Docusate Sodium 100 MG Q12H PRN PRN PO (DC) Ondansetron HCl 4 MG Q4H PRN PRN IV Physical Exam General appearance: alert, awake, oriented HEENT : normocephalic ,Atraumatic Eyes: Eyes normal inspection. ENT: Dry mucous membranes present. Neck: Normal inspection. Neck supple. CVS: Normal heart rate and rhythm. Heart sounds normal. Respiratory: No respiratory distress. Breath sounds normal. Abdomen: Soft and nontender. Genitourinary: no bladder distention Back: Normal inspection. Skin: Skin warm. Normal skin color. No rash. Extremities: No lower extremity edema. Neuro: Oriented X 3. No motor deficit No generalized lymph adenopathy Psych anxious Results Findings/Data: Laboratory Tests 08/01 08/01 08/01 08/01 07/31 1142 0726 0432 0003 2028 Chemistry POC Glucose (70 - 110 mg/dL) 105 91 105 115 H 116 H 07/31 1554 Chemistry POC Glucose (70 - 110 mg/dL) 113 H Diagnosis, Assessment Plan Problem List/A P: 1. Hypoglycemia 2. Altered mental status 3. Hypokalemia Free Text DxA P Notes Free text DxA P notes: Acute encephalopathy possibly metabolic Recurrent hypoglycemia Hyperlipidemia Hypertension Hypokalemia Hypocalcemia Plan Monitor under telemetry Continue D10 infusion Monitor blood sugar closely We will get a C-peptide assay We will also get this CT of the abdomen pelvis CT head negative COVID-19 test is negative Monitor under telemetry GI/DVT prophylaxis Advanced directive full code Monitor under telemetry Still has recurrent hypoglycemia Continue D10 D50 as needed Endocrinology consult C-peptide assay is pending CT abdomen pelvis still pending We will get repeat lactic acid and UA Continue home medications and titrate as needed GI/DVT prophylaxis 07/30/2020 Patient is awake alert Eating Appreciate help from consultants Continue IV fluids Monitor glucose checks C-peptide and insulin levels are monitored and still pending Monitor closely under telemetry Rocephin started for UTI/cystitis 08/01/2020 Patient is more awake alert Continue IV fluids Tolerating well Appreciate help from consultants On antibiotics for cystitis Will transfer to telemetry Possible DC in AM at 1259 RPT #: [id number] END OF REPORT [facility] 2020-07-31 20:35:00 [facility] ([facility]) Endocrinology Progress Note REPORT#:[id number] REPORT STATUS: Signed DATE:07/31/20 TIME:2034 PATIENT: DAYANARA YARBROUGH UNIT #: [id number] ROOM/BED: [place] [id number] : 78 AGE: 40 SEX: F ATTEND: Dave Raymond MD ADM AUTHOR: Juan Silva MD * ALL edits or amendments must be made on the electronic/computer document * Subjective Chief Complaint: Hypoglycemia HPI: Ms. Dayanara Yarbrough is a 40 year old female with PMH of focal seizures, DM type 2 at young age -- resolved, PTSD, Depression, and anxiety who was transfer for hypoglycemia from unknown etiology. Endocrinology was consulted to assisted with care and to start workup for hypoglycemia. On today's assessment on 07/31/2020, patient is doing well. At this time, Endocrinology will decrease dextrose gtt to 30 cc/hr with plans to d/c on 2019 at 09;00. Afterwards, will monitor BG q4h, if stable then will decrease frequency to TIDAC. Review of Systems Constitutional: Reports: fatigue. All systems rev neg: except as marked Objective Physical Exam Cardiovascular: regular rate rhythm, normal heart sounds Respiratory: no distress, symmetric expansion Abdomen: soft, non-tender, no guarding Extremities: dry, no edema, moves all Neuro/MANUFACTURING ENGINEER CHIEF: oriented X 3, normal speech Psychiatry: normal judgment/insight, normal mood Diagnosis, Assessment Plan Free Text A P: # Severe Hypoglycemia refractory of initial medical therapy -- Improving # h/o weight loss (100 lbs) # Poor Calorie Malnutrition Comment: HGB A1C: 4.8% Additional labs are pending Ms. Dayanara Yarbrough is a 40 year old female with PMH of focal seizures, DM type 2 at young age -- resolved, PTSD, Depression, and anxiety who was transfer for hypoglycemia from unknown etiology. Endocrinology was consulted to assisted with care and to start workup for hypoglycemia. On 07/31/2020, patient is doing well. Her hypoglcyemia has improved. Currently on Dextrose 10W 1/2 gtt that is being reduced to 30 cc/hr with plans to d/c tomorrow. Also has recieved multi-vitamin therapy as well. Nutrition on-board; apperciate assistance. Plan; - Labs: ACTH, Cortisol, C-peptide, Proinsulin, Beta Hydroxybutyrate, WATTERS Screen, BMP, and insulin levels (should of been obtain overnight). Repeat in the morning of ACTH, Cortisol, insulin level, and c-peptide level. (Pending) - C/w q4 hour monitoring of blood glucoses; please to decrease to TID tomorrow - C/w dextrose gtt: D10W-1/2NS at 30 cc/hr (Plans to d/c tomorrow on 08/01/2020 at 900) - Completed one Bannana bag therapy. - Nutrition consult; apperciate recommendation for meals and supplementations therapy Thank you for the consult. Endocrinology is on-board Dr. Juan Silva Endocrinology at 2053 RPT #: [id number] END OF REPORT [facility] 2020-07-31 10:40:00 [facility] ([facility]) Hospitalist Progress Note REPORT#:[id number] REPORT STATUS: Signed DATE:07/31/20 TIME:1040 PATIENT: DAYANARA YARBROUGH UNIT #: [id number] ROOM/BED: [place] [address] : 78 AGE: 40 SEX: F ATTEND: Dave Raymond MD ADM AUTHOR: Dave Raymond MD * ALL edits or amendments must be made on the electronic/computer document * Subjective Chief Complaint: Feeling better Awake alert Review of Systems All systems rev neg: except as marked Unable to obtain due to: AMS Objective General VS/I O: Vital Signs: Date Time Temp Pulse Resp B/P B/P Pulse O2 O2 Flow FiO2 Mean Ox Delivery Rate 07/31 1007 73 26 130/87 102 99 07/31 0909 76 27 160/98 126 100 07/31 0800 97.1 Room air 07/31 08 74 16 136/89 108 98 07/31 0700 70 14 144/86 109 100 09/12 0500 67 16 117/65 86 98 09/12 0400 97.8 09/12 0400 68 17 133/69 95 98 09/12 0300 69 17 125/73 93 99 09/12 0200 69 11 133/68 95 99 09/12 0100 64 40 152/73 105 100 09/12 0002 70 17 158/87 115 100 09/12 0000 97.0 09/11 2300 69 11 147/83 110 100 09/11 2200 74 36 146/79 105 100 09/11 2100 68 14 138/82 105 100 09/11 2000 81 36 139/81 105 100 09/11 1940 97.0 09/11 1924 69 20 144/87 110 100 09/11 1800 69 18 130/76 97 100 09/11 1700 72 24 167/85 115 100 09/11 1600 97.5 09/11 1600 67 18 137/84 106 100 09/11 1500 70 22 124/86 100 100 09/11 1400 69 16 150/68 98 100 09/11 1300 67 10 147/72 102 100 09/11 1200 97.2 / 1200 77 19 166/89 118 100 24 hour I O ending at 0700: 07/31 0700 07/30 1900 Intake Total 1455.00 1825.00 Output Total Balance 1455.00 1825.00 Intake, IV 975.00 1825.00 Intake, Oral 480 Number Voids 8 4 Patient Weight Weight (lb): 184 Weight (oz): 8.43 Weight (kg): 83.700 Medications: Active Meds + DC'd Last 24 Hrs Acetaminophen 650 MG Q4H PRN PRN PO Hydrocodone Bitart/Acetaminophen 1 TAB Q4H PRN PRN PO Sodium Chloride 77 MEQ .Q20H IV Dextrose/Water 980.75 ML Multivitamins Therapeutic 1 TAB DAILY PO Folic Acid 1 MG X1ED STA IV (DC) Thiamine HCl 100 MG Multivitamins 10 ML Sodium Chloride 1,000 ML Duloxetine HCl 30 MG BEDTIME PO Ceftriaxone Sodium 1,000 MG 2100 IV Sterile Water 10 ML Acetaminophen/Butalbital/Caff eine 1 TAB Q4H PRN PRN PO Dextrose/Water 50 ML PRN PRN IV Dextrose/Water 1,000 ML .Q8H IV (DC) Iopamidol 100 ML ONCE PRN IV Docusate Sodium 100 MG Q12H PRN PRN PO Ondansetron HCl 4 MG Q4H PRN PRN IV Physical Exam General appearance: alert, awake, oriented HEENT : normocephalic ,Atraumatic Eyes: Eyes normal inspection. ENT: Dry mucous membranes present. Neck: Normal inspection. Neck supple. CVS: Normal heart rate and rhythm. Heart sounds normal. Respiratory: No respiratory distress. Breath sounds normal. Abdomen: Soft and nontender. Genitourinary: no bladder distention Back: Normal inspection. Skin: Skin warm. Normal skin color. No rash. Extremities: No lower extremity edema. Neuro: Oriented X 3. No motor deficit No generalized lymph adenopathy Psych anxious Results Findings/Data: Laboratory Tests 07/31 07/31 07/31 07/31 07/30 0847 0520 0427 0035 1932 Chemistry Sodium (134 - 147 mmol/L) 144 Potassium (3.4 - 5.0 mmol/L) 3.8 Chloride (100 - 108 mmol/L) 114 H Carbon Dioxide (21 - 32 27 mmol/L) Anion Gap (4.0 - 15.0 GAP 3.0 L calc) BUN (7 - 18 MG/DL) 5 L Creatinine (0.6 - 1.0 MG/DL) 0.4 L Glomerular Filtr Rate (>60 >=60 max estimate estGFR) Glucose (70 - 110 MG/DL) 90 POC Glucose (70 - 110 mg/dL) 137 H 95 104 103 Calcium (8.5 - 10.1 MG/DL) 8.1 L 07/30 07/30 07/30 07/30 1722 1501 1259 1156 Chemistry POC Glucose (70 - 110 mg/dL) 134 H 120 H 125 H 106 Laboratory Tests 07/31 0520 Hematology WBC (3.5 - 11.0 K/mm3) 4.6 RBC (4.70 - 6.10 M/mm3) 3.89 L Hgb (10.4 - 14.9 G/DL) 12.7 Hct (31.5 - 44.1 %) 37.2 MCV (84.5 - 98.6 Fl) 95.6 MCH (27.0 - 34.2 pg) 32.6 MCHC (31.5 - 34.0 G/DL) 34.1 H RDW (11.5 - 14.5 SD) 12.4 Plt Count (150 - 450 K/mm3) 160 MPV (7.0 - 10.5 fL) 9.00 Neut % (Auto) (40 - 76 %) 57.1 Lymph % (Auto) (20.5 - 51.1 %) 27.6 Shannon % (Auto) (1.7 - 9.3 %) 10.4 H Eos % (Auto) (0.0 - 6.0 %) 4.3 Baso % (Auto) (0.0 - 2.0 %) 0.4 Neut # (Auto) (1.8 - 7.6 K/mm3) 2.6 Lymph # (Auto) (0.6 - 3.2 K/mm3) 1.3 Shannon # (Auto) (0.3 - 1.1 K/mm3) 0.5 Eos # (Auto) (0.0 - 0.4 K/mm3) 0.2 Baso # (Auto) (0.0 - 0.1 K/mm3) 0.0 Abs Immat Gran (auto) (0.00 - 0.03 x10 3/uL) 0.01 Add Manual Diff (CRITERIA DIFF/SCN) NO Immature Gran % (0.0 - 5.0 %) 0.2 Nucleated RBC % (0.0 - 1.0 /100WBC%) 0.0 Diagnosis, Assessment Plan Problem List/A P: 1. Hypoglycemia 2. Altered mental status 3. Hypokalemia Free Text DxA P Notes Free text DxA P notes: Acute encephalopathy possibly metabolic Recurrent hypoglycemia Hyperlipidemia Hypertension Hypokalemia Hypocalcemia Plan Monitor under telemetry Continue D10 infusion Monitor blood sugar closely We will get a C-peptide assay We will also get this CT of the abdomen pelvis CT head negative COVID-19 test is negative Monitor under telemetry GI/DVT prophylaxis Advanced directive full code Monitor under telemetry Still has recurrent hypoglycemia Continue D10 D50 as needed Endocrinology consult C-peptide assay is pending CT abdomen pelvis still pending We will get repeat lactic acid and UA Continue home medications and titrate as needed GI/DVT prophylaxis 07/30/2020 Patient is awake alert Eating Appreciate help from consultants Continue IV fluids Monitor glucose checks C-peptide and insulin levels are monitored and still pending Monitor closely under telemetry Rocephin started for UTI/cystitis 07/31/2020 Patient is more awake alert Continue IV fluids Tolerating well Appreciate help from consultants CT abdomen pelvis noted On antibiotics for cystitis Will transfer to telemetry at 1131 RPT #: [id number] END OF REPORT [facility] 2020-07-30 10:42:00 [facility] ([facility]) Hospitalist Progress Note REPORT#:[id number] REPORT STATUS: Signed DATE:07/30/20 TIME:1042 PATIENT: DAYANARA YARBROUGH UNIT #: [id number] ROOM/BED: [place] [address] : 78 AGE: 40 SEX: F ATTEND: Dave Raymond MD ADM AUTHOR: Dave Raymond MD * ALL edits or amendments must be made on the electronic/computer document * Subjective Chief Complaint: Feeling better Awake alert Review of Systems All systems rev neg: except as marked Unable to obtain due to: AMS Objective General VS/I O: Vital Signs: Date Time Temp Pulse Resp B/P B/P Pulse O2 O2 Flow FiO2 Mean Ox Delivery Rate 07/30 1200 97.2 07/30 1200 77 19 166/89 118 100 09/11 1100 73 19 164/81 114 100 09/11 1000 70 16 132/84 103 99 09/11 0900 75 17 143/85 108 100 09/11 0800 75 0 127/65 90 100 09/11 0700 96.9 09/11 0700 71 16 139/72 100 100 09/11 0500 66 20 135/70 96 100 09/11 0401 66 6 132/66 92 100 09/11 0400 97.0 09/11 0300 70 18 101/56 73 100 09/11 0200 75 11 130/64 89 100 09/11 0100 65 16 127/75 93 100 09/11 0000 96.8 09/11 0000 68 16 142/78 103 100 09/10 2301 65 13 140/76 100 100 09/10 2200 70 17 120/68 87 100 09/10 2130 64 20 100 09/10 2100 69 20 133/73 97 09/10 2000 23 132/74 98 09/10 2000 96.5 100 09/10 1900 16 141/87 109 09/10 1800 70 14 142/84 106 09/10 1700 75 19 115/75 89 07/29 1600 73 17 123/75 94 07/29 1506 73 21 122/74 95 07/29 1301 66 20 127/77 97 24 hour I O ending at 0700: 07/30 0700 07/29 1900 Intake Total 1735.00 125.00 Output Total Balance 1735.00 125.00 Intake, IV 1375.00 125.00 Intake, Oral 360 Number Voids 7 10 Patient Weight Weight (lb): 184 Weight (oz): 8.43 Weight (kg): 83.700 Medications: Active Meds + DC'd Last 24 Hrs Sodium Chloride 77 MEQ .Q10H IV Dextrose/Water 980.75 ML Multivitamins Therapeutic 1 TAB DAILY PO Folic Acid 1 MG X1ED STA IV Thiamine HCl 100 MG Multivitamins 10 ML Sodium Chloride 1,000 ML Duloxetine HCl 30 MG BEDTIME PO Ceftriaxone Sodium 1,000 MG 2100 IV Sterile Water 10 ML Aztreonam 1 GM Q8HR IV (CAN) Sterile Water 10 ML Acetaminophen/Butalbital/Caff eine 1 TAB Q4H PRN PRN PO Dextrose/Water 50 ML PRN PRN IV Dextrose/Water 1,000 ML .Q8H IV (DC) Iopamidol 100 ML ONCE PRN IV Sodium Chloride 50 ML ONCE PRN IV (DC) Docusate Sodium 100 MG Q12H PRN PRN PO Ondansetron HCl 4 MG Q4H PRN PRN IV Physical Exam General appearance: alert, awake, oriented HEENT : normocephalic ,Atraumatic Eyes: Eyes normal inspection. ENT: Dry mucous membranes present. Neck: Normal inspection. Neck supple. CVS: Normal heart rate and rhythm. Heart sounds normal. Respiratory: No respiratory distress. Breath sounds normal. Abdomen: Soft and nontender. Genitourinary: no bladder distention Back: Normal inspection. Skin: Skin warm. Normal skin color. No rash. Extremities: No lower extremity edema. Neuro: Oriented X 3. No motor deficit No generalized lymph adenopathy Psych anxious Results Findings/Data: Laboratory Tests 07/30 07/30 07/30 07/30 07/30 1156 1058 1003 0930 0919 Chemistry POC Glucose (70 - 110 mg/dL) 106 103 109 132 H Phosphorus (2.5 - 4.9 MG/DL) 2.7 Magnesium (1.8 - 2.4 MG/DL) 2.1 07/30 07/30 07/30 07/30 07/30 0832 0707 0551 0411 0353 Chemistry Sodium (134 - 147 mmol/L) 141 Potassium (3.4 - 5.0 mmol/L) 3.6 Chloride (100 - 108 mmol/L) 114 H Carbon Dioxide (21 - 32 mmol/L) 23 Anion Gap (4.0 - 15.0 GAP calc) 4.0 BUN (7 - 18 MG/DL) 4 L Creatinine (0.6 - 1.0 MG/DL) 0.5 L Glomerular Filtr Rate (>60 >=60 max estimate estGFR) Glucose (70 - 110 MG/DL) 86 POC Glucose (70 - 110 mg/dL) 99 87 102 93 Calcium (8.5 - 10.1 MG/DL) 8.3 L 07/30 07/30 07/29 07/29 07/29 0159 0057 2324 2258 2140 Chemistry POC Glucose (70 - 110 mg/dL) 78 83 140 H 46 L 72 07/29 07/29 07/29 07/29 07/29 2054 1909 1845 1832 1653 Chemistry Sodium (134 - 147 mmol/L) 143 Potassium (3.4 - 5.0 mmol/L) 4.0 Chloride (100 - 108 mmol/L) 114 H Carbon Dioxide (21 - 32 mmol/L) 23 Anion Gap (4.0 - 15.0 GAP calc) 6.0 BUN (7 - 18 MG/DL) 5 L Creatinine (0.6 - 1.0 MG/DL) 0.5 L Glomerular Filtr Rate (>60 >=60 max estimate estGFR) Glucose (70 - 110 MG/DL) 59 L POC Glucose (70 - 110 mg/dL) 62 L 77 59 L 67 L Insulin Level (2.6 - 24.9 79.1 H uIU/mL) C-Peptide (1.1 - 4.4 ng/mL) 9.6 H Calcium (8.5 - 10.1 MG/DL) 8.2 L Cortisol Baseline (() ug/dL) 6.7 07/29 07/29 07/29 07/29 1604 1516 1355 1242 Chemistry POC Glucose (70 - 110 mg/dL) 53 L 81 104 39 *L Laboratory Tests 07/30 0411 Hematology WBC (3.5 - 11.0 K/mm3) 5.9 RBC (4.70 - 6.10 M/mm3) 4.09 L Hgb (10.4 - 14.9 G/DL) 13.2 Hct (31.5 - 44.1 %) 40.1 MCV (84.5 - 98.6 Fl) 98.0 MCH (27.0 - 34.2 pg) 32.3 MCHC (31.5 - 34.0 G/DL) 32.9 RDW (11.5 - 14.5 SD) 13.0 Plt Count (150 - 450 K/mm3) 192 MPV (7.0 - 10.5 fL) 9.10 Neut % (Auto) (40 - 76 %) 60.6 Lymph % (Auto) (20.5 - 51.1 %) 25.6 Shannon % (Auto) (1.7 - 9.3 %) 10.2 H Eos % (Auto) (0.0 - 6.0 %) 3.1 Baso % (Auto) (0.0 - 2.0 %) 0.2 Neut # (Auto) (1.8 - 7.6 K/mm3) 3.6 Lymph # (Auto) (0.6 - 3.2 K/mm3) 1.5 Shannon # (Auto) (0.3 - 1.1 K/mm3) 0.6 Eos # (Auto) (0.0 - 0.4 K/mm3) 0.2 Baso # (Auto) (0.0 - 0.1 K/mm3) 0.0 Abs Immat Gran (auto) (0.00 - 0.03 x10 3/uL) 0.02 Add Manual Diff (CRITERIA DIFF/SCN) NO Immature Gran % (0.0 - 5.0 %) 0.3 Nucleated RBC % (0.0 - 1.0 /100WBC%) 0.0 Radiology data: Recent Impressions: CAT SCAN - CT ABD PELVIS W/CONT 07/29 1128 Report Impression - Status: SIGNED Entered: 07/29/2020 1520 IMPRESSION: No acute findings in the abdomen or pelvis. Bowel loop pattern intact including normal appendix. Some air bubbles within the bladder may need correlation for recent catheterization or possibly cystitis with infection. Location: U19 Impression By: [email or web address] - Nathalia Valle M.D RADIOLOGY - XR CHEST 1 V 07/29 1820 Report Impression - Status: SIGNED Entered: 07/29/2020 1835 Impression: 1. Right-sided PICC line identified with its tip in the superior vena cava. 2. Stable chest x-ray without evidence for acute infiltrates or effusions. Impression By: [email or web address] Justice Alexander M.D. Diagnosis, Assessment Plan Problem List/A P: 1. Hypoglycemia 2. Altered mental status 3. Hypokalemia Free Text DxA P Notes Free text DxA P notes: Acute encephalopathy possibly metabolic Recurrent hypoglycemia Hyperlipidemia Hypertension Hypokalemia Hypocalcemia Plan Monitor under telemetry Continue D10 infusion Monitor blood sugar closely We will get a C-peptide assay We will also get this CT of the abdomen pelvis CT head negative COVID-19 test is negative Monitor under telemetry GI/DVT prophylaxis Advanced directive full code Monitor under telemetry Still has recurrent hypoglycemia Continue D10 D50 as needed Endocrinology consult C-peptide assay is pending CT abdomen pelvis still pending We will get repeat lactic acid and UA Continue home medications and titrate as needed GI/DVT prophylaxis 07/30/2020 Patient is awake alert Eating Appreciate help from consultants Continue IV fluids Monitor glucose checks C-peptide and insulin levels are monitored and still pending Monitor closely under telemetry Rocephin started for UTI/cystitis at 1233 RPT #: [id number] END OF REPORT [facility] 2020-07-30 10:30:00 [facility] ([facility]) Pulmonology Progress Note REPORT#:[id number] REPORT STATUS: Signed DATE:07/30/20 TIME:1030 PATIENT: DAYANARA YARBROUGH UNIT #: [id number] [address]: [address] : 78 AGE: 40 SEX: F ATTEND: Dave Raymond MD ADM AUTHOR: Elton Sandoval MD * ALL edits or amendments must be made on the electronic/computer document * Subjective Chief Complaint: PICC placed for D10 blood sugars are improving no acute events overnight Review of Systems ROS Constitutional: Denies: chills, fatigue, fever, lethargy. Allergy/Immun: Denies: hives. Eyes: Denies: visual loss/blurred. ENT: Denies: nose bleeding. Respiratory: Denies: pleuritic pain, pneumonia, productive cough (sputum), SOB, wheezing. Cardiovascular: Denies: chest pain, SHANNON (dyspnea on exertion), edema, orthopnea. GI: Denies: abdominal pain, nausea, vomiting. Musculoskeletal: Denies: thoracic pain. Heme: Denies: bleeding. Neuro: Denies: headache. Objective Physical Exam VS/I O: Last Documented: Result Date Time Pulse Ox 100 07/30 900 B/P 143/85 07/30 900 B/P Mean 108 07/30 900 Pulse 75 07/30 0900 Resp 17 07/30 900 Temp 36.1 07/30 0700 O2 Delivery Room air 07/28 2025 24 hour I O ending at 0700: 07/30 0700 07/29 1900 Intake Total 1735.00 125.00 Output Total Balance 1735.00 125.00 Intake, IV 1375.00 125.00 Intake, Oral 360 Number Voids 7 10 Patient Weight Weight (lb): 184 Weight (oz): 8.43 Weight (kg): 83.700 Medications: Active Meds + DC'd Last 24 Hrs Multivitamins Therapeutic 1 TAB DAILY PO Folic Acid 1 MG X1ED STA IV Thiamine HCl 100 MG Multivitamins 10 ML Sodium Chloride 1,000 ML Duloxetine HCl 30 MG BEDTIME PO Ceftriaxone Sodium 1,000 MG 2100 IV Sterile Water 10 ML Aztreonam 1 GM Q8HR IV (CAN) Sterile Water 10 ML Acetaminophen/Butalbital/Caff eine 1 TAB Q4H PRN PRN PO Dextrose/Water 50 ML PRN PRN IV Dextrose/Water 1,000 ML .Q8H IV Iopamidol 100 ML ONCE PRN IV Sodium Chloride 50 ML ONCE PRN IV (DC) Docusate Sodium 100 MG Q12H PRN PRN PO Ondansetron HCl 4 MG Q4H PRN PRN IV General appearance: alert, awake, oriented, no acute distress, pleasant, conversational, mental status normal, no respiratory distress Head/eyes: atraumatic, normocephalic, PERRL ENT: ENT: moist mucosal membranes Neck: full range of motion, non-tender Cardiovascular: normal heart sounds, normal S1/S2, regular rate rhythm, no murmur, no rub, no gallop Respiratory/chest: aerating well, clear to auscultation, symmetric expansion, no distress, no tenderness Abdomen: soft, non-tender, no distention, no guarding Extremities: moves all, normal capillary refill Musculoskeletal: no muscle spasm Neuro/MANUFACTURING ENGINEER CHIEF: alert, oriented X 3 Results Findings/Data: Laboratory Tests 07/30/20 0411: [Embedded Image Not Available] 07/29/20 1845: [Embedded Image Not Available] 07/29/20 0520: [Embedded Image Not Available] 07/28/20 1700: [Embedded Image Not Available] Laboratory Tests 07/30 07/30 07/30 07/30 07/30 1003 0930 0919 0832 0707 Chemistry POC Glucose (70 - 110 mg/dL) 109 132 H 99 87 Phosphorus (2.5 - 4.9 MG/DL) 2.7 Magnesium (1.8 - 2.4 MG/DL) 2.1 07/30 07/30 07/30 07/30 07/30 0551 0411 0353 0159 0057 Chemistry Sodium (134 - 147 mmol/L) 141 Potassium (3.4 - 5.0 mmol/L) 3.6 Chloride (100 - 108 mmol/L) 114 H Carbon Dioxide (21 - 32 mmol/L) 23 Anion Gap (4.0 - 15.0 GAP calc) 4.0 BUN (7 - 18 MG/DL) 4 L Creatinine (0.6 - 1.0 MG/DL) 0.5 L Glomerular Filtr Rate (>60 >=60 max estimate estGFR) Glucose (70 - 110 MG/DL) 86 POC Glucose (70 - 110 mg/dL) 102 93 78 83 Calcium (8.5 - 10.1 MG/DL) 8.3 L 07/29 07/29 07/29 07/29 07/29 2324 2258 2140 2054 1909 Chemistry POC Glucose (70 - 110 mg/dL) 140 H 46 L 72 62 L 77 07/29 07/29 07/29 07/29 07/29 1845 1832 1653 1604 1516 Chemistry Sodium (134 - 147 mmol/L) 143 Potassium (3.4 - 5.0 mmol/L) 4.0 Chloride (100 - 108 mmol/L) 114 H Carbon Dioxide (21 - 32 mmol/L) 23 Anion Gap (4.0 - 15.0 GAP calc) 6.0 BUN (7 - 18 MG/DL) 5 L Creatinine (0.6 - 1.0 MG/DL) 0.5 L Glomerular Filtr Rate (>60 >=60 max estimate estGFR) Glucose (70 - 110 MG/DL) 59 L POC Glucose (70 - 110 mg/dL) 59 L 67 L 53 L 81 Insulin Level (2.6 - 24.9 79.1 H uIU/mL) C-Peptide (1.1 - 4.4 ng/mL) 9.6 H Calcium (8.5 - 10.1 MG/DL) 8.2 L Cortisol Baseline (() ug/dL) 6.7 07/29 07/29 07/29 1355 1242 1125 Chemistry POC Glucose (70 - 110 mg/dL) 104 39 *L 59 L Laboratory Tests 07/30 0411 Hematology WBC (3.5 - 11.0 K/mm3) 5.9 RBC (4.70 - 6.10 M/mm3) 4.09 L Hgb (10.4 - 14.9 G/DL) 13.2 Hct (31.5 - 44.1 %) 40.1 MCV (84.5 - 98.6 Fl) 98.0 MCH (27.0 - 34.2 pg) 32.3 MCHC (31.5 - 34.0 G/DL) 32.9 RDW (11.5 - 14.5 SD) 13.0 Plt Count (150 - 450 K/mm3) 192 MPV (7.0 - 10.5 fL) 9.10 Neut % (Auto) (40 - 76 %) 60.6 Lymph % (Auto) (20.5 - 51.1 %) 25.6 Shannon % (Auto) (1.7 - 9.3 %) 10.2 H Eos % (Auto) (0.0 - 6.0 %) 3.1 Baso % (Auto) (0.0 - 2.0 %) 0.2 Neut # (Auto) (1.8 - 7.6 K/mm3) 3.6 Lymph # (Auto) (0.6 - 3.2 K/mm3) 1.5 Shannon # (Auto) (0.3 - 1.1 K/mm3) 0.6 Eos # (Auto) (0.0 - 0.4 K/mm3) 0.2 Baso # (Auto) (0.0 - 0.1 K/mm3) 0.0 Abs Immat Gran (auto) (0.00 - 0.03 x10 3/uL) 0.02 Add Manual Diff (CRITERIA DIFF/SCN) NO Immature Gran % (0.0 - 5.0 %) 0.3 Nucleated RBC % (0.0 - 1.0 /100WBC%) 0.0 Radiology data: Recent Impressions: CAT SCAN - CT ABD PELVIS W/CONT 07/29 1418 Report Impression - Status: SIGNED Entered: 07/29/2020 1520 IMPRESSION: No acute findings in the abdomen or pelvis. Bowel loop pattern intact including normal appendix. Some air bubbles within the bladder may need correlation for recent catheterization or possibly cystitis with infection. Location: U19 Impression By: [email or web address] - Nathalia Valle M.D RADIOLOGY - XR CHEST 1 V 07/29 1820 Report Impression - Status: SIGNED Entered: 07/29/2020 1835 Impression: 1. Right-sided PICC line identified with its tip in the superior vena cava. 2. Stable chest x-ray without evidence for acute infiltrates or effusions. Impression By: [email or web address] Justice Alexander M.D. Diagnosis, Assessment Plan Free Text A P: Impressions: Idiopathic hypoglycemia Hypertension Recommendations: Wean off D10 drip as tolerated seen by endorcinology Further work up pending Maintain blood glucose more than 70 Continue with PRN D50 to maintain blood glucose more than 70 Glucose supplementation with diet and juice Resume antihypertensive medications from home Abx started for possible cystitis, WBC normal and afebrile DVT prophylaxis Full code If able to weaned off D10 can downgrade patient to IMCU with q2h glucose checks at 1033 RPT #: [id number] END OF REPORT [facility] 2020-07-30 08:18:00 [facility] ([facility]) Endocrinology Progress Note REPORT#:[id number] REPORT STATUS: Signed DATE:07/30/20 TIME:817 PATIENT: DAYANARA YARBROUGH UNIT #: [id number] ROOM/BED: L.ICU05-1 : 76 AGE: 40 SEX: F ATTEND: Dave Raymond MD ADM AUTHOR: Juan Silva MD * ALL edits or amendments must be made on the electronic/computer document * Subjective Chief Complaint: Hypoglycemia HPI: Ms. Dayanara Yarbrough is a 40 year old female with PMH of focal seizures, DM type 2 at young age -- resolved, PTSD, Depression, and anxiety who was transfer for hypoglycemia from unknown etiology. Endocrinology was consulted to assisted with care and to start workup for hypoglycemia. On today assessment on 07/30/2020, patient is clincially stable. BG overnight has been stable on dextrose infusion. Endocrinology is still awaiting labs and will give paitent some vitamin therapy as well. Unable to order Dextrose 10W + 1 /2 NS infusion overnight. Will attempt D10W wean today with assistance from ICU team. Nutritional consult in placed. Initial Note: Patient reports that the initial episode occured on June 19, 2020 when she had a BG of 50 mg/dL. At this time, she was given food and glucose tablets with no improvement. The BG afterwards was 20 mg/dL in which she seek higher level of care. Since then, patient has been having episodes of hypoglcyemia with no specific timing. She reports that it can occur during fasting or after food intake. (Uncertain, but during the interview, it seem a lot of these occurence were after food ingestion). Patient reports taking anti-nausea medication, enalapril, cymbalta and potassium supplements. Denies any oral agents for diabetes or insulin therapy. No history of gastric by-pass surgery, or procedure known to cause hypoglycemia. Family history of DM in paternal grandmother and maternal side. On review of recent events, patient was poor appeitite in which she has not been eating consistent 3 meals a day and was recent instructed to start ensure supplementations. She has lose 100 lbs in the last year in a rapid fasion. Review of Systems Constitutional: Reports: fatigue, lethargy. All systems rev neg: except as marked Objective General VS: Last Documented: Result Date Time Temp 36.1 07/30 700 Pulse Ox 100 07/30 700 B/P 139/72 07/30 700 B/P Mean 100 07/30 700 Pulse 71 07/30 0700 Resp 16 07/30 700 O2 Delivery Room air 07/28 2025 Patient Weight Weight (lb): 184 Weight (oz): 8.43 Weight (kg): 83.700 Physical Exam General appearance: lethargic, awake, oriented Cardiovascular: regular rate rhythm, normal heart sounds Respiratory: no distress, symmetric expansion Abdomen: soft, non-tender, no guarding Extremities: dry, no edema, moves all Neuro/MANUFACTURING ENGINEER CHIEF: oriented X 3, normal speech Psychiatry: normal judgment/insight, normal mood Diagnosis, Assessment Plan Free Text A P: # Severe Hypoglycemia refractory of initial medical therapy # h/o weight loss (100 lbs) # Poor Calorie Malnutrition Comment: HGB A1C: 4.8% Additional labs are pending Ms. Dayanara Yarbrough is a 40 year old female with PMH of focal seizures, DM type 2 at young age -- resolved, PTSD, Depression, and anxiety who was transfer for hypoglycemia from unknown etiology. Endocrinology was consulted to assisted with care and to start workup for hypoglycemia. At this time, patient is having severe hypoglycemia. Based on the HPI, text likely is having hypoglycemia for poor calorie malnutrition for extend period of time with rapid weight loss (High on differential) vs side effect of enalapril ( low on differential) vs insulin producing tumor (low on differential due to rapid time of symtpoms and onset; usually a more gradual picture) vs other idopathic etiologies. Awaiting results of the initial workup. Will continue D10W with plans to wean today. In addition, will give one round of IV supplementation with banana bag ( if not in stock; will ask for pharmacy recommend on multivitamin IV gtt schedule for one time dose) Recommend holding hernesto inhibitor and start wean off dextrose gtt when patient has started oral diet with supplements as recommend by nutrition. Plan; - Labs: ACTH, Cortisol, C-peptide, Proinsulin, Beta Hydroxybutyrate, WATTERS Screen, BMP, and insulin levels (should of been obtain overnight). Repeat in the morning of ACTH, Cortisol, insulin level, and c-peptide level. - C/w q1-2 hour monitoring of blood glucoses - Transition dextrose gtt to D10W-1/2NS at 100 cc/hr (If not possible, continue D10W for now) - Give 1 bag -- Bannana bag to replace vitamin and nutritions as well (If not in stock; will defer to pharmacy for additional recommendations) - Nutrition consult; apperciate recommendation for meals and supplementations thrapy - Proceed with dextorse weaning this afternoon if patient is eating 75-100% of meals and using supplements as well. Thank you for the consult. Endocrinology is on-board Dr. Juan Silva Endocrinology at 0828 RPT #: [id number] END OF REPORT [facility] 2020-07-29 20:31:00 [facility]) Pharmacy Prog.Note-Antimicrob REPORT#:[id number] REPORT STATUS: Signed DATE:07/29/20 TIME:2030 PATIENT: DAYANARA YARBROUGH UNIT #: [id number] ROOM/BED: [place] [address] : [birth year] AGE: 40 SEX: F ATTEND: Dave Raymond MD ADM AUTHOR: Danae Callaway kareen * ALL edits or amendments must be made on the electronic/computer document * Antimicrobial Treatment plan: recommend change regimen Rationale: PT PCN ALLERGY CLARIFIED: PER PT'S RN PT HAS ALLERGY TO PCN (HIVES) BUT TOLERATES KEFLEX WITH NO ISSUES. D/W ABOUT SWITCHING TO CEPHALOSPORIN TO PRESERVE AZACTAM. OK TO SWITCH TO ROCEPHIN 1g DAILY IVP - 100% RBTO . at 2032 RPT #: [id number] END OF REPORT [facility] 2020-07-29 18:33:00 [facility] ([facility]) Endocrinology Consultation REPORT#:[id number] REPORT STATUS: Signed DATE:07/29/20 TIME:1832 PATIENT: DAYANARA YARBROUGH UNIT #: [id number] ROOM/BED: [place] [id number] : [birth year] AGE: 40 SEX: F ATTEND: Dave Raymond MD ADM AUTHOR: Juan Silva MD * ALL edits or amendments must be made on the electronic/computer document * History of Present Illness Requesting Clinician: Dave Raymond MD Reason for consult: Severe Hypoglycemia Chief complaint: Hypoglcyemia HPI: Ms. Dayanara Yarbrough is a 40 year old female with PMH of focal seizures, DM type 2 at young age -- resolved, PTSD, Depression, and anxiety who was transfer for hypoglycemia from unknown etiology. Endocrinology was consulted to assisted with care and to start workup for hypoglycemia. Recent History: Patient reports that the initial episode occured on June 19, 2020 when she had a BG of 50 mg/dL. At this time, she was given food and glucose tablets with no improvement. The BG afterwards was 20 mg/dL in which she seek higher level of care. Since then, patient has been having episodes of hypoglcyemia with no specific timing. She reports that it can occur during fasting or after food intake. (Uncertain, but during the interview, it seem a lot of these occurence were after food ingestion). Patient reports taking anti-nausea medication, enalapril, cymbalta and potassium supplements. Denies any oral agents for diabetes or insulin therapy. No history of gastric by-pass surgery, or procedure known to cause hypoglycemia. Family history of DM in paternal grandmother and maternal side. On review of recent events, patient was poor appeitite in which she has not been eating consistent 3 meals a day and was recent instructed to start ensure supplementations. She has lose 100 lbs in the last year in a rapid fasion. History - Adult longitudinal Past medical history: Reports: Hypertension. Additional medical history: PTSD, Depression, Anxciety, and DM type 2 s/p now resolved Past surgical history: Reports: Cholecystectomy. Additional surgical history: Partial Hysterectomy Family history: Reports: Diabetes. Smoking status for patients 13 years old or older: Unknown,if ever smoked Allergies: Coded Allergies: Penicillins (RASH 07/28/20) tramadol (UNKNOWN 07/28/20) Review of Systems Constitutional: fatigue, lethargy, recent wt loss. Skin: Denies: abrasion, bruising, contusion. Allergy/Immun: Denies: allergic reaction, hives, itching. Eyes: Denies: redness, diplopia, eye pain. ENT: Denies: ear drainage, earache, hearing loss, nasal congestion, sore throat. Respiratory: Denies: non productive cough, pleuritic pain, SOB. Cardiovascular: Denies: chest pain, SHANNON (dyspnea on exertion), orthopnea, palpitations. GI: Reports: anorexia. Denies: abdominal pain, constipation, diarrhea, GERD, vomiting. : flank pain. Denies: dysuria. Musculoskeletal: Denies: arthritis, extremity pain. Endocrine: weight loss. Denies: cold intolerance, heat intolerance, polydipsia. Neuro: headache, weakness. Denies: confusion. Psych: anxiety. Denies: visual hallucination. Objective VS/I O: Last Documented: Result Date Time Temp 36.1 07/30 0700 Pulse Ox 100 07/30 0700 B/P 139/72 07/30 0700 B/P Mean 100 07/30 0700 Pulse 71 07/30 0700 Resp 16 07/30 0700 O2 Delivery Room air 07/28 2025 24 hour I O ending at 0700: 07/30 0700 07/29 1900 Intake Total 1735.00 125.00 Output Total Balance 1735.00 125.00 Intake, IV 1375.00 125.00 Intake, Oral 360 Number Voids 7 10 Patient Weight Weight (lb): 184 Weight (oz): 8.43 Weight (kg): 83.700 General appearance: obese, alert, awake, oriented, no acute distress, no respiratory distress Head/Eyes: clear cornea, EOMI, normocephalic ENT: normal nose, moist mucosal membranes Neck: full range of motion, non-tender, no JVD Cardiovascular: regular rate rhythm, normal heart sounds Respiratory: clear to auscultation, no distress Extremities: moves all, no edema Musculoskeletal: full range of motion, normal inspection Neuro/MANUFACTURING ENGINEER CHIEF: alert, oriented X 3 Skin: dry, intact Lymphatics: axilla normal Psychiatry: normal affect, normal judgment/insight, normal mood Diagnosis, Assessment Plan Free Text A P: # Severe Hypoglycemia refractory of initial medical therapy # h/o weight loss (100 lbs) # Poor Calorie Malnutrition Comment: HGB A1C: 4.8% Additional labs are pending Ms. Dayanara Yarbrough is a 40 year old female with PMH of focal seizures, DM type 2 at young age -- resolved, PTSD, Depression, and anxiety who was transfer for hypoglycemia from unknown etiology. Endocrinology was consulted to assisted with care and to start workup for hypoglycemia. At this time, patient is having severe hypoglycemia. Based on the HPI, paitent likely is having hypoglycemia for poor calorie malnutrition for extend period of time with rapid weight loss (High on differential) vs side effect of enalapril ( low on differential) vs insulin producing tumor (low on differential due to rapid time of symtpoms and onset; usually a more gradual picture) vs other idopathic etiologies. Initial lab workup was sent overnight; however Endocrinology will need to verify. Repeat of lab workup will be sent this morning as well. Will await labworkup priro to initial of steroids or other therapy to help in transition off dextorse solution. In addition, will change dextrose solution to D10W- 1/2 NS at 100 cc/hr. Due to possible refeed syndrome based on history, will give one banana bag as well. Will need nutritional consult and possible oral supplementation as well. When patient has ate adequate meals, will start transition of gtts. Plan; - Labs: ACTH, Cortisol, C-peptide, Proinsulin, Beta Hydroxybutyrate, WATTERS Screen, BMP, and insulin levels (should of been obtain overnight). Repeat in the morning of ACTH, Cortisol, insulin level, and c-peptide level. - C/w q1-2 hour monitoring of blood glucoses - Transition dextrose gtt to D10W-1/2NS at 100 cc/hr - Give 1 bag -- Bannana bag to replace vitamin and nutritions as well - Nutrition consult; apperciate recommendation for meals and supplementations thrapy - Proceed with dextorse weaning this afternoon Thank you for the consult. Endocrinology is on-board Dr. Juan Silva Endocrinology at 0809 RPT #: [id number] END OF REPORT [facility] 2020-07-29 12:24:00 [facility] ([facility]) Pulmonary Consultation Note REPORT#:[id number] REPORT STATUS: Signed DATE:07/29/20 TIME:1224 PATIENT: DAYANARA YARBROUGH UNIT #: [id number] ROOM/BED: ICU05-1 : 76 AGE: 40 SEX: F ATTEND: Dave Raymond MD ADM AUTHOR: Elton Sandoval MD * ALL edits or amendments must be made on the electronic/computer document * History of Present Illness HPI Requesting clinician: Dr. Raymond Reason for consult: altered mental status hypoglycemia Chief complaint: confusion HPI: Ms. Yarbrough is a 40 y/o woman with history of HTN and HPL who presented from OSH with hypoglycemia, given D50 and started on d10 drip, with improvemntin mentation and glucose levels. Currently patient is bed awake and alert, reports a headache. History - Adult longitudinal Past medical history: Reports: Hypertension. Smoking status for patients 13 years old or older: Unknown,if ever smoked Allergies: Coded Allergies: Penicillins (RASH 07/28/20) tramadol (UNKNOWN 07/28/20) Review of Systems Constitutional: Denies: chills, fatigue, fever. Skin: Denies: bruising. Allergy/Immun: Denies: anaphylaxis. Eyes: Denies: discharge. ENT: Denies: mouth pain. Respiratory: Denies: pneumonia, productive cough (sputum), SOB, wheezing. Cardiovascular: Denies: chest pain, SHANNON (dyspnea on exertion), edema. GI: Denies: abdominal pain, nausea, rectal pain. Musculoskeletal: Arthritis: Denies: bilateral. Heme: Denies: bleeding. Endocrine: Reports: other (low blood sugar). Neuro: Reports: headache. Objective Physical Exam: VS/I O: Last Documented: Result Date Time B/P 114/61 07/29 1001 B/P Mean 82 07/29 1001 Pulse 67 07/29 1001 Resp 19 07/29 1001 Temp 36.2 07/29 0700 O2 Delivery Room air 07/28 2025 Pulse Ox 100 07/28 1910 24 hour I O ending at 0700: 07/29 0700 07/28 1900 Intake Total 750.00 Output Total Balance 750.00 Intake, IV 750.00 Number Voids 3 Patient 83.7 kg 75.3 kg Weight Weight Bed scale Standing scale Measurement Method Patient Weight Weight (lb): 184 Weight (oz): 8.43 Weight (kg): 83.700 Medications: Active Meds + DC'd Last 24 Hrs Acetaminophen/Butalbital/Caff eine 1 TAB Q4H PRN PRN PO Glucagon 1 MG ONCE ONE IM (DC) Glucagon 1 MG ONCE ONE IM (DC) Dextrose/Water 50 ML ONCE ONE IV (DC) Dextrose/Water 50 ML PRN PRN IV Dextrose/Water 1,000 ML .Q8H IV Dextrose/Water 0 .STK-MED ONE IV (DC) Iopamidol 100 ML ONCE PRN IV Sodium Chloride 50 ML ONCE PRN IV Docusate Sodium 100 MG Q12H PRN PRN PO Ondansetron HCl 4 MG Q4H PRN PRN IV Potassium Chloride 100 ML X1ED STA IV (DC) Dextrose/Sodium Chloride 1,000 ML X1ED STA IV (DC) Dextrose/Water 0 .STK-MED ONE IV (DC) Levofloxacin/Dextrose 100 ML X1ED ONE IV (DC) Naloxone HCl 0.8 MG X1ED STA IV (DC) Sodium Chloride 2,259 ML X1ED STA IV (DC) General appearance: obese, alert, awake, oriented, no acute distress, no respiratory distress Head/Eyes: atraumatic, normocephalic, PERRL ENT: normal dentition Neck: full range of motion, non-tender Cardiovascular: normal heart sounds, normal S1/S2, regular rate rhythm, no murmur, no rub, no gallop Respiratory/chest: aerating well, clear to auscultation, symmetric expansion, no distress, no tenderness, dyspnea, tachypnea Abdomen: soft, non-tender, no distention, no guarding Extremities: moves all, no cyanosis, no edema, no pedal edema Musculoskeletal: no muscle spasm Neuro/MANUFACTURING ENGINEER CHIEF alert Skin: dry, intact Results: Findings/Data: Laboratory Tests 07/29/20 0520: [Embedded Image Not Available] 07/28/20 1700: [Embedded Image Not Available] Laboratory Tests 07/28 1632 Blood Gas Puncture Site (DESCRIPTION ARTKIT) Left Radial ABG pH (7.35 - 7.45 pH units) 7.38 ABG pCO2 (35 - 45 mmHg) 34 L ABG pO2 (80 - 100 mmHg) 98 ABG HCO3 (22.0 - 26.0 mmol/L) 19.8 L ABG O2 Saturation (90 - 100 %) 98 ABG Base Excess (-3.0 - 3.0 mmol/L) -4.5 L Jahaira Test (POSITIVE Circ.CHK) Yes Hgb O2 Saturation (95.0 - 100.0 % (batool)) 96.4 Carboxyhemoglobin (0.5 - 1.5 %) 1.2 Methemoglobin (0.0 - 0.0 %) 0.1 H Total Hemoglobin (12.0 - 18.0 GRAM/DL) 13.7 Vent Mode (Vent Mode Descript) Room Air FiO2 (21 - 100 % e) 21 Laboratory Tests 07/29 07/29 07/29 07/29 07/29 1125 1028 0856 0758 0702 Chemistry POC Glucose (70 - 110 mg/dL) 59 L 69 L 65 L 73 34 *L 07/29 07/29 07/29 0520 0520 0520 Chemistry Sodium (134 - 147 mmol/L) 143 Potassium (3.4 - 5.0 mmol/L) 3.4 Chloride (100 - 108 mmol/L) 119 H Carbon Dioxide (21 - 32 mmol/L) 21 Anion Gap (4.0 - 15.0 GAP calc) 3.0 L BUN (7 - 18 MG/DL) 9 Creatinine (0.6 - 1.0 MG/DL) 0.5 L Glomerular Filtr Rate (>60 estGFR) >=60 max estimate Glucose (70 - 110 MG/DL) 77 Hemoglobin A1c (0.0 - 5.7 % A1C) 4.8 Estim Average Glucose (MG/DLest) 91 Calcium (8.5 - 10.1 MG/DL) 8.0 L Total Bilirubin (0.2 - 1.2 MG/DL) 0.40 AST (15 - 37 Unit/L) 14 L ALT (12 - 78 Unit/L) 21 Total Alk Phosphatase (45 - 117 Unit/L) 47 Total Protein (6.4 - 8.2 G/DL) 5.4 L Albumin (3.4 - 5.0 G/DL) 2.8 L Globulin (GM/dL) 2.6 Albumin/Globulin Ratio (1.2 - 2.2 RATIO) 1.1 L TSH (0.340 - 4.820 mcIU/ML) 1.510 07/29 07/29 07/29 07/29 07/29 0513 0500 0404 0306 0113 Chemistry POC Glucose (70 - 110 mg/dL) 120 H 23 *L 46 L 54 L 46 L 07/29 07/28 07/28 07/28 07/28 0024 2326 2218 2055 2024 Chemistry POC Glucose (70 - 110 mg/dL) 48 L 92 32 *L 83 31 *L 07/28 07/28 07/28 07/28 1920 1816 1718 1700 Chemistry Sodium (134 - 147 mmol/L) 144 Potassium (3.4 - 5.0 mmol/L) 3.1 L Chloride (100 - 108 mmol/L) 118 H Carbon Dioxide (21 - 32 mmol/L) 20 L Anion Gap (4.0 - 15.0 GAP calc) 6.0 BUN (7 - 18 MG/DL) 11 Creatinine (0.6 - 1.0 MG/DL) 0.6 Glomerular Filtr Rate (>60 estGFR) >=60 max estimate Glucose (70 - 110 MG/DL) 35 *L POC Glucose (70 - 110 mg/dL) 52 L 45 L Lactic Acid (0.4 - 2.0 mmol/L) 1.7 Calcium (8.5 - 10.1 MG/DL) 8.3 L Total Creatine Kinase (26 - 192 45 Unit/L) Troponin I (0.000 - 0.045 NG/ML) < 0.015 07/28 07/28 1655 1604 Chemistry POC Glucose (70 - 110 mg/dL) 27 *L 117 H Laboratory Tests 07/29 07/28 0520 1700 Hematology WBC (3.5 - 11.0 K/mm3) 6.9 11.0 RBC (4.70 - 6.10 M/mm3) 4.05 L 4.30 L Hgb (10.4 - 14.9 G/DL) 13.2 14.1 Hct (31.5 - 44.1 %) 38.7 40.5 MCV (84.5 - 98.6 Fl) 95.6 94.2 MCH (27.0 - 34.2 pg) 32.6 32.8 MCHC (31.5 - 34.0 G/DL) 34.1 H 34.8 H RDW (11.5 - 14.5 SD) 13.0 12.9 Plt Count (150 - 450 K/mm3) 177 239 MPV (7.0 - 10.5 fL) 9.30 9.20 Neut % (Auto) (40 - 76 %) 69.6 Lymph % (Auto) (20.5 - 51.1 %) 18.7 L Shannon % (Auto) (1.7 - 9.3 %) 9.1 Eos % (Auto) (0.0 - 6.0 %) 1.7 Baso % (Auto) (0.0 - 2.0 %) 0.3 Neut # (Auto) (1.8 - 7.6 K/mm3) 4.8 Lymph # (Auto) (0.6 - 3.2 K/mm3) 1.3 Shannon # (Auto) (0.3 - 1.1 K/mm3) 0.6 Eos # (Auto) (0.0 - 0.4 K/mm3) 0.1 Baso # (Auto) (0.0 - 0.1 K/mm3) 0.0 Abs Immat Gran (auto) (0.00 - 0.03 x10 3/uL) 0.04 H Add Manual Diff (CRITERIA DIFF/SCN) NO Immature Gran % (0.0 - 5.0 %) 0.6 Nucleated RBC % (0.0 - 1.0 /100WBC%) 0.0 Laboratory Tests 07/28 1700 Miscellaneous Maternal Serum HCG (0 - 6 mi-IU/ML) < 1 Laboratory Tests 07/28 1820 Serology SARS-CoV-2 Ag (Rapid) (Negative) NEGATIVE Laboratory Tests 07/28 07/28 1815 1700 Toxicology Urine Opiates Screen (<2000 NG/ML SCcutoff) NEGATIVE Urine Methadone Screen (<300 NG/ML SCcutoff) NEGATIVE Urine Barbiturates (<200 NG/ML SCcutoff) POSITIVE H Ur Phencyclidine Scrn (<25 NG/ML SCcutoff) NEGATIVE Ur Amphetamines Screen (<1000 NG/ML SCcutoff) NEGATIVE U Benzodiazepines Scrn (<200 NG/ML SCcutoff) NEGATIVE Urine Cocaine Screen (<300 NG/ML SCcutoff) NEGATIVE Urine Cannabinoids (<50 NG/ML SCcutoff) NEGATIVE Ethyl Alcohol (0 - 10 MG/DL) 4 Radiology Data: Recent Impressions: RADIOLOGY - XR CHEST 1 V 07/28 1627 Report Impression - Status: SIGNED Entered: 07/28/2020 1640 Impression: 1. Normal one view chest x-ray. Impression By: Boni Alexander M.D. CAT SCAN - CT HEAD/BRAIN W/O CONT 07/28 1845 Report Impression - Status: SIGNED Entered: 07/28/2020 1905 IMPRESSION: No acute findings on noncontrast study. Impression By: Liza Block M.D. Diagnosis, Assessment Plan Free Text DxA P Notes Free Text DxA P Notes: Impressions: Idiopathic hypoglycemia Hypertension Recommendations: Wean off D10 drip to D5W Maintain blood glucose more than 70 Continue with PRN D50 to maintain blood glucose more than 70 Glucose supplementation with diet and juice Endocrinology consultation pending Resume antihypertensive medications from home DVT prophylaxis Full code at 1240 RPT #: [id number] END OF REPORT [facility] 2020-07-29 10:21:00 [facility] Hospitalist Progress Note REPORT#:[id number] REPORT STATUS: Signed DATE:07/29/20 TIME:1021 PATIENT: DAYANARA YARBROUGH UNIT #: [id number] ROOM/BED: [place] [address] : 78 AGE: 40 SEX: F ATTEND: Dave Raymond MD ADM AUTHOR: Dave Raymond MD * ALL edits or amendments must be made on the electronic/computer document * Subjective Chief Complaint: Feeling slightly better More awake Objective General VS/I O: Vital Signs: Date Time Temp Pulse Resp B/P B/P Pulse O2 O2 Flow FiO2 Mean Ox Delivery Rate 07/29 1001 67 19 114/61 82 07/29 0901 67 16 140/78 102 07/29 0800 63 19 110/66 84 07/29 0701 71 2 126/60 86 07/29 0700 97.2 07/29 0400 97.5 07/29 0200 73 17 93/55 70 07/29 0100 71 18 114/55 77 07/29 0015 67 17 117/57 80 07/29 0000 97.5 07/29 0000 64 17 122/64 87 07/28 2345 65 20 111/57 78 07/28 2331 63 17 122/64 86 07/28 2315 67 17 97/51 70 07/28 2300 64 17 97/54 73 07/28 2245 67 13 101/50 72 07/28 2230 73 18 104/53 77 07/28 2215 66 17 115/56 80 07/28 2200 63 18 116/57 80 07/28 2145 66 17 119/61 84 07/28 2130 69 23 134/67 94 07/28 2115 69 23 126/66 90 07/28 2100 60 12 119/61 85 07/28 2025 98.0 142/69 93 Room air 07/28 2022 142/69 96 07/28 1910 97.2 60 16 94/51 65 100 Room air 07/28 1818 61 18 104/58 73 98 Room air 07/28 1709 63 20 104/55 71 98 Room air 07/28 1607 100 07/28 1556 97.8 60 16 106/61 76 100 Room air 24 hour I O ending at 0700: 07/29 0700 07/28 1900 Intake Total 750.00 Output Total Balance 750.00 Intake, IV 750.00 Number Voids 3 Patient 185 lb 166 lb Weight Weight Bed scale Standing scale Measurement Method Patient Weight Weight (lb): 184 Weight (oz): 8.43 Weight (kg): 83.700 Medications: Active Meds + DC'd Last 24 Hrs Glucagon 1 MG ONCE ONE IM (DC) Glucagon 1 MG ONCE ONE IM (DC) Dextrose/Water 50 ML ONCE ONE IV (DC) Dextrose/Water 50 ML PRN PRN IV Dextrose/Water 1,000 ML .Q8H IV Dextrose/Water 0 .STK-MED ONE IV (DC) Iopamidol 100 ML ONCE PRN IV Sodium Chloride 50 ML ONCE PRN IV Docusate Sodium 100 MG Q12H PRN PRN PO Ondansetron HCl 4 MG Q4H PRN PRN IV Potassium Chloride 100 ML X1ED STA IV (DC) Dextrose/Sodium Chloride 1,000 ML X1ED STA IV (DC) Dextrose/Water 0 .STK-MED ONE IV (DC) Levofloxacin/Dextrose 100 ML X1ED ONE IV (DC) Naloxone HCl 0.8 MG X1ED STA IV (DC) Sodium Chloride 2,259 ML X1ED STA IV (DC) Physical Exam General appearance: alert, awake, oriented HEENT : normocephalic ,Atraumatic Eyes: Eyes normal inspection. ENT: Dry mucous membranes present. Neck: Normal inspection. Neck supple. CVS: Normal heart rate and rhythm. Heart sounds normal. Respiratory: No respiratory distress. Breath sounds normal. Abdomen: Soft and nontender. Genitourinary: no bladder distention Back: Normal inspection. Skin: Skin warm. Normal skin color. No rash. Extremities: No lower extremity edema. Neuro: Oriented X 3. No motor deficit No generalized lymph adenopathy Psych anxious Results Findings/Data: Laboratory Tests 07/28 1632 Blood Gas Puncture Site (DESCRIPTION ARTKIT) Left Radial ABG pH (7.35 - 7.45 pH units) 7.38 ABG pCO2 (35 - 45 mmHg) 34 L ABG pO2 (80 - 100 mmHg) 98 ABG HCO3 (22.0 - 26.0 mmol/L) 19.8 L ABG O2 Saturation (90 - 100 %) 98 ABG Base Excess (-3.0 - 3.0 mmol/L) -4.5 L Jahaira Test (POSITIVE Circ.CHK) Yes Hgb O2 Saturation (95.0 - 100.0 % (batool)) 96.4 Carboxyhemoglobin (0.5 - 1.5 %) 1.2 Methemoglobin (0.0 - 0.0 %) 0.1 H Total Hemoglobin (12.0 - 18.0 GRAM/DL) 13.7 Vent Mode (Vent Mode Descript) Room Air FiO2 (21 - 100 % e) 21 Laboratory Tests 07/29 07/29 07/29 07/29 07/29 0856 0747 0702 0520 0520 Chemistry POC Glucose (70 - 110 mg/dL) 65 L 73 34 *L Hemoglobin A1c (0.0 - 5.7 % A1C) 4.8 Estim Average Glucose (MG/DLest) 91 TSH (0.340 - 4.820 mcIU/ML) 1.510 07/29 07/29 07/29 0520 0513 0500 Chemistry Sodium (134 - 147 mmol/L) 143 Potassium (3.4 - 5.0 mmol/L) 3.4 Chloride (100 - 108 mmol/L) 119 H Carbon Dioxide (21 - 32 mmol/L) 21 Anion Gap (4.0 - 15.0 GAP calc) 3.0 L BUN (7 - 18 MG/DL) 9 Creatinine (0.6 - 1.0 MG/DL) 0.5 L Glomerular Filtr Rate (>60 estGFR) >=60 max estimate Glucose (70 - 110 MG/DL) 77 POC Glucose (70 - 110 mg/dL) 120 H 23 *L Calcium (8.5 - 10.1 MG/DL) 8.0 L Total Bilirubin (0.2 - 1.2 MG/DL) 0.40 AST (15 - 37 Unit/L) 14 L ALT (12 - 78 Unit/L) 21 Total Alk Phosphatase (45 - 117 Unit/L) 47 Total Protein (6.4 - 8.2 G/DL) 5.4 L Albumin (3.4 - 5.0 G/DL) 2.8 L Globulin (GM/dL) 2.6 Albumin/Globulin Ratio (1.2 - 2.2 RATIO) 1.1 L 07/29 07/29 07/29 07/29 07/28 0404 0306 0113 0024 2326 Chemistry POC Glucose (70 - 110 mg/dL) 46 L 54 L 46 L 48 L 92 07/28 07/28 07/28 07/28 07/28 2218 2056 2025 1920 1816 Chemistry POC Glucose (70 - 110 mg/dL) 32 *L 83 31 *L 52 L 45 L 07/28 07/28 07/28 07/28 1718 1700 1655 1604 Chemistry Sodium (134 - 147 mmol/L) 144 Potassium (3.4 - 5.0 mmol/L) 3.1 L Chloride (100 - 108 mmol/L) 118 H Carbon Dioxide (21 - 32 mmol/L) 20 L Anion Gap (4.0 - 15.0 GAP calc) 6.0 BUN (7 - 18 MG/DL) 11 Creatinine (0.6 - 1.0 MG/DL) 0.6 Glomerular Filtr Rate (>60 estGFR) >=60 max estimate Glucose (70 - 110 MG/DL) 35 *L POC Glucose (70 - 110 mg/dL) 27 *L 117 H Lactic Acid (0.4 - 2.0 mmol/L) 1.7 Calcium (8.5 - 10.1 MG/DL) 8.3 L Total Creatine Kinase (26 - 192 45 Unit/L) Troponin I (0.000 - 0.045 NG/ML) < 0.015 Laboratory Tests 07/29 07/28 0520 1700 Hematology WBC (3.5 - 11.0 K/mm3) 6.9 11.0 RBC (4.70 - 6.10 M/mm3) 4.05 L 4.30 L Hgb (10.4 - 14.9 G/DL) 13.2 14.1 Hct (31.5 - 44.1 %) 38.7 40.5 MCV (84.5 - 98.6 Fl) 95.6 94.2 MCH (27.0 - 34.2 pg) 32.6 32.8 MCHC (31.5 - 34.0 G/DL) 34.1 H 34.8 H RDW (11.5 - 14.5 SD) 13.0 12.9 Plt Count (150 - 450 K/mm3) 177 239 MPV (7.0 - 10.5 fL) 9.30 9.20 Neut % (Auto) (40 - 76 %) 69.6 Lymph % (Auto) (20.5 - 51.1 %) 18.7 L Shannon % (Auto) (1.7 - 9.3 %) 9.1 Eos % (Auto) (0.0 - 6.0 %) 1.7 Baso % (Auto) (0.0 - 2.0 %) 0.3 Neut # (Auto) (1.8 - 7.6 K/mm3) 4.8 Lymph # (Auto) (0.6 - 3.2 K/mm3) 1.3 Shannon # (Auto) (0.3 - 1.1 K/mm3) 0.6 Eos # (Auto) (0.0 - 0.4 K/mm3) 0.1 Baso # (Auto) (0.0 - 0.1 K/mm3) 0.0 Abs Immat Gran (auto) (0.00 - 0.03 x10 3/uL) 0.04 H Add Manual Diff (CRITERIA DIFF/SCN) NO Immature Gran % (0.0 - 5.0 %) 0.6 Nucleated RBC % (0.0 - 1.0 /100WBC%) 0.0 Laboratory Tests 07/28 1700 Miscellaneous Maternal Serum HCG (0 - 6 mi-IU/ML) < 1 Laboratory Tests 07/28 1820 Serology SARS-CoV-2 Ag (Rapid) (Negative) NEGATIVE Laboratory Tests 07/28 07/28 1815 1700 Toxicology Urine Opiates Screen (<2000 NG/ML SCcutoff) NEGATIVE Urine Methadone Screen (<300 NG/ML SCcutoff) NEGATIVE Urine Barbiturates (<200 NG/ML SCcutoff) POSITIVE H Ur Phencyclidine Scrn (<25 NG/ML SCcutoff) NEGATIVE Ur Amphetamines Screen (<1000 NG/ML SCcutoff) NEGATIVE U Benzodiazepines Scrn (<200 NG/ML SCcutoff) NEGATIVE Urine Cocaine Screen (<300 NG/ML SCcutoff) NEGATIVE Urine Cannabinoids (<50 NG/ML SCcutoff) NEGATIVE Ethyl Alcohol (0 - 10 MG/DL) 4 Radiology data: Recent Impressions: RADIOLOGY - XR CHEST 1 V 07/28 1627 Report Impression - Status: SIGNED Entered: 07/28/2020 1640 Impression: 1. Normal one view chest x-ray. Impression By: [email or web address] Justice Alexander M.D. CAT SCAN - CT HEAD/BRAIN W/O CONT 07/28 1845 Report Impression - Status: SIGNED Entered: 07/28/2020 1905 IMPRESSION: No acute findings on noncontrast study. Impression By: Liza Block M.D. Diagnosis, Assessment Plan Problem List/A P: 1. Hypoglycemia 2. Altered mental status 3. Hypokalemia Free Text DxA P Notes Free text DxA P notes: Acute encephalopathy possibly metabolic Recurrent hypoglycemia Hyperlipidemia Hypertension Hypokalemia Hypocalcemia Plan Monitor under telemetry Continue D10 infusion Monitor blood sugar closely We will get a C-peptide assay We will also get this CT of the abdomen pelvis CT head negative COVID-19 test is negative Monitor under telemetry GI/DVT prophylaxis Advanced directive full code Monitor under telemetry Still has recurrent hypoglycemia Continue D10 D50 as needed Endocrinology consult C-peptide assay is pending CT abdomen pelvis still pending We will get repeat lactic acid and UA Continue home medications and titrate as needed GI/DVT prophylaxis at 1819 RPT #: [id number] END OF REPORT [facility] 2020-07-28 18:57:00 [facility]) Hospitalist History Physical REPORT#:[id number] REPORT STATUS: Signed DATE:07/28/20 TIME:1856 PATIENT: DAYANARA YARBROUGH UNIT #: [id number] ROOM/BED: ICU05-1 : 78 AGE: 40 SEX: F ATTEND: Dave Raymond MD ADM AUTHOR: Dave Raymond MD * ALL edits or amendments must be made on the electronic/computer document * History of Present Illness HPI Chief complaint: AMS HPI: 40-year-old female who was transferred from outside ER for altered mental status and recurrent hypoglycemia . history is limited secondary to patient's altered mental status. Gathered from sending facility and from EMS. Transferred from [facility] for hypoglycemia and altered mental status. Per sending physician, patient has been known to have occasional idiopathic hypoglycemic episodes. Reportedly patient with hypoglycemia at [facility] today. Required multiple doses of D50 and a D5 drip. Transferred here for further care. History Smoking status for patients 13 years old or older: Unknown,if ever smoked Medication/Allergy-Vaccine Hx Home Medications: DULoxetine DR (CYMBALTA) 30 MG PO DAILY ENALAPRIL (VASOTEC) 2.5 MG PO DAILY POTASSIUM CHLORIDE 20 MEQ PO BID Allergies: Coded Allergies: Penicillins (RASH 07/28/20) tramadol (UNKNOWN 07/28/20) Unable to obtain: past medical history, past surgical history, family history, smoking history, social history Review of Systems Unable to obtain due to: AMS Objective General VS/I O: Vital Signs: Date Time Temp Pulse Resp B/P B/P Pulse O2 O2 Flow FiO2 Mean Ox Delivery Rate 07/28 1818 61 18 104/58 73 98 Room air 07/28 1709 63 20 104/55 71 98 Room air 07/28 1607 100 07/28 1556 97.8 60 16 106/61 76 100 Room air Patient Weight Weight (lb): Weight (oz): Weight (kg): 75.300 Medications: Active Meds + DC'd Last 24 Hrs Docusate Sodium 100 MG Q12H PRN PRN PO Ondansetron HCl 4 MG Q4H PRN PRN IV Potassium Chloride 100 ML X1ED STA IV Dextrose/Sodium Chloride 1,000 ML X1ED STA IV Dextrose/Water 0 .STK-MED ONE IV (DC) Levofloxacin/Dextrose 100 ML X1ED ONE IV (DC) Naloxone HCl 0.8 MG X1ED STA IV (DC) Sodium Chloride 2,259 ML X1ED STA IV (DC) Physical Exam General appearance: Drowsy. HEENT : normocephalic ,Atraumatic Eyes: Eyes normal inspection. ENT: Dry mucous membranes present. Neck: Normal inspection. Neck supple. CVS: Normal heart rate and rhythm. Heart sounds normal. Respiratory: No respiratory distress. Breath sounds normal. Abdomen: Soft and nontender. Genitourinary: no bladder distention Back: Normal inspection. Skin: Skin warm. Normal skin color. No rash. Extremities: No lower extremity edema. Neuro: drowsy but arousable No generalized lymph adenopathy Psych unable to assess Results Findings/Data: Laboratory Tests 07/28 1632 Blood Gas Puncture Site (DESCRIPTION ARTKIT) Left Radial ABG pH (7.35 - 7.45 pH units) 7.38 ABG pCO2 (35 - 45 mmHg) 34 L ABG pO2 (80 - 100 mmHg) 98 ABG HCO3 (22.0 - 26.0 mmol/L) 19.8 L ABG O2 Saturation (90 - 100 %) 98 ABG Base Excess (-3.0 - 3.0 mmol/L) -4.5 L Jahaira Test (POSITIVE Circ.CHK) Yes Hgb O2 Saturation (95.0 - 100.0 % (batool)) 96.4 Carboxyhemoglobin (0.5 - 1.5 %) 1.2 Methemoglobin (0.0 - 0.0 %) 0.1 H Total Hemoglobin (12.0 - 18.0 GRAM/DL) 13.7 Vent Mode (Vent Mode Descript) Room Air FiO2 (21 - 100 % e) 21 Laboratory Tests 07/28 07/28 07/28 07/28 1816 1718 1700 1655 Chemistry Sodium (134 - 147 mmol/L) 144 Potassium (3.4 - 5.0 mmol/L) 3.1 L Chloride (100 - 108 mmol/L) 118 H Carbon Dioxide (21 - 32 mmol/L) 20 L Anion Gap (4.0 - 15.0 GAP calc) 6.0 BUN (7 - 18 MG/DL) 11 Creatinine (0.6 - 1.0 MG/DL) 0.6 Glomerular Filtr Rate (>60 estGFR) >=60 max estimate Glucose (70 - 110 MG/DL) 35 *L POC Glucose (70 - 110 mg/dL) 45 L 27 *L Lactic Acid (0.4 - 2.0 mmol/L) 1.7 Calcium (8.5 - 10.1 MG/DL) 8.3 L Total Creatine Kinase (26 - 192 45 Unit/L) Troponin I (0.000 - 0.045 NG/ML) < 0.015 07/28 1604 Chemistry POC Glucose (70 - 110 mg/dL) 117 H Laboratory Tests 07/28 1700 Hematology WBC (3.5 - 11.0 K/mm3) 11.0 RBC (4.70 - 6.10 M/mm3) 4.30 L Hgb (10.4 - 14.9 G/DL) 14.1 Hct (31.5 - 44.1 %) 40.5 MCV (84.5 - 98.6 Fl) 94.2 MCH (27.0 - 34.2 pg) 32.8 MCHC (31.5 - 34.0 G/DL) 34.8 H RDW (11.5 - 14.5 SD) 12.9 Plt Count (150 - 450 K/mm3) 239 MPV (7.0 - 10.5 fL) 9.20 Laboratory Tests 07/28 1700 Miscellaneous Maternal Serum HCG (0 - 6 mi-IU/ML) < 1 Laboratory Tests 07/28 1820 Serology SARS-CoV-2 Ag (Rapid) (Negative) NEGATIVE Laboratory Tests 07/28 07/28 1815 1700 Toxicology Urine Opiates Screen (<2000 NG/ML SCcutoff) NEGATIVE Urine Methadone Screen (<300 NG/ML SCcutoff) NEGATIVE Urine Barbiturates (<200 NG/ML SCcutoff) POSITIVE H Ur Phencyclidine Scrn (<25 NG/ML SCcutoff) NEGATIVE Ur Amphetamines Screen (<1000 NG/ML SCcutoff) NEGATIVE U Benzodiazepines Scrn (<200 NG/ML SCcutoff) NEGATIVE Urine Cocaine Screen (<300 NG/ML SCcutoff) NEGATIVE Urine Cannabinoids (<50 NG/ML SCcutoff) NEGATIVE Ethyl Alcohol (0 - 10 MG/DL) 4 Radiology data: Recent Impressions: RADIOLOGY - XR CHEST 1 V 07/28 1627 Report Impression - Status: SIGNED Entered: 07/28/2020 1640 Impression: 1. Normal one view chest x-ray. Impression By: Boni Alexander M.D. Diagnosis, Assessment Plan Problem List/A P: 1. Hypoglycemia 2. Altered mental status 3. Hypokalemia Free Text DxA P Notes Free text DxA P notes: Acute encephalopathy possibly metabolic Recurrent hypoglycemia Hyperlipidemia Hypertension Hypokalemia Hypocalcemia Plan Monitor under telemetry Continue D10 infusion Monitor blood sugar closely We will get a C-peptide assay We will also get this CT of the abdomen pelvis CT head negative COVID-19 test is negative Monitor under telemetry GI/DVT prophylaxis Advanced directive full code at 1823 RPT #: [id number] END OF REPORT [facility] 2020-07-28 16:19:00 [id number] [address] PATIENT NAME: DAYANARA YARBROUGH ADMIT DATE: 07/28/20 ACCOUNT NO: [id number] ROOM NO: ICU05 AGE: 40 REPORT TYPE: eELECTROCARDIOGRAM SEX: F ADMITTING PHYSICIAN: Dave Raymond MD ATTENDING PHYSICIAN: Dave Raymond MD Order: [id number] Test Reason : (Not Selected) Test Date/Time Stamp: SunJul 28 2020 16:19:08 Blood Pressure : 106/057 mmHG Vent. Rate : 057 BPM Atrial Rate : 057 BPM P-R Int : 168 ms QRS Dur : 086 ms QT Int : 466 ms P-R-T Axes : 030 052 050 degrees QTc Int : 453 ms Sinus bradycardia Cannot rule out Anterior infarct , age undetermined Abnormal ECG No previous ECGs available Confirmed by MD Hawa, Flakita ([id number]) on 07/31/2020 9:18:05 AM Referred By: Self Referred Confirmed by:Flakita Shaikh MD at 0918 PATIENT NAME: DAYANARA YARBROUGH [facility] 2020-07-28 16:11:00 [facility] ([facility]) EMERGENCY PROVIDER REPORT REPORT#:[id number] REPORT STATUS: Signed DATE:07/28/20 TIME:1611 PATIENT: DAYANARA YARBROUGH UNIT #: [id number] ROOM/BED: [place].ICU05-1 : 78 AGE: 40 SEX: F PCP PHYS: No Primary or Family Physician SERVICE AUTHOR: Marin Mckeon MD * ALL edits or amendments must be made on the electronic/computer document * HPI-Altered Mental Status General Confirmed Patient Yes Initial Greet Date/Time 07/28/20 1559 Presentation Chief Complaint Decreased alertness Onset of Sx (Nursing) Date: 07/28/20 Last Known Well Other Unknown when last well Hx Obtained From sending facility Unable to Obtain Hx Altered mental status Free Text HPI Notes Free Text HPI Notes History is limited secondary to patient's altered mental status. Gathered from sending facility and from EMS. Transferred from [facility] for hyperglycemia and altered mental status. Per sending physician, patient has been known to have occasional idiopathic hypoglycemic episodes. Reportedly patient with hypoglycemia at [facility] today. Required multiple doses of D50 and a D5 drip. Transferred here for further care. On arrival patient is sleeping and poorly arousable. Satting well with normal vitals otherwise. Presentation glucose here was in the 120s. Review of Systems ROS Statements All systems rev neg except as marked. Unable to Obtain ROS Altered mental status Past Medical History - Adult Stated Complaint [facility] HYPOGLYCEMIA Allergies Coded Allergies: Penicillins (RASH 07/28/20) tramadol (UNKNOWN 07/28/20) Home Medications Reported Medications No Known Home Medications Smoking status for patients 13 years old or older: Unknown,if ever smoked Physical Exam Vital Signs Vital Signs First Documented: Result Date Time Pulse Ox 100 07/28 1556 B/P 106/61 07/28 1556 B/P Mean 76 07/28 1556 O2 Delivery Room air 07/28 1556 Temp 36.6 07/28 1556 Pulse 60 07/28 1556 Resp 16 07/28 1556 Last Documented: Result Date Time Pulse Ox 98 07/28 1709 B/P 104/55 07/28 1709 B/P Mean 71 07/28 1709 O2 Delivery Room air 07/28 1709 Pulse 63 07/28 170 Resp 20 07/28 170 Temp 36.6 07/28 1556 Review of Vital Signs Reviewed Focused PE General/Const General/Const pale, sleeping and mildly arousable. slow to respond to questions. MS Head Head Atraumatic, Normocephalic Eyes Eyes Atraumatic, PERRL, EOMI, No scleral icterus Ears/Nose/Throat Ears/Nose/Throat Atraumatic, Airway patent, Mucous membranes moist, Pharynx NL MS Neck Neck Atraumatic, Supple, No meningismus, Full range of motion, No swelling, Non-tender, No midline vertebral tend, No masses, No carotid bruit, Thyroid NL Resp/Chest Respiratory/Chest Breath sounds NL, Breath sounds = bilat, No respiratory distress, No rales, No rhonchi, No wheezing Cardiovascular Cardiovascular Heart rate NL, Regular rhythm, Heart sounds NL, Peripheral circulation NL Abdomen/GI Abdomen/GI Soft, Non-tender, No guarding, No rebound MS Back Back Inspection NL, Non-tender, No CVA tenderness Skin Skin Color NL, No rash, Warm, Dry, Turgor NL Neurologic Neurologic CN II - XII intact, sleeping, mildly arousable. generalized weakness without focal defecits. Psychiatric Psychiatric Not suicidal, Not homicidal Interpretation Diagnostics Lab Results Interpretation Results Laboratory Tests 07/28/201699: [Embedded Image Not Available] Laboratory Tests: 07/28 07/28 07/28 1718 1700 1655 Chemistry Sodium (134 - 147 mmol/L) 144 Potassium (3.4 - 5.0 mmol/L) 3.1 L Chloride (100 - 108 mmol/L) 118 H Carbon Dioxide (21 - 32 mmol/L) 20 L Anion Gap (4.0 - 15.0 GAP calc) 6.0 BUN (7 - 18 MG/DL) 11 Creatinine (0.6 - 1.0 MG/DL) 0.6 Glomerular Filtr Rate (>60 estGFR) >=60 max estimate Glucose (70 - 110 MG/DL) 35 *L POC Glucose (70 - 110 mg/dL) 27 *L Lactic Acid (0.4 - 2.0 mmol/L) 1.7 Calcium (8.5 - 10.1 MG/DL) 8.3 L Total Creatine Kinase (26 - 192 Unit/L) 45 Troponin I (0.000 - 0.045 NG/ML) < 0.015 Hematology WBC (3.5 - 11.0 K/mm3) 11.0 RBC (4.70 - 6.10 M/mm3) 4.30 L Hgb (10.4 - 14.9 G/DL) 14.1 Hct (31.5 - 44.1 %) 40.5 MCV (84.5 - 98.6 Fl) 94.2 MCH (27.0 - 34.2 pg) 32.8 MCHC (31.5 - 34.0 G/DL) 34.8 H RDW (11.5 - 14.5 SD) 12.9 Plt Count (150 - 450 K/mm3) 239 MPV (7.0 - 10.5 fL) 9.20 Miscellaneous Maternal Serum HCG (0 - 6 mi-IU/ML) < 1 Toxicology Ethyl Alcohol (0 - 10 MG/DL) 4 07/28 07/28 1632 1604 Blood Gas Puncture Site (DESCRIPTION ARTKIT) Left Radial ABG pH (7.35 - 7.45 pH units) 7.38 ABG pCO2 (35 - 45 mmHg) 34 L ABG pO2 (80 - 100 mmHg) 98 ABG HCO3 (22.0 - 26.0 mmol/L) 19.8 L ABG O2 Saturation (90 - 100 %) 98 ABG Base Excess (-3.0 - 3.0 mmol/L) -4.5 L Jahaira Test (POSITIVE Circ.CHK) Yes Hgb O2 Saturation (95.0 - 100.0 % (batool)) 96.4 Carboxyhemoglobin (0.5 - 1.5 %) 1.2 Methemoglobin (0.0 - 0.0 %) 0.1 H Total Hemoglobin (12.0 - 18.0 GRAM/DL) 13.7 Vent Mode (Vent Mode Descript) Room Air FiO2 (21 - 100 % e) 21 Chemistry POC Glucose (70 - 110 mg/dL) 117 H Microbiology: Date/Time Procedure - Status Source Growth 07/28 174 MRSA Screen - ORD NASAL 07/28 1700 Blood Culture - RECD BLOOD 07/28 1700 Blood Culture - RECD BLOOD Recent Impressions: RADIOLOGY - XR CHEST 1 V 07/28 1627 Report Impression - Status: SIGNED Entered: 07/28/2020 1640 Impression: 1. Normal one view chest x-ray. Impression By: Boni Alexander M.D. ECG #1 Interpretation Text/Dict Note EKG performed at 1619. Ventricular rate is 57 bpm. Sinus bradycardia, normal axis, no STEMI. Re-Evaluation MDM Free Text MDM Notes Free Text MDM Notes Patient with waxing and waning recurring hypoglycemic episodes. Fluctuates between being alert and oriented and p.o. tolerant to be poorly responsive and pale. Improved to baseline when glucose is within normal limits. D50 given here and placed on D5 drip. Sleeping but arousable. Airway intact and satting 100%. Will admit to ICU for frequent checks. Hospitalist updated and aware. Agrees with plan and disposition. )( Re-Evaluation/Progress #1 Time of Re-Eval 1806 )( Re-Eval Status Improved ED Course Medication(s) Ordered Medication(s) Ordered: Anti-Infective Agents Sig/Ede Start time Last Medication Dose Route Stop Time Status Admin Levofloxacin/Dextrose 100 ML X1ED ONE 07/28 1615 DC 07/28 IV 07/28 1714 1703 Central Nervous System Agents Sig/Ede Start time Last Medication Dose Route Stop Time Status Admin Naloxone HCl 0.8 MG X1ED STA 07/28 1609 DC IV 07/28 1610 Electrolytic, Caloric, And Irene Sig/Ede Start time Last Medication Dose Route Stop Time Status Admin Potassium Chloride 100 ML X1ED STA 07/28 1734 AC IV 07/28 1933 Dextrose/Sodium 1,000 ML X1ED STA 07/28 1707 AC 07/28 Chloride IV 07/28 2206 1712 Dextrose/Water 0 .STK-MED ONE 07/28 1657 DC 07/28 IV 1701 Sodium Chloride 2,259 ML X1ED STA 07/28 1608 DC 07/28 IV 07/28 1609 1705 Gastrointestinal Drugs Sig/Ede Start time Last Medication Dose Route Stop Time Status Admin Docusate Sodium 100 MG Q12H PRN PRN 07/28 1745 AC PO 08/27 1744 Ondansetron HCl 4 MG Q4H PRN PRN 07/28 1745 AC IV 08/27 1744 Patient Discharge Departure Vital Signs/Condition Vital Signs First Documented: Result Date Time Pulse Ox 100 07/28 1556 B/P 106/61 07/28 1556 B/P Mean 76 07/28 1556 O2 Delivery Room air 07/28 1556 Temp 36.6 07/28 1556 Pulse 60 07/28 1556 Resp 16 07/28 1556 Last Documented: Result Date Time Pulse Ox 98 07/28 1709 B/P 104/55 07/28 1709 B/P Mean 71 07/28 1709 O2 Delivery Room air 07/28 1709 Pulse 63 07/28 1709 Resp 20 07/28 1709 Temp 36.6 07/28 1556 All vital signs available at the time of this entry have been reviewed. Condition Critical Clinical Impression Clinical Impression Primary Impression: Hypoglycemia Secondary Impressions: Altered mental status, Hypokalemia Time of Impression 180 Disposition Decision Admit Admit Physician Name Dave Raymond MD Admit Physician Hospitalist Request Time 1739 Request Date 07/28/20 )( Admission Accepts Yes )( Accepted Time 1739 )( Accepted Date 07/28/20 Call Information will see patient, agrees with eval, agrees with plan Discharge/Care Plan Counseled Regarding Diagnosis, Lab results, Imaging studies, Need for admission, Need for follow-up, When to return to ED (Auto) Prescriptions Current Visit Scripts No Known Home Medications Admit Note I have spoken with the patient and/or caregivers. I have explained the patient's condition, diagnoses and treatment plan based on the information available to me at this time. I have answered the patient's and/or caregiver's questions and addressed any concerns. The patient and/or caregivers have as good an understanding of the patient's diagnosis, condition and treatment plan as can be expected at this point. The patient has been stabilized within the capability of the emergency department. The patient will be transported for further care and management or will be moved to an observation or inpatient service. I have communicated with the staff or medical practitioner taking over this patient's care. Critical Care Time Spent (minutes): 48 Services Performed Patient management by me, Time spent at bedside, Reviewing test results, Reviewing imaging, Discussing patient care, Documentation in record Separately billable procedures excluded from time. Patient was critically ill due to: Altered mental status, hypoglycemia. My treatment and management were: Hydration, frequent reassessments, D5 drip, D50 administration CC Note 1 Total critical care time [48] minutes. Total critical care time documented does not include time spent on separately billed procedures or the services of residents, students, nurses or physician assistants. I personally saw and examined the patient. I have reviewed all diagnostic interpretations and treatment plans as written. I was present for the ballard portions of any procedures performed and the inclusive time noted in any critical care statement. Critical care time includes patient management by me, time spent at the patients bedside, time to review lab and imaging results, discussing patient care, documentation in the medical record, and time spent with the family or caregiver. at 0747 RPT #: [id number] END OF REPORT [facility]
[2024-08-26 09:12] LABS: Absolute Eosinophils 0.1 K/uL (0-0.5); Absolute Lymphocytes (CBC) 2.1 K/uL (0.7-4.9); Absolute Monocytes 0.7 K/uL (0.1-1.3); Absolute Neutrophil 5.2 K/uL (1.8-8.0); Basophils % 0.5 % (0-1.3); Eosinophils % 1.7 % (0-4.4); Hematocrit 43.5 % (36.0-45.0); Hemoglobin 14.6 g/dL (12.0-15.0); Lymphocytes % 25.1 % (15.3-44.8); MCHC 33.6 g/dL (32.0-36.0); MCV 89.4 fL (80-100); MPV 7.7 fL (7.6-11.3); Monocytes % 8.9 % (3.3-12.3); Neutrophils % 63.8 % (41.7-73.7); Platelets 288 thou/uL (152-406); RBC Red Blood Cell Count 4.86 M/uL (3.86-4.86); Red Cell Distribution Width 13.7 % (12.1-15.2)
--- NOTE | 2024-08-26 09:25 | RAD REPORT ---
EXAMINATION: CTA CHEST PE CLINICAL INDICATION: Chest pain TECHNIQUE: 100 cc 370 Isovue administered intravenously. This examination was performed according to an angiographic protocol with 3D post-processing. This involves 3D reconstructions, MIPs, volume rendered images and/or shaded surface rendering. One or more of the following dose reduction techniqu es were used: Automated exposure control, adjustment of the mA and/or kV according to patient size, and/or iterative reconstruction. Unless otherwise specified, incidental findings do not require dedic ated imaging follow-up. [id number]. COMPARISON: No prior exam. FINDINGS: A pulmonary embolus is not seen. An aortic dissection not noted. No pleural effusion. No pericardial effusion. Calcified granuloma left lower lobe. The most inferior slice demonstrates mild stranding within the abdomen in the peripancreatic region. IMPRESSION: No evidence of a pulmonary embolism The most inferior slice demonstrates mild stranding within the abdomen in the peripancreatic region.. This is incompletely evaluated on this exam. This may indicate pancreatitis and should be correlated with appropriate labs
[2024-08-26 09:28] LABS: ALT/SGPT 37 U/L (13-56); AST/SGOT 16 U/L (15-37); Albumin 3.4 g/dL (3.4-5.0); Albumin/Globulin Ratio 0.9 (1.1-1.8); Alkaline Phosphatase 72 U/L (45-117); Anion Gap 6.9 mEq/L (5.0-15.0); BUN Blood Urea Nitrogen 22 mg/dL (7-18); Bicarbonate 25 mEq/L (21-32); Bilirubin Total 0.3 mg/dL (0.2-1.0); Globulin 3.7 g/dL (2.3-3.5); Glomerular Filtration Rate 87 ml/min (=/>90); Glucose Level 100 mg/dL (74-106); Magnesium 2.2 mg/dL (1.6-2.4); NT PRO-BNP 20 pg/mL (<125); Potassium 3.9 mEq/L (3.5-5.1); Protein, Total 7.1 g/dL (6.4-8.2); Sodium Level 138 mEq/L (136-145); Troponin High Sensitivity 3.9 pg/mL (<58.9)
[2024-08-26 09:29] LABS: Bilirubin Direct < 0.2 mg/dL (0-0.2); Bilirubin Indirect, Calculated 0.1 mg/dL (0.2-0.8)
[2024-08-26 09:37] LABS: PT Prothrombin Time 12.1 SECONDS (9.4-12.5); Protime INR 1.08
--- NOTE | 2024-08-26 11:48 | EDPHYS ---
Physician Documentation [facility] Name: Roxane Mayfield Age: 44 yrs Sex: Female : 1980 Arrival Date: 08/26/2024 Time: 08:27 Bed 13 Private MD: ED Physician Radha Lan HPI: 08/26 08:47 This 44 yrs old Female presents to ER via Ambulatory with complaints of Chest pain. sp3 08:47 44-year-old female with a history of hypertension, distant polysubstance abuse now sp3 arrives by private vehicle sent by primary care physician at [facility] for chief complaint chest pain for 3 days which has gotten worse over the last 12 to 15 hours since yesterday evening. Patient describes pain as left-sided and sharp in nature. She denies any shortness of breath, back pain, right-sided chest pain, fever, URI symptoms, cough, prolonged immobilization, recent travel history, known sick contacts, syncope, near syncope, rash, GI symptoms including abdominal pain, vomiting and diarrhea, or any other signs or symptoms on ROS at this time.. Historical: - Allergies: 08:47 PENICILLINS; hb 08:47 tramadol; hb - Home Meds: 08:47 Topamax Oral [Active]; Sumatriptan [Active]; venlafaxine oral [Active]; carvedilol oral hb [Active]; tizanidine oral [Active]; - PMHx: 08:47 POLYSUBSTANCE ABUSE; Seizures; Hypertension; hb - PSHx: 08:47 Cholecystectomy; section; Partial Hysterectomy; hb - Immunization history:: Adult Immunizations up to date. - Infectious Disease History:: Denies. - Social history:: Smoking status: Patient reports the use of cigarette tobacco products, smokes one pack cigarettes per day. ROS: 08:48 Constitutional: Negative for fever, chills, and weight loss, Eyes: Negative for injury, sp3 pain, redness, and discharge, ENT: Negative for injury, pain, and discharge, Neck: Negative for injury, pain, and swelling, Respiratory: Negative for shortness of breath, cough, wheezing, and pleuritic chest pain, Abdomen/GI: Negative for abdominal pain, nausea, vomiting, diarrhea, and constipation, Back: Negative for injury and pain, MS/Extremity: Negative for injury and deformity, Skin: Negative for injury, rash, and discoloration, Neuro: Negative for headache, weakness, numbness, tingling, and seizure, Psych: Negative for depression, anxiety, suicide ideation, homicidal ideation, and hallucinations, Allergy/Immunology: Negative for hives, rash, and allergies, Endocrine: Negative for neck swelling, polydipsia, polyuria, polyphagia, and marked weight changes, Hematologic/Lymphatic: Negative for swollen nodes, abnormal bleeding, and unusual bruising, 08:48 All other systems are negative, Exam: 08:48 Constitutional: This is a well developed, well nourished patient who is awake, alert, sp3 and in no acute distress. Head/Face: Normocephalic, atraumatic. Eyes: Pupils equal round and reactive to light, extra-ocular motions intact. Lids and lashes normal. Conjunctiva and sclera are non-icteric and not injected. Cornea within normal limits. Periorbital areas with no swelling, redness, or edema. ENT: Nares patent. No nasal discharge, no septal abnormalities noted. External auditory canals are clear. Oropharynx with no redness, swelling, or masses, exudates, or evidence of obstruction, uvula midline. Mucous membranes moist. Neck: Trachea midline, no thyromegaly or masses palpated, and no cervical lymphadenopathy. Supple, full range of motion without nuchal rigidity, or vertebral point tenderness. No Meningismus. Chest/axilla: Normal chest wall appearance and motion. Nontender with no deformity. No lesions are appreciated. Cardiovascular: Regular rate and rhythm with a normal S1 and S2. No gallops, murmurs, or rubs. Normal PMI, no JVD. No pulse deficits. Respiratory: Lungs have equal breath sounds bilaterally, clear to auscultation and percussion. No rales, rhonchi or wheezes noted. No increased work of breathing, no retractions or nasal flaring. Abdomen/GI: Soft, non-tender, with normal bowel sounds. No distension or tympany. No guarding or rebound. No evidence of tenderness throughout. Back: No spinal tenderness. No costovertebral tenderness. Full range of motion. Skin: Warm, dry with normal turgor. Normal color with no rashes, no lesions, and no evidence of cellulitis. MS/ Extremity: Pulses equal, no cyanosis. Neurovascular intact. Full, normal range of motion. Neuro: Awake and alert, GCS 15, oriented to person, place, time, and situation. Cranial nerves II-XII grossly intact. Motor strength 5/5 in all extremities. Sensory grossly intact. Cerebellar exam normal. Normal gait. Psych: Awake, alert, with orientation to person, place and time. Behavior, mood, and affect are within normal limits. 08:59 ECG was reviewed by the Attending Physician. EKG demonstrates normal sinus rhythm at 68 sp3 bpm with normal intervals, normal QRS, normal axis, normal ST's ST segments without evidence of acute ischemia. Vital Signs: 08:32 BP 154 / 101; Pulse 75; Resp 16; Temp 98.3(O); Pulse Ox 100% on R/A; Weight 113.4 kg; hb Height 5 ft. 7 in. ; Pain 4/10; 09:30 BP 119 / 84; Pulse 64; Resp 18; Pulse Ox 99% on R/A; db 10:00 BP 135 / 83; Pulse 54; Resp 18; Pulse Ox 99% on R/A; db 11:00 BP 141 / 95; Pulse 60; Resp 18; Pulse Ox 99% on R/A; db 11:30 BP 131 / 90; Pulse 58; Resp 18; Pulse Ox 98% on R/A; db 08:32 Body Mass Index 39.16 (113.40 kg, 170.18 cm) hb 08:32 Pain Scale: Adult hb MDM: 08:31 Patient medically screened. sp3 08:48 Data reviewed: vital signs, nurses notes, old medical records, lab test result(s), EKG, sp3 radiologic studies. ED course: 44-year-old female with chest pain. Differential diagnosis includes musculoskeletal pain, acute coronary syndrome, pulmonary embolism, other aortic pathology, infectious pathology including pleurisy, GI pathology including esophagitis and/or gastritis, among others. Workup will include EKG, CT scan of the chest PE protocol, laboratory values including troponin and general supportive care. Will hold on pain medication given patient's history. Disposition pending workup and patient course.. 11:43 ED course: Laboratory values all within normal limits and CT scan of the chest sp3 demonstrates no PE or other chest abnormality. Mild streaking of the pancreas noted along with gastric wall thickening. I will refer patient to GI for further follow-up. Lipase is normal. Full vital signs are also normal. Patient still with mild episodic pain. Will put her on Protonix for discharge.. 08/26 08:38 Order name: Basic Metabolic Panel; Complete Time: 10:08 sp3 08/26 08:38 Order name: CBC with Diff; Complete Time: 09:29 sp3 08/26 08:38 Order name: LFT's; Complete Time: 10:08 sp3 08/26 08:38 Order name: Magnesium; Complete Time: 10:08 sp3 08/26 08:38 Order name: NT PRO-BNP; Complete Time: 10:08 sp3 08/26 08:38 Order name: PT-INR; Complete Time: 10:08 sp3 08/26 08:38 Order name: Troponin HS; Complete Time: 10:08 sp3 08/26 09:30 Order name: Lipase; Complete Time: 10:08 sp3 08/26 09:30 Order name: Lactate w/ 2H reflex if indic.; Complete Time: 10:08 3 08/26 08:38 Order name: CT Chest For PE Angio; Complete Time: 09:29 sp3 08/26 09:30 Order name: CT Abd/Pelvis - IV Contrast Only sp3 08/26 08:38 Order name: EKG; Complete Time: 08:39 sp3 08/26 08:38 Order name: Cardiac monitoring; Complete Time: 09:21 sp3 08/26 08:38 Order name: EKG - Nurse/Tech; Complete Time: 09:09 sp3 08/26 08:38 Order name: IV Saline Lock; Complete Time: 08:55 sp3 08/26 08:38 Order name: Labs collected and sent; Complete Time: 08:55 sp3 08/26 08:38 Order name: O2 Per Protocol; Complete Time: 08:55 sp3 08/26 08:38 Order name: O2 Sat Monitoring; Complete Time: 08:55 sp3 08/26 09:09 Order name: Labs - recollect needed: recollect blue top; Complete Time: 09:32 bd Administered Medications: No medications were administered Disposition Summary: 08/26/24 11:47 Discharge Ordered Notes: Location: Home sp3 Condition: Stable sp3 Diagnosis - Gastritis, chest pain sp3 Followup: sp3 - With: Private Physician - When: Upon discharge from the Emergency Department - Reason: Continuance of care Followup: sp3 - With: [place] MD - When: Upon discharge from the Emergency Department - Reason: Continuance of care Discharge Instructions: - Discharge Summary Sheet sp3 - Gastritis, Adult sp3 Forms: - Medication Reconciliation Form sp3 - Antibiotic Education sp3 - Prescription Opioid Use sp3 - Patient Portal Instructions sp3 - Leadership Thank You Letter sp3 Prescriptions: - Protonix 40 mg Oral Tablet - take 1 tablet ORAL route once daily; 30 tablet; Refills: 0, Product Selection sp3 Permitted Signatures: Dispatcher [employer] EDMS Nciole Cui Heather, RN RN Radha Lan MD MD sp3 Corrections: (The following items were deleted from the chart) 08:39 08:39 BASIC METABOLIC PANEL+C.LAB.BRZ ordered. EDMS EDMS 08:39 08:39 CBC+H.LAB.BRZ ordered. EDMS EDMS 08:39 08:39 HEPATIC FUNCTION+C.LAB.BRZ ordered. EDMS EDMS 08:39 08:39 MAGNESIUM+C.LAB.BRZ ordered. EDMS EDMS 08:39 08:39 PROBNP+C.LAB.BRZ ordered. EDMS EDMS 08:39 08:39 PROTIME (+INR)+COAG.LAB.BRZ ordered. EDMS EDMS 08:39 08:39 Troponin High Sensitivity+C.LAB.BRZ ordered. EDMS EDMS 09:31 09:31 LIPASE+C.LAB.BRZ ordered. EDMS EDMS 09:31 09:31 LACTATE+C.LAB.BRZ ordered. EDMS EDMS
--- NOTE | 2024-08-26 11:48 | ER ---
Nurse's Notes [facility] Name: Roxane Mayfield Age: 44 yrs Sex: Female : 1980 Arrival Date: 08/26/2024 Time: 08:27 Bed 13 Private MD: Diagnosis: Gastritis, chest pain Presentation: 08/26 08:32 Chief complaint: SOB, left sided chest pain that is worse with deep breathing, and hb dizziness x 3 days. Coronavirus screen: At this time, the client does not indicate any symptoms associated with coronavirus-19. Ebola Screen: No symptoms or risks identified at this time. Initial Sepsis Screen: Does the patient meet any 2 criteria? No. Patient's initial sepsis screen is negative. Does the patient have a suspected source of infection? No. Patient's initial sepsis screen is negative. Risk Assessment: Do you want to hurt yourself or someone else? Patient reports no desire to harm self or others. Onset of symptoms was August 23, 2024. 08:32 Method Of Arrival: Ambulatory hb 08:32 Acuity: CABRERA 3 hb Triage Assessment: 08:50 General: Appears in no apparent distress. Behavior is calm, cooperative. Pain: Pain hb currently is 4 out of 10 on a pain scale. Neuro: Level of Consciousness is awake, alert, obeys commands, Oriented to person, place, time, situation. Cardiovascular: Reports chest pain, lightheadedness, shortness of breath, Patient's skin is warm and dry. Respiratory: Reports shortness of breath on exertion Respiratory effort is even, unlabored, Respiratory pattern is regular, symmetrical. Historical: - Allergies: 08:47 PENICILLINS; hb 08:47 tramadol; hb - Home Meds: 08:47 Topamax Oral [Active]; Sumatriptan [Active]; venlafaxine oral [Active]; carvedilol oral hb [Active]; tizanidine oral [Active]; - PMHx: 08:47 POLYSUBSTANCE ABUSE; Seizures; Hypertension; hb - PSHx: 08:47 Cholecystectomy; section; Partial Hysterectomy; hb - Immunization history:: Adult Immunizations up to date. - Infectious Disease History:: Denies. - Social history:: Smoking status: Patient reports the use of cigarette tobacco products, smokes one pack cigarettes per day. Screenin:47 [facility] Fall Risk Assessment (Adult) History of falling in the last 3 months, db including since admission No falls in past 3 months (0 pts) Confusion or Disorientation No (0 pts) Intoxicated or Sedated No (0 pts) Impaired Gait No (0 pts) Mobility Assist Device Used No (0 pt) Altered Elimination No (0 pt) Score/Fall Risk Level 0 - 2 = Low Risk Oriented to surroundings, Maintained a safe environment. Abuse screen: Denies threats or abuse. Denies injuries from another. Nutritional screening: No deficits noted. Tuberculosis screening: No symptoms or risk factors identified. Assessment: 09:15 Reassessment: Patient appears in no apparent distress at this time. Patient and/or db family updated on plan of care and expected duration. Pain level reassessed. Patient is alert, oriented x 3, equal unlabored respirations, skin warm/dry/pink. 09:47 General: Appears in no apparent distress. comfortable, Behavior is calm, cooperative. db Neuro: Level of Consciousness is awake, alert, obeys commands, Oriented to person, place, time, situation. Respiratory: Airway is patent Respiratory effort is even, unlabored, Respiratory pattern is regular, symmetrical. 11:22 Reassessment: Patient appears in no apparent distress at this time. Patient and/or db family updated on plan of care and expected duration. Pain level reassessed. Patient is alert, oriented x 3, equal unlabored respirations, skin warm/dry/pink. General: Appears in no apparent distress. comfortable, Behavior is calm, cooperative. 12:04 Reassessment: Patient appears in no apparent distress at this time. Patient and/or db family updated on plan of care and expected duration. Pain level reassessed. Patient is alert, oriented x 3, equal unlabored respirations, skin warm/dry/pink. Patient states feeling better. Patient states symptoms have improved. Vital Signs: 08:32 BP 154 / 101; Pulse 75; Resp 16; Temp 98.3(O); Pulse Ox 100% on R/A; Weight 113.4 kg; hb Height 5 ft. 7 in. ; Pain 4/10; 09:30 BP 119 / 84; Pulse 64; Resp 18; Pulse Ox 99% on R/A; db 10:00 BP 135 / 83; Pulse 54; Resp 18; Pulse Ox 99% on R/A; db 11:00 BP 141 / 95; Pulse 60; Resp 18; Pulse Ox 99% on R/A; db 11:30 BP 131 / 90; Pulse 58; Resp 18; Pulse Ox 98% on R/A; db 08:32 Body Mass Index 39.16 (113.40 kg, 170.18 cm) hb 08:32 Pain Scale: Adult hb ED Course: 08:30 Patient arrived in ED. mg5 08:30 Radha Lan MD is Attending Physician. sp3 08:46 Triage completed. hb 08:48 Tamika Denton, RN is Primary Nurse. db 08:50 Arm band placed on. hb 09:06 CT Chest For PE Angio In Process Unspecified. EDMS 09:47 Patient has correct armband on for positive identification. Bed in low position. Call db light in reach. Side rails up X 1. Client placed on continuous cardiac and pulse oximetry monitoring. NIBP monitoring applied. telemetry monitor on. Pulse ox on. NIBP on. Pillow given. 09:47 No provider procedures requiring assistance completed. db 11:08 CT Abd/Pelvis - IV Contrast Only In Process Unspecified. EDMS 11:22 Provided Education on: labs and radiology. db 11:47 [place] MD is Referral Physician. sp3 12:04 IV discontinued, intact, bleeding controlled, No redness/swelling at site. db Administered Medications: No medications were administered Medication: 09:47 VIS not applicable for this client. db Outcome: 11:47 Discharge ordered by . sp3 12:04 Discharged to home ambulatory, db 12:04 Condition: stable 12:04 Discharge instructions given to patient, Instructed on discharge instructions, follow up and referral plans. Prescriptions given X 1, 12:04 Patient left the ED. db Signatures: Dispatcher [employer] EDMS Jessica Freitas RN RN Radha Lan MD MD sp3 Tamika Denton, RN RN db Laura Branham mg5 Corrections: (The following items were deleted from the chart) 09:47 09:15 Reassessment: Patient appears in no apparent distress at this time. Patient db and/or family updated on plan of care and expected duration. Pain level reassessed. Patient is alert, oriented x 3, equal unlabored respirations, skin warm/dry/pink. db
[2024-08-26 12:10] VITALS: TEMP 98.3
[2024-08-26 12:17] VITALS: BP 131/90; O2SAT 98
--- NOTE | 2024-08-28 17:00 | EKG ---
Test Date: 2024-08-26 Test Time: 08:55:19 Ct Manager: AF MEASUREMENT RESULTS: Intervals: Rate: 68 MI: 178 QRSD: 84 QT: 408 QTc: 433 [place]: P: 17 MI: 178 QRS: 2 T: 23 INTERPRETIVE STATEMENTS: Normal sinus rhythm Cannot rule out Anterior infarct, age undetermined Abnormal ECG Compared to ECG 12/15/2020 13:20:41 Myocardial infarct finding now present Electronically Signed On 08-28-24 16:52:35 CDT by Shai Neville
--- NOTE | 2024-09-03 09:16 | RAD REPORT ---
EXAMINATION: CT ABDOMEN AND PELVIS WITH CONTRAST CLINICAL INDICATION: Abdominal pain TECHNIQUE: CT abdomen and pelvis was performed, after the administration of Isovue-300.. Sagittal and coronal reconstructions were obtained. One or more of the following dose reduction techniques were used: Automated exposure control, adjustment of the mA and/or kV according to patient size, and/or iterative reconstruction. Unless otherwise specified, incidental findings do not require dedicated imaging follow-up. [id number]. Oral contrast was not given which limits evaluation of bowel and appendix. COMPARISON: 2016 FINDINGS: Mild stranding is present adjacent to the pancreas and stomach. The inferior wall of the gastric body is thickened.. 1 cm lymph node is present. Pancreas is normal size. Cholecystectomy Liver, spleen, adrenals and kidneys appear unremarkable Normal appendix. Small umbilical hernia. Hysterectomy. No worrisome adnexal mass. There is no evidence of diverticulitis : IMPRESSION: Mild stranding adjacent to the pancreas and stomach.. This may indicate pancreatitis. Given the thick ening of the the gastric wall another consideration is that this represents gastric pathology.
== END 2024-08-26 12:04 | disposition home or self-care (01) ==
LOC: ER 08:27
DX: K29.70 Gastritis, unspecified, without bleeding (principal); I10 Essential (primary) hypertension
CPT/HCPCS: 93005; 85025; 80048; 36415; 83735; 85610; 80076; 83605; 84484; 83690; 83880; 71275; 74177; 99284; Q9967 ×2